=== PATIENT | female | born 1935 | race Caucasian/White ===

== ENCOUNTER → 2016-05-08 | Outpatient (CLI) | payer OTHER ==
[~2016-05-08] MED LIST: BARLEY GRASS PO; CALCTAB5 PO; CHOL100027 PO; CYAN10004 PO; FISHOIL PO; GLC/500 PO; GLIM2TAB PO; GLUCTAB7 PO; KFL500 PO; LOSA25TA18 PO; LPT/40 PO; MULT-190 PO; ONDA4TAB65 PO; THY/30 PO
--- NOTE | 2016-05-08 16:49 | DIAGNOSTIC IMAGING REPORT ---
LEFT FOOT 3 VIEWS HISTORY: S91.309A Wound, open, foot COMPARISON: None. FINDINGS: There is no fracture or dislocation. Mild soft tissue swelling within the dorsal aspect of the forefoot. No bony erosions identified. No radiopaque foreign bodies. Plantar heel spur. IMPRESSION: No bony erosions. No fractures within the left foot. Electronically signed by: Ld Dash M.D. 05/08/2016 4:48 PM Dictated Date/Time: 05/08/2016 4:42 PM
== END | disposition home or self-care (01) ==
LOC: C.RAD1850 15:42
PROVIDERS: ATTEND Nurse Practitioner Adult Health
DX: S91.309A Unspecified open wound, unspecified foot, initial encounter (principal); X58.XXXA Exposure to other specified factors, initial encounter

== ENCOUNTER → 2016-08-12 | Outpatient (CLI) | payer OTHER ==
[2016-08-12 17:33] LABS: URINE APPEARANCE CLEAR (CLEAR); URINE BILIRUBIN NEG (NEG); URINE COLOR YELLOW; URINE NITRITE NEG (NEG); URINE PH 5.5 (4.5-7.5); URINE SPECIFIC GRAVITY 1.017 (1.000-1.030); UROBILINOGEN NEG (NEG); ZZUR CULT IF INDIC CLEAN CATCH NO
[2016-08-12 17:37] LABS: MANUAL MICROSCOPIC REQUIRED? NO; REVIEW REQ? NO
[2016-08-12 17:54] LABS: THYROID STIMULATING HORMONE 1.79 uIu/ml (0.300-4.500)
[2016-08-12 18:10] LABS: RATIO 71.9 mcg/mg (0-30.0)
[2016-08-13 06:34] LABS: ESTIMATED AVERAGE GLUCOSE 174 mg/dl; HA1C FLAG Normal (Normal)
== END | disposition home or self-care (01) ==
LOC: C.LABBFT 11:08
PROVIDERS: ATTEND Internal Medicine
DX: E11.9 Type 2 diabetes mellitus without complications (principal); E03.9 Hypothyroidism, unspecified; E55.9 Vitamin D deficiency, unspecified

== ENCOUNTER → 2016-12-21 | Outpatient (CLI) | payer OTHER ==
[2016-12-21 12:43] LABS: BASO % 0.5 %; BASO ABS # 0.04 K/uL (0-0.2); COMPLETE YES; EOS % 3.7 %; HEMATOCRIT 35.5 % (37-47); IG% 0.2 %; LYMPH % 21.8 %; LYMPH ABS # 1.88 K/uL (1.2-3.4); MEAN CORPUSCULAR HEMOGLOBIN 29.3 pg (25-34); MEAN CORPUSCULAR HGB CONC 31.8 g/dl (32-36); MEAN PLATELET VOLUME 10.8 fL (7.4-10.4); MONO % 7.1 %; NEUT % 66.7 %; PLATELET COUNT 271 K/uL (130-400); RED BLOOD COUNT 3.86 M/uL (4.2-5.4); WHITE BLOOD COUNT 8.62 K/uL (4.8-10.8)
[2016-12-21 13:07] LABS: ESTIMATED AVERAGE GLUCOSE 180 mg/dl; HA1C FLAG Normal (Normal)
[2016-12-21 13:08] LABS: ALT/SGPT 19 U/L (12-78); BLOOD UREA NITROGEN 19 mg/dl (7-18); BUN/CREATININE RATIO 20.4 (10-20); CALCIUM 9.2 mg/dl (8.5-10.1); CARBON DIOXIDE 26 mmol/L (21-32); CHLORIDE 107 mmol/L (98-107); CHOLESTEROL 130 mg/dl (0-200); CREATININE 0.93 mg/dl (0.60-1.20); GLUCOSE 149 mg/dl (70-99); POTASSIUM 4.6 mmol/L (3.5-5.1); SODIUM 140 mmol/L (136-145); TRIGLYCERIDES 152 mg/dl (0-150); VERY LOW DENSITY LIPOPROT CALC 30 mg/dl
[2016-12-21 13:11] LABS: ALB/GLOB RATIO 0.9 (0.9-2); ALKALINE PHOSPHATASE 101 U/L (45-117); AST/SGOT 14 U/L (15-37); CHOLESTEROL/HDL RATIO 2.7; HDL CHOLESTEROL 49 mg/dl; LDL CHOLESTEROL CALCULATED 51 mg/dl
[2016-12-21 14:16] LABS: LYME DISEASE AB IGG NEG (NEG)
[2016-12-21 14:19] LABS: LYME DISEASE AB IGM NEG (NEG)
== END | disposition home or self-care (01) ==
LOC: C.LABBFT 09:45
PROVIDERS: ATTEND Physician Assistant Medical
DX: D64.9 Anemia, unspecified (principal); E11.9 Type 2 diabetes mellitus without complications; E55.9 Vitamin D deficiency, unspecified; E78.00 Pure hypercholesterolemia, unspecified; T14.8 Other injury of unspecified body region; W57.XXXA Bitten or stung by nonvenomous insect and other nonvenomous arthropods, initial encounter

== ENCOUNTER → 2017-04-20 | Outpatient (CLI) | payer OTHER ==
[2017-04-21 06:26] LABS: HEMOGLOBIN A1C 8.4 % (4.5-5.6)
== END | disposition home or self-care (01) ==
LOC: C.LABBFT 11:37
PROVIDERS: ATTEND Internal Medicine
DX: E11.9 Type 2 diabetes mellitus without complications (principal)

== ENCOUNTER 2018-06-30 17:02 | Inpatient (IN) ==
[2018-06-30] MEDS ORDERED: SODIUM CHLORIDE 0.9% 1000ML 1,000 ML IV SCH (18:45)
[2018-06-30 18:57] LABS: Basophils # (auto) 0.05 K/uL (0-0.2); Basophils % (auto) 0.4 %; Hemoglobin 9.4 g/dL (12.0-16.0); Immature Granulocytes # (auto) 0.07 K/uL (0.00-0.02); Immature Granulocytes % (auto) 0.5 %; Lymphocytes # (auto) 2.55 K/uL (1.2-3.4); Lymphocytes % (auto) 19.2 %; Mean Corpuscular Hgb Conc 31.3 g/dL (32-36); Mean Corpuscular Volume 92.3 fL (80-100); Mean Platelet Volume 9.2 fL (7.4-10.4); Monocytes # (auto) 1.03 K/uL (0.11-0.59); Monocytes % (auto) 7.8 %; Neutrophils # (auto) 9.19 K/uL (1.4-6.5); Neutrophils % (auto) 69.1 %; Platelet Count 403 K/uL (130-400); RDW Standard Deviation 44.2 fL (36.4-46.3); Red Blood Count 3.25 M/uL (4.2-5.4); White Blood Count 13.29 K/uL (4.8-10.8)
[2018-06-30 19:13] LABS: Alanine Aminotransferase 16 U/L (12-78); Albumin Level 3.1 gm/dl (3.4-5.0); Aspartate Aminotransferase 10 U/L (15-37); BUN Creatinine Ratio 31.5 (10-20); Blood Urea Nitrogen 34 mg/dl (7-18); Carbon Dioxide 25 mmol/L (21-32); Chloride 105 mmol/L (98-107); Creatinine Clr Calc Pharmacy 29.5 ml/min; Est GFR (African American) 53.6; Est GFR (Non-African American) 46.3; Glucose 91 mg/dl (70-99); Magnesium 1.5 mg/dl (1.8-2.4); Potassium 4.8 mmol/L (3.5-5.1); Sodium 138 mmol/L (136-145)
[2018-06-30 19:18] LABS: Albumin Globulin Ratio 0.8 (0.9-2); Alkaline Phosphatase 125 U/L (45-117); Bilirubin,Total 0.2 mg/dl (0.2-1); Globulin 3.8 gm/dl (2.5-4.0); NT Pro B Type Natriuretic Pept 560 pg/ml (0-1800); Total Protein 6.9 gm/dl (6.4-8.2); Troponin I < 0.015 ng/ml (0-0.045)
[2018-06-30] MEDS ORDERED: VANCOMYCIN HCL 1,250 MG in SODIUM CHLORIDE 0.9% 500 ML IV ONE (20:04)
[2018-06-30] MEDS ORDERED: VANCOMYCIN CONSULT ACTIVE PRN (20:04)
[2018-06-30] MEDS ORDERED: VANCOMYCIN CONSULT ACTIVE ONE (20:04)
--- NOTE | 2018-06-30 20:54 | Ultrasound Report ---
BILATERAL LOWER EXTREMITY VENOUS DOPPLER CLINICAL HISTORY: Lower extremity edema. COMPARISON STUDY: Left lower extremity venous Doppler September 17 2014. Right lower extremity venous Dopp ler October 23, 2009. TECHNIQUE: Sonography of the deep venous system of the bilateral lower extremities was performed. Co mpression and augmentation were evaluated. FINDINGS: Exam was technically compromised due to suboptimal penetration. The bilateral common femor al, superficial femoral and popliteal veins were compressible. Augmentation was normal. Flow was show n within the deep calf vessels. IMPRESSION: Technically difficult but no evidence of deep venous thrombus within the bilateral lower extremities. Electronically signed by: Seth Espinoza M.D. 06/30/2018 8:53 PM
[2018-06-30] MEDS: MAGNESIUM SULFATE / D5W 1 GM/100 ML BAG IV SCH ×2 (20:58→22:53)
[2018-06-30] MEDS ORDERED: ACETAMINOPHEN 1,000 MG/100 ML VIAL IV STA (21:47)
--- NOTE | 2018-06-30 22:56 | History & Physical Report ---
Date of Service June 30, 2018 Assessment & Plan (1) Cellulitis of both lower extremities: Cellulitis of bilateral lower extremities/failure of outpatient treatment-- Patient was on Keflex initially and then doxycycline. Continue vancomycin IV begun in the ED. Add Zosyn IV due to history of diabetes and coverage of Pseudomonas. She does have some mild lower extremity edema and blebs, but overall does look dry, and we will not diurese at this time, but will need to be watched closely for recurrence in the future Present on Admission?: Yes (2) Failure of outpatient treatment: As above. Present on Admission?: Yes (3) Diabetes: Hold metformin. Continue glimepiride, but decreased dosing from 4 mg to 2 mg p.o. twice daily. Placed on Accu-Cheks before meals and at bedtime with NovoLog coverage for scale. Present on Admission?: Yes (4) Vitamin B12 deficiency: Continue supplement 1000 mcg p.o. daily. Present on Admission?: Yes (5) Hypertension: Continue losartan 25 mg p.o. daily Present on Admission?: Yes (6) Hypothyroidism (acquired): Continue [place] Thyroid 60 mg p.o. daily Present on Admission?: Yes (7) Bladder spasm: Continue oxybutynin 5 mg p.o. at bedtime. Present on Admission?: Yes (8) Obesity (BMI 30.0-34.9): Advised appropriate diet and exercise Present on Admission?: Yes (9) Hypomagnesemia: She was given 1 g IV placement by the ED Repeat laboratories in the a.m. Present on Admission?: Yes History of Present Illness Chief Complaint: The patient presented to the emergency department with worsening bilateral lower extremity redness despite treatment with Keflex then doxycycline. Primary Care Provider: JACQUES Lim The patient is an 83-year-old female with a past medical history including diabetes mellitus, hypertension, hypothyroidism, vitamin B12 deficiency who presents to the emergency department with worsening bilateral lower extremity cellulitis after having been on Keflex and then doxycycline. Allergies Allergy/AdvReac Type Severity Reaction Status Date / Time Sulfa (Sulfonamide Allergy Intermediate RASH Verified 05/20/18 22:02 Antibiotics) adhesive Allergy Unknown UNKNOWN Verified 05/20/18 22:02 aspirin Allergy Unknown Unknown Verified 05/20/18 22:02 Bactrim Allergy Unknown Nausea/Vomi Verified 09/17/14 19:04 ting/Rash iodine Allergy Unknown Unknown Verified 05/20/18 22:02 lisinopril Allergy Unknown Unknown Verified 05/20/18 22:02 prochlorperazine Allergy Unknown Unknown Verified 05/20/18 22:02 sulfamethoxazole Allergy Unknown Nausea/Vomi Verified 05/20/18 22:02 ting/Rash trimethoprim Allergy Unknown Nausea/Vomi Verified 05/20/18 22:02 ting/Rash tigecycline AdvReac Unknown Nausea/Vomi Verified 05/20/18 22:02 ting Home Medications Home Medications Medication Instructions Recorded Confirmed Type cholecalciferol (vitamin D3) 1,000 unit PO DAILY 05/04/18 06/30/18 History [Vitamin D3] cyanocobalamin (vitamin B-12) 1,000 mcg PO DAILY 05/04/18 06/30/18 History [Vitamin B-12] glimepiride 4 mg PO BID 05/04/18 06/30/18 History losartan 25 mg PO DAILY 05/04/18 06/30/18 History metformin 1,000 mg PO QPM 05/04/18 06/30/18 History metformin 500 mg PO DAILYBL 05/04/18 06/30/18 History oxybutynin chloride 5 mg PO HS 05/04/18 06/30/18 History thyroid (pork) [[place] Thyroid] 60 mg PO DAILY 05/04/18 06/30/18 History doxycycline hyclate 100 mg PO BID 06/30/18 06/30/18 History Past Med/Surg History Medical History Arthritis (Chronic) Rheumatic heart disease (Chronic) Diabetes (Chronic) Family History Other Family history non-contributory Social History Preferred Language: Armenian Feels Safe at Home: Yes Smoking Status: Never smoker Review of Systems The patient denies chest pain, palpitations, shortness of breath, dyspnea on exertion, cough, sore throat, fevers, chills, sweats, weight change, fatigue, nausea, vomiting, diarrhea , constipation, abdominal pain, pelvic pain, blood in urine or stool, dysuria, urinary frequency or urgency, lightheadedness, dizziness, headache, loss of consciousness, abnormal bruising or bleeding, imbalance, focal or generalized weakness, numbness or tingling in arms, generalized arthralgias or myalgias, back or neck pain, or night sweats. The review of systems is otherwise negative other than for that already noted above, and at least 10 systems have been reviewed. Physical Exam Vital Signs (Past 24 Hours): Last Vital Signs Temp 37 C 06/30/18 17:23 Pulse 103 H 06/30/18 21:04 Resp 20 06/30/18 21:04 BP 156/79 H 06/30/18 21:04 Pulse Ox 98 06/30/18 21:04 Physical Exam: The patient is awake, alert and oriented 3, well developed and well nourished, normocephalic and atraumatic, lying in bed and in no acute distress. HEENT--PERRL, EOMI, mucous membranes and oropharynx normal. Neck--supple. No JVD. No bruits. Thyroid normal, trachea midline, no adenopathy. Heart--normal S1 and S2. No murmurs, rubs or gallops. Lungs--clear bilaterally, no respiratory distress, no accessory muscle use. Abdomen--normal bowel sounds and soft. Nontender. Nondistended. Obese. Extremities--no cyanosis or clubbing. There is 1+ right greater than left pretibial pitting edema. There are good distal pulses b/l. Dermatologic--there is mild to moderate rash bilaterally extending from ankle to anterior tibial tuberosity bilaterally Neurologic--cranial nerves II through XII grossly intact. Rheumatologic--normal range of motion. Psychiatric--normal affect. Results & Data Laboratory Results Laboratory Results WBC 13.29 K/uL (4.8-10.8) H 06/30/18 18:48 RBC 3.25 M/uL (4.2-5.4) L 06/30/18 18:48 Hgb 9.4 g/dL (12.0-16.0) L 06/30/18 18:48 Hct 30.0 % (37-47) L 06/30/18 18:48 MCV 92.3 fL (80-100) 06/30/18 18:48 MCH 28.9 pg (25-34) 06/30/18 18:48 MCHC 31.3 g/dL (32-36) L 06/30/18 18:48 RDW Std Deviation 44.2 fL (36.4-46.3) 06/30/18 18:48 RDW Coeff of Sydnie 13.0 % (11.5-14.5) 06/30/18 18:48 Plt Count 403 K/uL (130-400) H 06/30/18 18:48 MPV 9.2 fL (7.4-10.4) 06/30/18 18:48 Immature Gran % (Auto) 0.5 % 06/30/18 18:48 Neut % (Auto) 69.1 % 06/30/18 18:48 Lymph % (Auto) 19.2 % 06/30/18 18:48 [place] % (Auto) 7.8 % 06/30/18 18:48 Eos % (Auto) 3.0 % 06/30/18 18:48 Baso % (Auto) 0.4 % 06/30/18 18:48 Immature Gran # (Auto) 0.07 K/uL (0.00-0.02) H 06/30/18 18:48 Neut # (Auto) 9.19 K/uL (1.4-6.5) H 06/30/18 18:48 Lymph # (Auto) 2.55 K/uL (1.2-3.4) 06/30/18 18:48 [place] # (Auto) 1.03 K/uL (0.11-0.59) H 06/30/18 18:48 Eos # (Auto) 0.40 K/uL (0-0.5) 06/30/18 18:48 Baso # (Auto) 0.05 K/uL (0-0.2) 06/30/18 18:48 Sodium 138 mmol/L (136-145) 06/30/18 18:48 Potassium 4.8 mmol/L (3.5-5.1) 06/30/18 18:48 Chloride 105 mmol/L (98-107) 06/30/18 18:48 Carbon Dioxide 25 mmol/L (21-32) 06/30/18 18:48 Anion Gap 7.0 (3-11) 06/30/18 18:48 BUN 34 mg/dl (7-18) H 06/30/18 18:48 Creatinine 1.09 mg/dl (0.6-1.2) 06/30/18 18:48 Est Cr Clr Drug Dosing 29.5 ml/min 06/30/18 18:48 Est GFR ( Amer) 53.6 06/30/18 18:48 Est GFR (Non-Af Amer) 46.3 06/30/18 18:48 BUN/Creatinine Ratio 31.5 (10-20) H 06/30/18 18:48 Glucose 91 mg/dl (70-99) 06/30/18 18:48 Calcium 9.0 mg/dl (8.5-10.1) 06/30/18 18:48 Magnesium 1.5 mg/dl (1.8-2.4) L 06/30/18 18:48 Total Bilirubin 0.2 mg/dl (0.2-1) 06/30/18 18:48 AST 10 U/L (15-37) L 06/30/18 18:48 ALT 16 U/L (12-78) 06/30/18 18:48 Alkaline Phosphatase 125 U/L (45-117) H 06/30/18 18:48 Troponin I < 0.015 ng/ml (0-0.045) 06/30/18 18:48 NT-Pro-B Natriuret Pep 560 pg/ml (0-1800) 06/30/18 18:48 Total Protein 6.9 gm/dl (6.4-8.2) 06/30/18 18:48 Albumin 3.1 gm/dl (3.4-5.0) L 06/30/18 18:48 Globulin 3.8 gm/dl (2.5-4.0) 06/30/18 18:48 Albumin/Globulin Ratio 0.8 (0.9-2) L 06/30/18 18:48 Diagnostic Findings [facility], [place] [phone] Ultrasound Report Patient: LORRAINE LAGUNAS Date: 06/30/18 MR#: [id number]: [address] Acct ID:[id number]: [facility] Zip: [place] [id number] Age: 83Location: ED Sex: F Room/Bed: Att Phy: Diagnosis: B/L PAIN SWELLING, HOT, CELLULITIS OF LEGS [place] Phy: Marly Calvillo CRNPService Date: 06/30/18 Fam Phy: Interpreting Phy: Seth Espinoza MD Admit Phy: Ordering Phy: Waleska Cutler, cc: ~ BILATERAL LOWER EXTREMITY VENOUS DOPPLER CLINICAL HISTORY: Lower extremity edema. COMPARISON STUDY: Left lower extremity venous Doppler September 17 2014. Right lower extremity venous Doppler October 23, 2009. TECHNIQUE: Sonography of the deep venous system of the bilateral lower extremities was performed. Compression and augmentation were evaluated. FINDINGS: Exam was technically compromised due to suboptimal penetration. The bilateral common femoral, superficial femoral and popliteal veins were compressible. Augmentation was normal. Flow was shown within the deep calf vessels. IMPRESSION: Technically difficult but no evidence of deep venous thrombus within the bilateral lower extremities. Electronically signed by: Seth Espinoza M.D. 06/30/2018 8:53 PM Dictated: 06/30/182051 Transcribed: 06/30/182051 Code Status & VTE Plan Code Status Full code VTE Prophylaxis Plan VTE Prophylaxis will be ordered: Yes
[2018-07-01] MEDS ORDERED: GLUCOSE 10 TABS/TUBE PO PRN (00:19)
[2018-07-01] MEDS ORDERED: ACETAMINOPHEN 1000 MG/100 ML IV IV PRN (00:19)
[2018-07-01] MEDS ORDERED: PIPERACILL/TAZOBAC CONSULT ACTIVE PRN (00:19)
[2018-07-01] MEDS ORDERED: POLYETHYLENE (MIRALAX) 17 GM PACK PO PRN (00:19)
[2018-07-01] MEDS ORDERED: GLUCAGON FOR INJ 1 MG VIAL SQ PRN (00:19)
[2018-07-01] MEDS ORDERED: DEXTROSE 50% 50 ML SYRINGE IV PRN (00:19)
[2018-07-01] MEDS ORDERED: CARBOHYDRATES FOR HYPOGLYCEMIA PO PRN (00:19)
[2018-07-01] MEDS ORDERED: GLUCOSE 40% GEL 15 GM TUBE PO PRN (00:19)
[2018-07-01] MEDS ORDERED: VANCOMYCIN CONSULT ACTIVE PRN (00:19)
[2018-07-01] MEDS ORDERED: ONDANSETRON INJ 2 MG/ML 2 ML VIAL IV PRN (00:19)
[2018-07-01] MEDS ORDERED: VANCOMYCIN HCL 1,000 MG/270 ML BAG IV STA (00:19)
[2018-07-01] MEDS ORDERED: PIPERACILLIN/TAZOBACTAM 3.375 GM in DEXTROSE 5% 100 ML IV ONE (00:35)
[2018-07-01] MEDS: PIPERACILLIN/TAZOBACTAM 3.375 GM in DEXTROSE 5% 100 ML IV SCH ×3 (05:21→21:11)
[2018-07-01 06:50] LABS: Basophils # (auto) 0.02 K/uL (0-0.2); Basophils % (auto) 0.2 %; Eosinophils # (auto) 0.33 K/uL (0-0.5); Eosinophils % (auto) 3.2 %; Hematocrit (blood only) 29.2 % (37-47); Hemoglobin 9.3 g/dL (12.0-16.0); Immature Granulocytes # (auto) 0.04 K/uL (0.00-0.02); Immature Granulocytes % (auto) 0.4 %; Lymphocytes # (auto) 1.61 K/uL (1.2-3.4); Lymphocytes % (auto) 15.6 %; Mean Corpuscular Hgb Conc 31.8 g/dL (32-36); Mean Corpuscular Volume 91.8 fL (80-100); Mean Platelet Volume 9.2 fL (7.4-10.4); Monocytes % (auto) 6.8 %; Neutrophils % (auto) 73.8 %; Platelet Count 380 K/uL (130-400); RDW Standard Deviation 43.9 fL (36.4-46.3); Red Blood Count 3.18 M/uL (4.2-5.4)
[2018-07-01 07:05] LABS: Partial Thromboplastin Time 27.6 Seconds (21.0-31.0); Prothrombin Time 10.4 Seconds (9.0-12.0)
[2018-07-01 07:28] LABS: Albumin Level 2.6 gm/dl (3.4-5.0); Calcium 8.3 mg/dl (8.5-10.1); Creatinine Clr Calc Pharmacy 30.8 ml/min; Est GFR (African American) 55.4; Est GFR (Non-African American) 47.8; Potassium 4.4 mmol/L (3.5-5.1)
[2018-07-01 07:31] LABS: Albumin Globulin Ratio 0.7 (0.9-2); Bilirubin,Total 0.3 mg/dl (0.2-1); Globulin 3.5 gm/dl (2.5-4.0); Total Protein 6.1 gm/dl (6.4-8.2)
[2018-07-01 07:38] LABS: Estimated Average Glucose 186 mg/dl; Hemoglobin A1C 8.1 % (4.5-5.6)
[2018-07-01] MEDS: LOSARTAN POTASSIUM 25 MG TAB PO SCH (07:45)
[2018-07-01] MEDS: CHOLECALCIFEROL 1,000 UNITS TAB PO SCH (07:46)
[2018-07-01] MEDS: GLIMEPIRIDE 2 MG TAB PO SCH ×2 (07:46→21:07)
[2018-07-01] MEDS: ARMOUR THYROID 30 MG TAB PO SCH (07:46)
[2018-07-01] MEDS: CYANOCOBALAMIN 500 MCG TABLET (VITAMIN B-12) PO SCH (07:46)
[2018-07-01] MEDS: INSULIN ASPART 100 UNITS/ML 3 ML PEN SC SCH ×4 (09:27→21:08)
[2018-07-01] MEDS: HEPARIN SOD 5,000 UNIT/0.5 ML VIAL SQ SCH ×2 (09:28→21:08)
--- NOTE | 2018-07-01 10:58 | Pharmacy Report ---
Pharmacy Abx Initial Consult - Date of Service July 01, 2018 - Pharmacy Dosing Scope Date of Consult: 07/01/18 Consultation requested by: Dr. Reyes Pharmacy is consulted to initiate Vancomycin and Zosyn IV dosing therapy, order appropriate labs and adjust drug dose/frequency. - Subjective The patient is a 83 year old F admitted on 06/30/18 22:53. - Objective Height: 4 ft 9 in Weight: 67.7 kg Vital Signs (Past 12hrs): Vital Signs Temp Pulse Pulse Resp BP Pulse Ox 07/01/18 08:02 36.7 C 101 H 20 143/70 H 95 07/01/18 00:19 36.6 C 104 H 18 131/91 93 06/30/18 23:48 106 H 17 182/52 H 97 06/30/18 23:00 100 H 19 94 Lab Results (24hrs): Laboratory Tests (24 Hours) 07/01/18 07/01/18 06/30/18 06:18 06:18 18:48 WBC 10.30 Neut # (Auto) 7.60 H Creatinine 1.06 1.09 Est Cr Clr Drug Dosing 30.8 29.5 06/30/18 18:48 WBC 13.29 H Neut # (Auto) 9.19 H Creatinine Est Cr Clr Drug Dosing Micro Results: 06/30/18 19:51 Blood Culture - Pending Blood 06/30/18 18:47 Blood Culture - Pending Blood - Risk Factors for Resistance * Antimicrobial use within the last 90 days - failed two outpt regimens, first Keflex 500mg TID X 10 days (06/13-06/23, unsure if completed), then Doxycycline 100mg BID X10 days (06/21-07/01, unsure if completed). - Assessment & Plan Assessment 83 year old F with a PMH of T2DM who presented to the ER with worsening bilateral lower extremity cellulitis after a 10 day course of Keflex and then doxycycline. Plan Vancomycin and Zosyn for treatment of bilateral extremity cellulitis. Vancomycin IV * Estimated PK Parameters: Vd 0.7 L/kg, George 0.029 hr-1, t1/2 24 hr * Loading dose: 1250 mg ( ~18 mg/kg) x1 in the ER. * Maintenance dose: 1000 mg IV (15 mg/kg) every 24 hours * Goal trough level : 10 to 15 mcg/mL * Started maintenance regimen earlier since LD was only about 18mg/kg. Anticipate that clearance may actually be faster than estimated kinetics. * Trough/Random level ordered for 07/03/18 before 4th dose at 1400. Piperacillin/tazobactam * 3.375 g bolus administered over 30 minutes, then 3.375 g IV extended infusion every 8 hours for CrCl greater than 20 mL/min. Pharmacy will continue to follow and will adjust dose/frequency as necessary. Thank you.
[2018-07-01] MEDS: VANCOMYCIN HCL 1,000 MG in SODIUM CHLORIDE 0.9% 250 ML IV SCH (13:54)
[2018-07-01] MEDS ORDERED: FUROSEMIDE 20 MG in SYRINGE 0 ML IV ONE (14:00)
--- NOTE | 2018-07-01 14:19 | Hospitalist Progress Note ---
Date of Service July 01, 2018 Assessment & Plan (1) Cellulitis of both lower extremities: More likely this is stasis dermatitis with skin erythema Patient was on Keflex initially and then doxycycline outpatient without change to condition Will continue IV Vanc and Zosyn begun on admission, if no growth on BC after 48 hours, will cut antibiotics Patient reports she has been non compliant with furosemide in the past because of urinary frequency keeping her from leaving the house. Will give 20 mg IV lasix now, prop legs up as much as possible, MARISELA hose. Patient also has not wanted to wear TEDs at home due to discomfort. She has pain in her feet with numbness - may consider some gabapentin but will see if a bit of diuresis to relieve the swelling helps first (2) Failure of outpatient treatment: As above. (3) Diabetes: Hold metformin. Continue glimepiride, but decreased dosing from 4 mg to 2 mg p.o. twice daily. Placed on Accu-Cheks before meals and at bedtime with NovoLog coverage for scale. (4) Vitamin B12 deficiency: Continue supplement 1000 mcg p.o. daily. (5) Hypertension: Continue losartan 25 mg p.o. daily (6) Hypothyroidism (acquired): Continue [place] Thyroid 60 mg p.o. daily (7) Bladder spasm: Continue oxybutynin 5 mg p.o. at bedtime. (8) Obesity (BMI 30.0-34.9): Advised appropriate diet and exercise (9) Hypomagnesemia: She was given 1 g IV placement by the ED Repeat laboratories in the a.m. (10) DVT prophylaxis: heparin subq, scds Subjective Ms. Sterling continues to have painful feet, edema and redness in her lower legs. Denies aches or chills or fever. Review of Systems All systems reviewed & are unremarkable except as noted in HPI & below Physical Exam Vital Signs (Past 24 Hours): Last Vital Signs Temp 36.7 C 07/01/18 08:02 Pulse 101 H 07/01/18 08:02 Resp 20 07/01/18 08:02 BP 143/70 H 07/01/18 08:02 Pulse Ox 95 07/01/18 08:02 Physical Exam: General: no distress Eyes: normal inspection, PERLL Respiratory: chest non tender, clear to auscultation, normal breath sounds, no respiratory distress, no accessory muscle use Cardiac: regular rate and rhythm, no rub or gallop, no murmur, +2 lower extremity edema R>L GI/: active bowel sounds, no abd pain or tenderness, soft, non distended Extremities: normal range of motion, normal strength, non tender Neuro/Psych: alert and oriented x 3, normal mood and affect Skin: bilateral lower extremities erythema Results & Data Laboratory Results Abnormal lab results 06/30/18 06/30/18 07/01/18 Range/Units 18:48 18:48 06:18 WBC 13.29 H (4.8-10.8) K/uL RBC 3.25 L 3.18 L (4.2-5.4) M/uL Hgb 9.4 L 9.3 L (12.0-16.0) g/dL Hct 30.0 L 29.2 L (37-47) % MCHC 31.3 L 31.8 L (32-36) g/dL Plt Count 403 H (130-400) K/uL Immature Gran # (Auto) 0.07 H 0.04 H (0.00-0.02) K/uL Neut # (Auto) 9.19 H 7.60 H (1.4-6.5) K/uL [place] # (Auto) 1.03 H 0.70 H (0.11-0.59) K/uL Chloride (98-107) mmol/L BUN 34 H (7-18) mg/dl BUN/Creatinine Ratio 31.5 H (10-20) Glucose (70-99) mg/dl POC Glucose (70-99) Hemoglobin A1c (4.5-5.6) % Calcium (8.5-10.1) mg/dl Magnesium 1.5 L (1.8-2.4) mg/dl AST 10 L (15-37) U/L Alkaline Phosphatase 125 H (45-117) U/L Total Protein (6.4-8.2) gm/dl Albumin 3.1 L (3.4-5.0) gm/dl Albumin/Globulin Ratio 0.8 L (0.9-2) 07/01/18 07/01/18 07/01/18 Range/Units 06:18 06:18 07:44 WBC (4.8-10.8) K/uL RBC (4.2-5.4) M/uL Hgb (12.0-16.0) g/dL Hct (37-47) % MCHC (32-36) g/dL Plt Count (130-400) K/uL Immature Gran # (Auto) (0.00-0.02) K/uL Neut # (Auto) (1.4-6.5) K/uL [place] # (Auto) (0.11-0.59) K/uL Chloride 109 H (98-107) mmol/L BUN 27 H (7-18) mg/dl BUN/Creatinine Ratio 25.0 H (10-20) Glucose 182 H (70-99) mg/dl POC Glucose 196 H (70-99) Hemoglobin A1c 8.1 H (4.5-5.6) % Calcium 8.3 L (8.5-10.1) mg/dl Magnesium (1.8-2.4) mg/dl AST 10 L (15-37) U/L Alkaline Phosphatase (45-117) U/L Total Protein 6.1 L (6.4-8.2) gm/dl Albumin 2.6 L (3.4-5.0) gm/dl Albumin/Globulin Ratio 0.7 L (0.9-2) // Range/Units 11:12 WBC (4.8-10.8) K/uL RBC (4.2-5.4) M/uL Hgb (12.0-16.0) g/dL Hct (37-47) % MCHC (32-36) g/dL Plt Count (130-400) K/uL Immature Gran # (Auto) (0.00-0.02) K/uL Neut # (Auto) (1.4-6.5) K/uL [place] # (Auto) (0.11-0.59) K/uL Chloride (98-107) mmol/L BUN (7-18) mg/dl BUN/Creatinine Ratio (10-20) Glucose (70-99) mg/dl POC Glucose 282 H (70-99) Hemoglobin A1c (4.5-5.6) % Calcium (8.5-10.1) mg/dl Magnesium (1.8-2.4) mg/dl AST (15-37) U/L Alkaline Phosphatase (45-117) U/L Total Protein (6.4-8.2) gm/dl Albumin (3.4-5.0) gm/dl Albumin/Globulin Ratio (0.9-2)
[2018-07-01] MEDS ORDERED: VANCOMYCIN HCL 1,000 MG in SODIUM CHLORIDE 0.9% 250 ML IV SCH (18:00)
[2018-07-01] MEDS: OXYBUTYNIN CHLORIDE XL 5 MG TABCR PO SCH (21:07)
[2018-07-01] MEDS: ACETAMINOPHEN 325 MG TAB PO PRN (21:13)
[2018-07-02] MEDS: ACETAMINOPHEN 325 MG TAB PO PRN (03:57)
[2018-07-02] MEDS: PIPERACILLIN/TAZOBACTAM 3.375 GM in DEXTROSE 5% 100 ML IV SCH ×3 (06:22→21:44)
[2018-07-02] MEDS: LOSARTAN POTASSIUM 25 MG TAB PO SCH (07:58)
[2018-07-02] MEDS: ARMOUR THYROID 30 MG TAB PO SCH (07:58)
[2018-07-02] MEDS: GLIMEPIRIDE 2 MG TAB PO SCH ×2 (07:59→18:40)
[2018-07-02] MEDS: CYANOCOBALAMIN 500 MCG TABLET (VITAMIN B-12) PO SCH (07:59)
[2018-07-02] MEDS: CHOLECALCIFEROL 1,000 UNITS TAB PO SCH (07:59)
[2018-07-02] MEDS: HEPARIN SOD 5,000 UNIT/0.5 ML VIAL SQ SCH ×2 (07:59→21:43)
[2018-07-02 08:18] LABS: Prothrombin Time 10.6 Seconds (9.0-12.0)
[2018-07-02] MEDS: INSULIN ASPART 100 UNITS/ML 3 ML PEN SC SCH ×4 (08:22→21:43)
[2018-07-02 08:39] LABS: Albumin Level 2.5 gm/dl (3.4-5.0); BUN Creatinine Ratio 24.1 (10-20); Calcium 8.3 mg/dl (8.5-10.1); Creatinine Clr Calc Pharmacy 25.7 ml/min; Est GFR (African American) 44.6; Est GFR (Non-African American) 38.5; Magnesium 1.9 mg/dl (1.8-2.4); Potassium 4.2 mmol/L (3.5-5.1); Uric Acid 4.6 mg/dl (2.6-7.2)
[2018-07-02 08:40] LABS: Basophils # (auto) 0.04 K/uL (0-0.2); Basophils % (auto) 0.4 %; Eosinophils # (auto) 0.42 K/uL (0-0.5); Eosinophils % (auto) 4.4 %; Hematocrit (blood only) 29.5 % (37-47); Hemoglobin 9.6 g/dL (12.0-16.0); Immature Granulocytes # (auto) 0.04 K/uL (0.00-0.02); Immature Granulocytes % (auto) 0.4 %; Lymphocytes # (auto) 2.02 K/uL (1.2-3.4); Mean Corpuscular Hgb Conc 32.5 g/dL (32-36); Mean Corpuscular Volume 89.4 fL (80-100); Mean Platelet Volume 9.6 fL (7.4-10.4); Monocytes # (auto) 0.63 K/uL (0.11-0.59); Monocytes % (auto) 6.5 %; Neutrophils # (auto) 6.48 K/uL (1.4-6.5); Neutrophils % (auto) 67.3 %; Platelet Count 301 K/uL (130-400); RDW Coefficient of Variation 13.1 % (11.5-14.5); RDW Standard Deviation 42.6 fL (36.4-46.3); White Blood Count 9.63 K/uL (4.8-10.8)
[2018-07-02 08:42] LABS: Albumin Globulin Ratio 0.7 (0.9-2); Bilirubin,Total 0.3 mg/dl (0.2-1); Globulin 3.5 gm/dl (2.5-4.0)
[2018-07-02] MEDS ORDERED: FUROSEMIDE 20 MG in SYRINGE 0 ML IV ONE (10:30)
[2018-07-02] MEDS ORDERED: GLIMEPIRIDE 2 MG TAB PO ONE (11:00)
--- NOTE | 2018-07-02 11:27 | Hospitalist Progress Note ---
Date of Service July 02, 2018 Assessment & Plan (1) Cellulitis of both lower extremities: More likely this is stasis dermatitis with skin erythema Patient was on Keflex initially and then doxycycline outpatient without change to condition Will continue IV Vanc and Zosyn begun on admission, if no growth on BC after 48 hours, will cut antibiotics Patient reports she has been non compliant with furosemide in the past because of urinary frequency keeping her from leaving the house. Gave 20 mg IV lasix 07/01 which did help with the swelling. Creat increased by .2 so will hold off on further diuresis today, may be able to give another dose tomorrow. Cotninue to prop legs up as much as possible, patient refusing MARISELA hose. She has pain in her feet with numbness - may consider gabapentin, no joint tenderness, uric acid was normal (2) Failure of outpatient treatment: As above. (3) Diabetes: Hold metformin. Continue glimepiride, will increase her to home dose of 4 mg bid from 2 as her bsgs have been elevated Continue Accu-Cheks before meals and at bedtime with NovoLog coverage for scale. (4) Vitamin B12 deficiency: Continue supplement 1000 mcg p.o. daily. (5) Hypertension: Continue losartan 25 mg p.o. daily (6) Hypothyroidism (acquired): Continue [place] Thyroid 60 mg p.o. daily (7) Bladder spasm: Continue oxybutynin 5 mg p.o. at bedtime. (8) Obesity (BMI 30.0-34.9): Advised appropriate diet and exercise (9) Hypomagnesemia: Replaced (10) DVT prophylaxis: heparin subq, scds Subjective MsFrederick Sterling's edema has improved somewhat. She still has some pain in her feet. Review of Systems All systems reviewed & are unremarkable except as noted in HPI & below Physical Exam Vital Signs (Past 24 Hours): Last Vital Signs Temp 36.9 C 07/02/18 07:42 Pulse 93 H 07/02/18 07:42 Resp 18 07/02/18 07:42 BP 133/70 07/02/18 07:42 Pulse Ox 97 07/02/18 07:42 Physical Exam: General: no distress Eyes: normal inspection, PERLL Respiratory: chest non tender, clear to auscultation, normal breath sounds, no respiratory distress, no accessory muscle use Cardiac: regular rate and rhythm, no rub or gallop, systolic murmur, trace pitting edema lower extremities GI/: active bowel sounds, no abd pain or tenderness, soft, non distended Extremities: normal range of motion, normal strength, non tender Neuro/Psych: alert and oriented x 3, normal mood and affect Skin: normal color, dry, lower extremities erythematous bilaterally Results & Data Laboratory Results Abnormal lab results 07/01/18 07/01/18 07/02/18 Range/Units 16:17 20:23 07:38 RBC (4.2-5.4) M/uL Hgb (12.0-16.0) g/dL Hct (37-47) % Immature Gran # (Auto) (0.00-0.02) K/uL [place] # (Auto) (0.11-0.59) K/uL Chloride 108 H (98-107) mmol/L BUN 31 H (7-18) mg/dl Creatinine 1.27 H (0.6-1.2) mg/dl BUN/Creatinine Ratio 24.1 H (10-20) Glucose 184 H (70-99) mg/dl POC Glucose 247 H 134 H (70-99) Calcium 8.3 L (8.5-10.1) mg/dl AST 14 L (15-37) U/L Total Protein 6.0 L (6.4-8.2) gm/dl Albumin 2.5 L (3.4-5.0) gm/dl Albumin/Globulin Ratio 0.7 L (0.9-2) 07/02/18 07/02/18 07/02/18 Range/Units 08:11 08:30 12:00 RBC 3.30 L (4.2-5.4) M/uL Hgb 9.6 L (12.0-16.0) g/dL Hct 29.5 L (37-47) % Immature Gran # (Auto) 0.04 H (0.00-0.02) K/uL [place] # (Auto) 0.63 H (0.11-0.59) K/uL Chloride (98-107) mmol/L BUN (7-18) mg/dl Creatinine (0.6-1.2) mg/dl BUN/Creatinine Ratio (10-20) Glucose (70-99) mg/dl POC Glucose 206 H 236 H (70-99) Calcium (8.5-10.1) mg/dl AST (15-37) U/L Total Protein (6.4-8.2) gm/dl Albumin (3.4-5.0) gm/dl Albumin/Globulin Ratio (0.9-2)
[2018-07-02] MEDS: VANCOMYCIN HCL 1,000 MG in SODIUM CHLORIDE 0.9% 250 ML IV SCH (13:50)
--- NOTE | 2018-07-02 16:54 | Emergency Department Note ---
Entered by Adry Lovell acting as a scribe for Waleska Cutler DO History of Present Illness General Chief complaint: Leg Injury/Pain Stated complaint: B/L PAIN SWELLING, HOT, CELLULITIS OF LEGS Time Seen by Provider: 06/30/18 18:19 Source: patient Mode of arrival: ambulatory Limitations: no limitations History of Present Illness Provider complaint: Leg Swelling Onset (ago): month(s) 1 Location: lower extremity, left and right Severity: moderate Pain Consistency: + constant Maximum Pain Intensity: 8 Associated symptoms: + denies other symptoms and + other (leg pain, leg redness) Patient is an 83 year old female presenting to the ED with bilateral leg swelling beginning x1 month ago. Patient states that leg swelling is moderate in severity and worsening since onset, worse in the right than left. Redness radiated from the ankle up to the knee on both legs. Daughter shares that she has been on cephalexin and doxycycline already for the diagnosed cellulitis. She has had x7 days of her 10 day Doxycycline. Leg swelling has associated pain, which is also moderate in severity and constant since onset. She notes she is having trouble walking. She denies any nausea, vomiting, fevers, chills, CP, SOB, or any other complaints or concerns at this time. She also include she was seen in the ED within the past few months of dehydration, fall and diarrhea. She denies any hx of MRSA. Home Medications Home Medications Medication Instructions Recorded Confirmed Type cholecalciferol (vitamin D3) 1,000 unit PO DAILY 05/04/18 06/30/18 History [Vitamin D3] cyanocobalamin (vitamin B-12) 1,000 mcg PO DAILY 05/04/18 06/30/18 History [Vitamin B-12] glimepiride 4 mg PO BID 05/04/18 06/30/18 History losartan 25 mg PO DAILY 05/04/18 06/30/18 History metformin 1,000 mg PO QPM 05/04/18 06/30/18 History metformin 500 mg PO DAILYBL 05/04/18 06/30/18 History oxybutynin chloride 5 mg PO HS 05/04/18 06/30/18 History thyroid (pork) [Delight Thyroid] 60 mg PO DAILY 05/04/18 06/30/18 History doxycycline hyclate 100 mg PO BID 06/30/18 06/30/18 History Allergies Allergy/AdvReac Type Severity Reaction Status Date / Time Sulfa (Sulfonamide Allergy Intermediate RASH Verified 05/20/18 22:02 Antibiotics) adhesive Allergy Unknown UNKNOWN Verified 05/20/18 22:02 aspirin Allergy Unknown Unknown Verified 05/20/18 22:02 Bactrim Allergy Unknown Nausea/Vomi Verified 09/17/14 19:04 ting/Rash iodine Allergy Unknown Unknown Verified 05/20/18 22:02 lisinopril Allergy Unknown Unknown Verified 05/20/18 22:02 prochlorperazine Allergy Unknown Unknown Verified 05/20/18 22:02 sulfamethoxazole Allergy Unknown Nausea/Vomi Verified 05/20/18 22:02 ting/Rash trimethoprim Allergy Unknown Nausea/Vomi Verified 05/20/18 22:02 ting/Rash tigecycline AdvReac Unknown Nausea/Vomi Verified 05/20/18 22:02 ting Past Med/Surg History Medical History Arthritis (Chronic) Rheumatic heart disease (Chronic) Diabetes (Chronic) Family History Other Family history non-contributory Social History Communication Ability: Effective Beliefs That Will Affect Care: None Current Living Situation: Spouse Other Information That Helps Us Care for You: Yes Feels Safe at Home: Yes Smoking Status: Never smoker Hx Alcohol Use: No Hx Substance Use: No Review of Systems See HPI for pertinent positives & negatives. and A total of 10 systems reviewed and were otherwise negative Physical Exam Vital Signs Vital Signs - 24 hr 07/01/18 23:45 07/02/18 07:42 07/02/18 15:00 Temperature 36.3 C L 36.9 C 36.6 C Temperature Source Oral Oral Oral Pulse Rate [Finger] 97 H 93 H 85 Pulse Rhythm [Finger] Regular Pulse Strength [Finger] Normal Respiratory Rate 18 18 18 Respiratory Effort / Characteristics Non-Labored Respiratory Depth Normal Respiratory Pattern Regular Blood Pressure [Left Arm] 121/53 L 133/70 116/66 Blood Pressure Mean [Left Arm] 75 91 82 Blood Pressure Position [Left Arm] Lying Pulse Oximetry 91 97 99 Oxygen Delivery Method Room Air GENERAL: alert, well appearing, well nourished, no distress, non-toxic EYE EXAM: normal conjunctiva, PERRL and EOM's grossly intact OROPHARYNX: no exudate, no erythema, lips, buccal mucosa, and tongue normal and mucous membranes are moist NECK: supple, no nuchal rigidity, no adenopathy, non-tender LUNGS: Clear to auscultation. Normal chest wall mechanics HEART: no murmurs, S1 normal and S2 normal ABDOMEN: abdomen soft, non-tender, normo-active bowel sounds, no masses, no rebound or guarding. BACK: Back is symmetrical on inspection and there is no deformity, no midline tenderness, no CVA tenderness. SKIN: no rashes and no bruising UPPER EXTREMITIES: upper extremities are grossly normal. Nml pulses b/l. LOWER EXTREMITIES: Bilateral lower extremity edema. Mild erythema to right lower extremity. Normal pulses bilaterally. Normal sensation. Normal cap refill. No evidence of trauma. NEURO EXAM: Normal sensorium, cranial nerves II-XII grossly intact, normal speech, no gross weakness of arms, no gross weakness of legs. Course 1825: Past medical records reviewed. The patient was evaluated in room A03, and a complete history and physical examination were performed. 2153: Reassessed patient and updated on results. Patient will be admitted, family is agreeable to plan. 2153: Reassessed patient. Patient will be admitted, family is agreeable to plan. Administered Medications Acetaminophen (Tylenol) 650 mg PO Q4H PRN PRN Reason: pain/fever Stop: 07/31/18 00:18 Last Admin: 07/02/18 03:57 Dose: 650 mg Documented by: [id number] Admin: 07/01/18 21:13 Dose: 650 mg Documented by: [id number] Cyanocobalamin (Vitamin B-12) 1,000 mcg PO DAILY JERRI Stop: 07/31/18 08:59 Last Admin: 07/02/18 07:59 Dose: 1,000 mcg Documented by: [id number] Admin: 07/01/18 07:46 Dose: 1,000 mcg Documented by: [id number] Heparin Sodium (Porcine) (Heparin Sodium (Porcine)) 5,000 units SQ Q12 JERRI Stop: 07/31/18 08:59 Last Admin: 07/02/18 07:59 Dose: 5,000 units Documented by: [id number] Cosigned by: [id number] Admin: 07/01/18 21:08 Dose: 5,000 units Documented by: [id number] Cosigned by: [id number] Admin: 07/01/18 09:28 Dose: 5,000 units Documented by: [id number] Cosigned by: [id number] Piperacillin Sod/Tazobactam (Sod 3.375 gm/ Dextrose) 115 mls @ 28.75 mls/hr IV Q8 JERRI; Protocol Stop: 07/11/18 05:59 Last Admin: 07/02/18 13:50 Dose: 28.8 mls/hr Documented by: [id number] Infusion: 07/02/18 10:16 Dose: 0 mls/hr Documented by: [id number] Admin: 07/02/18 06:22 Dose: 30 mls/hr Documented by: [id number] Infusion: 07/02/18 01:05 Dose: 0 mls/hr Documented by: [id number] Admin: 07/01/18 21:11 Dose: 30 mls/hr Documented by: [id number] Infusion: 07/01/18 19:33 Dose: 0 mls/hr Documented by: [id number] Admin: 07/01/18 13:54 Dose: 28.8 mls/hr Documented by: [id number] Infusion: 07/01/18 09:24 Dose: 0 mls/hr Documented by: [id number] Admin: 07/01/18 05:21 Dose: 28.8 mls/hr Documented by: [id number] Vancomycin HCl 1,000 mg/ (Sodium Chloride) 270 mls @ 125 mls/hr IV Q24[facility] Stop: 07/11/18 13:59 Last Admin: 07/02/18 13:50 Dose: 125 mls/hr Documented by: [id number] Infusion: 07/01/18 16:56 Dose: 0 mls/hr Documented by: [id number] Admin: 07/01/18 13:54 Dose: 125 mls/hr Documented by: [id number] Insulin Aspart (Novolog Flexpen) 0 units SC ACHS JERRI Stop: 07/31/18 07:29 Last Admin: 07/02/18 13:26 Dose: 8 units Documented by: [id number] Cosigned by: [id number] Admin: 07/02/18 08:22 Dose: 8 units Documented by: [id number] Cosigned by: [id number] Admin: 07/01/18 21:08 Dose: Not Given Documented by: [id number] Cosigned by: [id number] Admin: 07/01/18 17:40 Dose: 7 units Documented by: [id number] Cosigned by: [id number] Admin: 07/01/18 13:40 Dose: 10 units Documented by: [id number] Cosigned by: [id number] Admin: 07/01/18 09:27 Dose: 6 units Documented by: [id number] Cosigned by: [id number] Losartan Potassium (Cozaar) 25 mg PO DAILY JERRI Stop: 07/31/18 08:59 Last Admin: 07/02/18 07:58 Dose: 25 mg Documented by: [id number] Admin: 07/01/18 07:45 Dose: 25 mg Documented by: [id number] Oxybutynin Chloride (Ditropan Xl) 5 mg PO HS JERRI Stop: 07/31/18 20:59 Last Admin: 07/01/18 21:07 Dose: 5 mg Documented by: [id number] Thyroid (Delight Thyroid) 60 mg PO DAILY JERRI Stop: 07/31/18 08:59 Last Admin: 07/02/18 07:58 Dose: 60 mg Documented by: [id number] Admin: 07/01/18 07:46 Dose: 60 mg Documented by: [id number] Vitamin D (Vitamin D3) 1,000 units PO DAILY JERRI Stop: 07/31/18 08:59 Last Admin: 07/02/18 07:59 Dose: 1,000 units Documented by: [id number] Admin: 07/01/18 07:46 Dose: 1,000 units Documented by: [id number] Discontinued Medications Glimepiride (Amaryl) 2 mg PO BID JERRI Stop: 07/31/18 08:59 Last Admin: 07/02/18 07:59 Dose: 2 mg Documented by: [id number] Admin: 07/01/18 21:07 Dose: 2 mg Documented by: [id number] Admin: 07/01/18 07:46 Dose: 2 mg Documented by: [id number] Glimepiride (Amaryl) 2 mg PO NOW ONE Stop: 07/02/18 11:01 Last Admin: 07/02/18 11:03 Dose: 2 mg Documented by: [id number] Sodium Chloride (Nss 1000ml) 1,000 mls @ 125 mls/hr IV .Q8H JERRI Stop: 07/30/18 18:44 Last Infusion: 07/01/18 02:17 Dose: 0 mls/hr Documented by: [id number] Infusion: 07/01/18 02:16 Dose: 0 mls/hr Documented by: [id number] Infusion: 06/30/18 21:11 Dose: 0 mls/hr Documented by: [id number] Admin: 06/30/18 18:59 Dose: 125 mls/hr Documented by: [id number] Magnesium Sulfate/Dextrose (Magnesium Sulfate / D5w) 1 gm in 100 mls @ 100 mls/hr IV Q1H JERRI Stop: 06/30/18 22:14 Last Infusion: 06/30/18 23:53 Dose: 0 mls/hr Documented by: [id number] Admin: 06/30/18 22:53 Dose: 100 mls/hr Documented by: [id number] Infusion: 06/30/18 22:03 Dose: 0 mls/hr Documented by: [id number] Admin: 06/30/18 20:58 Dose: 100 mls/hr Documented by: [id number] Vancomycin HCl 1,250 mg/ (Sodium Chloride) 525 mls @ 200 mls/hr IV NOW ONE Stop: 06/30/18 22:41 Last Infusion: 06/30/18 23:44 Dose: 0 mls/hr Documented by: [id number] Admin: 06/30/18 20:57 Dose: 200 mls/hr Documented by: [id number] Acetaminophen (Ofirmev) 1,000 mg in 100 mls @ 400 mls/hr IV NOW STA Stop: 06/30/18 22:01 Last Infusion: 06/30/18 22:54 Dose: 0 mls/hr Documented by: [id number] Admin: 06/30/18 22:35 Dose: 400 mls/hr Documented by: [id number] Piperacillin Sod/Tazobactam (Sod 3.375 gm/ Dextrose) 115 mls @ 230 mls/hr IV NOW ONE Stop: 07/01/18 01:04 Last Infusion: 07/01/18 01:50 Dose: 0 mls/hr Documented by: [id number] Admin: 07/01/18 01:20 Dose: 230 mls/hr Documented by: [id number] Furosemide 20 mg/ Syringe 2 mls @ 4 mls/min IV ONE ONE Stop: 07/01/18 14:01 Last Admin: 07/01/18 14:19 Dose: 4 mls/min Documented by: [id number] Miscellaneous Information (Consult) 1 ea N/A UD ONE Stop: 06/30/18 20:05 Last Admin: 06/30/18 21:06 Dose: 1 ea Documented by: [id number] Medical Decision Making Differential Diagnosis Differential diagnosis: Etiologies such as cellulitis, abscess, MRSA infection, DVT, necrotizing fasciitis, dermatitis, drug eruption, as well as others were entertained. Medical Records Attestation: I reviewed the patient's medical records. Home Medications Current Medication List: was personally reviewed by me Laboratory Data Attestation: I reviewed the patient's lab results. Result diagrams: 07/02/18 08:30 07/02/18 07:38 Lab Results 06/30/18 06/30/18 07/01/18 Range/Units 18:48 18:48 06:18 WBC 13.29 H 10.30 (4.8-10.8) K/uL RBC 3.25 L 3.18 L (4.2-5.4) M/uL Hgb 9.4 L 9.3 L (12.0-16.0) g/dL Hct 30.0 L 29.2 L (37-47) % MCV 92.3 91.8 (80-100) fL MCH 28.9 29.2 (25-34) pg MCHC 31.3 L 31.8 L (32-36) g/dL RDW Std Deviation 44.2 43.9 (36.4-46.3) fL RDW Coeff of Sydnie 13.0 13.0 (11.5-14.5) % Plt Count 403 H 380 (130-400) K/uL MPV 9.2 9.2 (7.4-10.4) fL Immature Gran % (Auto) 0.5 0.4 % Neut % (Auto) 69.1 73.8 % Lymph % (Auto) 19.2 15.6 % [place] % (Auto) 7.8 6.8 % Eos % (Auto) 3.0 3.2 % Baso % (Auto) 0.4 0.2 % Immature Gran # (Auto) 0.07 H 0.04 H (0.00-0.02) K/uL Neut # (Auto) 9.19 H 7.60 H (1.4-6.5) K/uL Lymph # (Auto) 2.55 1.61 (1.2-3.4) K/uL [place] # (Auto) 1.03 H 0.70 H (0.11-0.59) K/uL Eos # (Auto) 0.40 0.33 (0-0.5) K/uL Baso # (Auto) 0.05 0.02 (0-0.2) K/uL Absolute Nucleated RBC Nucleated RBC % (auto) Neutrophils % (Manual) Band Neutrophils % Lymphocytes % (Manual) Prolymphocyte % Reactive Lymphs % (Man) Monocytes % (Manual) Eosinophils % (Manual) Basophils % (Manual) Metamyelocytes % (Man) Myelocytes % (Man) Promyelocytes % (Man) Blast Cells % (Manual) Plasma Cell % (Manual) Other Cells % Nucleated RBC % Neutrophils # (Manual) Band Neutrophils # Total Absolute Neuts Lymphocytes # (Manual) Prolymphocyte # Reactive Lymphs # Total Abs Lymphocytes Monocytes # (Manual) Eosinophils # (Manual) Basophils # (Manual) Metamyelocytes # (Man) Myelocytes # (Manual) Promyelocytes # (Man) Blast Cells # (Man) Plasma Cell # (Manual) Other Cells # Nucleated RBCs # (Man) Hypersegmented Neuts Hyposegmented Neuts Hypogranular Neuts Large Granular Lymphs # Lrg Granular Lymphs Hairy Cells Smudge Cells Toxic Granulation Toxic Vacuolation Dohle Bodies Destiny Rods Platelet Estimate Hypogranular Platelets Clumped Platelets Giant Platelets Platelet Satelliting RBC Morphology Polychromasia Hypochromasia Poikilocytosis Basophilic Stippling Anisocytosis Microcytosis Macrocytosis Spherocytes Pappenheimer Bodies Sickle Cells Target Cells Tear Drop Cells Ovalocytes Stomatocytes [place] Bodies Echinocytes Acanthocytes (Spur) Rouleaux RBC Agglutinates Schistocytes RBC Morph Comment Sezary Cell PT (9.0-12.0) Seconds INR (0.9-1.1) APTT (21.0-31.0) Seconds PTT Ratio Sodium 138 (136-145) mmol/L Potassium 4.8 (3.5-5.1) mmol/L Chloride 105 (98-107) mmol/L Carbon Dioxide 25 (21-32) mmol/L Anion Gap 7.0 (3-11) BUN 34 H (7-18) mg/dl Creatinine 1.09 (0.6-1.2) mg/dl Est Cr Clr Drug Dosing 29.5 ml/min Est GFR ( Amer) 53.6 Est GFR (Non-Af Amer) 46.3 BUN/Creatinine Ratio 31.5 H (10-20) Glucose 91 (70-99) mg/dl POC Glucose (70-99) Estimat Average Glucose mg/dl Hemoglobin A1c (4.5-5.6) % Uric Acid (2.6-7.2) mg/dl Calcium 9.0 (8.5-10.1) mg/dl Magnesium 1.5 L (1.8-2.4) mg/dl Total Bilirubin 0.2 (0.2-1) mg/dl AST 10 L (15-37) U/L ALT 16 (12-78) U/L Alkaline Phosphatase 125 H (45-117) U/L Troponin I < 0.015 (0-0.045) ng/ml NT-Pro-B Natriuret Pep 560 (0-1800) pg/ml Total Protein 6.9 (6.4-8.2) gm/dl Albumin 3.1 L (3.4-5.0) gm/dl Globulin 3.8 (2.5-4.0) gm/dl Albumin/Globulin Ratio 0.8 L (0.9-2) 07/01/18 07/01/18 07/01/18 Range/Units 06:18 06:18 06:18 WBC (4.8-10.8) K/uL RBC (4.2-5.4) M/uL Hgb (12.0-16.0) g/dL Hct (37-47) % MCV (80-100) fL MCH (25-34) pg MCHC (32-36) g/dL RDW Std Deviation (36.4-46.3) fL RDW Coeff of Sydnie (11.5-14.5) % Plt Count (130-400) K/uL MPV (7.4-10.4) fL Immature Gran % (Auto) % Neut % (Auto) % Lymph % (Auto) % [place] % (Auto) % Eos % (Auto) % Baso % (Auto) % Immature Gran # (Auto) (0.00-0.02) K/uL Neut # (Auto) (1.4-6.5) K/uL Lymph # (Auto) (1.2-3.4) K/uL [place] # (Auto) (0.11-0.59) K/uL Eos # (Auto) (0-0.5) K/uL Baso # (Auto) (0-0.2) K/uL Absolute Nucleated RBC Nucleated RBC % (auto) Neutrophils % (Manual) Band Neutrophils % Lymphocytes % (Manual) Prolymphocyte % Reactive Lymphs % (Man) Monocytes % (Manual) Eosinophils % (Manual) Basophils % (Manual) Metamyelocytes % (Man) Myelocytes % (Man) Promyelocytes % (Man) Blast Cells % (Manual) Plasma Cell % (Manual) Other Cells % Nucleated RBC % Neutrophils # (Manual) Band Neutrophils # Total Absolute Neuts Lymphocytes # (Manual) Prolymphocyte # Reactive Lymphs # Total Abs Lymphocytes Monocytes # (Manual) Eosinophils # (Manual) Basophils # (Manual) Metamyelocytes # (Man) Myelocytes # (Manual) Promyelocytes # (Man) Blast Cells # (Man) Plasma Cell # (Manual) Other Cells # Nucleated RBCs # (Man) Hypersegmented Neuts Hyposegmented Neuts Hypogranular Neuts Large Granular Lymphs # Lrg Granular Lymphs Hairy Cells Smudge Cells Toxic Granulation Toxic Vacuolation Dohle Bodies Destiny Rods Platelet Estimate Hypogranular Platelets Clumped Platelets Giant Platelets Platelet Satelliting RBC Morphology Polychromasia Hypochromasia Poikilocytosis Basophilic Stippling Anisocytosis Microcytosis Macrocytosis Spherocytes Pappenheimer Bodies Sickle Cells Target Cells Tear Drop Cells Ovalocytes Stomatocytes [place] Bodies Echinocytes Acanthocytes (Spur) Rouleaux RBC Agglutinates Schistocytes RBC Morph Comment Sezary Cell PT 10.4 (9.0-12.0) Seconds INR 1.0 (0.9-1.1) APTT 27.6 (21.0-31.0) Seconds PTT Ratio 1.0 Sodium 139 (136-145) mmol/L Potassium 4.4 (3.5-5.1) mmol/L Chloride 109 H (98-107) mmol/L Carbon Dioxide 25 (21-32) mmol/L Anion Gap 5.0 (3-11) BUN 27 H (7-18) mg/dl Creatinine 1.06 (0.6-1.2) mg/dl Est Cr Clr Drug Dosing 30.8 ml/min Est GFR ( Amer) 55.4 Est GFR (Non-Af Amer) 47.8 BUN/Creatinine Ratio 25.0 H (10-20) Glucose 182 H (70-99) mg/dl POC Glucose (70-99) Estimat Average Glucose 186 mg/dl Hemoglobin A1c 8.1 H (4.5-5.6) % Uric Acid (2.6-7.2) mg/dl Calcium 8.3 L (8.5-10.1) mg/dl Magnesium (1.8-2.4) mg/dl Total Bilirubin 0.3 (0.2-1) mg/dl AST 10 L (15-37) U/L ALT 13 (12-78) U/L Alkaline Phosphatase 109 (45-117) U/L Troponin I (0-0.045) ng/ml NT-Pro-B Natriuret Pep (0-1800) pg/ml Total Protein 6.1 L (6.4-8.2) gm/dl Albumin 2.6 L (3.4-5.0) gm/dl Globulin 3.5 (2.5-4.0) gm/dl Albumin/Globulin Ratio 0.7 L (0.9-2) 07/01/18 07/01/18 07/01/18 Range/Units 07:44 11:12 16:17 WBC (4.8-10.8) K/uL RBC (4.2-5.4) M/uL Hgb (12.0-16.0) g/dL Hct (37-47) % MCV (80-100) fL MCH (25-34) pg MCHC (32-36) g/dL RDW Std Deviation (36.4-46.3) fL RDW Coeff of Sydnie (11.5-14.5) % Plt Count (130-400) K/uL MPV (7.4-10.4) fL Immature Gran % (Auto) % Neut % (Auto) % Lymph % (Auto) % [place] % (Auto) % Eos % (Auto) % Baso % (Auto) % Immature Gran # (Auto) (0.00-0.02) K/uL Neut # (Auto) (1.4-6.5) K/uL Lymph # (Auto) (1.2-3.4) K/uL [place] # (Auto) (0.11-0.59) K/uL Eos # (Auto) (0-0.5) K/uL Baso # (Auto) (0-0.2) K/uL Absolute Nucleated RBC Nucleated RBC % (auto) Neutrophils % (Manual) Band Neutrophils % Lymphocytes % (Manual) Prolymphocyte % Reactive Lymphs % (Man) Monocytes % (Manual) Eosinophils % (Manual) Basophils % (Manual) Metamyelocytes % (Man) Myelocytes % (Man) Promyelocytes % (Man) Blast Cells % (Manual) Plasma Cell % (Manual) Other Cells % Nucleated RBC % Neutrophils # (Manual) Band Neutrophils # Total Absolute Neuts Lymphocytes # (Manual) Prolymphocyte # Reactive Lymphs # Total Abs Lymphocytes Monocytes # (Manual) Eosinophils # (Manual) Basophils # (Manual) Metamyelocytes # (Man) Myelocytes # (Manual) Promyelocytes # (Man) Blast Cells # (Man) Plasma Cell # (Manual) Other Cells # Nucleated RBCs # (Man) Hypersegmented Neuts Hyposegmented Neuts Hypogranular Neuts Large Granular Lymphs # Lrg Granular Lymphs Hairy Cells Smudge Cells Toxic Granulation Toxic Vacuolation Dohle Bodies Destiny Rods Platelet Estimate Hypogranular Platelets Clumped Platelets Giant Platelets Platelet Satelliting RBC Morphology Polychromasia Hypochromasia Poikilocytosis Basophilic Stippling Anisocytosis Microcytosis Macrocytosis Spherocytes Pappenheimer Bodies Sickle Cells Target Cells Tear Drop Cells Ovalocytes Stomatocytes [place] Bodies Echinocytes Acanthocytes (Spur) Rouleaux RBC Agglutinates Schistocytes RBC Morph Comment Sezary Cell PT (9.0-12.0) Seconds INR (0.9-1.1) APTT (21.0-31.0) Seconds PTT Ratio Sodium (136-145) mmol/L Potassium (3.5-5.1) mmol/L Chloride (98-107) mmol/L Carbon Dioxide (21-32) mmol/L Anion Gap (3-11) BUN (7-18) mg/dl Creatinine (0.6-1.2) mg/dl Est Cr Clr Drug Dosing ml/min Est GFR ( Amer) Est GFR (Non-Af Amer) BUN/Creatinine Ratio (10-20) Glucose (70-99) mg/dl POC Glucose 196 H 282 H 247 H (70-99) Estimat Average Glucose mg/dl Hemoglobin A1c (4.5-5.6) % Uric Acid (2.6-7.2) mg/dl Calcium (8.5-10.1) mg/dl Magnesium (1.8-2.4) mg/dl Total Bilirubin (0.2-1) mg/dl AST (15-37) U/L ALT (12-78) U/L Alkaline Phosphatase (45-117) U/L Troponin I (0-0.045) ng/ml NT-Pro-B Natriuret Pep (0-1800) pg/ml Total Protein (6.4-8.2) gm/dl Albumin (3.4-5.0) gm/dl Globulin (2.5-4.0) gm/dl Albumin/Globulin Ratio (0.9-2) 07/01/18 07/02/18 07/02/18 Range/Units 20:23 07:38 07:38 WBC Cancelled (4.8-10.8) K/uL RBC Cancelled (4.2-5.4) M/uL Hgb Cancelled (12.0-16.0) g/dL Hct Cancelled (37-47) % MCV Cancelled (80-100) fL MCH Cancelled (25-34) pg MCHC Cancelled (32-36) g/dL RDW Std Deviation Cancelled (36.4-46.3) fL RDW Coeff of Sydnie Cancelled (11.5-14.5) % Plt Count Cancelled (130-400) K/uL MPV Cancelled (7.4-10.4) fL Immature Gran % (Auto) Cancelled % Neut % (Auto) Cancelled % Lymph % (Auto) Cancelled % [place] % (Auto) Cancelled % Eos % (Auto) Cancelled % Baso % (Auto) Cancelled % Immature Gran # (Auto) Cancelled (0.00-0.02) K/uL Neut # (Auto) Cancelled (1.4-6.5) K/uL Lymph # (Auto) Cancelled (1.2-3.4) K/uL [place] # (Auto) Cancelled (0.11-0.59) K/uL Eos # (Auto) Cancelled (0-0.5) K/uL Baso # (Auto) Cancelled (0-0.2) K/uL Absolute Nucleated RBC Cancelled Nucleated RBC % (auto) Cancelled Neutrophils % (Manual) Cancelled Band Neutrophils % Cancelled Lymphocytes % (Manual) Cancelled Prolymphocyte % Cancelled Reactive Lymphs % (Man) Cancelled Monocytes % (Manual) Cancelled Eosinophils % (Manual) Cancelled Basophils % (Manual) Cancelled Metamyelocytes % (Man) Cancelled Myelocytes % (Man) Cancelled Promyelocytes % (Man) Cancelled Blast Cells % (Manual) Cancelled Plasma Cell % (Manual) Cancelled Other Cells % Cancelled Nucleated RBC % Cancelled Neutrophils # (Manual) Cancelled Band Neutrophils # Cancelled Total Absolute Neuts Cancelled Lymphocytes # (Manual) Cancelled Prolymphocyte # Cancelled Reactive Lymphs # Cancelled Total Abs Lymphocytes Cancelled Monocytes # (Manual) Cancelled Eosinophils # (Manual) Cancelled Basophils # (Manual) Cancelled Metamyelocytes # (Man) Cancelled Myelocytes # (Manual) Cancelled Promyelocytes # (Man) Cancelled Blast Cells # (Man) Cancelled Plasma Cell # (Manual) Cancelled Other Cells # Cancelled Nucleated RBCs # (Man) Cancelled Hypersegmented Neuts Cancelled Hyposegmented Neuts Cancelled Hypogranular Neuts Cancelled Large Granular Lymphs Cancelled # Lrg Granular Lymphs Cancelled Hairy Cells Cancelled Smudge Cells Cancelled Toxic Granulation Cancelled Toxic Vacuolation Cancelled Dohle Bodies Cancelled Destiny Rods Cancelled Platelet Estimate Cancelled Hypogranular Platelets Cancelled Clumped Platelets Cancelled Giant Platelets Cancelled Platelet Satelliting Cancelled RBC Morphology Cancelled Polychromasia Cancelled Hypochromasia Cancelled Poikilocytosis Cancelled Basophilic Stippling Cancelled Anisocytosis Cancelled Microcytosis Cancelled Macrocytosis Cancelled Spherocytes Cancelled Pappenheimer Bodies Cancelled Sickle Cells Cancelled Target Cells Cancelled Tear Drop Cells Cancelled Ovalocytes Cancelled Stomatocytes Cancelled [place] Bodies Cancelled Echinocytes Cancelled Acanthocytes (Spur) Cancelled Rouleaux Cancelled RBC Agglutinates Cancelled Schistocytes Cancelled RBC Morph Comment Cancelled Sezary Cell Cancelled PT (9.0-12.0) Seconds INR (0.9-1.1) APTT (21.0-31.0) Seconds PTT Ratio Sodium 139 (136-145) mmol/L Potassium 4.2 (3.5-5.1) mmol/L Chloride 108 H (98-107) mmol/L Carbon Dioxide 25 (21-32) mmol/L Anion Gap 6.0 (3-11) BUN 31 H (7-18) mg/dl Creatinine 1.27 H (0.6-1.2) mg/dl Est Cr Clr Drug Dosing 25.7 ml/min Est GFR ( Amer) 44.6 Est GFR (Non-Af Amer) 38.5 BUN/Creatinine Ratio 24.1 H (10-20) Glucose 184 H (70-99) mg/dl POC Glucose 134 H (70-99) Estimat Average Glucose mg/dl Hemoglobin A1c (4.5-5.6) % Uric Acid 4.6 (2.6-7.2) mg/dl Calcium 8.3 L (8.5-10.1) mg/dl Magnesium 1.9 (1.8-2.4) mg/dl Total Bilirubin 0.3 (0.2-1) mg/dl AST 14 L (15-37) U/L ALT 17 (12-78) U/L Alkaline Phosphatase 102 (45-117) U/L Troponin I (0-0.045) ng/ml NT-Pro-B Natriuret Pep (0-1800) pg/ml Total Protein 6.0 L (6.4-8.2) gm/dl Albumin 2.5 L (3.4-5.0) gm/dl Globulin 3.5 (2.5-4.0) gm/dl Albumin/Globulin Ratio 0.7 L (0.9-2) 07/02/18 07/02/18 07/02/18 Range/Units 07:38 08:11 08:30 WBC 9.63 (4.8-10.8) K/uL RBC 3.30 L (4.2-5.4) M/uL Hgb 9.6 L (12.0-16.0) g/dL Hct 29.5 L (37-47) % MCV 89.4 (80-100) fL MCH 29.1 (25-34) pg MCHC 32.5 (32-36) g/dL RDW Std Deviation 42.6 (36.4-46.3) fL RDW Coeff of Sydnie 13.1 (11.5-14.5) % Plt Count 301 (130-400) K/uL MPV 9.6 (7.4-10.4) fL Immature Gran % (Auto) 0.4 % Neut % (Auto) 67.3 % Lymph % (Auto) 21.0 % [place] % (Auto) 6.5 % Eos % (Auto) 4.4 % Baso % (Auto) 0.4 % Immature Gran # (Auto) 0.04 H (0.00-0.02) K/uL Neut # (Auto) 6.48 (1.4-6.5) K/uL Lymph # (Auto) 2.02 (1.2-3.4) K/uL [place] # (Auto) 0.63 H (0.11-0.59) K/uL Eos # (Auto) 0.42 (0-0.5) K/uL Baso # (Auto) 0.04 (0-0.2) K/uL Absolute Nucleated RBC Nucleated RBC % (auto) Neutrophils % (Manual) Band Neutrophils % Lymphocytes % (Manual) Prolymphocyte % Reactive Lymphs % (Man) Monocytes % (Manual) Eosinophils % (Manual) Basophils % (Manual) Metamyelocytes % (Man) Myelocytes % (Man) Promyelocytes % (Man) Blast Cells % (Manual) Plasma Cell % (Manual) Other Cells % Nucleated RBC % Neutrophils # (Manual) Band Neutrophils # Total Absolute Neuts Lymphocytes # (Manual) Prolymphocyte # Reactive Lymphs # Total Abs Lymphocytes Monocytes # (Manual) Eosinophils # (Manual) Basophils # (Manual) Metamyelocytes # (Man) Myelocytes # (Manual) Promyelocytes # (Man) Blast Cells # (Man) Plasma Cell # (Manual) Other Cells # Nucleated RBCs # (Man) Hypersegmented Neuts Hyposegmented Neuts Hypogranular Neuts Large Granular Lymphs # Lrg Granular Lymphs Hairy Cells Smudge Cells Toxic Granulation Toxic Vacuolation Dohle Bodies Destiny Rods Platelet Estimate Hypogranular Platelets Clumped Platelets Giant Platelets Platelet Satelliting RBC Morphology Polychromasia Hypochromasia Poikilocytosis Basophilic Stippling Anisocytosis Microcytosis Macrocytosis Spherocytes Pappenheimer Bodies Sickle Cells Target Cells Tear Drop Cells Ovalocytes Stomatocytes [place] Bodies Echinocytes Acanthocytes (Spur) Rouleaux RBC Agglutinates Schistocytes RBC Morph Comment Sezary Cell PT 10.6 (9.0-12.0) Seconds INR 1.0 (0.9-1.1) APTT (21.0-31.0) Seconds PTT Ratio Sodium (136-145) mmol/L Potassium (3.5-5.1) mmol/L Chloride (98-107) mmol/L Carbon Dioxide (21-32) mmol/L Anion Gap (3-11) BUN (7-18) mg/dl Creatinine (0.6-1.2) mg/dl Est Cr Clr Drug Dosing ml/min Est GFR ( Amer) Est GFR (Non-Af Amer) BUN/Creatinine Ratio (10-20) Glucose (70-99) mg/dl POC Glucose 206 H (70-99) Estimat Average Glucose mg/dl Hemoglobin A1c (4.5-5.6) % Uric Acid (2.6-7.2) mg/dl Calcium (8.5-10.1) mg/dl Magnesium (1.8-2.4) mg/dl Total Bilirubin (0.2-1) mg/dl AST (15-37) U/L ALT (12-78) U/L Alkaline Phosphatase (45-117) U/L Troponin I (0-0.045) ng/ml NT-Pro-B Natriuret Pep (0-1800) pg/ml Total Protein (6.4-8.2) gm/dl Albumin (3.4-5.0) gm/dl Globulin (2.5-4.0) gm/dl Albumin/Globulin Ratio (0.9-2) 07/02/18 Range/Units 12:00 WBC (4.8-10.8) K/uL RBC (4.2-5.4) M/uL Hgb (12.0-16.0) g/dL Hct (37-47) % MCV (80-100) fL MCH (25-34) pg MCHC (32-36) g/dL RDW Std Deviation (36.4-46.3) fL RDW Coeff of Sydnie (11.5-14.5) % Plt Count (130-400) K/uL MPV (7.4-10.4) fL Immature Gran % (Auto) % Neut % (Auto) % Lymph % (Auto) % [place] % (Auto) % Eos % (Auto) % Baso % (Auto) % Immature Gran # (Auto) (0.00-0.02) K/uL Neut # (Auto) (1.4-6.5) K/uL Lymph # (Auto) (1.2-3.4) K/uL [place] # (Auto) (0.11-0.59) K/uL Eos # (Auto) (0-0.5) K/uL Baso # (Auto) (0-0.2) K/uL Absolute Nucleated RBC Nucleated RBC % (auto) Neutrophils % (Manual) Band Neutrophils % Lymphocytes % (Manual) Prolymphocyte % Reactive Lymphs % (Man) Monocytes % (Manual) Eosinophils % (Manual) Basophils % (Manual) Metamyelocytes % (Man) Myelocytes % (Man) Promyelocytes % (Man) Blast Cells % (Manual) Plasma Cell % (Manual) Other Cells % Nucleated RBC % Neutrophils # (Manual) Band Neutrophils # Total Absolute Neuts Lymphocytes # (Manual) Prolymphocyte # Reactive Lymphs # Total Abs Lymphocytes Monocytes # (Manual) Eosinophils # (Manual) Basophils # (Manual) Metamyelocytes # (Man) Myelocytes # (Manual) Promyelocytes # (Man) Blast Cells # (Man) Plasma Cell # (Manual) Other Cells # Nucleated RBCs # (Man) Hypersegmented Neuts Hyposegmented Neuts Hypogranular Neuts Large Granular Lymphs # Lrg Granular Lymphs Hairy Cells Smudge Cells Toxic Granulation Toxic Vacuolation Dohle Bodies Destiny Rods Platelet Estimate Hypogranular Platelets Clumped Platelets Giant Platelets Platelet Satelliting RBC Morphology Polychromasia Hypochromasia Poikilocytosis Basophilic Stippling Anisocytosis Microcytosis Macrocytosis Spherocytes Pappenheimer Bodies Sickle Cells Target Cells Tear Drop Cells Ovalocytes Stomatocytes [place] Bodies Echinocytes Acanthocytes (Spur) Rouleaux RBC Agglutinates Schistocytes RBC Morph Comment Sezary Cell PT (9.0-12.0) Seconds INR (0.9-1.1) APTT (21.0-31.0) Seconds PTT Ratio Sodium (136-145) mmol/L Potassium (3.5-5.1) mmol/L Chloride (98-107) mmol/L Carbon Dioxide (21-32) mmol/L Anion Gap (3-11) BUN (7-18) mg/dl Creatinine (0.6-1.2) mg/dl Est Cr Clr Drug Dosing ml/min Est GFR ( Amer) Est GFR (Non-Af Amer) BUN/Creatinine Ratio (10-20) Glucose (70-99) mg/dl POC Glucose 236 H (70-99) Estimat Average Glucose mg/dl Hemoglobin A1c (4.5-5.6) % Uric Acid (2.6-7.2) mg/dl Calcium (8.5-10.1) mg/dl Magnesium (1.8-2.4) mg/dl Total Bilirubin (0.2-1) mg/dl AST (15-37) U/L ALT (12-78) U/L Alkaline Phosphatase (45-117) U/L Troponin I (0-0.045) ng/ml NT-Pro-B Natriuret Pep (0-1800) pg/ml Total Protein (6.4-8.2) gm/dl Albumin (3.4-5.0) gm/dl Globulin (2.5-4.0) gm/dl Albumin/Globulin Ratio (0.9-2) Imaging Data Radiologist's Impression: BILATERAL LOWER EXTREMITY VENOUS DOPPLER CLINICAL HISTORY: Lower extremity edema. COMPARISON STUDY: Left lower extremity venous Doppler September 17 2014. Right lower extremity venous Doppler October 23, 2009. TECHNIQUE: Sonography of the deep venous system of the bilateral lower extremities was performed. Compression and augmentation were evaluated. FINDINGS: Exam was technically compromised due to suboptimal penetration. The bilateral common femoral, superficial femoral and popliteal veins were com pressible. Augmentation was normal. Flow was shown within the deep calf vessels. IMPRESSION: Technically difficult but no evidence of deep venous thrombus within the bilateral lower extremities. Electronically signed by: Seth Espinoza M.D. 06/30/2018 8:53 PM ECG Data Attestation: I personally reviewed and interpreted this ECG as follows: Indication: other (leg swelling) Rate (beats per minute): 114 Rhythm: sinus tachycardia Findings: + PAC, + PVC, + RBBB (incomplete) and + prolonged QT; no ST depression, no T-wave inversion and no ST elevation Comparison ECG Date: from (05/20/18) Change: no significant change Blood Pressure Blood Pressure Findings: Elevated blood pressure MDM Narrative Patient here presenting with persistent bilateral lower extremity symptoms of cellulitis after recently completing a course of cephalexin as well as doxycycline. Patient with no prior history of MRSA, although patient is a diabetic. No recent trauma. Patient's physical exam not consistent with necrotizing fasciitis. Ultrasound negative for DVT. Patient with leukocytosis here as well as persistent pain and erythema. Blood cultures were drawn and patient started on IV vancomycin. Patient's other labs are reassuring. Mild renal insufficiency was noted and has been there previously. Discussed all results with patient and family at bedside, they verbalized understanding were in agreement. Case discussed with hospitalist for additional management. Impression & Plan Cellulitis, Failure of outpatient treatment Discharge Plan Visit Data *Final* Discharge Date/Time: 06/30/18 23:58 Chief Complaint: Leg Injury/Pain Stated Complaint: B/L PAIN SWELLING, HOT, CELLULITIS OF LEGS ED Provider: Waleska Cutler Discharge Problem: Cellulitis, Failure of outpatient treatment Patient Disposition: Admitted As Inpatient Discharge Instructions Interventions: ED Discharge Assessment Last Done: 06/30/18 23:58 Discharge Problem: Cellulitis Qualifiers: Site of cellulitis: extremity Site of cellulitis of extremity: lower extremity Laterality: unspecified laterality Qualified Code(s): L03.119 - Cellulitis of unspecified part of limb The scribe's documentation has been prepared under my direction and personally reviewed by me in its entirety. I confirm that the note above accurately reflects all work, treatment, procedures, and medical decision making performed by me.
[2018-07-02] MEDS: OXYBUTYNIN CHLORIDE XL 5 MG TABCR PO SCH (21:43)
[2018-07-03] MEDS: PIPERACILLIN/TAZOBACTAM 3.375 GM in DEXTROSE 5% 100 ML IV SCH (05:51)
[2018-07-03 07:05] LABS: Basophils # (auto) 0.04 K/uL (0-0.2); Basophils % (auto) 0.4 %; Eosinophils % (auto) 5.1 %; Hematocrit (blood only) 28.1 % (37-47); Immature Granulocytes # (auto) 0.03 K/uL (0.00-0.02); Immature Granulocytes % (auto) 0.3 %; Lymphocytes # (auto) 2.36 K/uL (1.2-3.4); Mean Corpuscular Volume 91.5 fL (80-100); Mean Platelet Volume 9.2 fL (7.4-10.4); Monocytes # (auto) 0.77 K/uL (0.11-0.59); Monocytes % (auto) 7.8 %; Neutrophils # (auto) 6.13 K/uL (1.4-6.5); Neutrophils % (auto) 62.4 %; Platelet Count 366 K/uL (130-400); RDW Coefficient of Variation 12.9 % (11.5-14.5); RDW Standard Deviation 43.6 fL (36.4-46.3); Red Blood Count 3.07 M/uL (4.2-5.4); White Blood Count 9.83 K/uL (4.8-10.8)
[2018-07-03 07:12] LABS: Prothrombin Time 10.4 Seconds (9.0-12.0)
[2018-07-03 07:42] LABS: Albumin Level 2.6 gm/dl (3.4-5.0); BUN Creatinine Ratio 20.7 (10-20); Calcium 8.2 mg/dl (8.5-10.1); Creatinine Clr Calc Pharmacy 22.7 ml/min; Est GFR (African American) 38.3; Potassium 4.2 mmol/L (3.5-5.1)
[2018-07-03 07:45] LABS: Albumin Globulin Ratio 0.7 (0.9-2); Bilirubin,Total 0.2 mg/dl (0.2-1); Globulin 3.5 gm/dl (2.5-4.0); Total Protein 6.1 gm/dl (6.4-8.2)
[2018-07-03] MEDS: CYANOCOBALAMIN 500 MCG TABLET (VITAMIN B-12) PO SCH (08:01)
[2018-07-03] MEDS: ARMOUR THYROID 30 MG TAB PO SCH (08:01)
[2018-07-03] MEDS: GLIMEPIRIDE 2 MG TAB PO SCH ×2 (08:01→18:09)
[2018-07-03] MEDS: CHOLECALCIFEROL 1,000 UNITS TAB PO SCH (08:01)
[2018-07-03] MEDS: HEPARIN SOD 5,000 UNIT/0.5 ML VIAL SQ SCH ×2 (08:01→21:37)
[2018-07-03] MEDS: LOSARTAN POTASSIUM 25 MG TAB PO SCH (08:01)
[2018-07-03] MEDS: INSULIN ASPART 100 UNITS/ML 3 ML PEN SC SCH ×4 (08:38→21:37)
[2018-07-03] MEDS ORDERED: VANCOMYCIN TROUGH ONE (13:30)
--- NOTE | 2018-07-03 13:39 | Hospitalist Progress Note ---
Date of Service July 03, 2018 Assessment & Plan (1) Cellulitis of both lower extremities: More likely this is stasis dermatitis with skin erythema Patient was on Keflex initially and then doxycycline outpatient without change to condition Discontinue IV Vanc and Zosyn begun on admission as there was no growth with BC after 48 hours Patient reports she has been non compliant with furosemide in the past because of urinary frequency keeping her from leaving the house. Gave 20 mg IV lasix 07/01 which did help with the swelling however creatinine is now 1.44 so unable to continue with any diuresis Continue to prop legs up as much as possible, MARISELA mcelroy She has pain in her feet with numbness - improved with diuresis - will order PT/OT sourav (2) Failure of outpatient treatment: As above. (3) Diabetes: Hold metformin. Continue glimepiride, tighten ss for elevated bsgs Continue Accu-Cheks before meals and at bedtime with NovoLog coverage for scale. (4) Vitamin B12 deficiency: Continue supplement 1000 mcg p.o. daily. (5) Hypertension: Hold losartan 25 mg p.o. daily (6) Hypothyroidism (acquired): Continue [place] Thyroid 60 mg p.o. daily (7) Bladder spasm: Continue oxybutynin 5 mg p.o. at bedtime. (8) Obesity (BMI 30.0-34.9): Advised appropriate diet and exercise (9) Hypomagnesemia: Replaced (10) JANAY (acute kidney injury): secondary to lasix administration - hold further diuresis and losartan for now prp am (11) DVT prophylaxis: heparin subq, scds Subjective Ms. Sterling reports her foot pain is somewhat improved as well as her edema. No aches, chills or fevers Review of Systems All systems reviewed & are unremarkable except as noted in HPI & below Physical Exam Vital Signs (Past 24 Hours): Last Vital Signs Temp 36.6 C 07/03/18 07:27 Pulse 90 07/03/18 07:27 Resp 18 07/03/18 07:27 BP 147/73 H 07/03/18 07:27 Pulse Ox 96 07/03/18 07:27 Physical Exam: General: no distress Eyes: normal inspection, PERLL Respiratory: chest non tender, clear to auscultation, normal breath sounds, no respiratory distress, no accessory muscle use Cardiac: regular rate and rhythm, no rub or gallop, no murmur, no edema, no jvd GI/: active bowel sounds, no abd pain or tenderness, soft, non distended Extremities: normal range of motion, normal strength, non tender Neuro/Psych: alert and oriented x 3, normal mood and affect Skin: normal color, dry Results & Data Laboratory Results Abnormal lab results 07/02/18 07/02/18 07/03/18 Range/Units 17:06 20:24 06:26 RBC (4.2-5.4) M/uL Hgb (12.0-16.0) g/dL Hct (37-47) % Immature Gran # (Auto) (0.00-0.02) K/uL [place] # (Auto) (0.11-0.59) K/uL Chloride 108 H (98-107) mmol/L BUN 30 H (7-18) mg/dl Creatinine 1.44 H (0.6-1.2) mg/dl BUN/Creatinine Ratio 20.7 H (10-20) Glucose 160 H (70-99) mg/dl POC Glucose 179 H 268 H (70-99) Calcium 8.2 L (8.5-10.1) mg/dl Total Protein 6.1 L (6.4-8.2) gm/dl Albumin 2.6 L (3.4-5.0) gm/dl Albumin/Globulin Ratio 0.7 L (0.9-2) 07/03/18 07/03/18 07/03/18 Range/Units 06:26 08:05 12:18 RBC 3.07 L (4.2-5.4) M/uL Hgb 9.0 L (12.0-16.0) g/dL Hct 28.1 L (37-47) % Immature Gran # (Auto) 0.03 H (0.00-0.02) K/uL [place] # (Auto) 0.77 H (0.11-0.59) K/uL Chloride (98-107) mmol/L BUN (7-18) mg/dl Creatinine (0.6-1.2) mg/dl BUN/Creatinine Ratio (10-20) Glucose (70-99) mg/dl POC Glucose 201 H 203 H (70-99) Calcium (8.5-10.1) mg/dl Total Protein (6.4-8.2) gm/dl Albumin (3.4-5.0) gm/dl Albumin/Globulin Ratio (0.9-2)
[2018-07-03] MEDS ORDERED: PHARMACY GLYCEMIC MGMT CONSULT PRN (18:11)
[2018-07-03] MEDS ORDERED: INSULIN HUMAN REGULAR IV BOLUS 5 UNITS in SYRINGE 0 ML IV ONE (18:30)
[2018-07-03] MEDS ORDERED: INSULIN GLARGINE SOLOSTAR 100 UNITS/ML 3 ML PEN SC ONE (18:30)
[2018-07-03] MEDS: OXYBUTYNIN CHLORIDE XL 5 MG TABCR PO SCH (21:37)
[2018-07-04] MEDS ORDERED: INSULIN ASPART 100 UNITS/ML 3 ML PEN SC SCH (02:00)
[2018-07-04 07:46] LABS: Hemoglobin 9.3 g/dL (12.0-16.0); Mean Corpuscular Hgb Conc 32.1 g/dL (32-36); Mean Corpuscular Volume 90.9 fL (80-100); Mean Platelet Volume 9.4 fL (7.4-10.4); Platelet Count 409 K/uL (130-400); RDW Standard Deviation 43.3 fL (36.4-46.3); Red Blood Count 3.19 M/uL (4.2-5.4); White Blood Count 10.72 K/uL (4.8-10.8)
[2018-07-04 08:02] VITALS: BP 147/72; TEMP 99.3; O2SAT 93
[2018-07-04 08:19] LABS: BUN Creatinine Ratio 22.6 (10-20); Calcium 8.7 mg/dl (8.5-10.1); Creatinine Clr Calc Pharmacy 23.8 ml/min; Est GFR (African American) 40.7; Est GFR (Non-African American) 35.1; Magnesium 2.1 mg/dl (1.8-2.4); Potassium 4.5 mmol/L (3.5-5.1)
[2018-07-04] MEDS: HEPARIN SOD 5,000 UNIT/0.5 ML VIAL SQ SCH (08:33)
[2018-07-04] MEDS: CYANOCOBALAMIN 500 MCG TABLET (VITAMIN B-12) PO SCH (08:33)
[2018-07-04] MEDS: INSULIN ASPART 100 UNITS/ML 3 ML PEN SC SCH ×2 (08:33→12:51)
[2018-07-04] MEDS: ARMOUR THYROID 30 MG TAB PO SCH (08:33)
[2018-07-04] MEDS: CHOLECALCIFEROL 1,000 UNITS TAB PO SCH (08:33)
[2018-07-04] MEDS ORDERED: INSULIN GLARGINE SOLOSTAR 100 UNITS/ML 3 ML PEN SC SCH (09:00)
--- NOTE | 2018-07-04 12:23 | Pharmacy Report ---
Glycemic Control Consultation - Date of Service July 04, 2018 - Scope Scope: Glycemic Pharmacist consulted by Cait Vaughn on 07/03/18 for glycemic control and to write orders per [facility] inpatient glycemic control protocol - Objective Weight: 67.7 kg Accuchecks BSG (last 24hrs): 07/03/18 07/03/18 07/03/18 12:18 17:19 17:19 Glucose POC Glucose 203 H 361 H* 317 H 07/03/18 07/04/18 07/04/18 20:13 02:00 07:13 Glucose 86 POC Glucose 206 H 76 07/04/18 07/04/18 07:52 11:50 Glucose POC Glucose 97 195 H Laboratory Data (last 24hrs): 07/04/18 07:13 Potassium 4.5 Carbon Dioxide 25 Anion Gap 6.0 Creatinine 1.37 H Est Cr Clr Drug Dosing 23.8 HbA1c: Hemoglobin A1c 8.1 % (4.5-5.6) H 07/01/18 06:18 - Recent Pertinent Medications Outpatient Anti-diabetic Regimen: * Amaryl 4mg BIDM, Metformin * A1c = 8.1 % 07/01/18 - Assessment & Plan Assessment & Plan: ASSESSMENT: * Ms. Sterling is an 83 yo F p/w stasis dermatitis. Over the preceding 3 days she was maintained on Amaryl and Metformin with sustained hyperglycemia. She was started on insulin yesterday. BSGs have looked better today. * Her outpt glycemic management is adequate as evidenced by her A1C of 8.1%. This is certainly a reasonable target A1C based on her age and co morbidities. PLAN FOR INPATIENT GLYCEMIC CONTROL: * Holding outpatient oral diabetes medications * Basal insulin * Lantus scale SQ BID, please see MAR for further details * Bolus insulin * NovoLog per scale ACHS or Q6hrs while NPO * Goal Range: Low 100 mg/dL - High 140 mg/dL * Correction Factor: 28 mg/dL/unit * Nutritional / Prandial insulin per carb ratio of 1 unit per 8 grams CHO consumed * Please note that the plan above was derived based on current level of insulin resistance and hospital stress. These recommendations are appropriate for inpatient admission only. Plan of care upon discharge will need to be reassessed to avoid potential outpatient hypo/hyperglycemia. Thank you.
[2018-07-04] MEDS ORDERED: INSULIN GLARGINE SOLOSTAR 100 UNITS/ML 3 ML PEN SC STA (12:24)
[2018-07-04 14:06] VITALS: PULSE 106
--- NOTE | 2018-07-04 18:01 | Discharge Summary ---
Date of Service July 04, 2018 Admission HPI Per Admitting Provider The patient is an 83-year-old female with a past medical history including diabetes mellitus, hypertension, hypothyroidism, vitamin B12 deficiency who presents to the emergency department with worsening bilateral lower extremity cellulitis after having been on Keflex and then doxycycline. Principal Diagnosis le cellulitis dementia Discharge Exam Constitutional well developed and average body habitus Eyes no conjunctival abnormality and no scleral abnormality Neck normal visual inspection and trachea midline Respiratory normal respiratory effort; no respiratory distress Auscultation: lungs clear to auscultation bilaterally Cardiovascular RRR, no murmur, no edema Gastrointestinal (Abdomen) normal bowel sounds, soft, nontender, no hepatosplenomegaly Musculoskeletal no cyanosis or clubbing, extremities motor strength 5/5 Discharge Data Allergies Allergy/AdvReac Type Severity Reaction Status Date / Time Sulfa (Sulfonamide Allergy Intermediate RASH Verified 05/20/18 22:02 Antibiotics) adhesive Allergy Unknown UNKNOWN Verified 05/20/18 22:02 aspirin Allergy Unknown Unknown Verified 05/20/18 22:02 Bactrim Allergy Unknown Nausea/Vomi Verified 09/17/14 19:04 ting/Rash iodine Allergy Unknown Unknown Verified 05/20/18 22:02 lisinopril Allergy Unknown Unknown Verified 05/20/18 22:02 prochlorperazine Allergy Unknown Unknown Verified 05/20/18 22:02 sulfamethoxazole Allergy Unknown Nausea/Vomi Verified 05/20/18 22:02 ting/Rash trimethoprim Allergy Unknown Nausea/Vomi Verified 05/20/18 22:02 ting/Rash tigecycline AdvReac Unknown Nausea/Vomi Verified 05/20/18 22:02 ting Consultations 06/30/18 21:52 ED Decision to Admit Stat Ordered Studies 06/30/18 18:[address] [facility] Stat Hospital Course (1) Cellulitis of both lower extremities: More likely this is stasis dermatitis with skin erythema Patient was on Keflex initially and then doxycycline outpatient without change to condition no growth with BC after 48 hours Patient reports she has been non compliant with furosemide in the past because of urinary frequency keeping her from leaving the house. Gave 20 mg IV lasix 07/01 which did help with the swelling however creatinine is now 1.44 so unable to continue with any diuresis Continue to prop legs up as much as possible, MARISELA mcelroy She has pain in her feet with numbness - improved with diuresis - will order PT/OT evals (2) Failure of outpatient treatment: As above. (3) Diabetes: Hold metformin. Continue glimepiride, tighten ss for elevated bsgs Continue Accu-Cheks before meals and at bedtime with NovoLog coverage for scale. (4) Vitamin B12 deficiency: Continue supplement 1000 mcg p.o. daily. (5) Hypertension: Hold losartan 25 mg p.o. daily (6) Hypothyroidism (acquired): Continue [place] Thyroid 60 mg p.o. daily (7) Bladder spasm: Continue oxybutynin 5 mg p.o. at bedtime. (8) Obesity (BMI 30.0-34.9): Advised appropriate diet and exercise (9) Hypomagnesemia: Replaced (10) JANAY (acute kidney injury): secondary to lasix administration - hold further diuresis and losartan for now prp am (11) Dementia: Patient is some mild dementia though she is oriented to time her daughter wishes for go to a nursing facility patient is not wish for that to occur I personally phoned the patient's he also wishes for the patient to come home patient was transported home Total Time Total Time Spent Total Time Spent (In Minutes): greater than 30 minutes were required to prepare discharge Discharge Plan Discharge Items Patient Disposition: Home - Home Health Services Reason For Visit: B/L LE CELLULITIS Discharge Diagnosis: lower extremity cellulitis Discharge Goals: Decrease discomfort and Diagnostic testing Activity: Resume your previous activity Non-emergency contact: Primary Care Provider Call non-emergency contact if: you have any medication questions Follow-up/Referrals: Marly Calvillo CRNP [Primary Care Provider] - Diet: Carb Consistent or DM2 Addtl Provider Instructions: please elevate your legs when sitting, follow up with primary care doctor Prescriptions: Continued cyanocobalamin (vitamin B-12) [Vitamin B-12] 1,000 mcg Tablet Extended Release 1,000 mcg PO DAILY RF: 0 glimepiride 4 mg tablet 4 mg PO BID RF: 0 losartan 25 mg Tablet 25 mg PO DAILY RF: 0 oxybutynin chloride 5 mg tablet extended release 24hr 5 mg PO HS RF: 0 cholecalciferol (vitamin D3) [Vitamin D3] 1,000 unit Capsule 1,000 unit PO DAILY RF: 0 thyroid (pork) 60 mg tablet 60 mg PO DAILY RF: 0 Discontinued metformin 500 mg tablet 500 mg PO DAILYBL RF: 0 metformin 500 mg tablet 1,000 mg PO QPM RF: 0 doxycycline hyclate 100 mg tablet 100 mg PO BID RF: 0 Stand-Alone Forms: [facility] Discharge Orders: Discharge Order (Routine); Ordered 07/04/18 Ordered By: Ej Angel Admission Data Admit Date/Time: 06/30/18 22:53 Attending Provider: Ej Angel Admit Provider: Shailesh Reyes Primary Care Provider: Marly Calvillo Other Providers: Shailesh Reyes ; Cait Vaughn Service: Medical Other Interventions: Discharge Summary Assessment (RN) Last Done: 07/04/18 14:16 DC Date/Time DO NOT enter until pt leaves facility: 07/04/18 14:50
== END 2018-07-04 14:50 | disposition home health service (06) | DRG 300 ==
LOC: ED 17:02 → SUATTDRO 22:53 → 4W 22:53

== ENCOUNTER 2019-12-31 18:25 | Inpatient (IN) ==
[2019-12-31] MEDS ORDERED: SODIUM CHLORIDE 0.9% 500 ML IV SCH (18:45)
[2019-12-31 19:14] LABS: Basophils # (auto) 0.03 K/uL (0-0.2); Basophils % (auto) 0.2 %; Eosinophils # (auto) 0.04 K/uL (0-0.5); Eosinophils % (auto) 0.2 %; Hematocrit (blood only) 40.3 % (37-47); Hemoglobin 13.1 g/dL (12.0-16.0); Immature Granulocytes # (auto) 0.04 K/uL (0.00-0.02); Immature Granulocytes % (auto) 0.2 %; Lymphocytes # (auto) 1.34 K/uL (1.2-3.4); Lymphocytes % (auto) 8.3 %; Mean Corpuscular Hemoglobin 29.6 pg (25-34); Mean Corpuscular Hgb Conc 32.5 g/dL (32-36); Mean Platelet Volume 9.4 fL (7.4-10.4); Monocytes # (auto) 0.89 K/uL (0.11-0.59); Monocytes % (auto) 5.5 %; Neutrophils # (auto) 13.88 K/uL (1.4-6.5); Neutrophils % (auto) 85.6 %; Platelet Count 348 K/uL (130-400); RDW Coefficient of Variation 12.9 % (11.5-14.5); RDW Standard Deviation 43.1 fL (36.4-46.3); Red Blood Count 4.43 M/uL (4.2-5.4); White Blood Count 16.22 K/uL (4.8-10.8)
--- NOTE | 2019-12-31 19:18 | XRay Report ---
XR chest 1V portable HISTORY: weakness COMPARISON: Chest 07/18/2018. FINDINGS: The heart remains mildly enlarged. No pleural effusions. No pneumothorax. The lungs are kervin ar. No evidence for pulmonary edema. Old, healed right humeral neck fracture. IMPRESSION: Stable mild cardiomegaly. ACT 112: Negative or not required by law. Electronically signed by: Ld Dash M.D. 12/31/2019 7:17 PM
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
--- NOTE | 2019-12-31 19:26 | XRay Report ---
LEFT KNEE 2 VIEWS HISTORY: Left knee pain. fall COMPARISON: None. FINDINGS: There is no fracture or dislocation. Soft tissues are unremarkable. No knee effusion. Mild cartilage space narrowing within the medial compartment. No radiopaque foreign bodies. IMPRESSION: No fractures. ACT 112: Negative or not required by law. Electronically signed by: dL Dash M.D. 12/31/2019 7:25 PM
--- NOTE | 2019-12-31 19:28 | XRay Report ---
AP PELVIS ONE VIEW HISTORY: Fall. Pelvic pain. COMPARISON: Pelvis 05/04/2018. FINDINGS: There is no fracture or dislocation. Soft tissues are unremarkable. No radiopaque foreign b odies. IMPRESSION: No fracture or dislocation within the pelvis or hips. ACT 112: Negative or not required by law. Electronically signed by: Ld Dash M.D. 12/31/2019 7:26 PM
[2019-12-31 19:30] LABS: Appearance Urine Clear (Clear); Bacteria Urine Automated Negative (Negative); Bilirubin Urine Negative (Negative); Blood Urine Negative (Negative); Color Urine Yellow; Epithelial Cell Urine Auto >30 /lpf (0-5); Glucose Urine UA 3+ (Negative); Ketones Urine 1+ (Negative); Leukocyte Esterase Urine Negative (Negative); Nitrite Urine Negative (Negative); Protein Urine 2+ (Negative); RBC Urine Automated 0-4 /hpf (0-4); Specific Gravity Urine 1.021 (1.000-1.030); Urobilinogen Urine Negative (Negative); pH Urine 5.5 (4.5-7.5)
[2019-12-31 19:31] LABS: Partial Thromboplastin Ratio 1.1; Partial Thromboplastin Time 30.9 Seconds (21.0-31.0)
[2019-12-31 19:32] LABS: Alanine Aminotransferase 20 U/L (12-78); Albumin Level 3.5 gm/dl (3.4-5.0); Aspartate Aminotransferase 14 U/L (15-37); BUN Creatinine Ratio 18.2 (10-20); Blood Urea Nitrogen 21 mg/dl (7-18); Calcium 9.1 mg/dl (8.5-10.1); Carbon Dioxide 26 mmol/L (21-32); Chloride 104 mmol/L (98-107); Creatinine Clr Calc Pharmacy 28.7 ml/min; Est GFR (African American) 49.9; Glucose 211 mg/dl (70-99); Potassium 4.3 mmol/L (3.5-5.1); Sodium 138 mmol/L (136-145)
--- NOTE | 2019-12-31 19:33 | CT Scan Report ---
HEAD CT NONCONTRAST CT DOSE: HISTORY: fall TECHNIQUE: Multiaxial CT images of the head were performed without the use of intravenous contrast. A utomated exposure control was utilized for this study. A dose lowering technique was utilized adheri ng to the principles of ALARA. Comparison: Head CT 07/18/2018. Findings: The paranasal sinuses and mastoid air cells are clear. The calvarium and skull base are int act. There is no mass, hematoma, midline shift, acute infarct. White matter hypodensity is nonspecifi c but suggestive of microvascular ischemic change. The ventricles and sulci demonstrate mild age-rela kristen involutional changes. 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 Impression: No acute intracranial abnormality. Atrophy and microvascular ischemic changes. ACT 112: Negative or not required by law. Electronically signed by: Ld Dash M.D. 12/31/2019 7:31 PM
--- NOTE | 2019-12-31 19:39 | CT Scan Report ---
CERVICAL SPINE CT CT DOSE: 842.80 mGy.cm HISTORY: FALL TECHNIQUE: Multiaxial CT images of the cervical spine were performed and reformatted in the sagittal and coronal plane without the use of contrast. A dose lowering technique was utilized adhering to th e principles of ALARA. COMPARISON: Cervical spine CT 07/18/2018. FINDINGS: No fractures. No subluxation. Prevertebral soft tissues and the C1-C2 interval are intact. No pneumothorax. Moderate disc space narrowing at C5-C6 and C6-C7. Mild disc space narrowing at C4-C5 . IMPRESSION: No fractures within the cervical spine. ACT 112: Negative or not required by law. Electronically signed by: Ld Dash M.D. 12/31/2019 7:38 PM
[2019-12-31 19:43] LABS: Albumin Globulin Ratio 0.9 (0.9-2); Alkaline Phosphatase 117 U/L (45-117); Bilirubin,Total 0.6 mg/dl (0.2-1); Creatine Kinase 200 U/L (26-192); Total Protein 7.5 gm/dl (6.4-8.2); Troponin I < 0.015 ng/ml (0-0.045)
--- NOTE | 2019-12-31 22:22 | History & Physical Report ---
Date of Service December 31, 2019 Assessment & Plan (1) Status post fall: Status post fall/resultant generalized myalgias and arthralgias- Patient reports that she tripped over a cord, and was on the floor overnight, due to being unable to get up, due to urine leakage whenever she attempted to rise. We will consult PT/OT. Placed on Tylenol 650 mg p.o. every 6 hours PRN mild pain or temperature Present on Admission?: Yes (2) Dementia: The patient does appear to be suffering from some mild dementia. In discussion with her daughter, the patient has been refusing to allow help to come in to the house for herself and her , who is also presently in the ED at this time. The patient's daughter also reports that the office of aging has been involved, but to what extent is not clear at this point. We will consult pediatric social worker, and palliative care, to help determine appropriate living situation for the and her . Present on Admission?: Yes (3) Myalgia: See above Present on Admission?: Yes (4) Arthralgia: See above Present on Admission?: Yes (5) Hypercholesterolemia: Continue atorvastatin 80 mg daily Present on Admission?: Yes (6) Hypothyroidism: Continue [place] Thyroid TSH in normal range at 2.170 Present on Admission?: Yes (7) Diabetes mellitus type 2, uncontrolled: Hold glimepiride 4 mg twice daily. Continue Lantus insulin 10 units subcu daily. Placed on Accu-Cheks before meals and at bedtime with NovoLog coverage per scale Present on Admission?: Yes (8) Urinary incontinence: Urinalysis and urine culture look normal. Continue oxybutynin extended release 5 mg p.o. at bedtime Present on Admission?: Yes (9) Vitamin B12 deficiency: Continue supplement 1000 mcg p.o. daily Present on Admission?: Yes History of Present Illness Chief Complaint: The patient presents to the emergency department after being found on the floor overnight in her home, after having tripped over a cord Primary Care Provider: JACQUES Lim The patient is a 84-year-old female with a past medical history including carotid artery stenosis, anemia, aortic stenosis, diabetes mellitus, GERD, hypercholesterolemia, hypothyroidism, macular degeneration, mitral and aortic valve disease, PAD, polymyalgia rheumatica, vitamin D deficiency, vitamin B12 deficiency, rheumatic heart disease and dementia. She was found on the floor at home by neighbors, who became concerned after her wash was left out on the clothes line for a longer period of time than usual. She reports that she had tripped over a cord, and had injured her left knee, and that every time she tried to get up she leaked urine due to not having had her oxybutynin that evening. She reports that this is the first time that she has fallen, and describes this above as a mechanical fall Allergies Allergy/AdvReac Type Severity Reaction Status Date / Time Sulfa (Sulfonamide Allergy Intermediate RASH Verified 12/31/19 20:35 Antibiotics) adhesive Allergy Unknown UNKNOWN Verified 12/31/19 20:35 aspirin Allergy Unknown Unknown Verified 12/31/19 20:35 Bactrim Allergy Unknown Nausea/Vomi Verified 09/17/14 19:04 ting/Rash iodine Allergy Unknown Unknown Verified 12/31/19 20:35 lisinopril Allergy Unknown Unknown Verified 12/31/19 20:35 prochlorperazine Allergy Unknown Unknown Verified 12/31/19 20:35 sulfamethoxazole Allergy Unknown Nausea/Vomi Verified 12/31/19 20:35 ting/Rash trimethoprim Allergy Unknown Nausea/Vomi Verified 12/31/19 20:35 ting/Rash tigecycline AdvReac Unknown Nausea/Vomi Verified 12/31/19 20:35 ting Home Medications Home Medications Medication Instructions Recorded Confirmed Type omega-3 fatty acids 1,000 mg 1,000 mg PO QDL 10/20/18 12/31/19 History capsule vit C 250 mg-E 200 unit-zinc 40 1 tab PO BID 10/20/18 12/31/19 History mg-copper 1 [id number] capsule cyanocobalamin (vitamin B-12) 1,000 mcg PO QDL 11/14/18 12/31/19 History 1,000 mcg tablet polysaccharide iron complex 150 mg 150 mg PO DAILY #30 cap 11/15/18 12/31/19 Rx iron capsule cholecalciferol (vitamin D3) 50 2,000 units PO QDL 11/30/18 12/31/19 History mcg (2,000 unit) capsule docusate sodium 100 mg capsule 100 mg PO HS cap 11/30/18 12/31/19 History glucosamine-chondroitin 250 mg-200 1 tab PO QDL tab 11/30/18 12/31/19 History mg tablet oxybutynin chloride 5 mg 5 mg PO HS #90 tab 01/18/19 12/31/19 Rx tablet,extended release 24 hr pen needle, diabetic 31 gauge x #30 ea 08/08/19 Rx 3/16" lancets #300 ea 08/14/19 Rx blood sugar diagnostic #300 ea 08/23/19 Rx glimepiride 4 mg tablet 4 mg PO BID #180 tab 11/10/19 12/31/19 Rx atorvastatin 80 mg PO HS 12/31/19 12/31/19 History insulin glargine [Lantus Solostar 10 units SQ QDL 12/31/19 12/31/19 History U-100 Insulin] losartan 25 mg PO QAM 12/31/19 12/31/19 History thyroid (pork) [[place] Thyroid] 60 mg PO QAM 12/31/19 12/31/19 History Past Med/Surg History Medical History Actinic keratosis Anemia Aortic stenosis Arthritis Bilateral lower extremity edema Diabetes Diabetes mellitus type 2, uncontrolled Fracture of shaft of humerus, closed Gastroesophageal reflux disease History of episiotomy Hypercholesterolemia Hypothyroidism Macular degeneration Microalbuminuria Mitral and aortic valve disease Osteopenia PAD (peripheral artery disease) Polymyalgia rheumatica Rheumatic heart disease Urinary incontinence Venous insufficiency Vitamin D deficiency Wound, open, foot Surgical History History of breast surgery Puncture aspiration of cyst History of section History of dilation and curettage History of total abdominal hysterectomy and bilateral salpingo-oophorectomy History of tubal ligation Family History Other Family history non-contributory Social History Smoking Status: Never smoker Hx Alcohol Use: No Hx Substance Use: No Preferred Language: Bulgarian Communication Ability: Effective 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 Beliefs That Will Affect Care: None Current Living Situation: Spouse Feels Safe at Home: Yes Safety Concerns: Feels Safe At This Time Review of Systems Review of Systems: The patient denies chest pain, palpitations, shortness of breath, dyspnea on exertion, cough, lower extremity swelling, sore throat, fevers, chills, sweats, fatigue, nausea, vomiting, diarrhea , constipation, abdominal pain, pelvic pain, blood in urine or stool, dysuria, urinary frequency or urgency, lightheadedness, dizziness, headache, memory loss, loss of consciousness, rash, abnormal bruising or bleeding, imbalance, focal or generalized weakness, numbness or tingling in arms, back or neck pain, or night sweats. The review of systems is otherwise negative other than for that already noted above, and at least 10 systems have been reviewed. Physical Exam Physical Exam: The patient is awake, alert and oriented 3, normocephalic and atraumatic, lying in bed and in no acute distress. HEENT--PERRL, EOMI, mucous membranes and oropharynx normal. Neck--supple. No JVD. No bruits. Thyroid normal, trachea midline, no adenopathy. Heart--normal S1 and S2. No murmurs, rubs or gallops. Lungs--clear bilaterally, no respiratory distress, no accessory muscle use. Abdomen--normal bowel sounds and soft. Nontender. Nondistended, no hernias or masses, no organomegaly. Extremities--no cyanosis or clubbing. No edema. Dermatologic--there is bruising and small amount of fluid around left knee, with scattered other bruises noted. Neurologic--cranial nerves II through XII grossly intact. Rheumatologic--patient reports that she does not have any discomfort when lying still, but does note some generalized mild discomfort in her muscles and joints whenever she moves. Psychiatric--normal affect. Results & Data Results & Data ([facility]) Vital Signs (Past 12 Hours) Vital Signs Temp Pulse Pulse Resp BP BP Pulse Ox 12/31/19 22:06 99 H 18 166/71 H 96 12/31/19 21:40 98 H 20 96 12/31/19 20:35 99 H 20 193/67 H 98 12/31/19 19:23 98 H 16 180/58 H 98 12/31/19 19:17 102 H 20 193/71 H 95 12/31/19 18:31 99.1 F 102 H 24 199/76 H 93 Laboratory Results Laboratory Results WBC 16.22 K/uL (4.8-10.8) H 12/31/19 19:00 RBC 4.43 M/uL (4.2-5.4) 12/31/19 19:00 Hgb 13.1 g/dL (12.0-16.0) 12/31/19 19:00 Hct 40.3 % (37-47) 12/31/19 19:00 MCV 91.0 fL (80-100) 12/31/19 19:00 MCH 29.6 pg (25-34) 12/31/19 19:00 MCHC 32.5 g/dL (32-36) 12/31/19 19:00 RDW Std Deviation 43.1 fL (36.4-46.3) 12/31/19 19:00 RDW Coeff of Sydnie 12.9 % (11.5-14.5) 12/31/19 19:00 Plt Count 348 K/uL (130-400) 12/31/19 19:00 MPV 9.4 fL (7.4-10.4) 12/31/19 19:00 Immature Gran % (Auto) 0.2 % 12/31/19 19:00 Neut % (Auto) 85.6 % 12/31/19 19:00 Lymph % (Auto) 8.3 % 12/31/19 19:00 [place] % (Auto) 5.5 % 12/31/19 19:00 Eos % (Auto) 0.2 % 12/31/19 19:00 Baso % (Auto) 0.2 % 12/31/19 19:00 Neut # (Auto) 13.88 K/uL (1.4-6.5) H 12/31/19 19:00 Lymph # (Auto) 1.34 K/uL (1.2-3.4) 12/31/19 19:00 [place] # (Auto) 0.89 K/uL (0.11-0.59) H 12/31/19 19:00 Eos # (Auto) 0.04 K/uL (0-0.5) 12/31/19 19:00 Baso # (Auto) 0.03 K/uL (0-0.2) 12/31/19 19:00 Immature Gran # (Auto) 0.04 K/uL (0.00-0.02) H 12/31/19 19:00 APTT 30.9 Seconds (21.0-31.0) 12/31/19 19:00 PTT Ratio 1.1 12/31/19 19:00 Sodium 138 mmol/L (136-145) 12/31/19 19:00 Potassium 4.3 mmol/L (3.5-5.1) 12/31/19 19:00 Chloride 104 mmol/L (98-107) 12/31/19 19:00 Carbon Dioxide 26 mmol/L (21-32) 12/31/19 19:00 Anion Gap 8.0 (3-11) 12/31/19 19:00 BUN 21 mg/dl (7-18) H 12/31/19 19:00 Creatinine 1.15 mg/dl (0.6-1.2) 12/31/19 19:00 Est Cr Clr Drug Dosing 28.7 ml/min 12/31/19 19:00 Est GFR ( Amer) 49.9 12/31/19 19:00 Est GFR (Non-Af Amer) 43.0 12/31/19 19:00 BUN/Creatinine Ratio 18.2 (10-20) 12/31/19 19:00 Glucose 211 mg/dl (70-99) H 12/31/19 19:00 Calcium 9.1 mg/dl (8.5-10.1) 12/31/19 19:00 Magnesium 2.0 mg/dl (1.8-2.4) 12/31/19 19:00 Total Bilirubin 0.6 mg/dl (0.2-1) 12/31/19 19:00 AST 14 U/L (15-37) L 12/31/19 19:00 ALT 20 U/L (12-78) 12/31/19 19:00 Alkaline Phosphatase 117 U/L (45-117) 12/31/19 19:00 Total Creatine Kinase 200 U/L (26-192) H 12/31/19 19:00 Troponin I < 0.015 ng/ml (0-0.045) 12/31/19 19:00 Total Protein 7.5 gm/dl (6.4-8.2) 12/31/19 19:00 Albumin 3.5 gm/dl (3.4-5.0) 12/31/19 19:00 Globulin 4.0 gm/dl (2.5-4.0) 12/31/19 19:00 Albumin/Globulin Ratio 0.9 (0.9-2) 12/31/19 19:00 TSH 2.170 uIu/ml (0.300-4.500) 12/31/19 19:00 Urine Color Yellow 12/31/19 19:15 Urine Appearance Clear (Clear) 12/31/19 19:15 Urine pH 5.5 (4.5-7.5) 12/31/19 19:15 Ur Specific [place] 1.021 (1.000-1.030) 12/31/19 19:15 Urine Protein 2+ (Negative) H 12/31/19 19:15 Urine Glucose (UA) 3+ (Negative) H 12/31/19 19:15 Urine Ketones 1+ (Negative) H 12/31/19 19:15 Urine Blood Negative (Negative) 12/31/19 19:15 Urine Nitrite Negative (Negative) 12/31/19 19:15 Urine Bilirubin Negative (Negative) 12/31/19 19:15 Urine Urobilinogen Negative (Negative) 12/31/19 19:15 Ur Leukocyte Esterase Negative (Negative) 12/31/19 19:15 Urine WBC (Auto) 1-5 /hpf (0-5) 12/31/19 19:15 Urine RBC (Auto) 0-4 /hpf (0-4) 12/31/19 19:15 U Hyaline Cast (Auto) 5-10 /lpf (0-5) H 12/31/19 19:15 U Epithel Cells (Auto) >30 /lpf (0-5) H 12/31/19 19:15 Urine Bacteria (Auto) Negative (Negative) 12/31/19 19:15 Ur Renal Epithelial Cell Not Reportable 12/31/19 19:15 Diagnostic Findings [facility], [place] [phone] CT Scan Report Patient: LORRAINE LAGUNAS Date: 12/31/19 MR#: [id number]: [address] Acct ID:[id number]: Date: 1935[facility] Zip: [place] [address] Age: 84Location: ED Sex: FRoom/Bed: Att Phy:Diagnosis: FALL Bushra Phy: Marly Calvillo, KATRINANPService Date: 12/31/19 [facility] Phy:Interpreting Phy: Ld Dash MD Admit Phy: Ordering Phy: Destin Frias DO cc: ~ CERVICAL SPINE CT CT DOSE: 842.80 mGy.cm HISTORY: FALL TECHNIQUE: Multiaxial CT images of the cervical spine were performed and reformatted in the sagittal and coronal plane without the use of contrast. A dose lowering technique was utilized adhering to the principles of ALARA. COMPARISON: Cervical spine CT 07/18/2018. FINDINGS: No fractures. No subluxation. Prevertebral soft tissues and the C1-C2 interval are intact. No pneumothorax. Moderate disc space narrowing at C5-C6 and C6-C7. Mild disc space narrowing at C4-C5. IMPRESSION: No fractures within the cervical spine. ACT 112: Negative or not required by law. Electronically signed by: Ld Dash M.D. 12/31/2019 7:38 PM Dictated: 12/31/191931 Transcribed: 12/31/191931 [place], [place] [phone] XRay Report Patient: LORRAINE LAGUNAS Date: 12/31/19 MR#: [id number]: 126 [facility] Acct ID:[id number]: Date: [address] [place] [address] Zip: [place] [address] Age: 84Location: ED Sex: FRoom/Bed: Att Phy:Diagnosis: FALL Bushra Phy: Marly Calvillo CRNPService Date: 12/31/19 [facility] Phy:Interpreting Phy: Ld Dash MD Admit Phy: Ordering Phy: Destin Frias DO cc: ~ XR chest 1V portable HISTORY: weakness COMPARISON: Chest 07/18/2018. FINDINGS: The heart remains mildly enlarged. No pleural effusions. No pneumothorax. The lungs are clear. No evidence for pulmonary edema. Old, healed right humeral neck fracture. IMPRESSION: Stable mild cardiomegaly. ACT 112: Negative or not required by law. Electronically signed by: Ld Dash M.D. 12/31/2019 7:17 PM Dictated: 12/31/191914 Transcribed: 12/31/191914 [facility], [place] [phone] CT Scan Report Patient: LORRAINE LAGUNAS Date: 12/31/19 MR#: [id number]: [address] Acct ID:[id number]: Date: [address] [place] [address] [facility] [address] Age: 84Location: ED Sex: FRoom/Bed: Att Phy:Diagnosis: FALL Bushra Phy: Marly Calvillo, CRNPService Date: 12/31/19 Fam Phy:Interpreting Phy: Ld Dash MD Admit Phy: Ordering Phy: Destin Frias DO cc: ~ HEAD CT NONCONTRAST CT DOSE: HISTORY: fall TECHNIQUE: Multiaxial CT images of the head were performed without the use of intravenous contrast. Automated exposure control was utilized for this study. A dose lowering technique was utilized adhering to the principles of ALARA. Comparison: Head CT 07/18/2018. Findings: The paranasal sinuses and mastoid air cells are clear. The calvarium and skull base are intact. There is no mass, hematoma, midline shift, acute infarct. White matter hypodensity is nonspecific but suggestive of microvascular ischemic change. The ventricles and sulci demonstrate mild age-related involutional changes. 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 Impression: No acute intracranial abnormality. Atrophy and microvascular ischemic changes. ACT 112: Negative or not required by law. Electronically signed by: Ld Dash M.D. 12/31/2019 7:31 PM Dictated: 12/31/191925 Transcribed: 12/31/191925 [facility], [place] [phone] XRay Report Patient: LORRAINE LAGUNAS Date: 12/31/19 MR#: [id number]: [address] Acct ID:[id number]: Date: [address] [place] [address] Zip: [place] [address] Age: 84Location: ED Sex: FRoom/Bed: Att Phy:Diagnosis: FALL Bushra Phy: Rajinder, Marly L., CRNPService Date: 12/31/19 Fam Phy:Interpreting Phy: Ld Dash MD Admit Phy: Ordering Phy: Destin Frias DO cc: ~ LEFT KNEE 2 VIEWS HISTORY: Left knee pain. fall COMPARISON: None. FINDINGS: There is no fracture or dislocation. Soft tissues are unremarkable. No knee effusion. Mild cartilage space narrowing within the medial compartment. No radiopaque foreign bodies. IMPRESSION: No fractures. ACT 112: Negative or not required by law. Electronically signed by: Ld Dash M.D. 12/31/2019 7:25 PM Dictated: 12/31/191923 Transcribed: 12/31/191923 [place], [place] [phone] XRay Report Patient: LORRAINE LAGUNAS Date: 12/31/19 MR#: [id number]: [facility] Acct ID:[id number]: Date: 1935[facility] Zip: [place] [address] Age: 84Location: ED Sex: FRoom/Bed: Att Phy:Diagnosis: FALL Bushra Phy: Marly Calvillo CRNPService Date: 12/31/19 [facility] Phy:Interpreting Phy: Ld Dash MD Admit Phy: Ordering Phy: Destin Frias DO cc: ~ AP PELVIS ONE VIEW HISTORY: Fall. Pelvic pain. COMPARISON: Pelvis 05/04/2018. FINDINGS: There is no fracture or dislocation. Soft tissues are unremarkable. No radiopaque foreign bodies. IMPRESSION: No fracture or dislocation within the pelvis or hips. ACT 112: Negative or not required by law. Electronically signed by: Ld Dash M.D. 12/31/2019 7:26 PM Dictated: 12/31/191925 Transcribed: 12/31/191925 Code Status & VTE Plan Code Status Full code VTE Prophylaxis Plan VTE Prophylaxis will be ordered: Yes PG Care Time/CCT Total # of Minutes Spent Total Time Spent with Patient: Total time spent is greater than 50% in coordination of care (as documented) at patient's floor/unit and/or counseling patient: Coding Level of Care Code 41864 OBS Care - Level 3 Diagnoses Status post fall Z91.81 Dementia F03.90 Myalgia M79.10 Arthralgia M25.50 Hypercholesterolemia E78.00 Hypothyroidism E03.9 Diabetes mellitus type 2, uncontrolled E11.65 Urinary incontinence R32 Vitamin B12 deficiency E53.8
[2019-12-31] MEDS ORDERED: MAGNESIUM HYDROXIDE SUSP 30 ML UDC PO PRN (23:14)
[2019-12-31] MEDS ORDERED: ALUMINUM/MAGNESIUM SUSP 30 ML UDC PO PRN (23:14)
[2019-12-31] MEDS ORDERED: GLUCOSE 40% GEL 15 GM TUBE PO PRN (23:14)
[2019-12-31] MEDS ORDERED: DEXTROSE 50% 50 ML SYRINGE IV PRN (23:14)
[2019-12-31] MEDS ORDERED: CARBOHYDRATES FOR HYPOGLYCEMIA PO PRN (23:14)
[2019-12-31] MEDS ORDERED: GLUCAGON FOR INJ 1 MG VIAL SQ PRN (23:14)
[2019-12-31] MEDS ORDERED: ONDANSETRON INJ 2 MG/ML 2 ML VIAL IV PRN (23:14)
[2019-12-31] MEDS ORDERED: ACETAMINOPHEN 325 MG TAB PO PRN (23:14)
[2019-12-31] MEDS ORDERED: GLUCOSE 10 TABS/TUBE PO PRN (23:14)
[2020-01-01 06:43] LABS: Estimated Average Glucose 212 mg/dl
[2020-01-01] MEDS: CEROVITE ADV FORMULA TAB PO SCH ×2 (08:09→20:19)
[2020-01-01] MEDS: ARMOUR THYROID 30 MG TAB PO SCH (08:09)
[2020-01-01] MEDS: HEPARIN SOD 5,000 UNIT/0.5 ML VIAL SQ SCH ×2 (08:09→20:20)
[2020-01-01] MEDS: IRON POLYSACCHARIDE COMPLEX 150 MG CAPSULE PO SCH (08:09)
[2020-01-01] MEDS: LOSARTAN POTASSIUM 25 MG TAB PO SCH (08:09)
[2020-01-01] MEDS: INSULIN ASPART 100 UNITS/ML 3 ML PEN SC SCH ×4 (08:13→20:26)
--- NOTE | 2020-01-01 08:33 | Hospitalist Progress Note ---
Date of Service January 01, 2020 Assessment & Plan (1) Status post fall: Status post fall/resultant generalized myalgias and arthralgias- Patient reports that she tripped, was lying on the floor overnight, due to being unable to get up PT/OT eval (2) Dementia: The patient does appear to be suffering from some mild dementia. In discussion with her daughter, the patient has been refusing to allow help to come in to the house for herself and her 's family concerned that the patient's may be hoarders The patient's daughter also reports that the office of aging has been involved We will consult social work job titles, and palliative care, to help determine appropriate living situation for the and her . (3) Myalgia: See above (4) Arthralgia: See above (5) Hypercholesterolemia: Continue atorvastatin 80 mg daily (6) Hypothyroidism: Continue [place] Thyroid TSH in normal range at 2.170 (7) Diabetes mellitus type 2, uncontrolled: Holding glimepiride 4 mg twice daily. Continue Lantus insulin 10 units subcu daily. Placed on Accu-Cheks before meals and at bedtime with NovoLog coverage per scale (8) Urinary incontinence: Urinalysis and urine culture look normal. Continue oxybutynin extended release 5 mg p.o. at bedtime (9) Vitamin B12 deficiency: Continue supplement 1000 mcg p.o. daily Admission and Anticipated Discharge Date Admission Date: December 31, 2019 Subjective Patient is pleasantly confused awaiting PT OT evaluation some issues regarding placement of her with his dementia she is his primary caregiver concerns for his behavior Review of Systems Review of Systems: Mild distress and fatigue no headache, blurry or double vision no speech or swallowing issues no chest pain, pressure or palpitations no shortness of breath, cough or wheezes no abdominal pain, nausea or vomiting, diarrhea or constipation no dysuria, hematuria or frequency Diffuse arthralgias myalgias no particular focal joint related issues no back pain, CVA tenderness or radicular pain no bruising, bleeding or rashes no focal signs of weakness or numbness or altered sensation no complaints or anxiety or depression. Physical Exam Physical Exam: The patient appeared well nourished and normally developed. He is appropriate for age Vital signs as documented. Head exam is normocephalic atraumatic no scleral icterus Neck is without JVD, thyromegaly, or carotid bruits. Lungs are clear to auscultation, but diminished at the bases Cardiac exam, Rhythm is regular.. No murmurs, rubs or gallops. Abdominal exam reveals normal bowel sounds, soft non tender, no masses Extremities are nonedematous and both pedal pulses are normal. Neurologic exam is alert and oriented x3 but does take some time to get the correct responses, no focal loss of strength or sensation Skin is with bruises to her extremities Psychologically is without concerns for anxiety or depression. She may have some beginnings of dementia herself Results & Data Results & Data ([facility]) Vital Signs (Past 12 Hours) Vital Signs Temp Pulse Resp BP Pulse Ox 01/01/20 07:22 98.2 F 100 H 20 90/53 L 97 12/31/19 23:13 98.6 F 102 H 16 167/74 H 92 12/31/19 22:51 102 H 20 166/66 H 99 12/31/19 22:06 99 H 18 166/71 H 96 12/31/19 21:40 98 H 20 96 12/31/19 20:35 99 H 20 193/67 H 98 PG Care Time/CCT Total # of Minutes Spent Total Time Spent with Patient: Total time spent is greater than 50% in coordination of care (as documented) at patient's floor/unit and/or counseling patient: Coding Level of Care Code 89996 Subseq Hosp Care Lvl 2 Diagnoses Status post fall Z91.81 Dementia F03.90 Myalgia M79.10 Arthralgia M25.50 Hypercholesterolemia E78.00 Hypothyroidism E03.9 Diabetes mellitus type 2, uncontrolled E11.65 Urinary incontinence R32 Vitamin B12 deficiency E53.8
--- NOTE | 2020-01-01 09:22 | Electrocardiogram Report ---
Test Reason : Blood Pressure : / mmHG Vent. Rate : 100 BPM Atrial Rate : 100 BPM P-R Int : 190 ms QRS Dur : 110 ms QT Int : 370 ms P-R-T Axes : 070 -56 033 degrees QTc Int : 477 ms Poor data quality, interpretation may be adversely affected Normal sinus rhythm Incomplete right bundle branch block Left anterior fascicular block Nonspecific ST abnormality Abnormal ECG When compared with ECG of 30-JUN-2018 18:54, Premature supraventricular complexes are no longer Present QRS axis Shifted left Confirmed by Carl Marin ([id number] on 01/01/2020 9:22:48 AM Referred By: REFERRED SELF Confirmed By:Carl Marin
[2020-01-01] MEDS ORDERED: NON-FORMULARY MEDICATION (Glucosamine-Chondroitin [Osteo Bi-Flex] 1 TAB) PO SCH (11:30)
[2020-01-01] MEDS: CHOLECALCIFEROL 1,000 UNITS 25 MCG TAB PO SCH (12:05)
[2020-01-01] MEDS: OMEGA-3 (PURIFIED FISH OIL) 1 GM CAP PO SCH (12:05)
[2020-01-01] MEDS: CYANOCOBALAMIN 500 MCG TABLET (VITAMIN B-12) PO SCH (12:05)
[2020-01-01] MEDS: INSULIN GLARGINE SOLOSTAR 100 UNITS/ML 3 ML PEN SQ SCH (12:10)
[2020-01-01] MEDS: OXYBUTYNIN CHLORIDE XL 5 MG TABCR PO SCH (20:19)
[2020-01-01] MEDS: ATORVASTATIN 40 MG TAB PO SCH (20:19)
[2020-01-01] MEDS: DOCUSATE SODIUM 100 MG CAP PO SCH (20:20)
[2020-01-02] MEDS: INSULIN ASPART 100 UNITS/ML 3 ML PEN SC SCH ×4 (08:54→20:46)
[2020-01-02] MEDS: HEPARIN SOD 5,000 UNIT/0.5 ML VIAL SQ SCH ×2 (08:55→20:44)
[2020-01-02] MEDS: ARMOUR THYROID 30 MG TAB PO SCH (08:57)
[2020-01-02] MEDS: CEROVITE ADV FORMULA TAB PO SCH ×2 (08:58→20:45)
[2020-01-02] MEDS: LOSARTAN POTASSIUM 25 MG TAB PO SCH (08:58)
[2020-01-02] MEDS: INSULIN GLARGINE SOLOSTAR 100 UNITS/ML 3 ML PEN SQ SCH (12:22)
[2020-01-02] MEDS: IRON POLYSACCHARIDE COMPLEX 150 MG CAPSULE PO SCH (12:22)
[2020-01-02] MEDS: OMEGA-3 (PURIFIED FISH OIL) 1 GM CAP PO SCH (12:23)
[2020-01-02] MEDS: CYANOCOBALAMIN 500 MCG TABLET (VITAMIN B-12) PO SCH (12:23)
[2020-01-02] MEDS: CHOLECALCIFEROL 1,000 UNITS 25 MCG TAB PO SCH (12:23)
--- NOTE | 2020-01-02 16:45 | Hospitalist Progress Note ---
Date of Service January 02, 2020 Assessment & Plan (1) Status post fall: Status post fall/resultant generalized myalgias and arthralgias- Patient reports that she tripped, was lying on the floor overnight, due to being unable to get up PT/OT cherryal, 6 clicks score is 19 with mobility loss of function at 36.9%, recommending rehab (2) Dementia: The patient does appear to be suffering from some mild dementia. In discussion with her daughter, the patient has been refusing to allow help to come in to the house for herself and her 's family concerned that the patient's may be hoarders The patient's daughter also reports that the office of aging has been involved We will consult transition social worker, and palliative care, to help determine appropriate living situation for the and her . (3) Myalgia: improving (4) Arthralgia: also improving (5) Hypercholesterolemia: Continue atorvastatin 80 mg daily (6) Hypothyroidism: Continue [place] Thyroid TSH in normal range at 2.170 (7) Diabetes mellitus type 2, uncontrolled: Holding glimepiride 4 mg twice daily. Continue Lantus insulin 10 units subcu daily. Placed on Accu-Cheks before meals and at bedtime with NovoLog coverage per scale a1c was 9 on admission, but still does not rule out low blood glucose impacting fall (8) Urinary incontinence: Urinalysis and urine culture look normal. Continue oxybutynin extended release 5 mg p.o. at bedtime (9) Vitamin B12 deficiency: Continue supplement 1000 mcg p.o. daily (10) DVT prophylaxis: heparin for DVT prevention Admission and Anticipated Discharge Date Admission Date: January 02, 2020 Subjective Patient is pleasantly confused awaiting PT OT evaluation some issues regarding placement of her with his dementia she is his primary caregiver concerns for his sunding behavior Review of Systems Review of Systems: Mild distress and fatigue no headache, blurry or double vision no speech or swallowing issues no chest pain, pressure or palpitations no shortness of breath, cough or wheezes no abdominal pain, nausea or vomiting, diarrhea or constipation no dysuria, hematuria or frequency Diffuse arthralgias myalgias no particular focal joint related issues no back pain, CVA tenderness or radicular pain no bruising, bleeding or rashes no focal signs of weakness or numbness or altered sensation no complaints or anxiety or depression. Physical Exam Physical Exam: The patient appeared well nourished and normally developed. He is appropriate for age Vital signs as documented. Head exam is normocephalic atraumatic no scleral icterus Neck is without JVD, thyromegaly, or carotid bruits. Lungs are clear to auscultation, but diminished at the bases Cardiac exam, Rhythm is regular.. No murmurs, rubs or gallops. Abdominal exam reveals normal bowel sounds, soft non tender, no masses Extremities are nonedematous and both pedal pulses are normal. Neurologic exam is alert and oriented x3 but does take some time to get the correct responses, no focal loss of strength or sensation Skin is with bruises to her extremities Psychologically is without concerns for anxiety or depression. She may have some beginnings of dementia herself Results & Data Results & Data ([facility]) Vital Signs (Past 12 Hours) Vital Signs Temp Pulse Resp BP Pulse Ox 01/02/20 15:45 98.1 F 124 H 18 98/63 L 91 01/02/20 08:29 99.0 F 93 H 18 130/51 L 95 PG Care Time/CCT Total # of Minutes Spent Total Time Spent with Patient: Total time spent is greater than 50% in coordination of care (as documented) at patient's floor/unit and/or counseling patient: Coding Level of Care Code 68434 Subseq Hosp Care Lvl 2 Diagnoses Status post fall Z91.81 Dementia F03.90 Myalgia M79.10 Arthralgia M25.50 Hypercholesterolemia E78.00 Hypothyroidism E03.9 Diabetes mellitus type 2, uncontrolled E11.65 Urinary incontinence R32 Vitamin B12 deficiency E53.8 DVT prophylaxis Z29.9
[2020-01-02] MEDS: ATORVASTATIN 40 MG TAB PO SCH (20:44)
[2020-01-02] MEDS: OXYBUTYNIN CHLORIDE XL 5 MG TABCR PO SCH (20:44)
[2020-01-02] MEDS: DOCUSATE SODIUM 100 MG CAP PO SCH (20:44)
[2020-01-03] MEDS: CEROVITE ADV FORMULA TAB PO SCH ×2 (08:41→20:04)
[2020-01-03] MEDS: LOSARTAN POTASSIUM 25 MG TAB PO SCH (08:41)
[2020-01-03] MEDS: HEPARIN SOD 5,000 UNIT/0.5 ML VIAL SQ SCH ×2 (08:41→20:06)
[2020-01-03] MEDS: ARMOUR THYROID 30 MG TAB PO SCH (08:41)
[2020-01-03] MEDS: INSULIN ASPART 100 UNITS/ML 3 ML PEN SC SCH ×4 (08:42→20:07)
[2020-01-03] MEDS: IRON POLYSACCHARIDE COMPLEX 150 MG CAPSULE PO SCH (08:45)
[2020-01-03] MEDS ORDERED: MICONAZOLE NITRATE POWDER 43 GM EXT PRN (08:55)
[2020-01-03] MEDS: INSULIN GLARGINE SOLOSTAR 100 UNITS/ML 3 ML PEN SQ SCH (12:52)
[2020-01-03] MEDS: CHOLECALCIFEROL 1,000 UNITS 25 MCG TAB PO SCH (12:53)
[2020-01-03] MEDS: CYANOCOBALAMIN 500 MCG TABLET (VITAMIN B-12) PO SCH (12:53)
[2020-01-03] MEDS: OMEGA-3 (PURIFIED FISH OIL) 1 GM CAP PO SCH (12:53)
[2020-01-03] MEDS ORDERED: POLYETHYLENE (MIRALAX) 17 GM PACK PO ONE (15:20)
--- NOTE | 2020-01-03 17:11 | Hospitalist Progress Note ---
Date of Service January 03, 2020 Assessment & Plan (1) Status post fall: Status post fall/resultant generalized myalgias and arthralgias- Patient reports that she tripped, was lying on the floor overnight, due to being unable to get up PT/OT nest[place], 6 clicks score is 19 with mobility loss of function at 36.9%, recommending rehab (2) Dementia: The patient does appear to be suffering from some mild dementia. In discussion with her daughter, the patient has been refusing to allow help to come in to the house for herself and her 's family concerned that the patient's may be hoarders The patient's daughter also reports that the office of aging has been involved We will consult social services manager, and palliative care, to help determine appropriate living situation for the and her . (3) Myalgia: improving (4) Arthralgia: also improving (5) Hypercholesterolemia: Continue atorvastatin 80 mg daily (6) Hypothyroidism: Continue [place] Thyroid TSH in normal range at 2.170 (7) Diabetes mellitus type 2, uncontrolled: Holding glimepiride 4 mg twice daily. Continue Lantus insulin 10 units subcu daily. Placed on Accu-Cheks before meals and at bedtime with NovoLog coverage per scale a1c was 9 on admission, but still does not rule out low blood glucose impacting fall (8) Urinary incontinence: Urinalysis and urine culture look normal. Continue oxybutynin extended release 5 mg p.o. at bedtime (9) Vitamin B12 deficiency: Continue supplement 1000 mcg p.o. daily (10) DVT prophylaxis: heparin for DVT prevention Admission and Anticipated Discharge Date Admission Date: January 02, 2020 Subjective Patient is pleasantly confused Patient for placement in a rehab likely on 01/03 Review of Systems Review of Systems: Mild distress and fatigue no headache, blurry or double vision no speech or swallowing issues no chest pain, pressure or palpitations no shortness of breath, cough or wheezes no abdominal pain, nausea or vomiting, diarrhea or constipation no dysuria, hematuria or frequency Diffuse arthralgias myalgias no particular focal joint related issues no back pain, CVA tenderness or radicular pain no bruising, bleeding or rashes no focal signs of weakness or numbness or altered sensation no complaints or anxiety or depression. Physical Exam Physical Exam: The patient appeared well nourished and normally developed. He is appropriate for age Vital signs as documented. Head exam is normocephalic atraumatic no scleral icterus Neck is without JVD, thyromegaly, or carotid bruits. Lungs are clear to auscultation, but diminished at the bases Cardiac exam, Rhythm is regular.. No murmurs, rubs or gallops. Abdominal exam reveals normal bowel sounds, soft non tender, no masses Extremities are nonedematous and both pedal pulses are normal. Neurologic exam is alert and oriented x3 but does take some time to get the correct responses, no focal loss of strength or sensation Skin is with bruises to her extremities Psychologically is without concerns for anxiety or depression. She may have some beginnings of dementia herself Results & Data Results & Data ([facility]) Vital Signs (Past 12 Hours) Vital Signs Temp Pulse Resp BP Pulse Ox 01/03/20 11:35 97.7 F 81 20 126/57 L 96 01/03/20 07:53 98.6 F 83 18 105/62 98 PG Care Time/CCT Total # of Minutes Spent Total Time Spent with Patient: Total time spent is greater than 50% in coordination of care (as documented) at patient's floor/unit and/or counseling patient: Coding Level of Care Code 99166 Subseq Hosp Care Lvl 2 Diagnoses Status post fall Z91.81 Dementia F03.90 Myalgia M79.10 Arthralgia M25.50 Hypercholesterolemia E78.00 Hypothyroidism E03.9 Diabetes mellitus type 2, uncontrolled E11.65 Urinary incontinence R32 Vitamin B12 deficiency E53.8 DVT prophylaxis Z29.9
[2020-01-03] MEDS: DOCUSATE SODIUM 100 MG CAP PO SCH (20:04)
[2020-01-03] MEDS: ATORVASTATIN 40 MG TAB PO SCH (20:04)
[2020-01-03] MEDS: OXYBUTYNIN CHLORIDE XL 5 MG TABCR PO SCH (20:04)
[2020-01-04] MEDS: ARMOUR THYROID 30 MG TAB PO SCH (07:54)
[2020-01-04] MEDS: CEROVITE ADV FORMULA TAB PO SCH (07:55)
[2020-01-04] MEDS: LOSARTAN POTASSIUM 25 MG TAB PO SCH (07:55)
[2020-01-04] MEDS: HEPARIN SOD 5,000 UNIT/0.5 ML VIAL SQ SCH (07:57)
[2020-01-04] MEDS: IRON POLYSACCHARIDE COMPLEX 150 MG CAPSULE PO SCH (08:02)
[2020-01-04] MEDS: INSULIN ASPART 100 UNITS/ML 3 ML PEN SC SCH ×2 (09:47→12:35)
[2020-01-04] MEDS: CHOLECALCIFEROL 1,000 UNITS 25 MCG TAB PO SCH (12:28)
[2020-01-04] MEDS: INSULIN GLARGINE SOLOSTAR 100 UNITS/ML 3 ML PEN SQ SCH (12:29)
[2020-01-04] MEDS: CYANOCOBALAMIN 500 MCG TABLET (VITAMIN B-12) PO SCH (12:29)
[2020-01-04] MEDS: OMEGA-3 (PURIFIED FISH OIL) 1 GM CAP PO SCH (12:29)
--- NOTE | 2020-01-04 17:14 | Discharge Summary ---
Date of Service January 04, 2020 Admission HPI Per Admitting Provider The patient is a 84-year-old female with a past medical history including carotid artery stenosis, anemia, aortic stenosis, diabetes mellitus, GERD, hypercholesterolemia, hypothyroidism, macular degeneration, mitral and aortic valve disease, PAD, polymyalgia rheumatica, vitamin D deficiency, vitamin B12 deficiency, rheumatic heart disease and dementia. She was found on the floor at home by neighbors, who became concerned after her wash was left out on the clothes line for a longer period of time than usual. She reports that she had tripped over a cord, and had injured her left knee, and that every time she tried to get up she leaked urine due to not having had her oxybutynin that evening. She reports that this is the first time that she has fallen, and describes this above as a mechanical fall Principal Diagnosis mechanical fall Discharge Exam The patient appeared well Vital signs as documented. Lungs are clear to auscultation and appear unlabored Cardiac exam, Rhythm is regular.. No murmurs, rubs or gallops. Abdominal exam reveals normal bowel sounds, soft non tender, no masses Extremities are nonedematous and both pedal pulses are normal. Neurologic exam is alert and oriented, no focal loss of strength or sensation Skin is without bruises or rashes Psychologically is without concerns for anxiety or depression. Discharge Data Allergies Allergy/AdvReac Type Severity Reaction Status Date / Time Sulfa (Sulfonamide Allergy Intermediate RASH Verified 12/31/19 20:35 Antibiotics) sulfamethoxazole Allergy Intermediate Nausea/Vomi Verified 01/01/20 09:05 ting/Rash trimethoprim Allergy Intermediate Nausea/Vomi Verified 01/01/20 09:05 ting/Rash adhesive Allergy Unknown UNKNOWN Verified 12/31/19 20:35 aspirin Allergy Unknown Unknown Verified 12/31/19 20:35 Bactrim Allergy Unknown Nausea/Vomi Verified 09/17/14 19:04 ting/Rash iodine Allergy Unknown Unknown Verified 12/31/19 20:35 lisinopril Allergy Unknown Unknown Verified 12/31/19 20:35 prochlorperazine Allergy Unknown Unknown Verified 12/31/19 20:35 tigecycline AdvReac Intermediate Nausea/Vomi Verified 01/01/20 09:04 ting Consultations 12/31/19 21:02 ED Decision to Admit Stat 12/31/19 23:14 Consult Case Management - Discharge Planning Routine Ordered Studies 12/31/19 18:31 CT cervical spine wo con Stat CT head/brain wo con Stat Hospital Course (1) Status post fall: Status post fall/resultant generalized myalgias and arthralgias- Patient reports that she tripped, was lying on the floor overnight, due to being unable to get up PT/OT cherryal, 6 clicks score is 19 with mobility loss of function at 36.9%, recommending rehab (2) Dementia: The patient does appear to be suffering from some mild dementia. In discussion with her daughter, the patient has been refusing to allow help to come in to the house for herself and her 's family concerned that the patient's may be hoarders The patient's daughter also reports that the office of aging has been involved (3) Myalgia: improving (4) Arthralgia: also improving (5) Hypercholesterolemia: Continue atorvastatin 80 mg daily (6) Hypothyroidism: Continue [place] Thyroid TSH in normal range at 2.170 (7) Diabetes mellitus type 2, uncontrolled: Resume glimepiride lower dose from 4>2 mg twice daily. Recommend following glucose closely acute rehab Continue Lantus insulin 10 units subcu daily. Placed on Accu-Cheks before meals and at bedtime with NovoLog coverage per scale a1c was 9 on admission, but still does not rule out low blood glucose impacting fall (8) Urinary incontinence: Urinalysis and urine culture look normal. Continue oxybutynin extended release 5 mg p.o. at bedtime (9) Vitamin B12 deficiency: Continue supplement 1000 mcg p.o. daily Total Time Total Time Spent Total Time Spent (In Minutes): It required greater than 30 minutes to prepare this patient for discharge Discharge Plan Discharge Items Patient Disposition: Transfer Inpatient Rehab Fac Reason For Visit: S/P MECHANICAL FALL, GENERALIZED PAIN Discharge Diagnosis: mechanical fall musculoskeletal pain Condition on Discharge: Good Activity: Per Instructions section Activity Comment: per PT/OT Non-emergency contact: Primary Care Provider Call non-emergency contact if: you have any medication questions and your symptoms worsen Follow-up/Referrals: Marly Calvillo CRNP [Primary Care Provider] - Diet: Carb Consistent or DM2 Addtl Attending Provider Instructions: please assure pt has supportive services on discharge from your facility Pending Studies at Discharge: No Stand-Alone Forms: My [facility] Skilled Items Patient informed of condition?: Yes DNR: No Discharge Level of Care: Acute rehab Communicable Disease: No Discharge Prognosis: Stable Lines: None Urinary Catheter: No Medications and DC Order Prescriptions: Continued omega-3 fatty acids [Fish Oil Concentrate] 1,000 mg capsule 1,000 mg PO QDL RF: 0 PreserVision AREDS-2 [id number] qc-tovm-[id number]-mg capsule 1 tab PO BID RF: 0 glucosamine-chondroitin [Osteo Bi-Flex] 250-200 mg tablet 1 tab PO QDL RF: 0 docusate sodium 100 mg capsule 100 mg PO HS RF: 0 oxybutynin chloride 5 mg tablet extended release 24hr 5 mg PO HS Qty: 90 RF: 3 (DME) pen needle, diabetic [BD Ultra-Fine Mini Pen Needle] 31 gauge x 3/16" needle See Dose Instructions .ROUTE .MEDSUPPLY Qty: 30 RF: 3 (DME) lancets [OneTouch UltraSoft Lancets] Misc See Dose Instructions .ROUTE .MEDSUPPLY Qty: 300 RF: 3 (DME) OneTouch Ultra Blue Test Strip Strip See Dose Instructions .ROUTE .MEDSUPPLY Qty: 300 RF: 3 polysaccharide iron complex [Ferrex 150] 150 mg iron capsule 150 mg PO DAILY Qty: 30 RF: 0 cholecalciferol (vitamin D3) 2,000 unit capsule 2,000 units PO QDL RF: 0 atorvastatin 80 mg tablet 80 mg PO HS RF: 0 losartan 25 mg tablet 25 mg PO QAM RF: 0 Lantus Solostar U-100 Insulin 100 unit/mL (3 mL) insulin pen 10 units SQ QDL RF: 0 thyroid (pork) [[place] Thyroid] 60 mg tablet 60 mg PO QAM RF: 0 cyanocobalamin (vitamin B-12) [Vitamin B-12] 1,000 mcg tablet 1,000 mcg PO QDL RF: 0 Changed glimepiride 4 mg tablet 2 mg PO BID Qty: 180 RF: 3 Discharge Orders: Discharge Order (Routine); Ordered 01/04/20 Ordered By: Ej Perdomo/Other Patient Handouts: Managing Type 2 Diabetes Admission Data Admit Date/Time: 01/02/20 10:59 Attending Provider: Ej Angel Admit Provider: Shailesh Reyes Primary Care Provider: Marly Calvillo Other Providers: Shailesh Reyes ; [facility] ; [place] ; [facility] Other Interventions: Discharge Summary Assessment (RN) Last Done: 01/04/20 10:51 Coding Level of Care Code D/C Day Management >30 mins Diagnoses Status post fall Z91.81 Dementia F03.90 Myalgia M79.10 Arthralgia M25.50 Hypercholesterolemia E78.00 Hypothyroidism E03.9 Diabetes mellitus type 2, uncontrolled E11.65 Urinary incontinence R32 Vitamin B12 deficiency E53.8
== END 2020-01-04 13:48 | DRG 556 ==
LOC: ED 18:25 → 2N 18:25 → SUATTDRO 22:21 → 2N 22:54

== ENCOUNTER 2022-09-10 12:26 | Inpatient (IN) ==
[2022-09-10 13:23] LABS: Appearance Urine Cloudy (Clear); Bacteria Urine Automated 3+ (Negative); Bilirubin Urine Negative (Negative); Blood Urine Trace (Negative); Cast Urine Automated 0 /lpf (0-5); Color Urine Yellow; Epithelial Cell Urine Auto 0-5 /lpf (0-5); Glucose Urine UA 1+ (Negative); Ketones Urine Negative (Negative); Leukocyte Esterase Urine 3+ (Negative); Nitrite Urine Positive (Negative); RBC Urine Automated 0-4 /hpf (0-4); Specific Gravity Urine 1.008 (1.000-1.030); Urobilinogen Urine Negative (Negative); WBC Urine Automated >30 /hpf (0-5)
[2022-09-10 13:25] LABS: Basophils # (auto) 0.06 K/uL (0-0.2); Basophils % (auto) 0.6 %; Eosinophils # (auto) 0.27 K/uL (0-0.50); Eosinophils % (auto) 2.7 %; Hematocrit (blood only) 36.6 % (37.0-47.0); Hemoglobin 11.7 g/dl (12.0-16.0); Immature Granulocytes # (auto) 0.06 K/uL (0.01-0.20); Immature Granulocytes % (auto) 0.6 %; Lymphocytes # (auto) 1.79 K/uL (1.2-3.4); Lymphocytes % (auto) 17.7 %; Mean Corpuscular Hemoglobin 29.4 pg (25.0-34.0); Mean Platelet Volume 9.7 fL (9.4-12.4); Monocytes # (auto) 0.65 K/uL (0.11-0.59); Monocytes % (auto) 6.4 %; Neutrophils # (auto) 7.26 K/uL (1.40-6.50); Platelet Count 333 K/uL (130-400); RDW Coefficient of Variation 12.3 % (11.5-14.5); RDW Standard Deviation 41.1 fL (36.4-46.3); Red Blood Count 3.98 M/uL (4.20-5.40); White Blood Count 10.09 K/ul (4.8-10.8)
[2022-09-10 13:26] LABS: Protein Urine Trace (Negative)
[2022-09-10 13:40] LABS: Albumin Globulin Ratio 1.2 (0.9-2); BUN Creatinine Ratio 26.2 (10-20); Bilirubin,Total 0.5 mg/dl (0.2-1.0); Calcium 10.1 mg/dl (8.6-10.3); Creatinine Clr Calc Pharmacy 22.3 ml/min; Est GFR (African American) 43.7 ml/min; Est GFR (Non-African American) 37.7 ml/min; Globulin 3.3 gm/dl (2.5-4.0); Magnesium 2.1 mg/dl (1.7-2.4); Potassium 4.7 mmol/L (3.5-5.1); Total Protein 7.3 gm/dl (6.0-8.3)
[2022-09-10 13:41] LABS: Troponin I High Sensitivity 12.8 pg/ml (0-14)
[2022-09-10] MEDS ORDERED: cefTRIAXone SODIUM 2,000 MG/70 ML BAG IV STA (13:52)
--- NOTE | 2022-09-10 13:54 | CT Scan Report ---
CT head/brain wo con CLINICAL HISTORY: confusion Technique: Contiguous axial CT images of the head were acquired from the base of the skull to the mila lilian without intravenous contrast administration. Images were viewed in brain, subdural [facility] . Automated dose lowering techniques and/or adjustment according to patient size were utilized for this exam. Comparison: Comparison is made to CT head 09/03/2022 Findings: Areas of decreased attenuation are present in the periventricular and subcortical white matter bilate rally consistent with small vessel ischemic disease. Generalized cerebral atrophy with commensurate e nlargement of the ventricles, sulci, and cisterns is also present. There is no acute intracranial hem orrhage or evidence of acute territorial infarction. No shift of the midline structures, mass effect, or extra-axial abnormalities are shown. Atherosclerotic calcifications are present in the intracran ial segments of the internal carotid arteries. Imaged portions of the paranasal sinuses and mastoid air cells are clear. The orbits appear normal. There are no acute fractures of the calvaria. Scalp swelling is seen in the left frontal soft tissue s. Impression: No acute intracranial hemorrhage or skull fractures. Scalp swelling is seen in the left frontal soft tissues. ACT 112: Negative or not required by law. Electronically signed by: Alexys Boss M.D. 09/10/2022 1:53 PM
--- NOTE | 2022-09-10 13:57 | Emergency Department Note ---
Impression & Plan Acute confusion, Acute UTI (urinary tract infection), CHI (closed head injury) ED Provider Note INFORMANT: Patient and EMS ED PROVIDER(S): Min Welch MD CHIEF COMPLAINT: Confusion PLAN: Disposition: Admitted Condition: Good Outpatient prescription management: none Referral: None MEDICAL DECISION MAKING: CT imaging of the head was ordered and performed. No new injury noted. The patient's CBC and chemistry panel were unremarkable. Patient does have findings concerning for UTI. She was treated with IV Rocephin. Given the fact that she lives alone, had confusion and likely has a UTI further management in the hospital was felt to be appropriate. Consultation was made with Dr. Renny Mehta of the [facility] service. Patient was evaluated in the ER for further management. Discussed with mine engineering manager After review of the information above and other included data, I feel the patient requires admission. Triage Nursing notes reviewed and agree them. Vital Signs: reviewed and remarkable for hypertension Prior /Outside records reviewed: none Differential diagnosis: Infection, hypoglycemia, electrolyte abnormalities, overdose, toxicologic, cardiac sources, intracerebral event, neurologic, trauma, as well as other pathologies. Diagnostics, as interpreted by me: ECG: Twelve-lead ECG reveals sinus rhythm with first-degree AV block at 89 bpm. Left axis deviation right bundle sameer block. No ST elevation or depression. Cardiac Monitoring: Cardiac monitoring ordered by me: The patient was placed on continuous cardiac monitoring and observed. It revealed a normal sinus rhythm at 92 beats per minute without ectopy or evidence of dysrhythmia. Medical decision rules: none Imaging studies: Head CT: A noncontrast CT scan of the head was performed and was negative for tumor, fracture, intracranial hemorrhage, or other acute pathology. HPI: The patient is a 87year old female who presents to the Emergency Room with complaints of confusion. This started today and was noted by her primary during follow-up for a head injury. The patient also notes the following associated symptoms, fatigue, headache. The patient has been prescribed no medication for relieving factors. Current pain is rated as 3/10. Patient notes headache is in the forehead area where she has a contusion and a dressing in place from the prior fall. EMS noted the patient was doing well without issues during transport. Patient states she does live alone. Pt denies LOC, fevers, chills, diaphoresis, visual changes, neck pain, chest pain, breathing difficulties, nausea, vomiting, abdominal pain, back pain, melena, hematochezia, urinary symptoms, numbness, focal weakness, lymphadenopathy, rash, or other complaints. PAST MEDICAL HISTORY: See Below, hypertension PAST SURGICAL HISTORY: See Below, SOCIAL HISTORY:Retired, see below HOME MEDICATIONS: See Below ALLERGIES: See Below VITALS: See Below PHYSICAL EXAMINATION: GENERAL: Awake, alert, nontoxic-appearing, in no distress HENT: Normocephalic, facial ecchymosis noted. There is a healing abrasion and contusion to the left forehead without signs of infection. Oropharynx unremarkable. EYES: Normal conjunctiva. Sclera non-icteric. NECK: Inspection normal. Non-tender. Supple. No nuchal rigidity. FROM. No masses. RESPIRATORY: Clear to auscultation. No wheezes. No rales. Normal respiratory effort. CARDIAC: Normal rate. Normal rhythm. No murmurs. No rubs. Extremities warm and well perfused. Pulses equal. No JVD. GI: Soft, non-distended. No tenderness to palpation. No rebound or guarding. No masses. RECTAL: Deferred. MUSCULOSKELETAL: Atraumatic. Chest examination reveals no tenderness. The back is symmetrical on inspection without obvious abnormality. There is no CVA tenderness to palpation. No joint edema. LOWER EXTREMITIES: Calves are equal size bilaterally and non-tender. 1+ edema. No discoloration. NEURO: Normal sensorium. No sensory or motor deficits noted. SKIN: No rash or jaundice noted. Past Med/Surg History Medical History Actinic keratosis Anemia Aortic stenosis Bilateral lower extremity edema Chronic kidney disease, stage 3 Diabetes mellitus type 2, uncontrolled Diabetes mellitus, with long-term current use of insulin Diabetic nephropathy Fracture of shaft of humerus, closed Gastroesophageal reflux disease History of episiotomy Hypercholesterolemia Hypothyroidism Macular degeneration Microalbuminuria Mitral and aortic valve disease Osteopenia PAD (peripheral artery disease) Polymyalgia rheumatica Rheumatic heart disease Urinary incontinence Venous insufficiency Wound, open, foot Surgical History History of breast surgery Puncture aspiration of cyst History of section History of dilation and curettage History of total abdominal hysterectomy and bilateral salpingo-oophorectomy History of tubal ligation Family History Other Family history non-contributory Social History Smoking Status: Unknown if ever smoked Second Hand Exposure: No; Do You Dip or Chew Tobacco: No; Hx Alcohol Use: No Hx Substance Use: No Preferred Language: Thai Communication Ability: Effective Hearing Ability: Use of Hearing Aid Envelope Folder Required: No Beliefs That Will Affect Care: None marital status: / Current Living Situation: Alone current occupational status: other 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 Feels Safe at Home: Yes Diet: regular caffeine: Yes (COFFEE) Physical Activity Frequency: Does not Exercise Seatbelt Use: always Assistive Devices: Cane Allergies Allergies Allergy/AdvReac Type Severity Reaction Status Date / Time Sulfa (Sulfonamide Allergy Intermediate RASH Verified 09/10/22 14:57 Antibiotics) sulfamethoxazole Allergy Intermediate Nausea/Vomi Verified 09/10/22 14:57 ting/Rash trimethoprim Allergy Intermediate Nausea/Vomi Verified 09/10/22 14:57 ting/Rash adhesive Allergy Unknown UNKNOWN Verified 09/10/22 14:57 aspirin Allergy Unknown Unknown Verified 09/10/22 14:57 Bactrim Allergy Unknown Nausea/Vomi Verified 09/17/14 19:04 ting/Rash iodine Allergy Unknown Unknown Verified 09/10/22 14:57 lisinopril Allergy Unknown Unknown Verified 09/10/22 14:57 prochlorperazine Allergy Unknown Unknown Verified 09/10/22 14:57 tigecycline AdvReac Intermediate Nausea/Vomi Verified 09/10/22 14:57 ting Home Meds Home Medications Medication Instructions Recorded Confirmed omega-3 fatty acids 1,000 mg 1,000 mg PO QDL 10/20/18 09/10/22 capsule (Fish Oil Concentrate) vit C 250 mg-vit E 90 mg-zinc 40 1 tab PO BID 10/20/18 09/10/22 mg-copper 1 [id number] capsule (PreserVision AREDS-2) cyanocobalamin (vitamin B-12) 1,000 mcg PO QDL 11/14/18 09/10/22 1,000 mcg tablet (Vitamin B-12) cholecalciferol (vitamin D3) 50 2,000 units PO QDL 11/30/18 09/10/22 mcg (2,000 unit) capsule glucosamine-chondroitin 250 mg-200 1 tab PO QDL pain 11/30/18 09/10/22 mg tablet (Osteo Bi-Flex) losartan 25 mg tablet 0 mg PO QAM 09/10/22 09/10/22 Previous Rx's Medication Instructions Recorded lancets (OneTouch UltraSoft #300 ea 08/14/19 Lancets) pen needle, diabetic 31 gauge x #100 ea 08/05/21 5/16" (BD Ultra-Fine Short Pen Needle) blood sugar diagnostic #300 ea 10/03/21 clopidogrel 75 mg tablet 75 mg PO DAILY #90 tabs 01/30/22 insulin glargine 100 unit/mL (3 See Rx Instructions .Route 03/10/22 mL) subcutaneous pen (Lantus .COMPLEX #45 mL Solostar U-100 Insulin) oxybutynin chloride 5 mg 5 mg PO HS #90 tabs 05/25/22 tablet,extended release 24 hr rivaroxaban 2.5 mg tablet (Xarelto) 2.5 mg PO BID #60 tabs 06/18/22 thyroid (pork) 60 mg tablet 60 mg PO QAM #90 tabs 07/16/22 ([place] Thyroid) mupirocin 2 % topical ointment 1 applic topical BID #22 grams 08/06/22 Results & Data (ED) Vital Signs Vital Signs - 24 hr 09/10/22 12:35 09/10/22 12:31 Temperature 36.5 C Temperature Source Oral Pulse Rate 92 H Respiratory Rate 18 Blood Pressure 196/94 H Blood Pressure Mean 128 Pulse Oximetry 98 96 Oxygen Delivery Method Room Air Sepsis Recent Fever Within 48 Hours No Sepsis New/Unexplained Change in Mental Status No Sepsis Action Taken by Nursing No Action Required Laboratory Data 09/10/22 12:50 09/10/22 12:50 Lab Results 09/10/22 09/10/22 09/10/22 Range/Units 12:50 12:50 12:50 WBC 10.09 (4.8-10.8) K/ul RBC 3.98 L (4.20-5.40) M/uL Hgb 11.7 L (12.0-16.0) g/dl Hct 36.6 L (37.0-47.0) % MCV 92.0 (80.0-100.0) fL MCH 29.4 (25.0-34.0) pg MCHC 32.0 (32.0-36.0) g/dL RDW Std Deviation 41.1 (36.4-46.3) fL RDW Coeff of Sydnie 12.3 (11.5-14.5) % Plt Count 333 (130-400) K/uL MPV 9.7 (9.4-12.4) fL Immature Gran % (Auto) 0.6 % Neut % (Auto) 72.0 % Lymph % (Auto) 17.7 % Dewey % (Auto) 6.4 % Eos % (Auto) 2.7 % Baso % (Auto) 0.6 % Neut # (Auto) 7.26 H (1.40-6.50) K/uL Lymph # (Auto) 1.79 (1.2-3.4) K/uL Dewey # (Auto) 0.65 H (0.11-0.59) K/uL Eos # (Auto) 0.27 (0-0.50) K/uL Baso # (Auto) 0.06 (0-0.2) K/uL Immature Gran # (Auto) 0.06 (0.01-0.20) K/uL Sodium 135 L (136-145) mmol/L Potassium 4.7 (3.5-5.1) mmol/L Chloride 100 (98-107) mmol/L Carbon Dioxide 28 (21-32) mmol/L Anion Gap 7 (3-11) BUN 33 H (6-23) mg/dl Creatinine 1.26 H (0.6-1.2) mg/dl Est Cr Clr Drug Dosing 22.3 ml/min Est GFR ( Amer) 43.7 ml/min Est GFR (Non-Af Amer) 37.7 ml/min BUN/Creatinine Ratio 26.2 H (10-20) Glucose 241 H (70-99(Fasting)) mg/dl Calcium 10.1 (8.6-10.3) mg/dl Magnesium 2.1 (1.7-2.4) mg/dl Total Bilirubin 0.5 (0.2-1.0) mg/dl AST 12 L (13-39) U/L ALT 8 (7-52) U/L Alkaline Phosphatase 106 H (34-104) U/L Troponin I High Sens 12.8 (0-14) pg/ml Total Protein 7.3 (6.0-8.3) gm/dl Albumin 4.0 (3.4-5.0) gm/dl Globulin 3.3 (2.5-4.0) gm/dl Albumin/Globulin Ratio 1.2 (0.9-2) TSH 2.987 (0.300-4.500) uIu/ml Urine Color Urine Appearance (Clear) Urine pH (4.5-7.5) Ur Specific [place] (1.000-1.030) Urine Protein (Negative) Urine Glucose (UA) (Negative) Urine Ketones (Negative) Urine Blood (Negative) Urine Nitrite (Negative) Urine Bilirubin (Negative) Urine Urobilinogen (Negative) Ur Leukocyte Esterase (Negative) Urine WBC (Auto) (0-5) /hpf Urine RBC (Auto) (0-4) /hpf U Hyaline Cast (Auto) (0-5) /lpf U Epithel Cells (Auto) (0-5) /lpf Urine Bacteria (Auto) (Negative) Urine Yeast SARS-CoV-2, RNA, NAAT (NEGATIVE) 09/10/22 09/10/22 Range/Units 12:55 13:09 WBC (4.8-10.8) K/ul RBC (4.20-5.40) M/uL Hgb (12.0-16.0) g/dl Hct (37.0-47.0) % MCV (80.0-100.0) fL MCH (25.0-34.0) pg MCHC (32.0-36.0) g/dL RDW Std Deviation (36.4-46.3) fL RDW Coeff of Sydnie (11.5-14.5) % Plt Count (130-400) K/uL MPV (9.4-12.4) fL Immature Gran % (Auto) % Neut % (Auto) % Lymph % (Auto) % Dewey % (Auto) % Eos % (Auto) % Baso % (Auto) % Neut # (Auto) (1.40-6.50) K/uL Lymph # (Auto) (1.2-3.4) K/uL Dewey # (Auto) (0.11-0.59) K/uL Eos # (Auto) (0-0.50) K/uL Baso # (Auto) (0-0.2) K/uL Immature Gran # (Auto) (0.01-0.20) K/uL Sodium (136-145) mmol/L Potassium (3.5-5.1) mmol/L Chloride (98-107) mmol/L Carbon Dioxide (21-32) mmol/L Anion Gap (3-11) BUN (6-23) mg/dl Creatinine (0.6-1.2) mg/dl Est Cr Clr Drug Dosing ml/min Est GFR ( Amer) ml/min Est GFR (Non-Af Amer) ml/min BUN/Creatinine Ratio (10-20) Glucose (70-99(Fasting)) mg/dl Calcium (8.6-10.3) mg/dl Magnesium (1.7-2.4) mg/dl Total Bilirubin (0.2-1.0) mg/dl AST (13-39) U/L ALT (7-52) U/L Alkaline Phosphatase (34-104) U/L Troponin I High Sens (0-14) pg/ml Total Protein (6.0-8.3) gm/dl Albumin (3.4-5.0) gm/dl Globulin (2.5-4.0) gm/dl Albumin/Globulin Ratio (0.9-2) TSH (0.300-4.500) uIu/ml Urine Color Yellow Urine Appearance Cloudy A (Clear) Urine pH 8.0 H (4.5-7.5) Ur Specific [place] 1.008 (1.000-1.030) Urine Protein Trace H (Negative) Urine Glucose (UA) 1+ H (Negative) Urine Ketones Negative (Negative) Urine Blood Trace H (Negative) Urine Nitrite Positive A (Negative) Urine Bilirubin Negative (Negative) Urine Urobilinogen Negative (Negative) Ur Leukocyte Esterase 3+ H (Negative) Urine WBC (Auto) >30 H (0-5) /hpf Urine RBC (Auto) 0-4 (0-4) /hpf U Hyaline Cast (Auto) 0 (0-5) /lpf U Epithel Cells (Auto) 0-5 (0-5) /lpf Urine Bacteria (Auto) 3+ H (Negative) Urine Yeast Not Reportable SARS-CoV-2, RNA, NAAT NEGATIVE (NEGATIVE) Administered Medications Discontinued Medications Ceftriaxone Sodium (Rocephin) 2,000 mg in 70 mls @ 140 mls/hr IV NOW STA Stop: 09/10/22 14:21 Last Admin: 09/10/22 15:22 Dose: 140 mls/hr Documented By: SAAD Imaging Data Radiologist's Impression: Head CT 09/10/22 12:31 CT head/brain wo con CLINICAL HISTORY: confusion Technique: Contiguous axial CT images of the head were acquired from the base of the skull to the vertex without intravenous contrast administration. Images were viewed in brain, subdural and bone windows. Automated dose lowering techniques and/or adjustment according to patient size were utilized for this exam. Comparison: Comparison is made to CT head 09/03/2022 Findings: Areas of decreased attenuation are present in the periventricular and subcortical white matter bilaterally consistent with small vessel ischemic disease. Generalized cerebral atrophy with commensurate enlargement of the ventricles, sulci, and cisterns is also present. There is no acute intracranial hemorrhage or evidence of acute territorial infarction. No shift of the midline structures, mass effect, or extra-axial abnormalities are shown. Atherosclerotic calcifications are present in the intracranial segments of the internal carotid arteries. Imaged portions of the paranasal sinuses and mastoid air cells are clear. The orbits appear normal. There are no acute fractures of the calvaria. Scalp swelling is seen in the left frontal soft tissues. Impression: No acute intracranial hemorrhage or skull fractures. Scalp swelling is seen in the left frontal soft tissues. ACT 112: Negative or not required by law. Electronically signed by: Alexys Boss M.D. 09/10/2022 1:53 PM Chest X-Ray 09/10/22 14:44 XR chest 1V portable CLINICAL HISTORY: altered mental state TECHNIQUE: Single frontal radiograph of the chest was obtained. Comparison: Comparison is made to chest radiograph 09/03/2022 FINDINGS: No lines and tubes are seen. Calcified aortic knob is seen. The lungs are clear. No evidence of pleural effusion or pneumothorax. IMPRESSION: No acute chest disease. ACT 112: Negative or not required by law. Electronically signed by: Alexys Boss M.D. 09/10/2022 3:05 PM Discharge Plan Visit Data Chief Complaint: Altered Mental Status ED Provider: Min Welch Discharge Problem: Acute confusion, Acute UTI (urinary tract infection), CHI (closed head injury) Discharge Instructions Interventions: ED Discharge Assessment Last Done: 09/10/22 16:49 Forms Stand Alone Forms: [facility] Prescriptions Prescriptions: No Action omega-3 fatty acids [Fish Oil Concentrate] 1,000 mg capsule 1,000 mg PO QDL PreserVision AREDS-2 [id number] km-zjju-ey-mg capsule 1 tab PO BID glucosamine-chondroitin [Osteo Bi-Flex] 250-200 mg tablet 1 tab PO QDL (DME) lancets [OneTouch UltraSoft Lancets] Misc See Dose Instructions .ROUTE .MEDSUPPLY Qty: 300 3RF Rx Instructions: As directed to test blood sugar 3 times daily (DME) pen needle, diabetic [BD Ultra-Fine Short Pen Needle] 31 gauge x 5/16" needle See Rx Instructions .ROUTE .MEDSUPPLY Qty: 100 3RF Rx Instructions: use as directed to inject insulin once daily (DME) blood sugar diagnostic Strip See Rx Instructions .ROUTE .MEDSUPPLY Qty: 300 5RF Rx Instructions: Test 1 times daily. DX: E11.9 clopidogrel 75 mg tablet 75 mg PO DAILY Qty: 90 3RF Lantus Solostar U-100 Insulin 100 unit/mL (3 mL) insulin pen See Rx Instructions .ROUTE .COMPLEX Qty: 45 3RF Dose Instruction: INJECT 18 UNITS SUBCUTANEOUSLY DAILY Rx Instructions: INJECT 18 UNITS SUBCUTANEOUSLY DAILY oxybutynin chloride 5 mg tablet extended release 24hr 5 mg PO HS Qty: 90 3RF Xarelto 2.5 mg tablet 2.5 mg PO BID Qty: 60 11RF [place] Thyroid 60 mg tablet 60 mg PO QAM Qty: 90 3RF cholecalciferol (vitamin D3) 2,000 unit capsule 2,000 units PO QDL cyanocobalamin (vitamin B-12) [Vitamin B-12] 1,000 mcg tablet 1,000 mcg PO QDL mupirocin 2 % ointment 1 applic topical BID Qty: 22 0RF losartan 25 mg tablet 0 mg PO QAM Rx Instructions: Losartan 25mg once daily last filled 02/2022, however per pharmacy the script is still active with 2 refills. Unable to verify if patient is taking it at this time. Referrals Referrals: Marly Avendano CRNP [Primary Care Provider] -
--- NOTE | 2022-09-10 14:44 | History & Physical Report ---
Date of Service September 10, 2022 Assessment & Plan (1) Complicated UTI (urinary tract infection): Plan: Suspected cause of her confusion +/- concussion from recent head trauma Complicated due to T2DM Ceftriaxone 1g IV daily Follow up urine cultures (2) Head injury due to trauma: Plan: Repeat CT head without intracranial pathology Continue wound care to scalp laceration - patient declined examination on admission (3) Hypertension: Plan: Continue losartan (4) Diabetes mellitus type 2, uncontrolled: Plan: Hemoglobin A1C 8.1 in June 2022 Lantus 18 units daily at home Switch to Lantus 10 units BID Novolog: --Goal BSG Range: Low 110 mg/dL, High 140 mg/dL --Correction Factor: 45 mg/dL/unit --Carbohydrate ratio = 15 g/unit --BSGs ACHS if eating, q6h if npo Consult pharmacy for ongoing changes (5) Hypothyroidism: Plan: TSH WNL Continue Gooding thyroid 60mg PO daily (6) PAD (peripheral artery disease): Plan: Continue clopidogrel and Xarelto Plan VTE Prophylaxis - Xarelto Diet - T2DM Disposition - admit to med/surg Admission and Anticipated Discharge Date Admission Date: September 10, 2022 History of Present Illness Chief Complaint: Altered mental state Primary Care Provider: JACQUES Montano Felecia Sterling is an 87 year old female who presents to the ER from wound care clinic due to altered mental state. Initial fall on September 03 after missing a step and leaving her doctors office. She had a left frontal scalp injury following this fall. No difficulty in ambulating following this. She lives alone and does not report any problems with her activities of daily living. On going to her wound care clinic appointment today who have known the patient prior to her recent fall; she was complaining of new onset headache and feeling "weird in the head" along with periods of confusion therefore was advised to go to the ER for further evaluation. On discussion with her regarding possible UTI she reports not being surprised as she is having dysuria and increased frequency for the last 3 days. She denies any fever, chills or back pain. Allergies Allergy/AdvReac Type Severity Reaction Status Date / Time Sulfa (Sulfonamide Allergy Intermediate RASH Verified 09/10/22 14:57 Antibiotics) sulfamethoxazole Allergy Intermediate Nausea/Vomi Verified 09/10/22 14:57 ting/Rash trimethoprim Allergy Intermediate Nausea/Vomi Verified 09/10/22 14:57 ting/Rash adhesive Allergy Unknown UNKNOWN Verified 09/10/22 14:57 aspirin Allergy Unknown Unknown Verified 09/10/22 14:57 Bactrim Allergy Unknown Nausea/Vomi Verified 09/17/14 19:04 ting/Rash iodine Allergy Unknown Unknown Verified 09/10/22 14:57 lisinopril Allergy Unknown Unknown Verified 09/10/22 14:57 prochlorperazine Allergy Unknown Unknown Verified 09/10/22 14:57 tigecycline AdvReac Intermediate Nausea/Vomi Verified 09/10/22 14:57 ting Home Medications Medication Instructions Recorded Confirmed Type omega-3 fatty acids 1,000 mg 1,000 mg PO QDL 10/20/18 09/10/22 History capsule (Fish Oil Concentrate) vit C 250 mg-vit E 90 mg-zinc 40 1 tab PO BID 10/20/18 09/10/22 History mg-copper 1 [id number] capsule (PreserVision AREDS-2) cyanocobalamin (vitamin B-12) 1,000 mcg PO QDL 11/14/18 09/10/22 History 1,000 mcg tablet (Vitamin B-12) cholecalciferol (vitamin D3) 50 2,000 units PO QDL 11/30/18 09/10/22 History mcg (2,000 unit) capsule glucosamine-chondroitin 250 mg-200 1 tab PO QDL pain 11/30/18 09/10/22 History mg tablet (Osteo Bi-Flex) lancets (OneTouch UltraSoft #300 ea 08/14/19 07/07/22 Rx Lancets) pen needle, diabetic 31 gauge x #100 ea 08/05/21 07/07/22 Rx 5/16" (BD Ultra-Fine Short Pen Needle) blood sugar diagnostic #300 ea 10/03/21 07/07/22 Rx clopidogrel 75 mg tablet 75 mg PO DAILY #90 tabs 01/30/22 09/10/22 Rx insulin glargine 100 unit/mL (3 See Rx Instructions .Route 03/10/22 09/10/22 Rx mL) subcutaneous pen (Lantus .COMPLEX #45 mL Solostar U-100 Insulin) oxybutynin chloride 5 mg 5 mg PO HS #90 tabs 05/25/22 09/10/22 Rx tablet,extended release 24 hr rivaroxaban 2.5 mg tablet (Xarelto) 2.5 mg PO BID #60 tabs 06/18/22 09/10/22 Rx thyroid (pork) 60 mg tablet 60 mg PO QAM #90 tabs 07/16/22 09/10/22 Rx (Gooding Thyroid) mupirocin 2 % topical ointment 1 applic topical BID #22 grams 08/06/22 09/10/22 Rx losartan 25 mg tablet 0 mg PO QAM 09/10/22 09/10/22 History Past Med/Surg History Medical History Actinic keratosis Anemia Aortic stenosis Bilateral lower extremity edema Chronic kidney disease, stage 3 Diabetes mellitus type 2, uncontrolled Diabetes mellitus, with long-term current use of insulin Diabetic nephropathy Fracture of shaft of humerus, closed Gastroesophageal reflux disease History of episiotomy Hypercholesterolemia Hypothyroidism Macular degeneration Microalbuminuria Mitral and aortic valve disease Osteopenia PAD (peripheral artery disease) Polymyalgia rheumatica Rheumatic heart disease Urinary incontinence Venous insufficiency Wound, open, foot Surgical History History of breast surgery Puncture aspiration of cyst History of section History of dilation and curettage History of total abdominal hysterectomy and bilateral salpingo-oophorectomy History of tubal ligation Family History Other Family history non-contributory Social History Smoking Status: Unknown if ever smoked Second Hand Exposure: No; Do You Dip or Chew Tobacco: No; Hx Alcohol Use: No Hx Substance Use: No Preferred Language: [place]ian Communication Ability: Effective Hearing Ability: Use of Hearing Aid Returned Case Inspector Required: No Beliefs That Will Affect Care: Advent marital status: / Current Living Situation: Alone current occupational status: other 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 Other Information That Helps Us Care for You: No Feels Safe at Home: Yes Safety Concerns: Feels Safe At This Time Diet: regular caffeine: Yes (COFFEE) Physical Activity Frequency: Does not Exercise Seatbelt Use: always Assistive Devices: Cane and Glasses Review of Systems Review of Systems: All systems reviewed & are unremarkable except as noted in HPI & below Physical Exam Constitutional: well developed; + not well nourished and no acute distress Eyes: PERRL, conjunctivae normal, anicteric sclerae ENMT: external ear and nose normal, oropharynx normal Neck: trachea midline, no thyromegaly Respiratory: normal respiratory effort, lungs clear to auscultation Cardiovascular: RRR, no murmur, no edema Gastrointestinal (Abdomen): normal bowel sounds, soft, nontender, no hepatosplenomegaly Musculoskeletal: no cyanosis or clubbing, extremities motor strength 5/5 Skin: + ecchymosis (evolving facial around eyes overlying trachea) laceration on face - patient declines removal of dressing Dressing on left leg not removed as previously seen by wound care earlier today and declined examination by patient Neurologic: moves all extremities, awake and + confused Psychiatric: A+Ox3, euthymic affect Genitourinary: no CVA tenderness Results & Data Results & Data Vital Signs (Past 12 Hours) Vital Signs Temp Pulse Resp BP Pulse Ox 09/10/22 12:35 36.5 C 92 H 18 196/94 H 98 Laboratory Results Abnormal lab results 09/10/22 09/10/22 09/10/22 Range/Units 12:50 12:50 12:55 RBC 3.98 L (4.20-5.40) M/uL Hgb 11.7 L (12.0-16.0) g/dl Hct 36.6 L (37.0-47.0) % Neut # (Auto) 7.26 H (1.40-6.50) K/uL [place] # (Auto) 0.65 H (0.11-0.59) K/uL Sodium 135 L (136-145) mmol/L BUN 33 H (6-23) mg/dl Creatinine 1.26 H (0.6-1.2) mg/dl BUN/Creatinine Ratio 26.2 H (10-20) Glucose 241 H (70-99(Fasting)) mg/dl AST 12 L (13-39) U/L Alkaline Phosphatase 106 H (34-104) U/L Urine Appearance Cloudy A (Clear) Urine pH 8.0 H (4.5-7.5) Urine Protein Trace H (Negative) Urine Glucose (UA) 1+ H (Negative) Urine Blood Trace H (Negative) Urine Nitrite Positive A (Negative) Ur Leukocyte Esterase 3+ H (Negative) Urine WBC (Auto) >30 H (0-5) /hpf Urine Bacteria (Auto) 3+ H (Negative) Diagnostic Findings CT head/brain wo con CLINICAL HISTORY: confusion Technique: Contiguous axial CT images of the head were acquired from the base of the skull to the vertex without intravenous contrast administration. Images were viewed in brain, subdural and bone windows. Automated dose lowering techniques and/or adjustment according to patient size were utilized for this exam. Comparison: Comparison is made to CT head 09/03/2022 Findings: Areas of decreased attenuation are present in the periventricular and subcortical white matter bilaterally consistent with small vessel ischemic disease. Generalized cerebral atrophy with commensurate enlargement of the ventricles, sulci, and cisterns is also present. There is no acute intracranial hemorrhage or evidence of acute territorial infarction. No shift of the midline structures, mass effect, or extra-axial abnormalities are shown. Atheroscle rotic calcifications are present in the intracranial segments of the internal carotid arteries. Imaged portions of the paranasal sinuses and mastoid air cells are clear. The orbits appear normal. There are no acute fractures of the calvaria. Scalp swelling is seen in the left frontal soft tissues. Impression: No acute intracranial hemorrhage or skull fractures. Scalp swelling is seen in the left frontal soft tissues. Medications Administered ER Medications Given: Ceftriaxone 2g IV ECG Rate (beats per minute): 89 Rhythm: normal sinus Findings: + 1st degree AV block and + RBBB Comparison ECG Date: from (September 03, 2022) Change: no significant change Code Status & VTE Plan Code Status Full VTE Prophylaxis Plan VTE Prophylaxis will be ordered: Yes PG Care Time/CCT Total # of Minutes Spent Total Time Spent with Patient: Total time spent is greater than 50% in coordination of care (as documented) at patient's floor/unit and/or counseling patient: Coding Level of Care Code 04319 INT INP/OBS CARE 2/55MIN Diagnoses Complicated UTI (urinary tract infection) N39.0 Head injury due to trauma S09.90XA Hypertension I10 Diabetes mellitus type 2, uncontrolled E11.65 Hypothyroidism E03.9 PAD (peripheral artery disease) I73.9
--- NOTE | 2022-09-10 15:06 | XRay Report ---
XR chest 1V portable CLINICAL HISTORY: altered mental state TECHNIQUE: Single frontal radiograph of the chest was obtained. Comparison: Comparison is made to chest radiograph 09/03/2022 FINDINGS: No lines and tubes are seen. Calcified aortic knob is seen. The lungs are clear. No evidence of pleur al effusion or pneumothorax. IMPRESSION: No acute chest disease. ACT 112: Negative or not required by law. Electronically signed by: Alexys Boss M.D. 09/10/2022 3:05 PM
--- NOTE | 2022-09-10 17:28 | Electrocardiogram Report ---
Test Reason : Blood Pressure : / mmHG Vent. Rate : 089 BPM Atrial Rate : 089 BPM P-R Int : 214 ms QRS Dur : 130 ms QT Int : 386 ms P-R-T Axes : 066 -37 050 degrees QTc Int : 469 ms Sinus rhythm with 1st degree A-V block Left axis deviation Right bundle branch block Abnormal ECG When compared with ECG of 03-SEP-2022 13:01, No significant change was found Confirmed by Paco Powers ([id number]) on 09/10/2022 5:28:23 PM Referred By: Confirmed By:Paco Powers
[2022-09-10] MEDS ORDERED: ACETAMINOPHEN 325 MG TAB PO PRN (17:29)
[2022-09-10] MEDS ORDERED: DEXTROSE 50% 50 ML SYRINGE IV PRN (17:29)
[2022-09-10] MEDS ORDERED: GLUCAGON FOR INJ 1 MG VIAL SQ PRN (17:29)
[2022-09-10] MEDS ORDERED: GLUCOSE 10 TAB/TUBE PO PRN (17:29)
[2022-09-10] MEDS ORDERED: GLUCOSE 40% GEL 15 GM TUBE PO PRN (17:29)
[2022-09-10] MEDS ORDERED: CARBOHYDRATES FOR HYPOGLYCEMIA PO PRN (17:29)
[2022-09-10] MEDS: RIVAROXABAN 2.5 MG TAB PO SCH (20:40)
[2022-09-10] MEDS: LANTUS PER UNIT CHARGE SQ SCH (20:40)
[2022-09-10] MEDS: INSULIN ASPART PER UNIT CHARGE SC SCH (20:41)
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
[2022-09-11] MEDS ORDERED: LOSARTAN POTASSIUM 25 MG TAB PO SCH (09:00)
[2022-09-11 09:03] LABS: Basophils # (auto) 0.08 K/uL (0-0.2); Basophils % (auto) 0.8 %; Eosinophils % (auto) 4.2 %; Hematocrit (blood only) 31.1 % (37.0-47.0); Hemoglobin 10.2 g/dl (12.0-16.0); Immature Granulocytes # (auto) 0.04 K/uL (0.01-0.20); Immature Granulocytes % (auto) 0.4 %; Lymphocytes % (auto) 13.7 %; Mean Corpuscular Hemoglobin 29.7 pg (25.0-34.0); Mean Corpuscular Hgb Conc 32.8 g/dL (32.0-36.0); Mean Corpuscular Volume 90.7 fL (80.0-100.0); Monocytes # (auto) 0.87 K/uL (0.11-0.59); Monocytes % (auto) 9.2 %; Neutrophils % (auto) 71.7 %; Platelet Count 321 K/uL (130-400); RDW Coefficient of Variation 12.4 % (11.5-14.5); RDW Standard Deviation 40.8 fL (36.4-46.3); Red Blood Count 3.43 M/uL (4.20-5.40); White Blood Count 9.49 K/ul (4.8-10.8)
[2022-09-11] MEDS: ARMOUR THYROID 30 MG TAB PO SCH (09:21)
[2022-09-11] MEDS: RIVAROXABAN 2.5 MG TAB PO SCH ×2 (09:21→20:54)
[2022-09-11] MEDS: CLOPIDOGREL BISULFATE 75 MG TAB PO SCH (09:22)
[2022-09-11] MEDS: INSULIN ASPART PER UNIT CHARGE SC SCH ×4 (09:24→21:06)
[2022-09-11] MEDS: LANTUS PER UNIT CHARGE SQ SCH ×2 (09:24→21:07)
[2022-09-11 09:28] LABS: BUN Creatinine Ratio 22.5 (10-20); Creatinine Clr Calc Pharmacy 19.9 ml/min; Est GFR (African American) 39.2 ml/min; Est GFR (Non-African American) 33.8 ml/min; Potassium 4.6 mmol/L (3.5-5.1)
[2022-09-11 09:44] LABS: Estimated Average Glucose 200 mg/dl; Hemoglobin A1C 8.6 % (4.5-5.6)
[2022-09-11] MEDS: CHOLECALCIFEROL 1,000 UNITS 25 MCG TAB PO SCH (11:24)
[2022-09-11] MEDS: CYANOCOBALAMIN (B-12) 500 MCG TABLET PO SCH (11:25)
[2022-09-11] MEDS ORDERED: SODIUM CHLORIDE 0.9% 500 ML IV SCH (12:00)
--- NOTE | 2022-09-11 14:56 | XCELERA ---
[id number]
[2022-09-11] MEDS: cefTRIAXone SODIUM 1,000 MG in DEXTROSE 5% AD-VAN 50 ML IV SCH (16:18)
[2022-09-11] MEDS ORDERED: CALCIUM CARBONATE 500 MG CHEWABLE TAB PO PRN (22:31)
[2022-09-12 07:42] LABS: Basophils # (auto) 0.06 K/uL (0-0.2); Basophils % (auto) 0.8 %; Eosinophils % (auto) 5.1 %; Hemoglobin 9.5 g/dl (12.0-16.0); Immature Granulocytes # (auto) 0.06 K/uL (0.01-0.20); Immature Granulocytes % (auto) 0.8 %; Lymphocytes # (auto) 1.29 K/uL (1.2-3.4); Lymphocytes % (auto) 16.4 %; Mean Corpuscular Hemoglobin 29.7 pg (25.0-34.0); Mean Corpuscular Hgb Conc 32.8 g/dL (32.0-36.0); Mean Corpuscular Volume 90.6 fL (80.0-100.0); Mean Platelet Volume 9.6 fL (9.4-12.4); Monocytes # (auto) 0.72 K/uL (0.11-0.59); Monocytes % (auto) 9.2 %; Neutrophils # (auto) 5.33 K/uL (1.40-6.50); Neutrophils % (auto) 67.7 %; Platelet Count 291 K/uL (130-400); RDW Coefficient of Variation 12.2 % (11.5-14.5); RDW Standard Deviation 40.2 fL (36.4-46.3); White Blood Count 7.86 K/ul (4.8-10.8)
--- NOTE | 2022-09-12 08:00 | Hospitalist Progress Note ---
Date of Service September 12, 2022 Assessment & Plan (1) Complicated UTI (urinary tract infection): Plan: Suspected cause of her confusion +/- concussion from recent head trauma -- appearing alert/oriented for myself during exam UA appearing infected Started Ceftriaxone IV daily -- continued (day 2 of therapy) Urine cx resulted with Kluyvera ascorbata, pansensitive -- can transition to keflex for tomorrow as already received her IV dose for today Given 500cc NSS for slight dehydration on exam, holding off further at present/push PO PT/OT consulted -- HH vs rehab pending course/repeat evals (2) Constipation: Plan: reporting constipation but passing lots of gas +BS on exam -- typically takes miralax when needed at home. reports issues with moving her bowels since her falls KUB w/ extensive colononic fecal retention -- was already given miralax/colace, added suppository monitor response overnight resident ordered tums prn -- will add pepcid IV daily for indigestion/reflux type symptoms. (3) Head injury due to trauma: Plan: Repeat CT head without intracranial pathology -- possible post-concussion w/ confusion vs from UTI -- appears alert/oriented since tx for UTI however Continue wound care to scalp laceration +murmur on exam -- reports hx rheumatic fever as child, Denied syncope/angina/dyspnea prior to her fall but prior reports mild dementia at baseline Trop not elevated on admit. EGK w/ 1st degree block. Similar to priors in 2019 Obtained ECHO given falls/dementia --> Compared with study 08/2016, severity of aortic stenosis has progressed and mild pulmonary hypertension now seen. LV is hyperdynamic. EF >70%. LV wall motion is normal. Moderate concentric LVH. Grade I diastolic dysfunction. RV is normal in size and function. Severe valvular aortic stenosis. Mild mitral regurgitation. RVSP is elevated at 30-40mmHg. Check BNP w/ AM labs given abdominal fullness but suspect 2nd to constipation Alert/oriented for myself, answering questions appropriately PT/OT consulted -- rehab vs HH (she prefers against rehab, will need continued discussions) (4) Hypertension: Plan: BPs on the lower side -- was ordered her losartan which she received /, however with elevated kidney function this is currently on hold and was given some IVF yesterday however will hold off further IVF given her severe aortic stenosis and monitor BMP on repeat in AM Denied any lightheaded/dizziness on examination (5) Diabetes mellitus type 2, uncontrolled: Plan: Hemoglobin A1C 8.1 in June 2022 --> 8.6 On lantus 18u daily -> placed on lantus 10u BID for now and BSGs acceptable but increased PO intake and elevations mid 200s this afternoon --> increased to 12u BID and decreased CF/CR and will monitor response DM educator consulted as well Suspect slightly increased needs at dc but will monitor inpatient (6) Hypothyroidism: Plan: TSH WNL 2.987 Continue [place] thyroid 60mg PO daily (7) PAD (peripheral artery disease): Plan: Bilateral venous stasis ulcers, follows with wound center On plavix/xarelto Hx right GSV VenaSeal 12/2018 in the setting of right lower extremity ulcer. Also underwent left GSV VenaSeal. with Dr Velez Repeat angiogram on 10/15/21 with 95% proximal SFA, 100% late-proximal to distal SFA occlusion, focal 80% TPT and 3 vessel runoff to the ankle. She underwent successful mechanical atherectomy (Rotarex) and angioplasty of ostial SFA to popliteal artery (6 x 150, 5 x 300 Lutonix). Final result with brisk SFA/popliteal flow and 3 vessel runoff with direct inline flow to lugo ulcer bed via SINA. Post intervention she had significant improvement in left foot pain, her ulcer was making gradual improvement. Repeat noninvasive vascular testing 01/2022 showed left toe pressure 72 and SFA patent with proximal SFA PSV 236. She underwent Cellutome grafting which was unsuccessful. Seen 05/18/2022 at which time endorsed worsening left lower extremity pain and wound had deteriorated. Repeat arterial duplex notable for undetectable toe pressures and occluded SFA. Underwent repeat left lower extremity angiogram 05/25/2022 which showed 100% proximal SFA to popliteal occlusion and 80% TPT stenosis. Had to overlapping Supera stents (6 x 0 x 150, 5.0 x 120) placed from SFA ostium to popliteal artery with good angiographic result. Wound RN on consult while inpatient No atorvastatin on medication list nor can I see any recent fills, however did discuss with patient and she states she IS ON ATORVASTATIN 80mg daily and this has been resumed for this evening -- needs to be continued on med list at discharge and would send rx if needed to ensure she has this (have patient bring pills to next PCP visit recommended) Remains on plavix/low dose xarelto PT/OT consulted (8) Murmur: Plan: hx "rheumatic fever" as a child per patient, however murmur more c/w aortic stenosis. S1/S2 appreciated but quiet. ECHO as above, severe aortic stenosis, mild MR GIven age, doubt able to do surgery on patient but will need continued mo nitoring outpatient Cautious use IVF, will hold off further for now (9) Venous stasis ulcers: Plan: As above under PAD Wound RN consulted while inpatient and will need outpatient follow up Atorvastatin resumed as above as she states she has been compliant with at home Plan VTE Prophylaxis - Xarelto low dose for her PAD in place continued inpatient stay -- continued discussions for possible rehab switch to PO abx for UTI in AM bowel regimen for significant constipation Admission and Anticipated Discharge Date Admission Date: September 10, 2022 Supervising Physician Co-Signing Physician Notes PA Supervision Note: I did not personally see or examine the patient today, but I verified all wilder points of GAYLE Chaudhari's assessment and plan with the following exceptions/additions: None Subjective eval this afternoon, sitting up in the chair, NAD. Patient reports having less burning with urination. She notes having a lot of constipation, having lots of gas discomfort and notes since her fall she has had issues with moving her bowels. Typically takes miralax when at home to help these to move and will order. No increased LE edema at present. Discussed atorvastatin and she notes she IS on this medication, 80mg daily. Will resume for today as should be on with her si gnificant PAD history/occlusions. No fever/chills, chest pain or shortness of breath. Questions/concerns addressed at this time. Physical Exam Physical Exam: General: elderly female sitting up in chair, NAD, reporting some increased gas discomfort/need to move her bowels HEENT: head w/ hematoma to frontal scalp, dressing intact, slightly tender pupils equal/reactive to light scab from fall to nose, upper lip bruising to neck region as well Resp: CTA, no w/c, on room air CV: regular rate/rhythm, +HARSH systolic murmur, S1/S2, no significant rub/gallop, no pitting edema (chronic venous ulcerations, following with wound center) GI: +BS, soft/NT : no price MSK/Neuro: no focal deficit/weakness, follows commands, answering questions appropriately Psych: Alert/oriented to person/place/time, cooperative with exam skin: b/l ulcerations (following w/ wound care, recent debridement), wraps in place, nontender to palpation Results & Data Results & Data Vital Signs (Past 12 Hours) Vital Signs Temp Pulse Resp BP Pulse Ox O2 Del Method 09/12/22 07:55 37.1 C 81 16 103/62 98 Room Air 09/12/22 07:45 Room Air Laboratory Results 09/12/22 09/12/22 09/12/22 Range/Units 11:47 08:15 07:00 WBC 7.86 (4.8-10.8) K/ul RBC 3.20 L (4.20-5.40) M/uL Hgb 9.5 L (12.0-16.0) g/dl Hct 29.0 L (37.0-47.0) % MCV 90.6 (80.0-100.0) fL MCH 29.7 (25.0-34.0) pg MCHC 32.8 (32.0-36.0) g/dL RDW Std Deviation 40.2 (36.4-46.3) fL RDW Coeff of Sydnie 12.2 (11.5-14.5) % Plt Count 291 (130-400) K/uL MPV 9.6 (9.4-12.4) fL Immature Gran % (Auto) 0.8 % Neut % (Auto) 67.7 % Lymph % (Auto) 16.4 % [place] % (Auto) 9.2 % Eos % (Auto) 5.1 % Baso % (Auto) 0.8 % Neut # (Auto) 5.33 (1.40-6.50) K/uL Lymph # (Auto) 1.29 (1.2-3.4) K/uL [place] # (Auto) 0.72 H (0.11-0.59) K/uL Eos # (Auto) 0.40 (0-0.50) K/uL Baso # (Auto) 0.06 (0-0.2) K/uL Immature Gran # (Auto) 0.06 (0.01-0.20) K/uL Sodium (136-145) mmol/L Potassium (3.5-5.1) mmol/L Chloride (98-107) mmol/L Carbon Dioxide (21-32) mmol/L Anion Gap (3-11) BUN (6-23) mg/dl Creatinine (0.6-1.2) mg/dl Est Cr Clr Drug Dosing ml/min Est GFR ( Amer) ml/min Est GFR (Non-Af Amer) ml/min BUN/Creatinine Ratio (10-20) Glucose (70-99(Fasting)) mg/dl POC Glucose 234 H 174 H (70-99) mg/dl Calcium (8.6-10.3) mg/dl Magnesium (1.7-2.4) mg/dl Total Bilirubin (0.2-1.0) mg/dl AST (13-39) U/L ALT (7-52) U/L Alkaline Phosphatase (34-104) U/L Total Protein (6.0-8.3) gm/dl Albumin (3.4-5.0) gm/dl Globulin (2.5-4.0) gm/dl Albumin/Globulin Ratio (0.9-2) Triglycerides (0-150) mg/dl Cholesterol (0-200) mg/dl LDL Cholesterol, Calc mg/dl VLDL Cholesterol, Calc (0-30) mg/dl HDL Cholesterol mg/dl Cholesterol/HDL Ratio (0-5) 09/12/22 09/11/22 09/11/22 Range/Units 07:00 20:59 17:26 WBC (4.8-10.8) K/ul RBC (4.20-5.40) M/uL Hgb (12.0-16.0) g/dl Hct (37.0-47.0) % MCV (80.0-100.0) fL MCH (25.0-34.0) pg MCHC (32.0-36.0) g/dL RDW Std Deviation (36.4-46.3) fL RDW Coeff of Sydnie (11.5-14.5) % Plt Count (130-400) K/uL MPV (9.4-12.4) fL Immature Gran % (Auto) % Neut % (Auto) % Lymph % (Auto) % [place] % (Auto) % Eos % (Auto) % Baso % (Auto) % Neut # (Auto) (1.40-6.50) K/uL Lymph # (Auto) (1.2-3.4) K/uL [place] # (Auto) (0.11-0.59) K/uL Eos # (Auto) (0-0.50) K/uL Baso # (Auto) (0-0.2) K/uL Immature Gran # (Auto) (0.01-0.20) K/uL Sodium 137 (136-145) mmol/L Potassium 4.5 (3.5-5.1) mmol/L Chloride 106 (98-107) mmol/L Carbon Dioxide 26 (21-32) mmol/L Anion Gap 5 (3-11) BUN 41 H (6-23) mg/dl Creatinine 1.40 H (0.6-1.2) mg/dl Est Cr Clr Drug Dosing 19.6 ml/min Est GFR ( Amer) 38.5 ml/min Est GFR (Non-Af Amer) 33.2 ml/min BUN/Creatinine Ratio 29.3 H (10-20) Glucose 180 H (70-99(Fasting)) mg/dl POC Glucose 237 H 124 H (70-99) mg/dl Calcium 8.6 (8.6-10.3) mg/dl Magnesium 2.0 (1.7-2.4) mg/dl Total Bilirubin 0.2 (0.2-1.0) mg/dl AST 8 L (13-39) U/L ALT 5 L (7-52) U/L Alkaline Phosphatase 77 (34-104) U/L Total Protein 5.6 L D (6.0-8.3) gm/dl Albumin 3.0 L (3.4-5.0) gm/dl Globulin 2.6 (2.5-4.0) gm/dl Albumin/Globulin Ratio 1.2 (0.9-2) Triglycerides 100 (0-150) mg/dl Cholesterol 111 (0-200) mg/dl LDL Cholesterol, Calc 53 mg/dl VLDL Cholesterol, Calc 20 (0-30) mg/dl HDL Cholesterol 38 mg/dl Cholesterol/HDL Ratio 2.9 (0-5) Diagnostic Findings ECHOCARDIOGRAM 09/11/2022 Compared with study 08/2016, severity of aortic stenosis has progressed and mild pulmonary hypertension now seen. LV is hyperdynamic. EF >70%. LV wall motion is normal. Moderate concentric LVH. Grade I diastolic dysfunction. RV is normal in size and function. Severe valvular aortic stenosis. Mild mitral regurgitation. RVSP is elevated at 30-40mmHg. KUB X-Ray 09/12/22 13:38 KUB HISTORY: Acute generalized abdominal pain with constipation eval constipation COMPARISON: None. FINDINGS: Nonobstructive bowel gas pattern. Extensive colonic fecal retention. Renal shadows aren't secured by bowel gas. Vascular stent graft of the left upper thigh. No renal calculi. No ureteral calculi. No pneumoperitoneum or pneumatosis. Degenerative changes of the spine, pelvis and hips. No fracture. IMPRESSION: 1. Nonobstructive bowel gas pattern. 2. Extensive colonic fecal retention. ACT 112: Negative or not required by law. The above report was generated using voice recognition software. It may contain grammatical, syntax or spelling errors. Electronically signed by: Rajendra Matos M.D. 09/12/2022 2:21 PM PG Care Time/CCT Total # of Minutes Spent Total Time Spent with Patient: Total time spent is greater than 50% in coordination of care (as documented) at patient's floor/unit and/or counseling patient: Coding Level of Care Code 79661 SUB INP/OBS CARE 3/50MIN Diagnoses Complicated UTI (urinary tract infection) N39.0 Constipation K59.00 Constipation type: unspecified constipation type Head injury due to trauma S09.90XA Hypertension I10 Diabetes mellitus type 2, uncontrolled E11.65 Hypothyroidism E03.9 PAD (peripheral artery disease) I73.9 Murmur R01.1 Venous stasis ulcers I83.009; L97.909 (2) Constipation Constipation type: unspecified constipation type Qualified Code(s): K59.00 - Constipation, unspecified
[2022-09-12 08:06] LABS: Albumin Globulin Ratio 1.2 (0.9-2); BUN Creatinine Ratio 29.3 (10-20); Bilirubin,Total 0.2 mg/dl (0.2-1.0); Calcium 8.6 mg/dl (8.6-10.3); Chol HDL Ratio 2.9 (0-5); Creatinine Clr Calc Pharmacy 19.6 ml/min; Est GFR (African American) 38.5 ml/min; Est GFR (Non-African American) 33.2 ml/min; Globulin 2.6 gm/dl (2.5-4.0); Potassium 4.5 mmol/L (3.5-5.1); Total Protein 5.6 gm/dl (6.0-8.3)
[2022-09-12] MEDS: CLOPIDOGREL BISULFATE 75 MG TAB PO SCH (08:09)
[2022-09-12] MEDS: RIVAROXABAN 2.5 MG TAB PO SCH ×2 (08:09→19:49)
[2022-09-12] MEDS: ARMOUR THYROID 30 MG TAB PO SCH (08:09)
[2022-09-12] MEDS: LANTUS PER UNIT CHARGE SQ SCH ×2 (09:09→21:10)
[2022-09-12] MEDS: INSULIN ASPART PER UNIT CHARGE SC SCH ×4 (09:09→21:11)
[2022-09-12] MEDS: CHOLECALCIFEROL 1,000 UNITS 25 MCG TAB PO SCH (13:02)
[2022-09-12] MEDS: CYANOCOBALAMIN (B-12) 500 MCG TABLET PO SCH (13:03)
--- NOTE | 2022-09-12 14:22 | XRay Report ---
KUB HISTORY: Acute generalized abdominal pain with constipation eval constipation COMPARISON: None. FINDINGS: Nonobstructive bowel gas pattern. Extensive colonic fecal retention. Renal shadows aren't s ecured by bowel gas. Vascular stent graft of the left upper thigh. No renal calculi. No ureteral mely culi. No pneumoperitoneum or pneumatosis. Degenerative changes of the spine, pelvis and hips. No frac ture. IMPRESSION: 1. Nonobstructive bowel gas pattern. 2. Extensive colonic fecal retention. ACT 112: Negative or not required by law. The above report was generated using voice recognition software. It may contain grammatical, syntax o r spelling errors. Electronically signed by: Rajendra Matos M.D. 09/12/2022 2:21 PM
[2022-09-12] MEDS: cefTRIAXone SODIUM 1,000 MG in DEXTROSE 5% AD-VAN 50 ML IV SCH (14:30)
[2022-09-12] MEDS: DOCUSATE SODIUM 100 MG CAP PO SCH ×2 (14:30→19:49)
[2022-09-12] MEDS: POLYETHYLENE (MIRALAX) 17 GM PACK PO SCH (14:30)
[2022-09-12] MEDS ORDERED: bisacodyL 10 MG SUPP PR STA (14:50)
[2022-09-12] MEDS: FAMOTIDINE 20 MG in SYRINGE 3 ML IV SCH (15:33)
[2022-09-12] MEDS: ATORVASTATIN 40 MG TAB PO SCH (19:49)
[2022-09-13 06:32] LABS: Hematocrit (blood only) 28.8 % (37.0-47.0); Hemoglobin 9.6 g/dl (12.0-16.0); Mean Corpuscular Hemoglobin 30.1 pg (25.0-34.0); Mean Corpuscular Hgb Conc 33.3 g/dL (32.0-36.0); Mean Corpuscular Volume 90.3 fL (80.0-100.0); Mean Platelet Volume 9.7 fL (9.4-12.4); Platelet Count 304 K/uL (130-400); RDW Coefficient of Variation 12.3 % (11.5-14.5); RDW Standard Deviation 40.5 fL (36.4-46.3); Red Blood Count 3.19 M/uL (4.20-5.40); White Blood Count 10.91 K/ul (4.8-10.8)
[2022-09-13 06:47] LABS: BUN Creatinine Ratio 33.1 (10-20); Calcium 8.5 mg/dl (8.6-10.3); Creatinine Clr Calc Pharmacy 22.1 ml/min; Est GFR (African American) 44.6 ml/min; Est GFR (Non-African American) 38.5 ml/min; Potassium 4.2 mmol/L (3.5-5.1)
[2022-09-13] MEDS: ARMOUR THYROID 30 MG TAB PO SCH (07:25)
[2022-09-13] MEDS: FAMOTIDINE 20 MG in SYRINGE 3 ML IV SCH (07:25)
[2022-09-13] MEDS: RIVAROXABAN 2.5 MG TAB PO SCH ×2 (07:25→20:28)
[2022-09-13] MEDS: DOCUSATE SODIUM 100 MG CAP PO SCH ×2 (07:25→20:27)
[2022-09-13] MEDS: CLOPIDOGREL BISULFATE 75 MG TAB PO SCH (07:25)
[2022-09-13] MEDS: POLYETHYLENE (MIRALAX) 17 GM PACK PO SCH (07:26)
--- NOTE | 2022-09-13 07:54 | Hospitalist Progress Note ---
Date of Service September 13, 2022 Assessment & Plan (1) Complicated UTI (urinary tract infection): Plan: Suspected cause of her confusion +/- concussion from recent head trauma -- appearing alert/oriented for myself during exam UA appearing infected Started Ceftriaxone IV daily (got 3 days IV) Urine cx resulted with [place] ascorbata, pansensitive -- transitioned to Keflex to complete course today Had been given 500cc NSS for dehydration 09/11, improving and improvement in PO appetite since having multiple BMs and will continue bowel regimen PT/OT -- HH vs rehab pending repeat eval tomorrow Added incentive spirometer for atelectasis on exam, afebrile. Check CXR in AM if any further elevation WBC Monitor labs in AM (2) Constipation: Plan: reporting constipation but passing lots of gas +BS on exam -- typically takes miralax when needed at home. reports issues with moving her bowels since her falls KUB w/ extensive colonic fecal retention Disimpaction 09/12, continued bowel regimen and subsequent BM. Continues to pass gas, abdomen softer and will continue bowel regimen Continue pepcid IV daily and convert to PO for tomorrow morning -- would continue at dc (3) Head injury due to trauma: Plan: Repeat CT head without intracranial pathology -- possible post-concussion w/ confusion vs from UTI -- appears alert/oriented since tx for UTI however Continue wound care to scalp laceration +murmur on exam -- reports hx rheumatic fever as child, Denied syncope/angina/dyspnea prior to her fall but prior reports mild dementia at baseline Trop not elevated on admit. EGK w/ 1st degree block. Similar to priors in 2019 Obtained ECHO given falls/dementia --> Compared with study 08/2016, severity of aortic stenosis has progressed and mild pulmonary hypertension now seen. LV is hyperdynamic. EF >70%. LV wall motion is normal. Moderate concentric LVH. Grade I diastolic dysfunction. RV is normal in size and function. Severe valvular aortic stenosis. Mild mitral regurgitation. RVSP is elevated at 30-40mmHg. BNP slight elevation but no hypoxia/LE edema and would hold off diuretics for now. Was given 500cc NSS prior day for elevated BUN/Cr and placed lisinopril on hold Alert/oriented for myself, answering questions appropriately PT/OT consulted -- rehab vs HH (she prefers against rehab, will need continued discussions based on repeat exam) (4) Hypertension: Plan: BPs on the lower side prior Had been given losartan but w/ elevated Cr placed on hold subsequently and Cr improved on repeat labs this morning. BP currently stable 126/58 and will continue to hold for today. Improvement in PO intake/appetite since moving her bowels and if BPs stable in AM will plan to resume Denied any lightheaded/dizziness on examination (5) Diabetes mellitus type 2, uncontrolled: Plan: Hemoglobin A1C 8.1 in June 2022 --> 8.6 On lantus 18u daily -> placed on lantus 10u BID for now and BSGs acceptable but increased PO intake and elevations mid 200s this afternoon --> increased to 12u BID and decreased CF/CR and BSgs improving DM educator consulted as well Suspect slightly increased needs at dc but will monitor inpatient (6) Hypothyroidism: Plan: TSH WNL 2.987 Continue [place]ona thyroid 60mg PO daily (7) PAD (peripheral artery disease): Plan: Bilateral venous stasis ulcers, follows with wound center On plavix/xarelto Hx right GSV VenaSeal 12/2018 in the setting of right lower extremity ulcer. Also underwent left GSV VenaSeal. with Dr Velez Repeat angiogram on 10/15/21 with 95% proximal SFA, 100% late-proximal to distal SFA occlusion, focal 80% TPT and 3 vessel runoff to the ankle. She underwent successful mechanical atherectomy (Rotarex) and angioplasty of ostial SFA to popliteal artery (6 x 150, 5 x 300 Lutonix). Final result with brisk SFA/popliteal flow and 3 vessel runoff with direct inline flow to lugo ulcer bed via SINA. Post intervention she had significant improvement in left foot pain, her ulcer was making gradual improvement. Repeat noninvasive vascular testing 01/2022 showed left toe pressure 72 and SFA patent with proximal SFA PSV 236. She underwent Cellutome grafting which was unsuccessful. Seen 05/18/2022 at which time endorsed worsening left lower extremity pain and wound had deteriorated. Repeat arterial duplex notable for undetectable toe pressures and occluded SFA. Underwent repeat left lower extremity angiogram 05/25/2022 which showed 100% proximal SFA to popliteal occlusion and 80% TPT stenosis. Had to overlapping Supera stents (6 x 0 x 150, 5.0 x 120) placed from SFA ostium to popliteal artery with good angiographic result. Wound RN on consult while inpatient No atorvastatin on medication list on admission (did not see any recent fills either in system, however diddiscuss with patient and she states she IS ON ATORVASTATIN 80mg daily and this was resumed evening 09/12 -- needs to be continued on med list at discharge and would send rx if needed to ensure she has this (have patient bring pills to next PCP visit recommended) Remains on plavix/low dose xarelto PT/OT consulted as above (8) Murmur: Plan: hx "rheumatic fever" as a child per patient, however murmur more c/w aortic stenosis. S1/S2 appreciated but quiet. ECHO as above, severe aortic stenosis, mild MR GIven age, doubt able to do surgery on patient but will need continued monitoring outpatient Cautious use IVF, will hold off further for now (9) Venous stasis ulcers: Plan: As above under PAD Wound RN consulted while inpatient and will need outpatient follow up Atorvastatin resumed as above as she states she has been compliant with at home (10) Aortic stenosis: Plan: as above, severe f/u Cardiology as outpt Plan VTE Prophylaxis - Xarelto low dose for her PAD in place continued inpatient stay -- continued discussions for possible rehab pending repeat eval tomorrow Abx switched to kelfex to complete course Continue bowel regimen to prevent constipation Admission and Anticipated Discharge Date Admission Date: September 10, 2022 Supervising Physician Co-Signing Physician Notes PA Supervision Note: I did not personally see or examine the patient today, but I verified all wilder points of GAYLE Chaudhari's assessment and plan with the following exceptions/additions: None Subjective eval this moring, doing well. multiple BMs yesterday, passing gas. Does endorse some reflux symptoms at baseline after eating - had gotten tums 2 nights ago, started pepcid daily today and not having any further issues and will continue such. No fever/chills, chest pain, shortness of breath. Has appt w/ PCP and someone else tomorrow but doesn't remember what the other appointment is. Discussed will have CM reschedule these. Alert to person/place/time. Discussed rehab -- she would like to avoid this and believes she can do the exercises at home. Discussed would like her to consider but if progressing with therapy on repeat eval can consider home w/ HH therapy tomorrow. She is excited about this possibility. Questions/concerns addressed at this time. Physical Exam Physical Exam: General: elderly female sitting up in chair, NAD HEENT: head w/ hematoma to frontal scalp, dressing intact, slightly tender but improving pupils equal/reactive to light scab from fall to nose, upper lip bruising to neck region as well Resp: CTA, no w/c, on room air CV: regular rate/rhythm, +HARSH (less harsh today) systolic murmur, S1/S2, no significant rub/gallop, no pitting edema (chronic venous ulcerations, following with wound center) GI: +BS, soft/NT : no price MSK/Neuro: no focal deficit/weakness, follows commands, answering questions appropriately Psych: Alert/oriented to person/place/time, cooperative with exam skin: b/l ulcerations (following w/ wound care, recent debridement), wraps in place, nontender to palpation Results & Data Results & Data Vital Signs (Past 12 Hours) Vital Signs Temp Pulse Resp BP Pulse Ox O2 Del Method 09/13/22 07:33 37.0 C 77 16 126/58 L 98 Room Air Laboratory Results 09/13/22 09/13/22 09/13/22 Range/Units 05:48 05:48 05:48 WBC 10.91 H (4.8-10.8) K/ul RBC 3.19 L (4.20-5.40) M/uL Hgb 9.6 L (12.0-16.0) g/dl Hct 28.8 L (37.0-47.0) % MCV 90.3 (80.0-100.0) fL MCH 30.1 (25.0-34.0) pg MCHC 33.3 (32.0-36.0) g/dL RDW Std Deviation 40.5 (36.4-46.3) fL RDW Coeff of Sydnie 12.3 (11.5-14.5) % Plt Count 304 (130-400) K/uL MPV 9.7 (9.4-12.4) fL Sodium 140 (136-145) mmol/L Potassium 4.2 (3.5-5.1) mmol/L Chloride 109 H (98-107) mmol/L Carbon Dioxide 25 (21-32) mmol/L Anion Gap 6 (3-11) BUN 41 H (6-23) mg/dl Creatinine 1.24 H (0.6-1.2) mg/dl Est Cr Clr Drug Dosing 22.1 ml/min Est GFR ( Amer) 44.6 ml/min Est GFR (Non-Af Amer) 38.5 ml/min BUN/Creatinine Ratio 33.1 H (10-20) Glucose 83 (70-99(Fasting)) mg/dl POC Glucose (70-99) mg/dl Calcium 8.5 L (8.6-10.3) mg/dl Magnesium (1.7-2.4) mg/dl Total Bilirubin (0.2-1.0) mg/dl AST (13-39) U/L ALT (7-52) U/L Alkaline Phosphatase (34-104) U/L B-Natriuretic Peptide 202 H (0-100) pg/ml Total Protein (6.0-8.3) gm/dl Albumin (3.4-5.0) gm/dl Globulin (2.5-4.0) gm/dl Albumin/Globulin Ratio (0.9-2) Triglycerides (0-150) mg/dl Cholesterol (0-200) mg/dl LDL Cholesterol, Calc mg/dl VLDL Cholesterol, Calc (0-30) mg/dl HDL Cholesterol mg/dl Cholesterol/HDL Ratio (0-5) 09/12/22 09/12/22 09/12/22 Range/Units 20:32 16:50 11:47 WBC (4.8-10.8) K/ul RBC (4.20-5.40) M/uL Hgb (12.0-16.0) g/dl Hct (37.0-47.0) % MCV (80.0-100.0) fL MCH (25.0-34.0) pg MCHC (32.0-36.0) g/dL RDW Std Deviation (36.4-46.3) fL RDW Coeff of Sydnie (11.5-14.5) % Plt Count (130-400) K/uL MPV (9.4-12.4) fL Sodium (136-145) mmol/L Potassium (3.5-5.1) mmol/L Chloride (98-107) mmol/L Carbon Dioxide (21-32) mmol/L Anion Gap (3-11) BUN (6-23) mg/dl Creatinine (0.6-1.2) mg/dl Est Cr Clr Drug Dosing ml/min Est GFR ( Amer) ml/min Est GFR (Non-Af Amer) ml/min BUN/Creatinine Ratio (10-20) Glucose (70-99(Fasting)) mg/dl POC Glucose 118 H 215 H 234 H (70-99) mg/dl Calcium (8.6-10.3) mg/dl Magnesium (1.7-2.4) mg/dl Total Bilirubin (0.2-1.0) mg/dl AST (13-39) U/L ALT (7-52) U/L Alkaline Phosphatase (34-104) U/L B-Natriuretic Peptide (0-100) pg/ml Total Protein (6.0-8.3) gm/dl Albumin (3.4-5.0) gm/dl Globulin (2.5-4.0) gm/dl Albumin/Globulin Ratio (0.9-2) Triglycerides (0-150) mg/dl Cholesterol (0-200) mg/dl LDL Cholesterol, Calc mg/dl VLDL Cholesterol, Calc (0-30) mg/dl HDL Cholesterol mg/dl Cholesterol/HDL Ratio (0-5) 09/12/22 09/12/22 Range/Units 08:15 07:00 WBC (4.8-10.8) K/ul RBC (4.20-5.40) M/uL Hgb (12.0-16.0) g/dl Hct (37.0-47.0) % MCV (80.0-100.0) fL MCH (25.0-34.0) pg MCHC (32.0-36.0) g/dL RDW Std Deviation (36.4-46.3) fL RDW Coeff of Sydnie (11.5-14.5) % Plt Count (130-400) K/uL MPV (9.4-12.4) fL Sodium 137 (136-145) mmol/L Potassium 4.5 (3.5-5.1) mmol/L Chloride 106 (98-107) mmol/L Carbon Dioxide 26 (21-32) mmol/L Anion Gap 5 (3-11) BUN 41 H (6-23) mg/dl Creatinine 1.40 H (0.6-1.2) mg/dl Est Cr Clr Drug Dosing 19.6 ml/min Est GFR ( Amer) 38.5 ml/min Est GFR (Non-Af Amer) 33.2 ml/min BUN/Creatinine Ratio 29.3 H (10-20) Glucose 180 H (70-99(Fasting)) mg/dl POC Glucose 174 H (70-99) mg/dl Calcium 8.6 (8.6-10.3) mg/dl Magnesium 2.0 (1.7-2.4) mg/dl Total Bilirubin 0.2 (0.2-1.0) mg/dl AST 8 L (13-39) U/L ALT 5 L (7-52) U/L Alkaline Phosphatase 77 (34-104) U/L B-Natriuretic Peptide (0-100) pg/ml Total Protein 5.6 L D (6.0-8.3) gm/dl Albumin 3.0 L (3.4-5.0) gm/dl Globulin 2.6 (2.5-4.0) gm/dl Albumin/Globulin Ratio 1.2 (0.9-2) Triglycerides 100 (0-150) mg/dl Cholesterol 111 (0-200) mg/dl LDL Cholesterol, Calc 53 mg/dl VLDL Cholesterol, Calc 20 (0-30) mg/dl HDL Cholesterol 38 mg/dl Cholesterol/HDL Ratio 2.9 (0-5) Diagnostic Findings KUB X-Ray 09/12/22 13:38 KUB HISTORY: Acute generalized abdominal pain with constipation eval constipation COMPARISON: None. FINDINGS: Nonobstructive bowel gas pattern. Extensive colonic fecal retention. Renal shadows aren't secured by bowel gas. Vascular stent graft of the left upper thigh. No renal calculi. No ureteral calculi. No pneumoperitoneum or pneumatosis. Degenerative changes of the spine, pelvis and hips. No fracture. IMPRESSION: 1. Nonobstructive bowel gas pattern. 2. Extensive colonic fecal retention. ACT 112: Negative or not required by law. The above report was generated using voice recognition software. It may contain grammatical, syntax or spelling errors. Electronically signed by: Rajendra Matos M.D. 09/12/2022 2:21 PM PG Care Time/CCT Total # of Minutes Spent Total Time Spent with Patient: Total time spent is greater than 50% in coordination of care (as documented) at patient's floor/unit and/or counseling patient: Coding Level of Care Code 85848 SUB INP/OBS CARE 2/35MIN Diagnoses Complicated UTI (urinary tract infection) N39.0 Constipation K59.00 Constipation type: unspecified constipation type Head injury due to trauma S09.90XA Hypertension I10 Diabetes mellitus type 2, uncontrolled E11.65 Hypothyroidism E03.9 PAD (peripheral artery disease) I73.9 Murmur R01.1 Venous stasis ulcers I83.009; L97.909 Aortic stenosis I35.0 (2) Constipation Constipation type: unspecified constipation type Qualified Code(s): K59.00 - Constipation, unspecified
[2022-09-13 08:30] LABS: Basophils # (auto) 0.07 K/uL (0-0.2); Basophils % (auto) 0.6 %; Eosinophils # (auto) 0.51 K/uL (0-0.50); Eosinophils % (auto) 4.7 %; Immature Granulocytes # (auto) 0.07 K/uL (0.01-0.20); Immature Granulocytes % (auto) 0.6 %; Lymphocytes # (auto) 1.61 K/uL (1.2-3.4); Lymphocytes % (auto) 14.7 %; Monocytes # (auto) 0.76 K/uL (0.11-0.59); Monocytes % (auto) 6.9 %; Neutrophils # (auto) 7.92 K/uL (1.40-6.50); Neutrophils % (auto) 72.5 %
[2022-09-13] MEDS: LANTUS PER UNIT CHARGE SQ SCH ×2 (08:42→20:46)
[2022-09-13] MEDS: INSULIN ASPART PER UNIT CHARGE SC SCH ×4 (08:42→20:47)
[2022-09-13] MEDS: cephALEXin 500 MG CAP PO SCH ×2 (12:40→20:29)
[2022-09-13] MEDS: CYANOCOBALAMIN (B-12) 500 MCG TABLET PO SCH (12:40)
[2022-09-13] MEDS: CHOLECALCIFEROL 1,000 UNITS 25 MCG TAB PO SCH (12:40)
[2022-09-13] MEDS: ATORVASTATIN 40 MG TAB PO SCH (20:28)
[2022-09-14 07:16] LABS: Basophils # (auto) 0.09 K/uL (0-0.2); Eosinophils # (auto) 0.49 K/uL (0-0.50); Eosinophils % (auto) 5.5 %; Hematocrit (blood only) 29.4 % (37.0-47.0); Hemoglobin 9.7 g/dl (12.0-16.0); Immature Granulocytes # (auto) 0.05 K/uL (0.01-0.20); Immature Granulocytes % (auto) 0.6 %; Lymphocytes # (auto) 1.52 K/uL (1.2-3.4); Lymphocytes % (auto) 16.9 %; Mean Corpuscular Hemoglobin 29.9 pg (25.0-34.0); Mean Corpuscular Volume 90.7 fL (80.0-100.0); Mean Platelet Volume 9.9 fL (9.4-12.4); Monocytes # (auto) 0.66 K/uL (0.11-0.59); Monocytes % (auto) 7.4 %; Neutrophils # (auto) 6.16 K/uL (1.40-6.50); Neutrophils % (auto) 68.6 %; Platelet Count 323 K/uL (130-400); RDW Coefficient of Variation 12.4 % (11.5-14.5); RDW Standard Deviation 40.8 fL (36.4-46.3); Red Blood Count 3.24 M/uL (4.20-5.40); White Blood Count 8.97 K/ul (4.8-10.8)
[2022-09-14 07:29] LABS: BUN Creatinine Ratio 35.2 (10-20); Calcium 8.6 mg/dl (8.6-10.3); Creatinine Clr Calc Pharmacy 19.3 ml/min; Est GFR (African American) 37.9 ml/min; Est GFR (Non-African American) 32.7 ml/min; Potassium 4.7 mmol/L (3.5-5.1)
[2022-09-14] MEDS: RIVAROXABAN 2.5 MG TAB PO SCH ×2 (08:04→20:32)
[2022-09-14] MEDS: DOCUSATE SODIUM 100 MG CAP PO SCH ×2 (08:04→20:32)
[2022-09-14] MEDS: cephALEXin 500 MG CAP PO SCH ×2 (08:04→20:32)
[2022-09-14] MEDS: FAMOTIDINE 20 MG TAB PO SCH (08:05)
[2022-09-14] MEDS: POLYETHYLENE (MIRALAX) 17 GM PACK PO SCH (08:05)
[2022-09-14] MEDS: CLOPIDOGREL BISULFATE 75 MG TAB PO SCH (08:05)
[2022-09-14] MEDS: INSULIN ASPART PER UNIT CHARGE SC SCH ×4 (08:34→20:59)
[2022-09-14] MEDS: LANTUS PER UNIT CHARGE SQ SCH ×2 (08:34→21:00)
[2022-09-14] MEDS: ARMOUR THYROID 30 MG TAB PO SCH (09:23)
[2022-09-14] MEDS: CYANOCOBALAMIN (B-12) 500 MCG TABLET PO SCH (12:28)
[2022-09-14] MEDS: CHOLECALCIFEROL 1,000 UNITS 25 MCG TAB PO SCH (12:28)
--- NOTE | 2022-09-14 15:59 | Hospitalist Progress Note ---
Date of Service September 14, 2022 Assessment & Plan (1) Complicated UTI (urinary tract infection): Plan: Acute unstable Suspected cause of her confusion +/- concussion from recent head trauma UTI and Culture Janki ascorbata, pansensitive Started Ceftriaxone IV daily (got 3 days IV) - transitioned to Keflex to complete course today PT/OT -- HH vs rehab Awaiting updated evaluation Added incentive spirometer for atelectasis on exam, afebrile CXR 09/10 no acute disease Monitor labs in AM (2) Constipation: Plan: Chronic Continue good bowel regimen with miralax and colace encouraged increasing po water intake Continue pepcid daily and would continue at dc (3) Head injury due to trauma: Plan: Repeat CT head without intracranial pathology -- possible post-concussion w/ confusion vs from UTI -- appears alert/oriented since tx for UTI however Continue wound care to scalp laceration (4) Hypertension: Plan: Chronic and stable BPs on the lower side prior Had been given losartan but w/ elevated Cr placed on hold subsequently and Cr improved on repeat labs. BP currently stable 135/69 and will continue to hold for today. Improvement in PO intake/appetite since moving her bowels and if BPs stable in AM will plan to resume Denied any lightheaded/dizziness on examination +murmur on exam -- reports hx rheumatic fever as child, Denied syncope/angina/dyspnea prior to her fall but prior reports mild dementia at baseline Trop not elevated on admit. EGK w/ 1st degree block. Similar to priors in 2019 Obtained ECHO given falls/dementia --> Compared with study 08/2016, severity of aortic stenosis has progressed and mild pulmonary hypertension now seen. LV is hyperdynamic. EF >70%. LV wall motion is normal. Moderate concentric LVH. Grade I diastolic dysfunction. RV is normal in size and function. Severe valvular aortic stenosis. Mild mitral regurgitation. RVSP is elevated at 30-40mmHg. (5) Diabetes mellitus type 2, uncontrolled: Plan: Chronic and unstable Hemoglobin A1C 8.1 in June 2022 --> 8.6 On lantus 18u daily -> placed on lantus 10u BID for now and BSGs acceptable but increased PO intake and elevations mid 200s this afternoon --> increased to 12u BID and decreased CF/CR and BSgs improving DM educator consulted as well Suspect slightly increased needs at dc but will monitor inpatient (6) Hypothyroidism: Plan: Chronic and stable TSH WNL 2.987 Continue [place] thyroid 60mg PO daily (7) PAD (peripheral artery disease): Plan: Chronic Bilateral venous stasis ulcers, follows with wound center On plavix/xarelto Hx right GSV VenaSeal 12/2018 in the setting of right lower extremity ulcer. Also underwent left GSV VenaSeal. with Dr Velez Repeat angiogram on 10/15/21 with 95% proximal SFA, 100% late-proximal to distal SFA occlusion, focal 80% TPT and 3 vessel runoff to the ankle. She underwent successful mechanical atherectomy (Rotarex) and angioplasty of ostial SFA to popliteal artery (6 x 150, 5 x 300 Lutonix). Final result with brisk SFA/popliteal flow and 3 vessel runoff with direct inline flow to lugo ulcer bed via SINA. Post intervention she had significant improvement in left foot pain, her ulcer was making gradual improvement. Repeat noninvasive vascular testing 01/2022 showed left toe pressure 72 and SFA patent with proximal SFA PSV 236. She underwent Cellutome grafting which was unsuccessful. Seen 05/18/2022 at which time endorsed worsening left lower extremity pain and wound had deteriorated. Repeat arterial duplex notable for undetectable toe pressures and occluded SFA. Underwent repeat left lower extremity angiogram 05/25/2022 which showed 100% proximal SFA to popliteal occlusion and 80% TPT stenosis. Had to overlapping Supera stents (6 x 0 x 150, 5.0 x 120) placed from SFA ostium to popliteal artery with good angiographic result. Wound RN on consult while inpatient No atorvastatin on medication list on admission (did not see any recent fills either in system, however did discuss with patient and she states she IS ON ATORVASTATIN 80mg daily and this was resumed evening 09/12 -- needs to be continued on med list at discharge and would send rx if needed to ensure she has this (have patient bring pills to next PCP visit recommended) Remains on plavix/low dose xarelto PT/OT consulted as above Awaiting updated evaluations for today (8) Aortic stenosis: Plan: hx "rheumatic fever" as a child per patient, however murmur more c/w aortic stenosis. S1/S2 appreciated but quiet. ECHO as above, severe aortic stenosis, mild MR GIven age, doubt able to do surgery on patient but will need continued anthony toring outpatient Cautious use IVF, will hold off further for now f/u Cardiology as outpt Plan VTE Prophylaxis - Xarelto low dose for her PAD in place continued inpatient stay -- continued discussions for possible rehab pending repeat eval tomorrow Abx switched to kelfex to complete course Continue bowel regimen to prevent constipation Admission and Anticipated Discharge Date Admission Date: September 10, 2022 Subjective Pateint was awake laying in bed. She was seen this AM by CM and refused to go to a rehab facility. She stated she wanted to go home with H/H. She lives alone. She is worried about being able to afford rehab. I did reach out to CM to find out what would be afforable options for patient and Im also waiting on updatd PT notes. Patient still appears very weak and unsteady and likley to experience further falls. Review of Systems Review of Systems: Patient denies all ROS unless stated + above. Physical Exam Constitutional: + well hydrated, + frail appearing and cooperative; no acute distress Respiratory: normal respiratory effort, lungs clear to auscultation Cardiovascular: Rate/Rhythm: regular rate and regular rhythm Heart Sounds: normal S1, normal S2 and + murmur 2-3/6 LEONARDO Gastrointestinal (Abdomen): normal bowel sounds, soft, nontender, no he patosplenomegaly Skin: surgical dressing over forehead and bridge of nose Left lower extremity with dressing in place, follows with wound for chronic ulcerations Psychiatric: A+Ox3, euthymic affect Results & Data Results & Data Vital Signs (Past 12 Hours) Vital Signs Temp Pulse Pulse Resp BP Pulse Ox O2 Del Method 09/14/22 14:46 36.6 C 80 16 135/69 99 Room Air 09/14/22 07:38 36.5 C 83 16 144/85 H 95 Room Air Laboratory Results Abnormal lab results 09/13/22 09/13/22 09/14/22 Range/Units 16:56 20:27 06:00 RBC 3.24 L (4.20-5.40) M/uL Hgb 9.7 L (12.0-16.0) g/dl Hct 29.4 L (37.0-47.0) % [place] # (Auto) 0.66 H (0.11-0.59) K/uL BUN (6-23) mg/dl Creatinine (0.6-1.2) mg/dl BUN/Creatinine Ratio (10-20) Glucose (70-99(Fasting)) mg/dl POC Glucose 161 H 107 H (70-99) mg/dl 09/14/22 09/14/22 09/14/22 Range/Units 06:00 08:01 12:01 RBC (4.20-5.40) M/uL Hgb (12.0-16.0) g/dl Hct (37.0-47.0) % [place] # (Auto) (0.11-0.59) K/uL BUN 50 H (6-23) mg/dl Creatinine 1.42 H (0.6-1.2) mg/dl BUN/Creatinine Ratio 35.2 H (10-20) Glucose 142 H (70-99(Fasting)) mg/dl POC Glucose 135 H 104 H (70-99) mg/dl PG Care Time/CCT Total # of Minutes Spent Total Time Spent with Patient: Total time spent is greater than 50% in coordination of care (as documented) at patient's floor/unit and/or counseling patient: Coding Level of Care Code 40319 SUB INP/OBS CARE 05/06MIN Diagnoses Complicated UTI (urinary tract infection) N39.0 Constipation K59.00 Constipation type: unspecified constipation type Head injury due to trauma S09.90XA Hypertension I10 Diabetes mellitus type 2, uncontrolled E11.65 Hypothyroidism E03.9 PAD (peripheral artery disease) I73.9 Aortic stenosis I35.0 (2) Constipation Constipation type: unspecified constipation type Qualified Code(s): K59.00 - Constipation, unspecified
[2022-09-14] MEDS: ATORVASTATIN 40 MG TAB PO SCH (20:30)
[2022-09-15] MEDS: cephALEXin 500 MG CAP PO SCH (08:54)
[2022-09-15] MEDS: POLYETHYLENE (MIRALAX) 17 GM PACK PO SCH (08:54)
[2022-09-15] MEDS: DOCUSATE SODIUM 100 MG CAP PO SCH (08:54)
[2022-09-15] MEDS: RIVAROXABAN 2.5 MG TAB PO SCH (08:54)
[2022-09-15] MEDS: FAMOTIDINE 20 MG TAB PO SCH (08:55)
[2022-09-15] MEDS: ARMOUR THYROID 30 MG TAB PO SCH (08:55)
[2022-09-15] MEDS: CLOPIDOGREL BISULFATE 75 MG TAB PO SCH (08:55)
[2022-09-15] MEDS: INSULIN ASPART PER UNIT CHARGE SC SCH ×2 (09:03→12:13)
[2022-09-15] MEDS: LANTUS PER UNIT CHARGE SQ SCH (09:03)
[2022-09-15] MEDS: CYANOCOBALAMIN (B-12) 500 MCG TABLET PO SCH (12:13)
[2022-09-15] MEDS: CHOLECALCIFEROL 1,000 UNITS 25 MCG TAB PO SCH (12:13)
--- NOTE | 2022-09-15 12:17 | Discharge Summary ---
Date of Service September 15, 2022 Admission HPI Per Admitting Provider Lorraine Lagunas is an 87 year old female who presents to the ER from wound care clinic due to altered mental state. Initial fall on September 03 after missing a step and leaving her doctors office. She had a left frontal scalp injury following this fall. No difficulty in ambulating following this. She lives alone and does not report any problems with her activities of daily living. On going to her wound care clinic appointment today who have known the patient prior to her recent fall; she was complaining of new onset headache and feeling "weird in the head" along with periods of confusion therefore was advised to go to the ER for further evaluation. On discussion with her regarding possible UTI she reports not being surprised as she is having dysuria and increased frequency for the last 3 days. She denies any fever, chills or back pain. Admission Exam Per Admitting Provider [facility], [id number] History & Physical Report Signed Patient:LORRAINE LAGUNAS Admit Date:09/10/22 MR#:[id number] Att Phy:Jasmine Pope MD Acct ID:[id number] Bushra Phy:Marly Avendano CRNP Date:1935 Fam Phy: Age:87 Location:3W Sex:F Room/Bed:[facility] cc: ~ *NOTICE TO RECEIVING CONSTITUTION PARTY/AGENCY This information is strictly Confidential and protected under [place] law. [place] law prohibits you from making any further disclosure of this information unless further disclosure is expressly permitted by the written consent of the person to whom it pertains or is authorized by law. A general authorization for the release of medical or other information is not sufficient for this purpose. Hospital accepts no responsibility if the information is made available to any other person, INCLUDING THE PATIENT. Date of Service September 10, 2022 Assessment & Plan (1) Complicated UTI (urinary tract infection): Plan: Suspected cause of her confusion +/- concussion from recent head trauma Complicated due to T2DM Ceftriaxone 1g IV daily Follow up urine cultures (2) Head injury due to trauma: Plan: Repeat CT head without intracranial pathology Continue wound care to scalp laceration - patient declined examination on admission (3) Hypertension: Plan: Continue losartan (4) Diabetes mellitus type 2, uncontrolled: Plan: Hemoglobin A1C 8.1 in June 2022 Lantus 18 units daily at home Switch to Lantus 10 units BID Novolog: --Goal BSG Range: Low 110 mg/dL, High 140 mg/dL --Correction Factor: 45 mg/dL/unit --Carbohydrate ratio = 15 g/unit --BSGs ACHS if eating, q6h if npo Consult pharmacy for ongoing changes (5) Hypothyroidism: Plan: TSH WNL Continue Sherman thyroid 60mg PO daily (6) PAD (peripheral artery disease): Plan: Continue clopidogrel and Xarelto Plan VTE Prophylaxis - Xarelto Diet - T2DM Disposition - admit to med/surg Admission and Anticipated Discharge Date Admission Date: September 10, 2022 History of Present Illness Chief Complaint: Altered mental state Primary Care Provider: JACQUES Montano Lorraine Lagunas is an 87 year old female who presents to the ER from wound care clinic due to altered mental state. Initial fall on September 03 after missing a step and leaving her doctors office. She had a left frontal scalp injury following this fall. No difficulty in ambulating following this. She lives alone and does not report any problems with her activities of daily living. On going to her wound care clinic appointment today who have known the patient prior to her recent fall; she was complaining of new onset headache and feeling "weird in the head" along with periods of confusion therefore was advised to go to the ER for further evaluation. On discussion with her regarding possible UTI she reports not being surprised as she is having dysuria and increased frequency for the last 3 days. She denies any fever, chills or back pain. Allergies Allergy/AdvReac Type Severity Reaction Status Date / Time Sulfa (Sulfonamide Allergy Intermediate RASH Verified 09/10/22 14:57 Antibiotics) sulfamethoxazole Allergy Intermediate Nausea/Vomi Verified 09/10/22 14:57 ting/Rash trimethoprim Allergy Intermediate Nausea/Vomi Verified 09/10/22 14:57 ting/Rash adhesive Allergy Unknown UNKNOWN Verified 09/10/22 14:57 aspirin Allergy Unknown Unknown Verified 09/10/22 14:57 Bactrim Allergy Unknown Nausea/Vomi Verified 09/17/14 19:04 ting/Rash iodine Allergy Unknown Unknown Verified 09/10/22 14:57 lisinopril Allergy Unknown Unknown Verified 09/10/22 14:57 prochlorperazine Allergy Unknown Unknown Verified 09/10/22 14:57 tigecycline AdvReac Intermediate Nausea/Vomi Verified 09/10/22 14:57 C ting Home Medications Medication Instructions Recorded Confirmed Type omega-3 fatty acids 1,000 mg 1,000 mg PO QDL 10/20/18 09/10/22 History capsule (Fish Oil Concentrate) vit C 250 mg-vit E 90 mg-zinc 40 1 tab PO BID 10/20/18 09/10/22 History mg-copper 1 xs-mforiv-qselve capsule (PreserVision AREDS-2) cyanocobalamin (vitamin B-12) 1,000 mcg PO QDL 11/14/18 09/10/22 History 1,000 mcg tablet (Vitamin B-12) cholecalciferol (vitamin D3) 50 2,000 units PO QDL 11/30/18 09/10/22 History mcg (2,000 unit) capsule glucosamine-chondroitin 250 mg-200 1 tab PO QDL pain 11/30/18 09/10/22 History mg tablet (Osteo Bi-Flex) lancets (OneTouch UltraSoft #300 ea 08/14/19 07/07/22 Rx Lancets) pen needle, diabetic 31 gauge x #100 ea 08/05/21 07/07/22 Rx 5/16" (BD Ultra-Fine Short Pen Needle) blood sugar diagnostic #300 ea 10/03/21 07/07/22 Rx clopidogrel 75 mg tablet 75 mg PO DAILY #90 tabs 01/30/22 09/10/22 Rx insulin glargine 100 unit/mL (3 See Rx Instructions .Route 03/10/22 09/10/22 Rx mL) subcutaneous pen (Lantus .COMPLEX #45 mL Solostar U-100 Insulin) oxybutynin chloride 5 mg 5 mg PO HS #90 tabs 05/25/22 09/10/22 Rx tablet,extended release 24 hr rivaroxaban 2.5 mg tablet (Xarelto) 2.5 mg PO BID #60 tabs 06/18/22 09/10/22 Rx thyroid (pork) 60 mg tablet 60 mg PO QAM #90 tabs 07/16/22 09/10/22 Rx (Sherman Thyroid) mupirocin 2 % topical ointment 1 applic topical BID #22 grams 08/06/22 09/10/22 Rx losartan 25 mg tablet 0 mg PO QAM 09/10/22 09/10/22 History Past Med/Surg History Medical History Actinic keratosis Anemia Aortic stenosis Bilateral lower extremity edema Chronic kidney disease, stage 3 Diabetes mellitus type 2, uncontrolled Diabetes mellitus, with long-term current use of insulin Diabetic nephropathy Fracture of shaft of humerus, closed Gastroesophageal reflux disease History of episiotomy Hypercholesterolemia Hypothyroidism Macular degeneration Microalbuminuria Mitral and aortic valve disease Osteopenia PAD (peripheral artery disease) Polymyalgia rheumatica Rheumatic heart disease Urinary incontinence Venous insufficiency Wound, open, foot Surgical History History of breast surgery Puncture aspiration of cystHistory of section History of dilation and curettage History of total abdominal hysterectomy and bilateral salpingo-oophorectomy History of tubal ligation Family History Other Family history non-contributory Social History Smoking Status: Unknown if ever smoked Second Hand Exposure: No; Do You Dip or Chew Tobacco: No; Hx Alcohol Use: No Hx Substance Use: No Preferred Language: Burkinan Communication Ability: Effective Hearing Ability: Use of Hearing Aid Home Visits Nurse Required: No Beliefs That Will Affect Care: Jain marital status: / Current Living Situation: Alone current occupational status: other 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 Other Information That Helps Us Care for You: No Feels Safe at Home: Yes Safety Concerns: Feels Safe At This Time Diet: regular caffeine: Yes (COFFEE) Physical Activity Frequency: Does not Exercise Seatbelt Use: always Assistive Devices: Cane and Glasses Review of Systems Review of Systems: All systems reviewed & are unremarkable except as noted in HPI & below Physical Exam Constitutional: well developed; + not well nourished and no acute distress Eyes: PERRL, conjunctivae normal, anicteric sclerae ENMT: external ear and nose normal, oropharynx normal Neck: trachea midline, no thyromegaly Respiratory: normal respiratory effort, lungs clear to auscultation Cardiovascular: RRR, no murmur, no edema Gastrointestinal (Abdomen): normal bowel sounds, soft, nontender, no hepatosplenomegaly Musculoskeletal: no cyanosis or clubbing, extremities motor strength 5/5 Skin: + ecchymosis (evolving facial around eyes overlying trachea)laceration on face - patient declines removal of dressing Dressing on left leg not removed as previously seen by wound care earlier today and declined examination by patient Neurologic: moves all extremities, awake and + confused Psychiatric: A+Ox3, euthymic affect Genitourinary: no CVA tenderness Principal Diagnosis complicated uti Discharge Exam Constitutional + well hydrated, average body habitus and cooperative; no acute distress Respiratory normal respiratory effort, lungs clear to auscultation Cardiovascular Rate/Rhythm: regular rate and regular rhythm Heart Sounds: normal S1, normal S2 and + murmur Gastrointestinal (Abdomen) normal bowel sounds, soft, nontender, no hepatosplenomegaly Psychiatric A+Ox3, euthymic affect Discharge Data Allergies Allergy/AdvReac Type Severity Reaction Status Date / Time Sulfa (Sulfonamide Allergy Intermediate RASH Verified 09/22/22 13:45 Antibiotics) sulfamethoxazole Allergy Intermediate Nausea/Vomi Verified 09/22/22 13:45 ting/Rash trimethoprim Allergy Intermediate Nausea/Vomi Verified 09/22/22 13:45 ting/Rash adhesive Allergy Unknown UNKNOWN Verified 09/22/22 13:45 aspirin Allergy Unknown Unknown Verified 09/22/22 13:45 Bactrim Allergy Unknown Nausea/Vomi Verified 09/17/14 19:04 ting/Rash iodine Allergy Unknown Unknown Verified 09/22/22 13:45 lisinopril Allergy Unknown Unknown Verified 09/22/22 13:45 prochlorperazine Allergy Unknown Unknown Verified 09/22/22 13:45 tigecycline AdvReac Intermediate Nausea/Vomi Verified 09/22/22 13:45 ting Consultations 09/10/22 15:08 ED Decision to Admit Stat Ordered Studies 09/10/22 12:31 CT head/brain wo con Stat No acute intracranial hemorrhage or skull fractures. Scalp swelling is seen in the left frontal soft tissues. Hospital Course (1) Complicated UTI (urinary tract infection): Acute unstable Suspected cause of her confusion +/- concussion from recent head trauma UTI and Culture Kluyvera ascorbata, pansensitive Started Ceftriaxone IV daily (got 3 days IV) - transitioned to Keflex to complete course PT/OT -- HH vs rehab Patient was much improved today and walked to bathroom unassisted and per OT did complete bath and grooming except her feet She is still very adamant that she will NOT go to a rehab but is willing and asking to be discharged today to e with H/H Added incentive spirometer for atelectasis on exam, afebrile CXR 09/10 no acute disease (2) Constipation: Chronic Continue good bowel regimen with miralax and colace encouraged increasing po water intake Continue pepcid daily and would continue at dc (3) Head injury due to trauma: Repeat CT head without intracranial pathology -- possible post-concussion w/ confusion vs from UTI -- appears alert/oriented since tx for UTI however Continue wound care to scalp laceration (4) Hypertension: Chronic and stable BPs on the lower side prior Had been given losartan but w/ elevated Cr placed on hold subsequently and Cr improved on repeat labs. BP currently stable 135/69 and will continue to hold for today. Improvement in PO intake/appetite since moving her bowels Denied any lightheaded/dizziness on examination +murmur on exam -- reports hx rheumatic fever as child, Denied syncope/angina/dyspnea prior to her fall but prior reports mild dementia at baseline Trop not elevated on admit. EGK w/ 1st degree block. Similar to priors in 2019 Obtained ECHO given falls/dementia --> Compared with study 08/2016, severity of aortic stenosis has progressed and mild pulmonary hypertension now seen. LV is hyperdynamic. EF >70%. LV wall motion is normal. Moderate concentric LVH. Grade I diastolic dysfunction. RV is normal in size and function. Severe valvular aortic stenosis. Mild mitral regurgitation. RVSP is elevated at 30-40mmHg. (5) Diabetes mellitus type 2, uncontrolled: Chronic and unstable Hemoglobin A1C 8.1 in June 2022 --> 8.6 On lantus 18u daily -> placed on lantus 10u BID for now and BSGs acceptable but increased PO intake and elevations mid 200s this afternoon --> increased to 12u BID and decreased CF/CR and BSgs improving DM educator consulted as well Suspect slightly increased needs at dc but will monitor inpatient (6) Hypothyroidism: Chronic and stable TSH WNL 2.987 Continue Sherman thyroid 60mg PO daily (7) PAD (peripheral artery disease): Chronic Bilateral venous stasis ulcers, follows with wound center On plavix/xarelto Hx right GSV VenaSeal 12/2018 in the setting of right lower extremity ulcer. Also underwent left GSV VenaSeal. with Dr Velez Repeat angiogram on 10/15/21 with 95% proximal SFA, 100% late-proximal to distal SFA occlusion, focal 80% TPT and 3 vessel runoff to the ankle. She underwent successful mechanical atherectomy (Rotarex) and angioplasty of ostial SFA to popliteal artery (6 x 150, 5 x 300 Lutonix). Final result with brisk SFA/popliteal flow and 3 vessel runoff with direct inline flow to lugo ulcer bed via SINA. Post intervention she had significant improvement in left foot pain, her ulcer was making gradual improvement. Repeat noninvasive vascular testing 01/2022 showed left toe pressure 72 and SFA patent with proximal SFA PSV 236. She underwent Cellutome grafting which was unsuccessful. Seen 05/18/2022 at which time endorsed worsening left lower extremity pain and wound had deteriorated. Repeat arterial duplex notable for undetectable toe pressures and occluded SFA. Underwent repeat left lower extremity angiogram 05/25/2022 which showed 100% proximal SFA to popliteal occlusion and 80% TPT stenosis. Had to overlapping Supera stents (6 x 0 x 150, 5.0 x 120) placed from SFA ostium to popliteal artery with good angiographic result. Wound RN on consult while inpatient No atorvastatin on medication list on admission (did not see any recent fills either in system, however did discuss with patient and she states she IS ON ATORVASTATIN 80mg daily and this was resumed evening 09/12 -- needs to be continued on med list at discharge and would send rx if needed to ensure she has this (have patient bring pills to next PCP visit recommended) Remains on plavix/low dose xarelto (8) Aortic stenosis: hx "rheumatic fever" as a child per patient, however murmur more c/w aortic stenosis. S1/S2 appreciated but quiet. ECHO as above, severe aortic stenosis, mild MR GIven age, doubt able to do surgery on patient but will need continued monitoring outpatient Cautious use IVF, will hold off further for now f/u Cardiology as outpt Plan VTE Prophylaxis - Xarelto low dose for her PAD in place continued inpatient stay -- continued discussions for possible rehab pending repeat eval tomorrow Abx switched to kelfex to complete course Continue bowel regimen to prevent constipation Total Time Total Time Spent Total Time Spent (In Minutes): 40 Discharge Plan Discharge Items Patient Disposition: Home - Home Health Services Reason For Visit: COMPLEX UTI Discharge Diagnosis: Complex UTI Fall and head injury without intracranial pathology HTN contipation Condition on Discharge: Fair Activity: Resume your previous activity Lifting: Gradually increase as tolerated Weightbearing: Full weightbearing Non-emergency contact: Primary Care Provider Call non-emergency contact if: you have any medication questions, your symptoms worsen and your temperature is above 101.5 Follow-up/Referrals: Marly Avendano CRNP [Primary Care Provider] - 09/22/22 2:00 pm Diet: Carb Consistent or DM2 and Heart Healthy Addtl Attending Provider Instructions: You were admitted after a fall and having confusion. You had a normal CT scan of your head but were found to have a urinary tract infection and were started on IV antibiotics and then changed over to oral Keflex to complete the course. You will need to take the antibiotic for 4 more days starting tonight and finish 09/18/22. You were evaluated by PT and OT who recommended an acute rehab stay to become stronger. You refused any inpatient rehab but you were willing to have H/H. You will be set up with [facility] home health services who will see you several times per week. Also encouraged you to have friends come to stya with you until you are stronger and more steady on your feet. Discussed that you are a fall risk and you are aware of this and still refusing any rehab. Pending Studies at Discharge: No Stand-Alone Forms: My [facility] Medications and DC Order Prescriptions: New cephalexin 500 mg capsule 500 mg PO BID Qty: 7 0RF Rx Instructions: To start tonight after dinner Continued omega-3 fatty acids [Fish Oil Concentrate] 1,000 mg capsule 1,000 mg PO QDL PreserVision AREDS-2 [id number] do-wqfz-sl-mg capsule 1 tab PO BID glucosamine-chondroitin [Osteo Bi-Flex] 250-200 mg tablet 1 tab PO QDL (DME) lancets [OneTouch UltraSoft Lancets] Misc See Dose Instructions .ROUTE .MEDSUPPLY Qty: 300 3RF Rx Instructions: As directed to test blood sugar 3 times daily (DME) pen needle, diabetic [BD Ultra-Fine Short Pen Needle] 31 gauge x 5/16" needle See Rx Instructions .ROUTE .MEDSUPPLY Qty: 100 3RF Rx Instructions: use as directed to inject insulin once daily (DME) blood sugar diagnostic Strip See Rx Instructions .ROUTE .MEDSUPPLY Qty: 300 5RF Rx Instructions: Test 1 times daily. DX: E11.9 clopidogrel 75 mg tablet 75 mg PO DAILY Qty: 90 3RF Lantus Solostar U-100 Insulin 100 unit/mL (3 mL) insulin pen See Rx Instructions .ROUTE .COMPLEX Qty: 45 3RF Dose Instruction: INJECT 18 UNITS SUBCUTANEOUSLY DAILY Rx Instructions: INJECT 18 UNITS SUBCUTANEOUSLY DAILY oxybutynin chloride 5 mg tablet extended release 24hr 5 mg PO HS Qty: 90 3RF Xarelto 2.5 mg tablet 2.5 mg PO BID Qty: 60 11RF Sherman Thyroid 60 mg tablet 60 mg PO QAM Qty: 90 3RF cholecalciferol (vitamin D3) 2,000 unit capsule 2,000 units PO QDL cyanocobalamin (vitamin B-12) [Vitamin B-12] 1,000 mcg tablet 1,000 mcg PO QDL mupirocin 2 % ointment 1 applic topical BID Qty: 22 0RF No Action losartan 25 mg tablet 25 mg PO QAM Qty: 90 3RF atorvastatin 80 mg tablet 80 mg PO DAILY Qty: 90 3RF Discharge Orders: Discharge Order (Routine); Ordered 09/15/22 Ordered By: Sanam Perdomo/Other Patient Handouts: Anatomy of the Female Urinary Tract, Urinary Tract Infections in Women Admission Data Admit Date/Time: 09/10/22 15:26 Attending Provider: Rosales Galicia Admit Provider: Renny Mehta Primary Care Provider: Marly Avendano Other Providers: [facility] Fax Other Interventions: Discharge Summary Assessment (RN) Last Done: 09/15/22 14:53 Supervising Physician Co-Signing Physician Notes During face to face encounter, I obtained a brief physical examination, discussed hospital stay with patient and discharge instructions with patient. I discussed discharge plan of care with RICKEY Moses. I reviewed above note and agree with it except for the following: Patient treated with a UTI, initially with ceftriaxone and transitioned to keflex. Coding Level of Care Code 36004 INP/OBS DISCH >30 MIN Diagnoses Complicated UTI (urinary tract infection) N39.0 Constipation K59.00 Constipation type: unspecified constipation type Head injury due to trauma S09.90XA Hypertension I10 Diabetes mellitus type 2, uncontrolled E11.65 Hypothyroidism E03.9 PAD (peripheral artery disease) I73.9 Aortic stenosis I35.0 Time Spent (min) 40 Home Health Attestation I certify that this patient is under my care and that I, or a physicians logistics assistant working with me, had a face to-face encounter that meets the home health cnda-ba-xrus encounter requirements with this patient. The encounter with the patient was in whole, or in part, for the following medical condition, which is the primary reason for home health care (list medical condition): I certify that, based on my findings, the following services are medically necessary home health services: My clinical findings support the need for the above services because: Further, I certify that my clinical findings support that this patient is homebound (i.e. absences from home require considerable and taxing effort and are for medical reasons or yazidism services or infrequently or of short duration when for other reasons) because: Certification for Home Health Services: Based on the above findings, I certify that this patient is confined to the home and needs intermittent care home care, physical therapy and/or speech therapy or continues to need occupational therapy. The patient is under my care, and I have initiated the establishment of the plan of care. This patient will be followed by a physician who will periodically review the plan of care.
--- NOTE | 2022-09-21 10:05 | Coding Query ---
CODING QUERY FOR UNCONTROLLED DIABETES To promote full compliance with coding requirements relating to patient care, provider participation is requested in all cases of vegetable trimmer uncertainty. Please assist us with the question(s) below: Coding Question: The term uncontrolled Diabetes was used throughout the record. To be able to code this diagnosis properly, could you please clarify the diagnosis below: ( ) Uncontrolled Diabetes meaning hypoglycemia ( x ) Uncontrolled Diabetes meaning hyperglycemia ( ) Other (please specify) Principal Diagnosis: "that condition established after study, to be chiefly responsible for occasioning the admission of the patient to the hospital for care." Co-Existing Principal Diagnosis: "when two or more diagnoses equally meet the criteria for principal diagnosis as determined by the circumstances of admission, diagnostic work up, and/or therapy provided, and the Alphabetic Index, Tabular List, or another coding guideline does not provide sequencing direction, any one of the diagnoses may be sequenced first." "When the physician has documented what appears to be a current diagnosis in the body of the record, but has not included the diagnosis in the final diagnostic statement, the physician should be asked whether the diagnosis should be added." (Source Coding Clinic 2 QTR90. p3-4) ELIAN
== END 2022-09-15 15:44 | disposition home health service (06) | DRG 690 ==
LOC: ED 12:26 → SUATTDRO 15:26 → 3W 15:26

== ENCOUNTER 2022-10-16 16:54 | Inpatient (IN) ==
--- NOTE | 2022-10-16 17:28 | Emergency Department Note ---
Impression & Plan Cellulitis of left leg, Hypertension ED Provider Note Provider: Mono Edwards MD DATE OF SERVICE: 10/16/2022 CHIEF COMPLAINT: Confusion, leg wound HISTORY OF PRESENT ILLNESS: Patient is a 87-year-old female history of UTI, varicose veins with chronic left leg wound followed with the wound clinic, hypertension, type 2 diabetes, hypothyroidism, renal vascular disease Plavix and Xarelto presenting today via ambulance from her home. EMS report the patient had her INTERACTIVE PROJECT MANAGER visit to help with wound care for her leg. Change the dressings and reported the patient had a temperature of 100 Fahrenheit and was somewhat more confused than normal. Evidently according to EMS report the patient is reported to have some intermittent episodes of confusions and hallucinations of daughter. Blood sugar is elevated upon arrival. Patient reports pain around the left leg wound and states over the last week this is worsening and is seeping a lot of fluid. Denies headache, chest pain, shortness of breath, abdominal pain, or nausea or vomiting. Does live by herself at home. Denies feeling significantly confused at this time. PAST MEDICAL HISTORY: As noted above MEDICATIONS: No medication list SOCIAL HISTORY: , lives by herself PHYSICAL EXAM: GENERAL: alert and oriented in no acute distress on stretcher Head: normocephalic with healing abrasion and resolving contusion to the mid to left forehead. EYES: No injection, discharge or icterus. PERRL, EOMI. NECK: Trachea midline. Supple. ENT: Mucous membranes pink and moist. Pharynx without erythema or exudate. LUNGS: Airway patent. No retractions. Breath sounds clear with good air entry bilaterally. HEART: Regular rate and rhythm. No chest wall tenderness ABDOMEN: Soft and non-tender, without guarding or rebound. SKIN: Acyanotic, warm, dry EXTREMITIES: Without swelling, tenderness or deformity and on the left lateral aspect of the mid to lower leg some tenderness with 2 wounds. Some mild surrounding erythema. Dressing in place and recently changed just prior to arrival by her report not significantly saturated. No bleeding noted. NEUROLOGICAL: No focal deficits. No aphasia. No facial droop or slurred speech. Normal strength and tone in the extremities. Sensation to gross touch normal. Ambulatory. EK bpm normal sinus rhythm right bundle branch block. No PVC or PAC. No acute ST segment elevation or depression with a QTc of 472 CONTINUOUS CARDIAC MONITORING: was ordered and showed a heart rate of 80s-90s bpm in normal sinus rhythm R bundle branch block Patient's laboratory studies and imaging reviewed. Differential includes Infection, dehydration, metabolic abnormality, hypo/hyperglycemia, electrolyte disturbance, anemia, hypoxia, cardiac sources, neurologic, as well as other pathologies. IMPRESSION/MEDICAL DECISION MAKING: Patient may be with a little bit more confusion than normal according to EMS report with some increased pain in the patient reports some worsening wound to her left lower leg. Has followed with wound clinic. Fall just over a month ago and was hospitalized here several weeks ago. No new trauma reported. Wound itself does not appear to have significant drainage at this time or evidence of crepitus but was bandaged and changed just before coming in. Poorly controlled diabetes. No significant focal deficit but did send for CT of the head given the possible confusion with use of Plavix and Xarelto. Basic labs to be obtained. Did review recent admission discharge summary. Chest x-ray obtained without significant evidence of pneumonia or pulmonary jose ma. Stable mild anemia. No significant leukocytosis today. Normal lactate. Negative COVID. Mild hyperglycemia likely as she missed her insulin today for her diabetes. CT of the head per radiology without acute findings noted by radiology. No significant chemistry abnormalities with stable renal function. No signs of hepatitis. Is hypertensive here. Given a dose of IV labetalol for this. Some component may be pain related. Discussed with her given some erythema may have some localized infection in the leg. Patient states the pain is bothering her given some Tylenol. She is concerned about going home today given her ambulatory issues with her leg and the mild cellulitis. Again surface culture is pending at this time. Given a dose of Ancef. Patient wishes for observation. Hospitalist contacted. DIAGNOSIS: Left leg cellulitis, hypertension DISPOSITION: Hospitalist will evaluate Patient was agreeable with this plan. Past Med/Surg History Medical History Actinic keratosis Anemia Aortic stenosis Bilateral lower extremity edema Chronic kidney disease, stage 3 Diabetes mellitus type 2, uncontrolled Diabetes mellitus, with long-term current use of insulin Diabetic nephropathy Fracture of shaft of humerus, closed Gastroesophageal reflux disease History of episiotomy Hypercholesterolemia Hypothyroidism Macular degeneration Microalbuminuria Mitral and aortic valve disease Osteopenia PAD (peripheral artery disease) Polymyalgia rheumatica Rheumatic heart disease Urinary incontinence Venous insufficiency Wound, open, foot Surgical History History of breast surgery Puncture aspiration of cyst History of section History of dilation and curettage History of total abdominal hysterectomy and bilateral salpingo-oophorectomy History of tubal ligation Family History Other Family history non-contributory Social History Smoking Status: Never smoker Second Hand Exposure: No; Do You Dip or Chew Tobacco: No; Hx Alcohol Use: No Hx Substance Use: No Preferred Language: Dominican Communication Ability: Effective Hearing Ability: Use of Hearing Aid Life Advisor Required: No Beliefs That Will Affect Care: Anabaptist marital status: / Current Living Situation: Alone current occupational status: other 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 Feels Safe at Home: Yes Diet: regular caffeine: Yes (COFFEE) Physical Activity Frequency: Does not Exercise Seatbelt Use: always Assistive Devices: Cane Allergies Allergies Allergy/AdvReac Type Severity Reaction Status Date / Time Sulfa (Sulfonamide Allergy Intermediate RASH Verified 10/08/22 10:52 Antibiotics) sulfamethoxazole Allergy Intermediate Nausea/Vomi Verified 10/08/22 10:52 ting/Rash trimethoprim Allergy Intermediate Nausea/Vomi Verified 10/08/22 10:52 ting/Rash adhesive Allergy Unknown UNKNOWN Verified 10/08/22 10:52 aspirin Allergy Unknown Unknown Verified 10/08/22 10:52 Bactrim Allergy Unknown Nausea/Vomi Verified 09/17/14 19:04 ting/Rash iodine Allergy Unknown Unknown Verified 10/08/22 10:52 lisinopril Allergy Unknown Unknown Verified 10/08/22 10:52 prochlorperazine Allergy Unknown Unknown Verified 10/08/22 10:52 tigecycline AdvReac Intermediate Nausea/Vomi Verified 10/08/22 10:52 ting Home Meds Home Medications Medication Instructions Recorded Confirmed omega-3 fatty acids 1,000 mg 1,000 mg PO QDL 10/20/18 10/16/22 capsule (Fish Oil Concentrate) vit C 250 mg-vit E 90 mg-zinc 40 1 tab PO BID 10/20/18 10/16/22 mg-copper 1 [id number] capsule (PreserVision AREDS-2) cyanocobalamin (vitamin B-12) 1,000 mcg PO QDL 11/14/18 10/16/22 1,000 mcg tablet (Vitamin B-12) cholecalciferol (vitamin D3) 50 2,000 units PO QDL 11/30/18 10/16/22 mcg (2,000 unit) capsule glucosamine-chondroitin 250 mg-200 1 tab PO QDL pain 11/30/18 10/16/22 mg tablet (Osteo Bi-Flex) atorvastatin 80 mg tablet 80 mg PO HS 10/16/22 10/16/22 Previous Rx's Medication Instructions Recorded clopidogrel 75 mg tablet 75 mg PO DAILY #90 tabs 01/30/22 insulin glargine 100 unit/mL (3 See Rx Instructions .Route 03/10/22 mL) subcutaneous pen (Lantus .COMPLEX #45 mL Solostar U-100 Insulin) oxybutynin chloride 5 mg 5 mg PO HS #90 tabs 05/25/22 tablet,extended release 24 hr rivaroxaban 2.5 mg tablet (Xarelto) 2.5 mg PO BID #60 tabs 06/18/22 thyroid (pork) 60 mg tablet 60 mg PO QAM #90 tabs 07/16/22 ([place] Thyroid) mupirocin 2 % topical ointment 1 applic topical BID #22 grams 08/06/22 losartan 25 mg tablet 25 mg PO QAM #90 tabs 09/22/22 Results & Data (ED) Vital Signs Vital Signs - 24 hr 10/16/22 17:06 10/16/22 17:21 10/16/22 17:09 Temperature 36.8 C Temperature Source Oral Pulse Rate 95 H 93 H Pulse Rate [Apical] Pulse Rhythm [Apical] Respiratory Rate 16 Respiratory Effort / Characteristics Non-Labored Spontaneous Respiratory Depth Normal Respiratory Pattern Regular Blood Pressure 178/88 H Blood Pressure [Right Arm] Blood Pressure Mean 118 Blood Pressure Mean [Right Arm] Blood Pressure Position Lying Blood Pressure Position [Right Arm] Pulse Oximetry 97 97 Oxygen Delivery Method Room Air Room Air Sepsis Recent Fever Within 48 Hours No Sepsis New/Unexplained Change in Mental Status No Sepsis Action Taken by Nursing No Action Required 10/16/22 19:03 10/16/22 19:05 10/16/22 19:12 Temperature Temperature Source Pulse Rate 82 Pulse Rate [Apical] 87 Pulse Rhythm [Apical] Regular Respiratory Rate 18 Respiratory Effort / Characteristics Non-Labored Spontaneous Respiratory Depth Normal Respiratory Pattern Regular Blood Pressure 216/83 H Blood Pressure [Right Arm] 211/75 H 216/83 H Blood Pressure Mean Blood Pressure Mean [Right Arm] 120 127 Blood Pressure Position Blood Pressure Position [Right Arm] Lying Lying Pulse Oximetry 97 Oxygen Delivery Method Room Air Sepsis Recent Fever Within 48 Hours Sepsis New/Unexplained Change in Mental Status Sepsis Action Taken by Nursing 10/16/22 19:28 10/16/22 19:29 10/16/22 19:47 Temperature Temperature Source Pulse Rate 75 Pulse Rate [Apical] 79 Pulse Rhythm [Apical] Regular Respiratory Rate Respiratory Effort / Characteristics Respiratory Depth Respiratory Pattern Blood Pressure 180/66 H Blood Pressure [Right Arm] 180/66 H 186/78 H Blood Pressure Mean Blood Pressure Mean [Right Arm] 104 114 Blood Pressure Position Blood Pressure Position [Right Arm] Lying Lying Pulse Oximetry Oxygen Delivery Method Sepsis Recent Fever Within 48 Hours Sepsis New/Unexplained Change in Mental Status Sepsis Action Taken by Nursing Laboratory Data 10/16/22 17:13 10/16/22 17:13 Lab Results 10/16/22 10/16/22 10/16/22 Range/Units 17:13 17:13 17:13 WBC 8.28 (4.8-10.8) K/ul RBC 3.36 L (4.20-5.40) M/uL Hgb 9.8 L (12.0-16.0) g/dl Hct 30.7 L (37.0-47.0) % MCV 91.4 (80.0-100.0) fL MCH 29.2 (25.0-34.0) pg MCHC 31.9 L (32.0-36.0) g/dL RDW Std Deviation 42.0 (36.4-46.3) fL RDW Coeff of Sydnie 12.5 (11.5-14.5) % Plt Count 290 (130-400) K/uL MPV 10.1 (9.4-12.4) fL Immature Gran % (Auto) 0.5 % Neut % (Auto) 74.5 % Lymph % (Auto) 14.3 % Gonzales % (Auto) 7.5 % Eos % (Auto) 2.7 % Baso % (Auto) 0.5 % Neut # (Auto) 6.18 (1.40-6.50) K/uL Lymph # (Auto) 1.18 L (1.2-3.4) K/uL Gonzales # (Auto) 0.62 H (0.11-0.59) K/uL Eos # (Auto) 0.22 (0-0.50) K/uL Baso # (Auto) 0.04 (0-0.2) K/uL Immature Gran # (Auto) 0.04 (0.01-0.20) K/uL PT 10.8 (9.0-12.0) Seconds INR 1.0 (0.9-1.1) Sodium 138 (136-145) mmol/L Potassium 4.7 (3.5-5.1) mmol/L Chloride 106 (98-107) mmol/L Carbon Dioxide 25 (21-32) mmol/L Anion Gap 7 (3-11) BUN 37 H (6-23) mg/dl Creatinine 1.32 H (0.6-1.2) mg/dl Est Cr Clr Drug Dosing 21.4 ml/min Est GFR ( Amer) 41.4 ml/min Est GFR (Non-Af Amer) 35.7 ml/min BUN/Creatinine Ratio 28.0 H (10-20) Glucose 261 H (70-99(Fasting)) mg/dl POC Glucose (70-99) mg/dl Lactate (0.4-2.0) mmol/L Calcium 9.2 (8.6-10.3) mg/dl Magnesium 2.0 (1.7-2.4) mg/dl Total Bilirubin 0.4 (0.2-1.0) mg/dl AST 11 L (13-39) U/L ALT 8 (7-52) U/L Alkaline Phosphatase 89 (34-104) U/L Troponin I High Sens 8.1 (0-14) pg/ml Total Protein 6.8 (6.0-8.3) gm/dl Albumin 3.8 (3.4-5.0) gm/dl Globulin 3.0 (2.5-4.0) gm/dl Albumin/Globulin Ratio 1.3 (0.9-2) TSH (0.300-4.500) uIu/ml SARS-CoV-2, RNA, NAAT (NEGATIVE) 10/16/22 10/16/22 10/16/22 Range/Units 17:13 17:20 17:26 WBC (4.8-10.8) K/ul RBC (4.20-5.40) M/uL Hgb (12.0-16.0) g/dl Hct (37.0-47.0) % MCV (80.0-100.0) fL MCH (25.0-34.0) pg MCHC (32.0-36.0) g/dL RDW Std Deviation (36.4-46.3) fL RDW Coeff of Sydnie (11.5-14.5) % Plt Count (130-400) K/uL MPV (9.4-12.4) fL Immature Gran % (Auto) % Neut % (Auto) % Lymph % (Auto) % Gonzales % (Auto) % Eos % (Auto) % Baso % (Auto) % Neut # (Auto) (1.40-6.50) K/uL Lymph # (Auto) (1.2-3.4) K/uL Gonzales # (Auto) (0.11-0.59) K/uL Eos # (Auto) (0-0.50) K/uL Baso # (Auto) (0-0.2) K/uL Immature Gran # (Auto) (0.01-0.20) K/uL PT (9.0-12.0) Seconds INR (0.9-1.1) Sodium (136-145) mmol/L Potassium (3.5-5.1) mmol/L Chloride (98-107) mmol/L Carbon Dioxide (21-32) mmol/L Anion Gap (3-11) BUN (6-23) mg/dl Creatinine (0.6-1.2) mg/dl Est Cr Clr Drug Dosing ml/min Est GFR ( Amer) ml/min Est GFR (Non-Af Amer) ml/min BUN/Creatinine Ratio (10-20) Glucose (70-99(Fasting)) mg/dl POC Glucose 241 H (70-99) mg/dl Lactate 1.0 (0.4-2.0) mmol/L Calcium (8.6-10.3) mg/dl Magnesium (1.7-2.4) mg/dl Total Bilirubin (0.2-1.0) mg/dl AST (13-39) U/L ALT (7-52) U/L Alkaline Phosphatase (34-104) U/L Troponin I High Sens (0-14) pg/ml Total Protein (6.0-8.3) gm/dl Albumin (3.4-5.0) gm/dl Globulin (2.5-4.0) gm/dl Albumin/Globulin Ratio (0.9-2) TSH 2.073 (0.300-4.500) uIu/ml SARS-CoV-2, RNA, NAAT (NEGATIVE) 10/16/22 Range/Units 17:29 WBC (4.8-10.8) K/ul RBC (4.20-5.40) M/uL Hgb (12.0-16.0) g/dl Hct (37.0-47.0) % MCV (80.0-100.0) fL MCH (25.0-34.0) pg MCHC (32.0-36.0) g/dL RDW Std Deviation (36.4-46.3) fL RDW Coeff of Sydnie (11.5-14.5) % Plt Count (130-400) K/uL MPV (9.4-12.4) fL Immature Gran % (Auto) % Neut % (Auto) % Lymph % (Auto) % Gonzales % (Auto) % Eos % (Auto) % Baso % (Auto) % Neut # (Auto) (1.40-6.50) K/uL Lymph # (Auto) (1.2-3.4) K/uL Gonzales # (Auto) (0.11-0.59) K/uL Eos # (Auto) (0-0.50) K/uL Baso # (Auto) (0-0.2) K/uL Immature Gran # (Auto) (0.01-0.20) K/uL PT (9.0-12.0) Seconds INR (0.9-1.1) Sodium (136-145) mmol/L Potassium (3.5-5.1) mmol/L Chloride (98-107) mmol/L Carbon Dioxide (21-32) mmol/L Anion Gap (3-11) BUN (6-23) mg/dl Creatinine (0.6-1.2) mg/dl Est Cr Clr Drug Dosing ml/min Est GFR ( Amer) ml/min Est GFR (Non-Af Amer) ml/min BUN/Creatinine Ratio (10-20) Glucose (70-99(Fasting)) mg/dl POC Glucose (70-99) mg/dl Lactate (0.4-2.0) mmol/L Calcium (8.6-10.3) mg/dl Magnesium (1.7-2.4) mg/dl Total Bilirubin (0.2-1.0) mg/dl AST (13-39) U/L ALT (7-52) U/L Alkaline Phosphatase (34-104) U/L Troponin I High Sens (0-14) pg/ml Total Protein (6.0-8.3) gm/dl Albumin (3.4-5.0) gm/dl Globulin (2.5-4.0) gm/dl Albumin/Globulin Ratio (0.9-2) TSH (0.300-4.500) uIu/ml SARS-CoV-2, RNA, NAAT NEGATIVE (NEGATIVE) Administered Medications Acetaminophen (Acetaminophen 325 Mg Tab) 650 mg PO Q4H PRN PRN Reason: pain/fever Stop: 11/15/22 21:48 Last Admin: 10/16/22 22:43 Dose: 650 mg Documented By: JOSE Atorvastatin Calcium (Atorvastatin 40 Mg Tab) 80 mg PO HS [facility] Stop: 11/15/22 21:48 Last Admin: 10/16/22 22:40 Dose: 80 mg Documented By: JOSE Insulin Aspart (Insulin Aspart Per Unit Charge) 0 units SC ACHS [facility] Stop: 11/15/22 21:48 Last Admin: 10/16/22 22:08 Dose: 4 units Documented By: JOSE Co-signed By: STEPHANIE Mupirocin (Mupirocin 2% Oint 22 Gm Tube) 1 appln TOP BID [facility] Stop: 11/15/22 21:48 Last Admin: 10/16/22 22:41 Dose: 1 appln Documented By: JOSE Oxybutynin Chloride (Oxybutynin Chloride Xl 5 Mg Tabcr) 5 mg PO HS [facility] Stop: 11/15/22 21:48 Last Admin: 10/16/22 22:41 Dose: 5 mg Documented By: JOSE Rivaroxaban (Rivaroxaban 2.5 Mg Tab) 2.5 mg PO BID [facility]ER[facility] Stop: 11/15/22 21:48 Last Admin: 10/16/22 22:41 Dose: 2.5 mg Documented By: JOSE Discontinued Medications Acetaminophen (Acetaminophen 325 Mg Tab) 650 mg PO NOW STA Stop: 10/16/22 18:36 Last Admin: 10/16/22 18:58 Dose: 650 mg Documented By: AKIL Cefazolin Sodium (Ancef 2000mg) 2,000 mg in 15 mls @ 3.75 mls/min IV NOW STA Stop: 10/16/22 18:38 Last Admin: 10/16/22 18:58 Dose: 3.75 mls/min Documented By: AKIL Labetalol HCl (Labetalol Hcl Iv 5 Mg/Ml 20ml) 10 mg IV NOW STA Stop: 10/16/22 19:09 Last Admin: 10/16/22 19:12 Dose: 10 mg Documented By: AKIL Co-signed By: Imaging Data Radiologist's Impression: Chest X-Ray 10/16/22 17:09 SINGLE VIEW CHEST CLINICAL HISTORY: Generalized weakness. Change in mental status. FINDINGS: An AP, portable, upright chest radiograph is compared to study dated 09/10/2022. The heart is enlarged noting atherosclerotic calcification of the thoracic aorta. The pulmonary vasculature is noncongested. Chronic interstitial thickening is similar to previous. There is bibasilar scarring/atelectasis. The lungs and pleural spaces are otherwise clear. No pneumothorax is seen. The skeletal structures are osteopenic. There is chronic posttraumatic deformity of the right proximal humerus. IMPRESSION: Cardiomegaly with no acute cardiopulmonary abnormality. ACT 112: Negative or not required by law. Electronically signed by: Dre Schneider M.D. 10/16/2022 5:[address] 10/16/22 17:09 CT SCAN OF THE BRAIN WITHOUT IV CONTRAST CLINICAL HISTORY: Change in mental status. COMPARISON STUDY: CT of the brain dated 09/10/2022. TECHNIQUE: Unenhanced axial CT scan of the brain is performed from the vertex to the skull base. A dose lowering technique was utilized adhering to the principles of ALARA. CT DOSE: 625.80 mGy.cm FINDINGS: Brain parenchyma: There is age-related involutional change noting mild to moderate subcortical and periventricular microangiopathic disease. There is no hemorrhage, mass effect, or evidence of acute territorial ischemia by CT criteri a. A small chronic lacunar infarct is noted in the left caudate head. Carrington-white matter differentiation is preserved. No extra-axial fluid collection is seen. Ventricles, sulci, cisterns: Prominent secondary to involutional change. Intracranial vasculature: There is atherosclerotic calcification of the cavernous carotid and vertebral arteries. Calvarium: Unremarkable. Sinuses and mastoids: The paranasal sinuses are clear. The mastoid air cells are well pneumatized. Orbits: The bony orbits are grossly intact. IMPRESSION: There is no hemorrhage, mass effect, or evidence of acute territorial ischemia by CT criteria. ACT 112: Negative or not required by law. Electronically signed by: Dre Schneider M.D. 10/16/2022 5:55 PM Discharge Plan Visit Data Chief Complaint: Altered Mental Status ED Provider: Mono Edwards Discharge Problem: Cellulitis of left leg, Hypertension Patient Disposition: Admitted As Inpatient Discharge Instructions Interventions: ED Discharge Assessment Last Done: 10/16/22 21:32
--- NOTE | 2022-10-16 17:32 | XRay Report ---
SINGLE VIEW CHEST CLINICAL HISTORY: Generalized weakness. Change in mental status. FINDINGS: An AP, portable, upright chest radiograph is compared to study dated 09/10/2022. The heart is enlarged noting atherosclerotic calcification of the thoracic aorta. The pulmonary vasculature is no ncongested. Chronic interstitial thickening is similar to previous. There is bibasilar scarring/atele ctasis. The lungs and pleural spaces are otherwise clear. No pneumothorax is seen. The skeletal struc tures are osteopenic. There is chronic posttraumatic deformity of the right proximal humerus. IMPRESSION: Cardiomegaly with no acute cardiopulmonary abnormality. ACT 112: Negative or not required by law. Electronically signed by: Dre Schneider M.D. 10/16/2022 5:31 PM
--- NOTE | 2022-10-16 17:56 | CT Scan Report ---
CT SCAN OF THE BRAIN WITHOUT IV CONTRAST CLINICAL HISTORY: Change in mental status. COMPARISON STUDY: CT of the brain dated 09/10/2022. TECHNIQUE: Unenhanced axial CT scan of the brain is performed from the vertex to the skull base. A do se lowering technique was utilized adhering to the principles of ALARA. CT DOSE: 625.80 mGy.cm FINDINGS: Brain parenchyma: There is age-related involutional change noting mild to moderate subcortical and pe riventricular microangiopathic disease. There is no hemorrhage, mass effect, or evidence of acute ter ritorial ischemia by CT criteria. A small chronic lacunar infarct is noted in the left caudate head. Carrington-white matter differentiation is preserved. No extra-axial fluid collection is seen. Ventricles, sulci, cisterns: Prominent secondary to involutional change. Intracranial vasculature: There is atherosclerotic calcification of the cavernous carotid and vertebr al arteries. Calvarium: Unremarkable. Sinuses and mastoids: The paranasal sinuses are clear. The mastoid air cells are well pneumatized. Orbits: The bony orbits are grossly intact. IMPRESSION: There is no hemorrhage, mass effect, or evidence of acute territorial ischemia by CT ari elias. ACT 112: Negative or not required by law. Electronically signed by: Dre Schneider M.D. 10/16/2022 5:55 PM
[2022-10-16 17:58] LABS: Basophils # (auto) 0.04 K/uL (0-0.2); Basophils % (auto) 0.5 %; Eosinophils # (auto) 0.22 K/uL (0-0.50); Eosinophils % (auto) 2.7 %; Hematocrit (blood only) 30.7 % (37.0-47.0); Hemoglobin 9.8 g/dl (12.0-16.0); Immature Granulocytes # (auto) 0.04 K/uL (0.01-0.20); Immature Granulocytes % (auto) 0.5 %; Lymphocytes # (auto) 1.18 K/uL (1.2-3.4); Lymphocytes % (auto) 14.3 %; Mean Corpuscular Hemoglobin 29.2 pg (25.0-34.0); Mean Corpuscular Hgb Conc 31.9 g/dL (32.0-36.0); Mean Corpuscular Volume 91.4 fL (80.0-100.0); Mean Platelet Volume 10.1 fL (9.4-12.4); Monocytes # (auto) 0.62 K/uL (0.11-0.59); Monocytes % (auto) 7.5 %; Neutrophils # (auto) 6.18 K/uL (1.40-6.50); Neutrophils % (auto) 74.5 %; Platelet Count 290 K/uL (130-400); RDW Coefficient of Variation 12.5 % (11.5-14.5); Red Blood Count 3.36 M/uL (4.20-5.40); White Blood Count 8.28 K/ul (4.8-10.8)
[2022-10-16 18:07] LABS: Albumin Globulin Ratio 1.3 (0.9-2); Albumin Level 3.8 gm/dl (3.4-5.0); Bilirubin,Total 0.4 mg/dl (0.2-1.0); Calcium 9.2 mg/dl (8.6-10.3); Creatinine Clr Calc Pharmacy 21.4 ml/min; Est GFR (African American) 41.4 ml/min; Est GFR (Non-African American) 35.7 ml/min; Potassium 4.7 mmol/L (3.5-5.1); Total Protein 6.8 gm/dl (6.0-8.3)
[2022-10-16 18:14] LABS: Troponin I High Sensitivity 8.1 pg/ml (0-14)
[2022-10-16 18:17] LABS: Prothrombin Time 10.8 Seconds (9.0-12.0)
[2022-10-16] MEDS ORDERED: ACETAMINOPHEN 325 MG TAB PO STA (18:35)
[2022-10-16] MEDS ORDERED: ceFAZolin 2000MG 2,000 MG/15 ML SYR IV STA (18:35)
[2022-10-16] MEDS ORDERED: LABETALOL HCL IV 5 MG/ML 20ML IV STA (19:08)
--- NOTE | 2022-10-16 20:27 | History & Physical Report ---
Date of Service October 16, 2022 Assessment & Plan (1) Cellulitis of left leg: (2) Hypertension: (3) Venous stasis ulcers: (4) Dementia: (5) Venous insufficiency: (6) PAD (peripheral artery disease): (7) Gastroesophageal reflux disease: (8) Hypercholesterolemia: (9) Hypothyroidism: (10) Diabetes mellitus type 2, uncontrolled: (11) Bilateral lower extremity edema: (12) Venous ulcer of left lower extremity with varicose veins: (13) Chronic venous insufficiency: (14) Chronic kidney disease, stage 3: Plan cellulitis and venous ulcer of left lower extremity/chronic lower extremity edema- Cefepime 2 g IV every 12 hours Consult wound care PAD- Continue clopidogrel and Xarelto Hypertension- Continue losartan Diabetes mellitus- On Lantus 18 units subcu at home In hospital change to Lantus 10 units subcu twice daily starting tomorrow morning placed on Accu-Cheks with NovoLog SSI Hypothyroidism- continue [place] Thyroid 60 mg daily Will need PT/OT assessment prior to discharge History of Present Illness Chief Complaint: the patient is referred to the emergency department after being assessed by visiting nurse today, who noted that as she was changing the patient's dressing of her left lower extremity wound, that the patient had a temperature of 100 F, and was more confused than usual Primary Care Provider: JACQUES Montano the patient is an 87-year-old female with a past medical history including dementia, hypertension, rheumatic heart disease, B12 deficiency, chronic venous insufficiency, urinary incontinence, PAD, hypothyroidism, hypercholesterolemia, GERD, diabetes mellitus uncontrolled, chronic lower extremity edema, chronic left lower extremity venous ulcer and diabetes mellitus with long-term current use of insulin. Patient has been seeing wound care in the outpatient setting, and per report had been doing well until seen by visiting nurse today. The patient herself is unable to contribute significantly to HPI or review of systems due to dementia Allergies Allergy/AdvReac Type Severity Reaction Status Date / Time Sulfa (Sulfonamide Allergy Intermediate RASH Verified 10/08/22 10:52 Antibiotics) sulfamethoxazole Allergy Intermediate Nausea/Vomi Verified 10/08/22 10:52 ting/Rash trimethoprim Allergy Intermediate Nausea/Vomi Verified 10/08/22 10:52 ting/Rash adhesive Allergy Unknown UNKNOWN Verified 10/08/22 10:52 aspirin Allergy Unknown Unknown Verified 10/08/22 10:52 Bactrim Allergy Unknown Nausea/Vomi Verified 09/17/14 19:04 ting/Rash iodine Allergy Unknown Unknown Verified 10/08/22 10:52 lisinopril Allergy Unknown Unknown Verified 10/08/22 10:52 prochlorperazine Allergy Unknown Unknown Verified 10/08/22 10:52 tigecycline AdvReac Intermediate Nausea/Vomi Verified 10/08/22 10:52 ting Home Medications Medication Instructions Recorded Confirmed Type omega-3 fatty acids 1,000 mg 1,000 mg PO QDL 10/20/18 10/16/22 History capsule (Fish Oil Concentrate) vit C 250 mg-vit E 90 mg-zinc 40 1 tab PO BID 10/20/18 10/16/22 History mg-copper 1 [id number] capsule (PreserVision AREDS-2) cyanocobalamin (vitamin B-12) 1,000 mcg PO QDL 11/14/18 10/16/22 History 1,000 mcg tablet (Vitamin B-12) cholecalciferol (vitamin D3) 50 2,000 units PO QDL 11/30/18 10/16/22 History mcg (2,000 unit) capsule glucosamine-chondroitin 250 mg-200 1 tab PO QDL pain 11/30/18 10/16/22 History mg tablet (Osteo Bi-Flex) clopidogrel 75 mg tablet 75 mg PO DAILY #90 tabs 01/30/22 10/16/22 Rx insulin glargine 100 unit/mL (3 See Rx Instructions .Route 03/10/22 10/16/22 Rx mL) subcutaneous pen (Lantus .COMPLEX #45 mL Solostar U-100 Insulin) oxybutynin chloride 5 mg 5 mg PO HS #90 tabs 05/25/22 10/16/22 Rx tablet,extended release 24 hr rivaroxaban 2.5 mg tablet (Xarelto) 2.5 mg PO BID #60 tabs 06/18/22 10/16/22 Rx thyroid (pork) 60 mg tablet 60 mg PO QAM #90 tabs 07/16/22 10/16/22 Rx ([place] Thyroid) mupirocin 2 % topical ointment 1 applic topical BID #22 grams 08/06/22 10/16/22 Rx losartan 25 mg tablet 25 mg PO QAM #90 tabs 09/22/22 10/16/22 Rx atorvastatin 80 mg tablet 80 mg PO HS 10/16/22 10/16/22 History Past Med/Surg History Medical History Actinic keratosis Anemia Aortic stenosis Bilateral lower extremity edema Chronic kidney disease, stage 3 Diabetes mellitus type 2, uncontrolled Diabetes mellitus, with long-term current use of insulin Diabetic nephropathy Fracture of shaft of humerus, closed Gastroesophageal reflux disease History of episiotomy Hypercholesterolemia Hypothyroidism Macular degeneration Microalbuminuria Mitral and aortic valve disease Osteopenia PAD (peripheral artery disease) Polymyalgia rheumatica Rheumatic heart disease Urinary incontinence Venous insufficiency Wound, open, foot Surgical History History of breast surgery Puncture aspiration of cyst History of section History of dilation and curettage History of total abdominal hysterectomy and bilateral salpingo-oophorectomy History of tubal ligation Family History Other Family history non-contributory Social History Smoking Status: Never smoker Second Hand Exposure: No; Do You Dip or Chew Tobacco: No; Tobacco Cessation Education Requested by Patient: No Hx Alcohol Use: No Hx Substance Use: No Preferred Language: Greek Communication Ability: Effective Hearing Ability: Use of Hearing Aid Shipper Required: No Beliefs That Will Affect Care: Shinto Shinto Beliefs: Restorationism. 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 HEENT--PERRL, EOMI, mucous membranes and oropharynx dry. Neck--supple. No JVD. No bruits. Thyroid normal, trachea midline, no adenopathy. Heart--normal S1 and S2. No murmurs, rubs or gallops. Lungs--clear bilaterally, no respiratory distress, no accessory muscle use. Abdomen--normal bowel sounds and soft. Nontender. Nondistended, no hernias or masses, no organomegaly. Extremities--no cyanosis or clubbing. No edema. Dermatologic--normal skin turgor, normal color, no abnormal lymph nodes, no rash. Neurologic--cranial nerves II through XII grossly intact. Rheumatologic-- limited exam Psychiatric-- confused. Results & Data Results & Data Vital Signs (Past 12 Hours) Vital Signs Temp Pulse Pulse Resp BP BP Pulse Ox 10/16/22 19:47 186/78 H 10/16/22 19:29 79 180/66 H 10/16/22 19:28 75 180/66 H 10/16/22 19:12 82 216/83 H 10/16/22 19:05 216/83 H 10/16/22 19:03 87 18 211/75 H 97 10/16/22 17:09 93 H 10/16/22 17:21 97 10/16/22 17:06 36.8 C 95 H 16 178/88 H 97 O2 Del Method 10/16/22 19:47 10/16/22 19:29 10/16/22 19:28 10/16/22 19:12 10/16/22 19:05 10/16/22 19:03 Room Air 10/16/22 17:09 10/16/22 17:21 Room Air 10/16/22 17:06 Room Air Laboratory Results Laboratory Results WBC 8.28 K/ul (4.8-10.8) 10/16/22 17:13 RBC 3.36 M/uL (4.20-5.40) L 10/16/22 17:13 Hgb 9.8 g/dl (12.0-16.0) L 10/16/22 17:13 Hct 30.7 % (37.0-47.0) L 10/16/22 17:13 MCV 91.4 fL (80.0-100.0) 10/16/22 17:13 MCH 29.2 pg (25.0-34.0) 10/16/22 17:13 MCHC 31.9 g/dL (32.0-36.0) L 10/16/22 17:13 RDW Std Deviation 42.0 fL (36.4-46.3) 10/16/22 17:13 RDW Coeff of Sydnie 12.5 % (11.5-14.5) 10/16/22 17:13 Plt Count 290 K/uL (130-400) 10/16/22 17:13 MPV 10.1 fL (9.4-12.4) 10/16/22 17:13 Immature Gran % (Auto) 0.5 % 10/16/22 17:13 Neut % (Auto) 74.5 % 10/16/22 17:13 Lymph % (Auto) 14.3 % 10/16/22 17:13 Stone % (Auto) 7.5 % 10/16/22 17:13 Eos % (Auto) 2.7 % 10/16/22 17:13 Baso % (Auto) 0.5 % 10/16/22 17:13 Neut # (Auto) 6.18 K/uL (1.40-6.50) 10/16/22 17:13 Lymph # (Auto) 1.18 K/uL (1.2-3.4) L 10/16/22 17:13 Stone # (Auto) 0.62 K/uL (0.11-0.59) H 10/16/22 17:13 Eos # (Auto) 0.22 K/uL (0-0.50) 10/16/22 17:13 Baso # (Auto) 0.04 K/uL (0-0.2) 10/16/22 17:13 Immature Gran # (Auto) 0.04 K/uL (0.01-0.20) 10/16/22 17:13 PT 10.8 Seconds (9.0-12.0) 10/16/22 17:13 INR 1.0 (0.9-1.1) 10/16/22 17:13 Sodium 138 mmol/L (136-145) 10/16/22 17:13 Potassium 4.7 mmol/L (3.5-5.1) 10/16/22 17:13 Chloride 106 mmol/L (98-107) 10/16/22 17:13 Carbon Dioxide 25 mmol/L (21-32) 10/16/22 17:13 Anion Gap 7 (3-11) 10/16/22 17:13 BUN 37 mg/dl (6-23) H 10/16/22 17:13 Creatinine 1.32 mg/dl (0.6-1.2) H 10/16/22 17:13 Est Cr Clr Drug Dosing 21.4 ml/min 10/16/22 17:13 Est GFR ( Amer) 41.4 ml/min 10/16/22 17:13 Est GFR (Non-Af Amer) 35.7 ml/min 10/16/22 17:13 BUN/Creatinine Ratio 28.0 (10-20) H 10/16/22 17:13 Glucose 261 mg/dl (70-99(Fasting)) H 10/16/22 17:13 POC Glucose 228 mg/dl (70-99) H 10/16/22 21:53 Lactate 1.0 mmol/L (0.4-2.0) 10/16/22 17:20 Calcium 9.2 mg/dl (8.6-10.3) 10/16/22 17:13 Magnesium 2.0 mg/dl (1.7-2.4) 10/16/22 17:13 Total Bilirubin 0.4 mg/dl (0.2-1.0) 10/16/22 17:13 AST 11 U/L (13-39) L 10/16/22 17:13 ALT 8 U/L (7-52) 10/16/22 17:13 Alkaline Phosphatase 89 U/L (34-104) 10/16/22 17:13 Troponin I High Sens 8.1 pg/ml (0-14) 10/16/22 17:13 Total Protein 6.8 gm/dl (6.0-8.3) 10/16/22 17:13 Albumin 3.8 gm/dl (3.4-5.0) 10/16/22 17:13 Globulin 3.0 gm/dl (2.5-4.0) 10/16/22 17:13 Albumin/Globulin Ratio 1.3 (0.9-2) 10/16/22 17:13 TSH 2.073 uIu/ml (0.300-4.500) 10/16/22 17:13 Urine Color Yellow 10/16/22 21:26 Urine Appearance Clear (Clear) 10/16/22 21:26 Urine pH 7.0 (4.5-7.5) 10/16/22 21:26 Ur Specific [place] 1.018 (1.000-1.030) 10/16/22 21:26 Urine Protein 1+ (Negative) H 10/16/22 21:26 Urine Glucose (UA) 2+ (Negative) H 10/16/22 21:26 Urine Ketones Negative (Negative) 10/16/22 21: Urine Blood Negative (Negative) 10/16/22 21: Urine Nitrite Negative (Negative) 10/16/22 21: Urine Bilirubin Negative (Negative) 10/16/22 21: Urine Urobilinogen Negative (Negative) 10/16/22 21:26 Ur Leukocyte Esterase 2+ (Negative) H 10/16/22 21:26 Urine WBC (Auto) 10-30 /hpf (0-5) H 10/16/22 21:26 Urine RBC (Auto) 0-4 /hpf (0-4) 10/16/22 21:26 U Hyaline Cast (Auto) 0 /lpf (0-5) 10/16/22 21:26 U Epithel Cells (Auto) >30 /lpf (0-5) H 10/16/22 21:26 Urine Bacteria (Auto) Negative (Negative) 10/16/22 21:26 SARS-CoV-2, RNA, NAAT NEGATIVE (NEGATIVE) 10/16/22 17:29 Impressions Chest X-Ray 10/16/22 17:09 SINGLE VIEW CHEST CLINICAL HISTORY: Generalized weakness. Change in mental status. FINDINGS: An AP, portable, upright chest radiograph is compared to study dated 09/10/2022. The heart is enlarged noting atherosclerotic calcification of the thoracic aorta. The pulmonary vasculature is noncongested. Chronic interstitial thickening is similar to previous. There is bibasilar scarring/atelectasis. The lungs and pleural spaces are otherwise clear. No pneumothorax is seen. The skeletal structures are osteopenic. There is chronic posttraumatic deformity of the right proximal humerus. IMPRESSION: Cardiomegaly with no acute cardiopulmonary abnormality. ACT 112: Negative or not required by law. Electronically signed by: Der Schneider M.D. 10/16/2022 5:[address] 10/16/22 17:09 CT SCAN OF THE BRAIN WITHOUT IV CONTRAST CLINICAL HISTORY: Change in mental status. COMPARISON STUDY: CT of the brain dated 09/10/2022. TECHNIQUE: Unenhanced axial CT scan of the brain is performed from the vertex to the skull base. A dose lowering technique was utilized adhering to the principles of ALARA. CT DOSE: 625.80 mGy.cm FINDINGS: Brain parenchyma: There is age-related involutional change noting mild to moderate subcortical and periventricular microangiopathic disease. There is no hemorrhage, mass effect, or evidence of acute territorial ischemia by CT criteria. A small chronic lacunar infarct is noted in the left caudate head. [place]-white matter differentiation is preserved. No extra-axial fluid collection is seen. Ventricles, sulci, cisterns: Prominent secondary to involutional change. Intracranial vasculature: There is atherosclerotic calcification of the cavernous carotid and vertebral arteries. Calvarium: Unremarkable. Sinuses and mastoids: The paranasal sinuses are clear. The mastoid air cells are well pneumatized. Orbits: The bony orbits are grossly intact. IMPRESSION: There is no hemorrhage, mass effect, or evidence of acute territorial ischemia by CT criteria. ACT 112: Negative or not required by law. Electronically signed by: Dre Schneider M.D. 10/16/2022 5:55 PM Code Status & VTE Plan Code Status full code VTE Prophylaxis Plan VTE Prophylaxis will be ordered: Yes PG Care Time/CCT Total # of Minutes Spent Total Time Spent with Patient: Total time spent is greater than 50% in coordination of care (as documented) at patient's floor/unit and/or counseling patient: Coding Level of Care Code 82869 INT INP/OBS CARE 3/75MIN Diagnoses Cellulitis of left leg L03.116 Hypertension I10 Venous stasis ulcers I83.009; L97.909 Dementia F03.90 Venous insufficiency I87.2 PAD (peripheral artery disease) I73.9 Gastroesophageal reflux disease K21.9 Hypercholesterolemia E78.00 Hypothyroidism E03.9 Diabetes mellitus type 2, uncontrolled E11.65 Bilateral lower extremity edema R60.0 Venous ulcer of left lower extremity with varicose veins I83.029; L97.929 Chronic venous insufficiency I87.2 Chronic kidney disease, stage 3 N18.30
[2022-10-16 21:48] LABS: Appearance Urine Clear (Clear); Bacteria Urine Automated Negative (Negative); Bilirubin Urine Negative (Negative); Blood Urine Negative (Negative); Cast Urine Automated 0 /lpf (0-5); Color Urine Yellow; Epithelial Cell Urine Auto >30 /lpf (0-5); Glucose Urine UA 2+ (Negative); Ketones Urine Negative (Negative); Leukocyte Esterase Urine 2+ (Negative); Nitrite Urine Negative (Negative); Protein Urine 1+ (Negative); RBC Urine Automated 0-4 /hpf (0-4); Specific Gravity Urine 1.018 (1.000-1.030); Urobilinogen Urine Negative (Negative)
[2022-10-16] MEDS ORDERED: ONDANSETRON INJ 2 MG/ML 2 ML VIAL IV PRN (21:49)
[2022-10-16] MEDS ORDERED: GLUCOSE 10 TAB/TUBE PO PRN (21:49)
[2022-10-16] MEDS ORDERED: GLUCOSE 40% GEL 15 GM TUBE PO PRN (21:49)
[2022-10-16] MEDS ORDERED: CARBOHYDRATES FOR HYPOGLYCEMIA PO PRN (21:49)
[2022-10-16] MEDS ORDERED: DEXTROSE 50% 50 ML SYRINGE IV PRN (21:49)
[2022-10-16] MEDS ORDERED: GLUCAGON FOR INJ 1 MG VIAL SQ PRN (21:49)
[2022-10-16] MEDS: INSULIN ASPART PER UNIT CHARGE SC SCH (22:08)
[2022-10-16] MEDS: ATORVASTATIN 40 MG TAB PO SCH (22:40)
[2022-10-16] MEDS: OXYBUTYNIN CHLORIDE XL 5 MG TABCR PO SCH (22:41)
[2022-10-16] MEDS: RIVAROXABAN 2.5 MG TAB PO SCH (22:41)
[2022-10-16] MEDS: MUPIROCIN 2% OINT 22 GM TUBE TOP SCH (22:41)
[2022-10-16] MEDS: ACETAMINOPHEN 325 MG TAB PO PRN (22:43)
[2022-10-17] MEDS: CEFEPIME 1,000 MG in SYRINGE 0 ML IV SCH ×2 (06:22→18:05)
--- NOTE | 2022-10-17 07:13 | Electrocardiogram Report ---
Test Reason : Blood Pressure : / mmHG Vent. Rate : 093 BPM Atrial Rate : 093 BPM P-R Int : 206 ms QRS Dur : 120 ms QT Int : 380 ms P-R-T Axes : 062 -28 036 degrees QTc Int : 472 ms Normal sinus rhythm 1st degree AV block Right bundle branch block Abnormal ECG When compared with ECG of 10-SEP-2022 13:02, No significant change was found Confirmed by Hiro Del Angel ([id number]) on 10/17/2022 7:13:03 AM Referred By: REFERRED SELF Confirmed By:Landry Del Angel
[2022-10-17 07:59] LABS: Basophils # (auto) 0.06 K/uL (0-0.2); Basophils % (auto) 0.6 %; Eosinophils # (auto) 0.37 K/uL (0-0.50); Eosinophils % (auto) 3.8 %; Hemoglobin 9.8 g/dl (12.0-16.0); Immature Granulocytes # (auto) 0.04 K/uL (0.01-0.20); Immature Granulocytes % (auto) 0.4 %; Lymphocytes % (auto) 14.3 %; Mean Corpuscular Hemoglobin 29.6 pg (25.0-34.0); Mean Corpuscular Hgb Conc 32.7 g/dL (32.0-36.0); Mean Corpuscular Volume 90.6 fL (80.0-100.0); Mean Platelet Volume 9.7 fL (9.4-12.4); Monocytes # (auto) 0.79 K/uL (0.11-0.59); Monocytes % (auto) 8.1 %; Neutrophils # (auto) 7.15 K/uL (1.40-6.50); Neutrophils % (auto) 72.8 %; Platelet Count 280 K/uL (130-400); RDW Coefficient of Variation 12.4 % (11.5-14.5); RDW Standard Deviation 41.1 fL (36.4-46.3); Red Blood Count 3.31 M/uL (4.20-5.40); White Blood Count 9.81 K/ul (4.8-10.8)
[2022-10-17 08:18] LABS: Albumin Globulin Ratio 1.2 (0.9-2); Albumin Level 3.3 gm/dl (3.4-5.0); BUN Creatinine Ratio 25.8 (10-20); Bilirubin,Total 0.4 mg/dl (0.2-1.0); Calcium 8.5 mg/dl (8.6-10.3); Creatinine Clr Calc Pharmacy 23.2 ml/min; Est GFR (African American) 46.4 ml/min; Globulin 2.7 gm/dl (2.5-4.0); Magnesium 1.9 mg/dl (1.7-2.4); Potassium 4.4 mmol/L (3.5-5.1)
[2022-10-17 08:38] LABS: Estimated Average Glucose 180 mg/dl; Hemoglobin A1C 7.9 % (4.5-5.6)
[2022-10-17] MEDS: CEROVITE ADV FORMULA TAB PO SCH ×2 (08:42→21:10)
[2022-10-17] MEDS: CLOPIDOGREL BISULFATE 75 MG TAB PO SCH (08:42)
[2022-10-17] MEDS: RIVAROXABAN 2.5 MG TAB PO SCH ×2 (08:42→21:08)
[2022-10-17] MEDS: LOSARTAN POTASSIUM 25 MG TAB PO SCH (08:42)
[2022-10-17] MEDS: ARMOUR THYROID 30 MG TAB PO SCH (08:42)
[2022-10-17] MEDS: INSULIN ASPART PER UNIT CHARGE SC SCH ×4 (08:43→21:12)
[2022-10-17] MEDS: LANTUS PER UNIT CHARGE SQ SCH ×2 (08:43→21:11)
[2022-10-17] MEDS: MUPIROCIN 2% OINT 22 GM TUBE TOP SCH ×2 (08:44→21:05)
[2022-10-17] MEDS: CYANOCOBALAMIN (B-12) 500 MCG TABLET PO SCH (11:06)
[2022-10-17] MEDS: OMEGA-3 (PURIFIED FISH OIL) 1 GM CAP PO SCH (11:06)
[2022-10-17] MEDS: CHOLECALCIFEROL 1,000 UNITS 25 MCG TAB PO SCH (11:06)
[2022-10-17] MEDS: ACETAMINOPHEN 325 MG TAB PO PRN (11:10)
[2022-10-17] MEDS ORDERED: NON-FORMULARY MEDICATION (Glucosamine-Chondroitin [Osteo Bi-Flex] 250-200 mg tablet) PO SCH (11:30)
--- NOTE | 2022-10-17 17:40 | Hospitalist Progress Note ---
Date of Service October 17, 2022 Assessment & Plan (1) Cellulitis of left leg: Plan: With cellulitis and venous ulcer of left lower extremity/chronic lower extremity edema- Wound culture with pinpoint growth, blood cultures with possible contaminant with Staphylococcus epidermidis, urine culture also with pinpoint growth but UA contaminated Presented with low-grade fever at home, but no evidence of sepsis. Also with acute encephalopathy which is now resolved No fever here, no tachycardia or leukocytosis. With known PAD which is improved status post recent lower extremity stent with Dr. Velez in 05/2022 -Continue Cefepime 2 g IV every 12 hours -add on daptomycin for bacteremia although is likely contaminant -Check repeat blood cultures prior to starting daptomycin -Consult wound care -Follow all culture results -Follow CBC, BMP in the morning (2) Venous stasis ulcers: Plan: Follows with wound care center Wound culture with pinpoint growth Treated with antibiotics (3) Hypertension: Plan: Controlled blood pressures to mildly elevated Continue losartan (4) PAD (peripheral artery disease): Plan: Continue clopidogrel and Xarelto - is on high intensity statin which will be on hold while on daptomycin (5) Hypercholesterolemia: Plan: hold atorvastatin while starting daptomycin (6) Hypothyroidism: Plan: TSH normal at 2.0 Continue [place] Thyroid (7) Diabetes mellitus type 2, uncontrolled: Plan: Continue Lantus and NovoLog Diabetic diet hemoglobin A1c 7.9% (8) Chronic kidney disease, stage 3: Plan: CKD stage 3-GFR 40 Renally dose medications and avoid nephrotoxins Follow BMP Plan Disposition-continued stay medical/surgical unit, improving, likely discharge to home tomorrow if culture results returned DVT [id number] Xarelto Admission and Anticipated Discharge Date Admission Date: October 16, 2022 Subjective Patient feeling well, has no complaints. Thinks that her elevated temperature yesterday was because her house air conditioner was not on She is eating and drinking Physical Exam Constitutional: WD/WN, vitals as above Neck: trachea midline, no thyromegaly Respiratory: normal respiratory effort, lungs clear to auscultation Cardiovascular: Rate/Rhythm: regular rate and regular rhythm Heart Sounds: no murmur Extremities: + edema ( 1+ pitting edema legs bilaterally) Gastrointestinal (Abdomen): normal bowel sounds, soft, nontender, no hepatosplenomegaly Musculoskeletal: Extremities: no cyanosis and no clubbing Skin: + ulcer ( left leg wound dressed with Kerlix) Neurologic: moves all extremities and awake; no focal motor deficits Results & Data Results & Data Vital Signs (Past 12 Hours) Vital Signs Temp Pulse Resp BP BP Pulse Ox O2 Del Method 10/17/22 15:05 37.1 C 75 16 136/69 95 Room Air 10/17/22 07:30 Room Air 10/17/22 07:14 36.6 C 78 16 143/64 H 96 Room Air Laboratory Results CBC, BMP reviewed Blood cultures with 1/4 bottles with gram-positive cocci, serology positive for Staphylococcus epidermidis with positive methicillin-resistant gene Wound culture with pinpoint growth-pending Urine culture with pinpoint growth-pending PG Care Time/CCT Total # of Minutes Spent Total Time Spent with Patient: Total time spent is greater than 50% in coordination of care (as documented) at patient's floor/unit and/or counseling patient: Coding Level of Care Code 81985 SUB INP/OBS CARE 2/35MIN Diagnoses Cellulitis of left leg L03.116 Venous stasis ulcers I83.009; L97.909 Hypertension I10 PAD (peripheral artery disease) I73.9 Hypercholesterolemia E78.00 Hypothyroidism E03.9 Diabetes mellitus type 2, uncontrolled E11.65 Chronic kidney disease, stage 3 N18.30
[2022-10-17 18:09] LABS: A calco-baum cmplx NotReported Not Detected (NotDetected); Bact fragilis Not Reported Not Detected (NotDetected); C auris Not Reported Not Detected (NotDetected); Calbicans Not Reported Not Detected (NotDetected); Candida glabrata Not Reported Not Detected (NotDetected); Candida krusei Not Reported Not Detected (NotDetected); Cneoformans/gatti Not Reported Not Detected (NotDetected); Cparapsilosis Not Reported Not Detected (NotDetected); Ctropicalis Not Reported Not Detected (NotDetected); E cloacae compx Not Reported Not Detected (NotDetected); Efaecalis Not Reported Not Detected (NotDetected); Efaecium Not Reported Not Detected (NotDetected); Enterobacterales Not Reported Not Detected (NotDetected); Escherichia coli Not Reported Not Detected (NotDetected); H influenzae Not Reported Not Detected (NotDetected); K aerogenes Not Reported Not Detected (NotDetected); Koxytoca Not Reported Not Detected (NotDetected); Kpneumoniae grp Not Reported Not Detected (NotDetected); Lmonocyt Not Reported Not Detected (NotDetected); N meningitidis Not Reported Not Detected (NotDetected); P aeruginosa Not Reported Not Detected (NotDetected); Proteus spp Not Reported Not Detected (NotDetected); Salmonella spp Not Reported Not Detected (NotDetected); Smarcescens Not Reported Not Detected (NotDetected); Staph lugdunensis Not Reported Not Detected (NotDetected); Staph spp. Not Reported DETECTED (NotDetected); Staphaureus Not Reported Not Detected (NotDetected); Staphepi Not Reported DETECTED (NotDetected); Staphylococcus spp. DETECTED (NotDetected); Stenmaltophilia Not Reported Not Detected (NotDetected); Strep agal(GrpB) Not Reported Not Detected (NotDetected); Strep pneum Not Reported Not Detected (NotDetected); Strep pyog (GrpA) Not Reported Not Detected (NotDetected); Strep spp Not Reported Not Detected (NotDetected)
[2022-10-17 18:26] LABS: mecAC Resistant Gene DETECTED (NotDetected)
[2022-10-17 18:27] LABS: Staphylococcus epidermidis DETECTED (NotDetected)
[2022-10-17] MEDS: ATORVASTATIN 40 MG TAB PO SCH (21:07)
[2022-10-17] MEDS: OXYBUTYNIN CHLORIDE XL 5 MG TABCR PO SCH (21:10)
[2022-10-17] MEDS ORDERED: DAPTOmycin 250 MG in SYRINGE 0 ML IV SCH (22:00)
[2022-10-18 06:12] LABS: Basophils # (auto) 0.04 K/uL (0-0.2); Basophils % (auto) 0.4 %; Hematocrit (blood only) 28.8 % (37.0-47.0); Hemoglobin 9.3 g/dl (12.0-16.0); Immature Granulocytes # (auto) 0.05 K/uL (0.01-0.20); Immature Granulocytes % (auto) 0.5 %; Lymphocytes # (auto) 1.35 K/uL (1.2-3.4); Lymphocytes % (auto) 13.5 %; Mean Corpuscular Hemoglobin 29.6 pg (25.0-34.0); Mean Corpuscular Hgb Conc 32.3 g/dL (32.0-36.0); Mean Corpuscular Volume 91.7 fL (80.0-100.0); Mean Platelet Volume 9.9 fL (9.4-12.4); Monocytes # (auto) 0.69 K/uL (0.11-0.59); Monocytes % (auto) 6.9 %; Neutrophils # (auto) 7.47 K/uL (1.40-6.50); Neutrophils % (auto) 74.7 %; Platelet Count 273 K/uL (130-400); RDW Coefficient of Variation 12.5 % (11.5-14.5); RDW Standard Deviation 41.8 fL (36.4-46.3); Red Blood Count 3.14 M/uL (4.20-5.40)
[2022-10-18] MEDS: CEFEPIME 1,000 MG in SYRINGE 0 ML IV SCH ×2 (06:20→18:09)
[2022-10-18 06:30] LABS: Albumin Globulin Ratio 1.2 (0.9-2); Albumin Level 3.1 gm/dl (3.4-5.0); BUN Creatinine Ratio 32.8 (10-20); Bilirubin,Total 0.3 mg/dl (0.2-1.0); Calcium 8.4 mg/dl (8.6-10.3); Creatinine Clr Calc Pharmacy 23.4 ml/min; Est GFR (African American) 46.9 ml/min; Est GFR (Non-African American) 40.4 ml/min; Globulin 2.5 gm/dl (2.5-4.0); Potassium 4.6 mmol/L (3.5-5.1); Total Protein 5.6 gm/dl (6.0-8.3)
[2022-10-18] MEDS: ACETAMINOPHEN 325 MG TAB PO PRN (09:04)
[2022-10-18] MEDS: LANTUS PER UNIT CHARGE SQ SCH ×2 (09:05→20:54)
[2022-10-18] MEDS: INSULIN ASPART PER UNIT CHARGE SC SCH ×4 (09:06→20:54)
[2022-10-18] MEDS: LOSARTAN POTASSIUM 25 MG TAB PO SCH (09:07)
[2022-10-18] MEDS: CLOPIDOGREL BISULFATE 75 MG TAB PO SCH (09:07)
[2022-10-18] MEDS: ARMOUR THYROID 30 MG TAB PO SCH (09:07)
[2022-10-18] MEDS: RIVAROXABAN 2.5 MG TAB PO SCH ×2 (09:08→20:08)
[2022-10-18] MEDS: MUPIROCIN 2% OINT 22 GM TUBE TOP SCH ×2 (09:08→20:07)
[2022-10-18] MEDS: CEROVITE ADV FORMULA TAB PO SCH ×2 (09:09→20:08)
[2022-10-18] MEDS: POLYETHYLENE (MIRALAX) 17 GM PACK PO SCH (10:07)
[2022-10-18] MEDS: OMEGA-3 (PURIFIED FISH OIL) 1 GM CAP PO SCH (11:00)
[2022-10-18] MEDS: CYANOCOBALAMIN (B-12) 500 MCG TABLET PO SCH (11:00)
[2022-10-18] MEDS: CHOLECALCIFEROL 1,000 UNITS 25 MCG TAB PO SCH (11:00)
--- NOTE | 2022-10-18 11:20 | Hospitalist Progress Note ---
Date of Service October 18, 2022 Assessment & Plan (1) Cellulitis of left leg: Plan: With cellulitis and venous ulcer of left lower extremity/chronic lower extremity edema- Wound culture with corynebacterium, blood cultures with likely contaminant with Staphylococcus epidermidis, urine culture with mixed phuong and UA contaminated with epithelial cells Presented with low-grade fever at home, but no evidence of sepsis. Also with acute encephalopathy which is now resolved No fever here, no tachycardia or leukocytosis. there is surrounding cellulitis of the leg wounds which the patient reports is improved from previous-Line of demarcation drawn on 10/18 With known PAD which is improved status post recent lower extremity stent with Dr. Velez in 05/2022 -Continue Cefepime 2 g IV every 12 hours - continue on daptomycin for bacteremia although is likely contaminant-baseline CK normal at 43 - follow repeat blood cultures prior to starting daptomycin-no growth to date -Consult wound care -Follow CBC, BMP in the morning -follow clinically and if erythema continues to improve by tomorrow, can discharge to home (2) Venous stasis ulcers: Plan: Follows with wound care center continue wound care here (3) Hypertension: Plan: Controlled blood pressures Continue losartan (4) Constipation: Plan: no bowel movement in 3 days Add on senna/docusate and MiraLAX daily (5) PAD (peripheral artery disease): Plan: Continue clopidogrel and Xarelto - is on high intensity statin which will be on hold while on daptomycin (6) Hypercholesterolemia: Plan: hold atorvastatin while starting daptomycin (7) Hypothyroidism: Plan: TSH normal at 2.0 Continue [place] Thyroid (8) Diabetes mellitus type 2, uncontrolled: Plan: Continue Lantus and NovoLog Diabetic diet hemoglobin A1c 7.9% With some lower and normal blood sugar glucose here Reduce Lantus to 5 units this morning and then changed to 10 units at bedtime only Loosen NovoLog to correction factor 30 and carb ratio 15 (9) Chronic kidney disease, stage 3: Plan: CKD stage 3-GFR 40 Renally dose medications and avoid nephrotoxins Follow BMP Plan Disposition-continued stay medical/surgical unit, improving, likely discharge to home tomorrow if culture results returned. Will call daughter with update DVT [id number] Xarelto Admission and Anticipated Discharge Date Admission Date: October 16, 2022 Subjective patient reports feeling well today. Still has some pain in the left leg but thinks that the redness is improving around the wounds. She is feeling constipated and requests laxatives Physical Exam Constitutional: WD/WN, vitals as above Neck: trachea midline, no thyromegaly Respiratory: normal respiratory effort, lungs clear to auscultation Cardiovascular: Rate/Rhythm: regular rate and regular rhythm Heart Sounds: no murmur Extremities: + edema ( 1+ pitting edema legs bilaterally) Gastrointestinal (Abdomen): normal bowel sounds, soft, nontender, no hepatosplenomegaly Musculoskeletal: Extremities: no cyanosis and no clubbing Skin: + ulcer ( left leg Multiple large venous ulcers with surrounding erythema) Neurologic: moves all extremities and awake; no focal motor deficits Results & Data Results & Data Vital Signs (Past 12 Hours) Vital Signs Temp Pulse Resp BP Pulse Ox O2 Del Method 10/18/22 07:25 Room Air 10/18/22 07:35 37.3 C 77 16 113/68 95 Room Air Laboratory Results CBC, CMP, CK, magnesium level all reviewed Urine culture mixed organisms 1/4 bottles of blood cultures with coagulase-negative Staphylococcus not lugdunensis Wound culture left leg with corynebacterium species PG Care Time/CCT Total # of Minutes Spent Total Time Spent with Patient: Total time spent is greater than 50% in coordination of care (as documented) at patient's floor/unit and/or counseling patient: Coding Level of Care Code 93804 SUB INP/OBS CARE 2/35MIN Diagnoses Cellulitis of left leg L03.116 Venous stasis ulcers I83.009; L97.909 Hypertension I10 Constipation K59.00 Constipation type: unspecified constipation type PAD (peripheral artery disease) I73.9 Hypercholesterolemia E78.00 Hypothyroidism E03.9 Diabetes mellitus type 2, uncontrolled E11.65 Chronic kidney disease, stage 3 N18.30 (4) Constipation Constipation type: unspecified constipation type Qualified Code(s): K59.00 - Constipation, unspecified
[2022-10-18] MEDS: FAMOTIDINE 20 MG TAB PO SCH (12:37)
[2022-10-18] MEDS: DOCUSATE SODIUM/SENNA 50/8.6MG TAB PO SCH (12:39)
[2022-10-18] MEDS: OXYBUTYNIN CHLORIDE XL 5 MG TABCR PO SCH (20:08)
[2022-10-19] MEDS: CEFEPIME 1,000 MG in SYRINGE 0 ML IV SCH (06:15)
[2022-10-19 07:23] LABS: Basophils # (auto) 0.04 K/uL (0-0.2); Basophils % (auto) 0.4 %; Eosinophils # (auto) 0.62 K/uL (0-0.50); Hematocrit (blood only) 30.3 % (37.0-47.0); Hemoglobin 9.8 g/dl (12.0-16.0); Immature Granulocytes # (auto) 0.05 K/uL (0.01-0.20); Immature Granulocytes % (auto) 0.6 %; Lymphocytes # (auto) 1.41 K/uL (1.2-3.4); Lymphocytes % (auto) 15.8 %; Mean Corpuscular Hemoglobin 29.7 pg (25.0-34.0); Mean Corpuscular Hgb Conc 32.3 g/dL (32.0-36.0); Mean Corpuscular Volume 91.8 fL (80.0-100.0); Monocytes % (auto) 6.7 %; Neutrophils # (auto) 6.19 K/uL (1.40-6.50); Neutrophils % (auto) 69.5 %; Platelet Count 299 K/uL (130-400); RDW Coefficient of Variation 12.5 % (11.5-14.5); RDW Standard Deviation 41.9 fL (36.4-46.3); White Blood Count 8.91 K/ul (4.8-10.8)
[2022-10-19 07:42] LABS: Albumin Globulin Ratio 1.2 (0.9-2); Albumin Level 3.3 gm/dl (3.4-5.0); BUN Creatinine Ratio 28.2 (10-20); Bilirubin,Total 0.3 mg/dl (0.2-1.0); Calcium 8.6 mg/dl (8.6-10.3); Creatinine Clr Calc Pharmacy 17.8 ml/min; Est GFR (African American) 33.8 ml/min; Est GFR (Non-African American) 29.2 ml/min; Globulin 2.8 gm/dl (2.5-4.0); Magnesium 2.1 mg/dl (1.7-2.4); Potassium 4.6 mmol/L (3.5-5.1); Total Protein 6.1 gm/dl (6.0-8.3)
[2022-10-19] MEDS: DOCUSATE SODIUM/SENNA 50/8.6MG TAB PO SCH ×2 (08:01→20:26)
[2022-10-19] MEDS: RIVAROXABAN 2.5 MG TAB PO SCH ×2 (08:01→20:27)
[2022-10-19] MEDS: CEROVITE ADV FORMULA TAB PO SCH ×2 (08:01→20:26)
[2022-10-19] MEDS: LOSARTAN POTASSIUM 25 MG TAB PO SCH (08:01)
[2022-10-19] MEDS: CLOPIDOGREL BISULFATE 75 MG TAB PO SCH (08:02)
[2022-10-19] MEDS: FAMOTIDINE 20 MG TAB PO SCH (08:02)
[2022-10-19] MEDS: ARMOUR THYROID 30 MG TAB PO SCH (08:03)
[2022-10-19] MEDS: MUPIROCIN 2% OINT 22 GM TUBE TOP SCH ×2 (08:03→20:27)
[2022-10-19] MEDS: POLYETHYLENE (MIRALAX) 17 GM PACK PO SCH (08:15)
[2022-10-19] MEDS: INSULIN ASPART PER UNIT CHARGE SC SCH ×4 (08:47→20:28)
[2022-10-19] MEDS ORDERED: SODIUM CHLORIDE 0.9% 1000ML 1,000 ML IV SCH (10:15)
[2022-10-19] MEDS: OMEGA-3 (PURIFIED FISH OIL) 1 GM CAP PO SCH (11:54)
[2022-10-19] MEDS: CYANOCOBALAMIN (B-12) 500 MCG TABLET PO SCH (11:54)
[2022-10-19] MEDS: CHOLECALCIFEROL 1,000 UNITS 25 MCG TAB PO SCH (11:55)
--- NOTE | 2022-10-19 17:26 | Hospitalist Progress Note ---
Date of Service October 19, 2022 Assessment & Plan (1) Cellulitis of left leg: Plan: With cellulitis and venous ulcer of left lower extremity/chronic lower extremity edema- Wound culture with corynebacterium, blood cultures with likely contaminant with Staphylococcus epidermidis, urine culture with mixed phuong and UA contaminated with epithelial cells Presented with low-grade fever at home, but no evidence of sepsis. Also with acute encephalopathy which is now resolved No fever here, no tachycardia or leukocytosis. there is surrounding cellulitis of the leg wounds which the patient reports is improved from previous-Line of demarcation drawn on 10/18 and somewhat further improved on 10/19 With known PAD which is improved status post recent lower extremity stent with Dr. Velez in 05/2022 Was placed on Cefepime empirically due to h/o DM in case of Pseudomonas infection -will now discontinue Cefepime 2 g IV every 12 hours and convert to po keflex at renal dosing 250mg po bid--> increase dose once renal function improves--> would finish out 7-10 day course depending on how looking - was placed on daptomycin for bacteremia although is likely contaminant-repeat BCxs NGTD--> dc Daptomycin -Consult wound care appreciated -Follow CBC, BMP in the morning -erythema continues to improve (2) Venous stasis ulcers: Plan: Follows with wound care center continue wound care here (3) Chronic kidney disease, stage 3: Plan: With JANAY on CKD stage 3 [employer] up to 1.5 today, BUN elevated--> she is not drinking or eating much due to feeling very constipated -give 1 L NS -hold losartan -Renally dose medications and avoid nephrotoxins -Follow BMP (4) Constipation: Plan: no bowel movement in 4 days -continue senna/docusate but increase to bid -continue MiraLAX daily -add on Bisacodyl [place] x 1 now (5) Hypertension: Plan: Controlled blood pressures hold losartan now for JANAY (6) PAD (peripheral artery disease): Plan: Continue clopidogrel and Xarelto - is on high intensity statin (7) Hypercholesterolemia: Plan: restart atorvastatin now that she is off daptomycin (8) Hypothyroidism: Plan: TSH normal at 2.0 Continue [place] Thyroid (9) Diabetes mellitus type 2, uncontrolled: Plan: Continue Lantus and NovoLog Diabetic diet hemoglobin A1c 7.9% With some lower and normal blood sugar glucose here which is now improved with lowering insulin doses Continue Lantus 10 units at bedtime and NovoLog correction factor 30 and carb ratio 15 Plan Disposition-continued stay medical/surgical unit, improving with cellulitis but now with JANAY. SNF referral placed to [facility]-will likely be able to discharge tomorrow-[facility] vs home with home health DVT [id number] Xarelto Admission and Anticipated Discharge Date Admission Date: October 16, 2022 Subjective Pt reports pain in left leg is improving but still present. Is still c/o significant constipation Physical Exam Constitutional: WD/WN, vitals as above Neck: trachea midline, no thyromegaly Respiratory: normal respiratory effort, lungs clear to auscultation Cardiovascular: Rate/Rhythm: regular rate and regular rhythm Heart Sounds: no murmur Extremities: + edema ( 1+ pitting edema legs bilaterally) Gastrointestinal (Abdomen): normal bowel sounds, soft, nontender, no hepatosplenomegaly Musculoskeletal: Extremities: no cyanosis and no clubbing Skin: + ulcer ( left leg Multiple large venous ulcers with surrounding erythema) Neurologic: moves all extremities and awake; no focal motor deficits Results & Data Results & Data Vital Signs (Past 12 Hours) Vital Signs Temp Pulse Resp BP Pulse Ox O2 Del Method 10/19/22 15:36 36.5 C 78 16 125/60 99 Room Air 10/19/22 08:00 Room Air 10/19/22 07:45 36.6 C 96 H 16 168/71 H 98 Room Air Laboratory Results CBC, BMP, LFs improved PG Care Time/CCT Total # of Minutes Spent Total Time Spent with Patient: Total time spent is greater than 50% in coordination of care (as documented) at patient's floor/unit and/or counseling patient: Coding Level of Care Code 27513 SUB INP/OBS CARE 2/35MIN Diagnoses Cellulitis of left leg L03.116 Venous stasis ulcers I83.009; L97.909 Chronic kidney disease, stage 3 N18.30 Constipation K59.00 Constipation type: unspecified constipation type Hypertension I10 PAD (peripheral artery disease) I73.9 Hypercholesterolemia E78.00 Hypothyroidism E03.9 Diabetes mellitus type 2, uncontrolled E11.65 (4) Constipation Constipation type: unspecified constipation type Qualified Code(s): K59.00 - Constipation, unspecified
[2022-10-19] MEDS ORDERED: bisacodyL 10 MG SUPP PR STA (17:37)
[2022-10-19] MEDS: ATORVASTATIN 40 MG TAB PO SCH (20:26)
[2022-10-19] MEDS: cephALEXin 250 MG CAP PO SCH (20:27)
[2022-10-19] MEDS: OXYBUTYNIN CHLORIDE XL 5 MG TABCR PO SCH (20:28)
[2022-10-19] MEDS: LANTUS PER UNIT CHARGE SQ SCH (20:33)
[2022-10-20 07:26] LABS: Basophils # (auto) 0.04 K/uL (0-0.2); Basophils % (auto) 0.5 %; Eosinophils # (auto) 0.58 K/uL (0-0.50); Eosinophils % (auto) 6.7 %; Hematocrit (blood only) 29.2 % (37.0-47.0); Hemoglobin 9.4 g/dl (12.0-16.0); Immature Granulocytes # (auto) 0.05 K/uL (0.01-0.20); Immature Granulocytes % (auto) 0.6 %; Lymphocytes # (auto) 1.35 K/uL (1.2-3.4); Lymphocytes % (auto) 15.7 %; Mean Corpuscular Hemoglobin 29.7 pg (25.0-34.0); Mean Corpuscular Hgb Conc 32.2 g/dL (32.0-36.0); Mean Corpuscular Volume 92.4 fL (80.0-100.0); Mean Platelet Volume 9.9 fL (9.4-12.4); Monocytes # (auto) 0.62 K/uL (0.11-0.59); Monocytes % (auto) 7.2 %; Neutrophils # (auto) 5.96 K/uL (1.40-6.50); Neutrophils % (auto) 69.3 %; Platelet Count 293 K/uL (130-400); RDW Coefficient of Variation 12.6 % (11.5-14.5); RDW Standard Deviation 42.9 fL (36.4-46.3); Red Blood Count 3.16 M/uL (4.20-5.40)
[2022-10-20 07:37] LABS: Calcium 8.4 mg/dl (8.6-10.3); Creatinine Clr Calc Pharmacy 23.4 ml/min; Est GFR (African American) 46.9 ml/min; Est GFR (Non-African American) 40.4 ml/min; Potassium 4.7 mmol/L (3.5-5.1)
[2022-10-20] MEDS: DOCUSATE SODIUM/SENNA 50/8.6MG TAB PO SCH ×2 (08:44→19:58)
[2022-10-20] MEDS: CLOPIDOGREL BISULFATE 75 MG TAB PO SCH (08:44)
[2022-10-20] MEDS: FAMOTIDINE 20 MG TAB PO SCH (08:44)
[2022-10-20] MEDS: RIVAROXABAN 2.5 MG TAB PO SCH ×2 (08:45→19:57)
[2022-10-20] MEDS: ARMOUR THYROID 30 MG TAB PO SCH (08:45)
[2022-10-20] MEDS: CEROVITE ADV FORMULA TAB PO SCH ×2 (08:45→19:58)
[2022-10-20] MEDS: cephALEXin 250 MG CAP PO SCH ×2 (08:45→22:14)
[2022-10-20] MEDS: MUPIROCIN 2% OINT 22 GM TUBE TOP SCH ×2 (08:45→21:55)
[2022-10-20] MEDS: LOSARTAN POTASSIUM 25 MG TAB PO SCH (08:45)
[2022-10-20] MEDS: INSULIN ASPART PER UNIT CHARGE SC SCH ×4 (08:49→21:52)
[2022-10-20] MEDS: POLYETHYLENE (MIRALAX) 17 GM PACK PO SCH (08:49)
[2022-10-20] MEDS: OMEGA-3 (PURIFIED FISH OIL) 1 GM CAP PO SCH (12:24)
[2022-10-20] MEDS: CYANOCOBALAMIN (B-12) 500 MCG TABLET PO SCH (12:25)
[2022-10-20] MEDS: CHOLECALCIFEROL 1,000 UNITS 25 MCG TAB PO SCH (12:25)
[2022-10-20] MEDS ORDERED: cephALEXin 250 MG CAP PO SCH (13:00)
--- NOTE | 2022-10-20 14:47 | Hospitalist Progress Note ---
Date of Service October 20, 2022 Assessment & Plan (1) Cellulitis of left leg: Plan: Improving. Currently on oral Keflex. Appreciate wound care assistance. Blood cultures negative (2) Venous stasis ulcers: Plan: Follows with wound care center. Continue wound care here (3) Chronic kidney disease, stage 3: Plan: JANAY on CKD stage 3 present on admission. Now resolved. Monitor intake and output. Serial labs. Losartan has been discontinued (4) Constipation: Plan: Continue stool softeners and MiraLAX. Resolved (5) Hypertension: Plan: Stable. Losartan has been discontinued (6) PAD (peripheral artery disease): Plan: Continue clopidogrel and Xarelto. Also takes high intensity statin (7) Hypercholesterolemia: Plan: Stable. Continue atorvastatin. (8) Hypothyroidism: Plan: TSH normal at 2.0. Continue [place] Thyroid (9) Diabetes mellitus type 2, uncontrolled: Plan: Continue Lantus and NovoLog. Diabetic diet. Sliding scale coverage as needed. Stable. Plan Awaiting placement at [facility] when arrangements are finalized Admission and Anticipated Discharge Date Admission Date: October 16, 2022 Subjective Alert and oriented. No acute distress. Awaiting discharge to [facility] within the next day or 2. She is now on oral Keflex. Creatinine improved to 1.1. Glucose 144 this morning. Her metabolic encephalopathy that was present on admission has now completely resolved Review of Systems Review of Systems: Constitutional-no fever or chills ENT-no blurred vision, no double vision, no epistaxis, no sore throat Respiratory-no cough, no wheezing, no shortness of breath Cardiac-no palpitations, no chest pain, no syncope GI-no nausea, vomiting, diarrhea, melena, hematochezia -no urinary retention, no urinary incontinence, no dysuria, no hematuria Musculoskeletal-left lower extremity is bandaged from the knee to the ankle Skin-no bruising, no rashes, no pruritus Neuro-no isolated weakness, no paresthesia Psych-no depression, no anxiety Physical Exam Physical Exam: General-alert and oriented x3, no fevers, no chills HEENT-head atraumatic and normocephalic, pupils equal and reactive to light, extraocular muscles intact Neck-no lymphadenopathy or thyromegaly, trachea midline Chest-clear to auscultation percussion. No rales wheezing or rhonchi Cardiac-regular rate and rhythm, normal S1 and S2 Abdomen-normal bowel sounds, nontender, no hepatosplenomegaly Extremities-left lower extremity is bandaged from the knee to the ankle. No peripheral edema Neuro-cranial nerves II through XII intact, motor and sensory function within normal limits, strength symmetrical , no focal deficits Psych-normal affect, normal mood Results & Data Results & Data Vital Signs (Past 12 Hours) Vital Signs Temp Pulse Resp BP Pulse Ox O2 Del Method 10/20/22 07:46 36.6 C 85 16 178/66 H 96 Room Air Laboratory Results 10/20/22 06:22 10/20/22 06:22 PG Care Time/CCT Total # of Minutes Spent Total Time Spent with Patient: Total time spent is greater than 50% in coordination of care (as documented) at patient's floor/unit and/or counseling patient: Coding Level of Care Code 55261 SUB INP/OBS CARE 3/50MIN Diagnoses Cellulitis of left leg L03.116 Venous stasis ulcers I83.009; L97.909 Chronic kidney disease, stage 3 N18.30 Constipation K59.00 Constipation type: unspecified constipation type Hypertension I10 PAD (peripheral artery disease) I73.9 Hypercholesterolemia E78.00 Hypothyroidism E03.9 Diabetes mellitus type 2, uncontrolled E11.65 (4) Constipation Constipation type: unspecified constipation type Qualified Code(s): K59.00 - Constipation, unspecified
[2022-10-20] MEDS: ATORVASTATIN 40 MG TAB PO SCH (19:54)
[2022-10-20] MEDS: OXYBUTYNIN CHLORIDE XL 5 MG TABCR PO SCH (19:57)
[2022-10-20] MEDS: LANTUS PER UNIT CHARGE SQ SCH (21:52)
[2022-10-21] MEDS: CEROVITE ADV FORMULA TAB PO SCH ×2 (08:31→20:51)
[2022-10-21] MEDS: cephALEXin 250 MG CAP PO SCH ×2 (08:31→20:50)
[2022-10-21] MEDS: DOCUSATE SODIUM/SENNA 50/8.6MG TAB PO SCH ×2 (08:31→20:51)
[2022-10-21] MEDS: LOSARTAN POTASSIUM 25 MG TAB PO SCH (08:31)
[2022-10-21] MEDS: RIVAROXABAN 2.5 MG TAB PO SCH ×2 (08:32→20:52)
[2022-10-21] MEDS: ARMOUR THYROID 30 MG TAB PO SCH (08:32)
[2022-10-21] MEDS: CLOPIDOGREL BISULFATE 75 MG TAB PO SCH (08:32)
[2022-10-21] MEDS: FAMOTIDINE 20 MG TAB PO SCH (08:32)
[2022-10-21] MEDS: INSULIN ASPART PER UNIT CHARGE SC SCH ×4 (08:33→20:45)
[2022-10-21] MEDS: POLYETHYLENE (MIRALAX) 17 GM PACK PO SCH (08:33)
[2022-10-21] MEDS: MUPIROCIN 2% OINT 22 GM TUBE TOP SCH (08:33)
[2022-10-21] MEDS: CYANOCOBALAMIN (B-12) 500 MCG TABLET PO SCH (13:02)
[2022-10-21] MEDS: OMEGA-3 (PURIFIED FISH OIL) 1 GM CAP PO SCH (13:03)
[2022-10-21] MEDS: CHOLECALCIFEROL 1,000 UNITS 25 MCG TAB PO SCH (13:03)
--- NOTE | 2022-10-21 16:42 | Hospitalist Progress Note ---
Date of Service October 21, 2022 Assessment & Plan (1) Cellulitis of left leg: Plan: Improving. Currently on oral Keflex. Appreciate wound care assistance. Blood cultures negative (2) Venous stasis ulcers: Plan: Follows with wound care center. Continue wound care here (3) Chronic kidney disease, stage 3: Plan: JANAY on CKD stage 3 present on admission. Now resolved. Monitor intake and output. Serial labs. Losartan has been discontinued (4) Constipation: Plan: Continue stool softeners and MiraLAX. Resolved (5) Hypertension: Plan: Stable. Losartan has been discontinued (6) PAD (peripheral artery disease): Plan: Continue clopidogrel and Xarelto. Also takes high intensity statin (7) Hypercholesterolemia: Plan: Stable. Continue atorvastatin. (8) Hypothyroidism: Plan: TSH normal at 2.0. Continue [place] Thyroid (9) Diabetes mellitus type 2, uncontrolled: Plan: Continue Lantus and NovoLog. Diabetic diet. Sliding scale coverage as needed. Stable. Plan Anticipate discharge to [facility] tomorrow, October 22 Admission and Anticipated Discharge Date Admission Date: October 16, 2022 Subjective Alert and oriented. No new problems. Case management has told me that [facility] can accept her tomorrow, October 22. She is now on oral Keflex therapy for her left lower extremity cellulitis. Glucose stable at 123. She is afebrile. Review of Systems Review of Systems: Constitutional-no fever or chills ENT-no blurred vision, no double vision, no epistaxis, no sore throat Respiratory-no cough, no wheezing, no shortness of breath Cardiac-no palpitations, no chest pain, no syncope GI-no nausea, vomiting, diarrhea, melena, hematochezia -no urinary retention, no urinary incontinence, no dysuria, no hematuria Musculoskeletal-left lower extremity is bandaged from the knee to the ankle Skin-no bruising, no rashes, no pruritus Neuro-no isolated weakness, no paresthesia Psych-no depression, no anxiety Physical Exam Physical Exam: General-alert and oriented x3, no fevers, no chills HEENT-head atraumatic and normocephalic, pupils equal and reactive to light, extraocular muscles intact Neck-no lymphadenopathy or thyromegaly, trachea midline Chest-clear to auscultation percussion. No rales wheezing or rhonchi Cardiac-regular rate and rhythm, normal S1 and S2 Abdomen-normal bowel sounds, nontender, no hepatosplenomegaly Extremities-left lower extremity is bandaged from the knee to the ankle. No peripheral edema Neuro-cranial nerves II through XII intact, motor and sensory function within normal limits, strength symmetrical , no focal deficits Psych-normal affect, normal mood Results & Data Results & Data Vital Signs (Past 12 Hours) Vital Signs Temp Pulse Resp BP Pulse Ox O2 Del Method 10/21/22 15:08 36.6 C 84 17 138/57 L 97 Room Air 10/21/22 07:36 36.5 C 83 18 149/67 H 97 Room Air Laboratory Results 10/20/22 06:22 10/20/22 06:22 PG Care Time/CCT Total # of Minutes Spent Total Time Spent with Patient: Total time spent is greater than 50% in coordination of care (as documented) at patient's floor/unit and/or counseling patient: Coding Level of Care Code 44455 SUB INP/OBS CARE 2/35MIN Diagnoses Cellulitis of left leg L03.116 Venous stasis ulcers I83.009; L97.909 Chronic kidney disease, stage 3 N18.30 Constipation K59.00 Constipation type: unspecified constipation type Hypertension I10 PAD (peripheral artery disease) I73.9 Hypercholesterolemia E78.00 Hypothyroidism E03.9 Diabetes mellitus type 2, uncontrolled E11.65 (4) Constipation Constipation type: unspecified constipation type Qualified Code(s): K59.00 - Constipation, unspecified
[2022-10-21] MEDS: LANTUS PER UNIT CHARGE SQ SCH (20:45)
[2022-10-21] MEDS: ATORVASTATIN 40 MG TAB PO SCH (20:50)
[2022-10-21] MEDS: OXYBUTYNIN CHLORIDE XL 5 MG TABCR PO SCH (20:52)
[2022-10-22] MEDS: MUPIROCIN 2% OINT 22 GM TUBE TOP SCH ×2 (00:19→08:49)
[2022-10-22] MEDS: CLOPIDOGREL BISULFATE 75 MG TAB PO SCH (08:47)
[2022-10-22] MEDS: RIVAROXABAN 2.5 MG TAB PO SCH (08:47)
[2022-10-22] MEDS: CHOLECALCIFEROL 1,000 UNITS 25 MCG TAB PO SCH (08:47)
[2022-10-22] MEDS: LOSARTAN POTASSIUM 25 MG TAB PO SCH (08:47)
[2022-10-22] MEDS: FAMOTIDINE 20 MG TAB PO SCH (08:48)
[2022-10-22] MEDS: ARMOUR THYROID 30 MG TAB PO SCH (08:48)
[2022-10-22] MEDS: DOCUSATE SODIUM/SENNA 50/8.6MG TAB PO SCH (08:48)
[2022-10-22] MEDS: OMEGA-3 (PURIFIED FISH OIL) 1 GM CAP PO SCH (08:48)
[2022-10-22] MEDS: CYANOCOBALAMIN (B-12) 500 MCG TABLET PO SCH (08:48)
[2022-10-22] MEDS: POLYETHYLENE (MIRALAX) 17 GM PACK PO SCH (08:49)
[2022-10-22] MEDS: cephALEXin 250 MG CAP PO SCH (08:49)
[2022-10-22] MEDS: CEROVITE ADV FORMULA TAB PO SCH (08:49)
[2022-10-22] MEDS: INSULIN ASPART PER UNIT CHARGE SC SCH (08:53)
--- NOTE | 2022-10-22 10:19 | Discharge Summary ---
Date of Service October 22, 2022 Admission HPI Per Admitting Provider the patient is an 87-year-old female with a past medical history including dementia, hypertension, rheumatic heart disease, B12 deficiency, chronic venous insufficiency, urinary incontinence, PAD, hypothyroidism, hypercholesterolemia, GERD, diabetes mellitus uncontrolled, chronic lower extremity edema, chronic left lower extremity venous ulcer and diabetes mellitus with long-term current use of insulin. Patient has been seeing wound care in the outpatient setting, and per report had been doing well until seen by visiting nurse today. The patient herself is unable to contribute significantly to HPI or review of systems due to dementia Principal Diagnosis Metabolic encephalopathy, chronic venous insufficiency with chronic lower extremity ulcerations with left lower extremity cellulitis Discharge Exam General-alert and oriented x3, no fevers, no chills HEENT-head atraumatic and normocephalic, pupils equal and reactive to light, extraocular muscles intact Neck-no lymphadenopathy or thyromegaly, trachea midline Chest-clear to auscultation percussion. No rales wheezing or rhonchi Cardiac-regular rate and rhythm, normal S1 and S2 Abdomen-normal bowel sounds, nontender, no hepatosplenomegaly Extremities-left lower extremity is bandaged from the knee to the ankle. No peripheral edema Neuro-cranial nerves II through XII intact, motor and sensory function within normal limits, strength symmetrical , no focal deficits Psych-normal affect, normal mood Discharge Data Allergies Allergy/AdvReac Type Severity Reaction Status Date / Time Sulfa (Sulfonamide Allergy Intermediate RASH Verified 10/08/22 10:52 Antibiotics) sulfamethoxazole Allergy Intermediate Nausea/Vomi Verified 10/08/22 10:52 ting/Rash trimethoprim Allergy Intermediate Nausea/Vomi Verified 10/08/22 10:52 ting/Rash adhesive Allergy Unknown UNKNOWN Verified 10/08/22 10:52 aspirin Allergy Unknown Unknown Verified 10/08/22 10:52 Bactrim Allergy Unknown Nausea/Vomi Verified 09/17/14 19:04 ting/Rash iodine Allergy Unknown Unknown Verified 10/08/22 10:52 lisinopril Allergy Unknown Unknown Verified 10/08/22 10:52 prochlorperazine Allergy Unknown Unknown Verified 10/08/22 10:52 tigecycline AdvReac Intermediate Nausea/Vomi Verified 10/08/22 10:52 ting Consultations 10/16/22 19:55 ED Decision to Admit Stat Ordered Studies 10/16/22 17:09 CT head/brain wo con Stat Hospital Course (1) Cellulitis of left leg: Improving. Currently on oral Keflex. Appreciate wound care assistance. Blood cultures negative (2) Venous stasis ulcers: Follows with wound care center. Continue wound care here (3) Chronic kidney disease, stage 3: JANAY on CKD stage 3 present on admission. Now resolved. Monitor intake and output. Serial labs. Losartan has been discontinued (4) Constipation: Continue stool softeners and MiraLAX. Resolved (5) Hypertension: Stable. Losartan has been discontinued (6) PAD (peripheral artery disease): Continue clopidogrel and Xarelto. Also takes high intensity statin (7) Hypercholesterolemia: Stable. Continue atorvastatin. (8) Hypothyroidism: TSH normal at 2.0. Continue [place] Thyroid (9) Diabetes mellitus type 2, uncontrolled: Continue Lantus and NovoLog. Diabetic diet. Sliding scale coverage as needed. Stable. Plan discharge to [facility] today, October 22 Total Time Total Time Spent Total Time Spent (In Minutes): 45 minutes Discharge Plan Discharge Items Patient Disposition: Transfer [facility] Reason For Visit: LLE DIABETIC ULCER Discharge Diagnosis: Metabolic encephalopathy, left lower extremity cellulitis Activity: Resume your previous activity Non-emergency contact: Primary Care Provider Call non-emergency contact if: you have any medication questions and your symptoms worsen Follow-up/Referrals: Marly Avendano CRNP [Primary Care Provider] - Diet: Carb Consistent or DM2 and Heart Healthy Addtl Attending Provider Instructions: Take cephalexin (Keflex) as directed for left lower extremity infection Pending Studies at Discharge: No Stand-Alone Forms: My [facility] Skilled Items Patient informed of condition?: Yes DNR: Yes Discharge Level of Care: Skilled Communicable Disease: No Discharge Prognosis: Stable Lines: None Urinary Catheter: No Medications and DC Order Prescriptions: New famotidine 20 mg Tablet 20 mg PO QAM Qty: 0 0RF cephalexin 250 mg Capsule 250 mg PO BID Qty: 0 0RF sennosides-docusate sodium [Senokot-S] 8.6-50 mg Tablet 1 tab PO BID Qty: 0 0RF polyethylene glycol 3350 [Miralax] 17 gram Powder In Packet 17 g PO DAILY Qty: 0 0RF Continued omega-3 fatty acids [Fish Oil Concentrate] 1,000 mg capsule 1,000 mg PO QDL PreserVision AREDS-2 [id number] af-zbiy-zr-mg capsule 1 tab PO BID glucosamine-chondroitin [Osteo Bi-Flex] 250-200 mg tablet 1 tab PO QDL clopidogrel 75 mg tablet 75 mg PO DAILY Qty: 90 3RF Lantus Solostar U-100 Insulin 100 unit/mL (3 mL) insulin pen See Rx Instructions .ROUTE .COMPLEX Qty: 45 3RF Dose Instruction: INJECT 18 UNITS SUBCUTANEOUSLY DAILY Rx Instructions: INJECT 18 UNITS SUBCUTANEOUSLY qam oxybutynin chloride 5 mg tablet extended release 24hr 5 mg PO HS Qty: 90 3RF Xarelto 2.5 mg tablet 2.5 mg PO BID Qty: 60 11RF [place] Thyroid 60 mg tablet 60 mg PO QAM Qty: 90 3RF cholecalciferol (vitamin D3) 2,000 unit capsule 2,000 units PO QDL losartan 25 mg tablet 25 mg PO QAM Qty: 90 3RF cyanocobalamin (vitamin B-12) [Vitamin B-12] 1,000 mcg tablet 1,000 mcg PO QDL mupirocin 2 % ointment 1 applic topical BID Qty: 22 0RF atorvastatin 80 mg tablet 80 mg PO HS Discharge Orders: Discharge Order (Routine); Ordered 10/22/22 Ordered By: Dominick Plascencia Admission Data Admit Date/Time: 10/16/22 20:26 Attending Provider: Dominick Plascencia Admit Provider: Shailesh Reyes Primary Care Provider: Marly Avendano Other Providers: Shailesh Reyes ; Missy [facility] Coding Level of Care Code 24585 INP/OBS DISCH >30 MIN Diagnoses Cellulitis of left leg L03.116 Venous stasis ulcers I83.009; L97.909 Chronic kidney disease, stage 3 N18.30 Constipation K59.00 Constipation type: unspecified constipation type Hypertension I10 PAD (peripheral artery disease) I73.9 Hypercholesterolemia E78.00 Hypothyroidism E03.9 Diabetes mellitus type 2, uncontrolled E11.65
== END 2022-10-22 12:07 | DRG 602 ==
LOC: ED 16:54 → 3N 20:26 → SUATTDRO 20:26 → 3N 21:32

== ENCOUNTER 2023-02-04 10:06 | Inpatient (IN) ==
--- NOTE | 2023-02-04 08:01 | History & Physical Bridge Note ---
Date of Service February 04, 2023 History & Physical Bridge Note I have examined the patient, reviewed the History & Physical and in the interval since the performance of the History & Physical I have noted the following changes of clinical significance: no changes noted
--- NOTE | 2023-02-04 08:02 | Pre Anesthesia Assessment ---
Date of Service February 04, 2023 Pre Sedation Assessment Cardiovascular + regular rate Respiratory + respiratory effort normal Pre-Sedation Airway Assessment Smoking Status: Never smoker Hx Sleep Apnea: No Hx Difficult Intubation: No Thyromental Distance: < 3.5 Finger Breadths Oral Cavity: + Dental Abnormalities Mallampati Class: III ASA: ASA3 Procedure Planning Contraindications for Sedation: none Current Medications Reviewed: Yes Notes The planned sedation has been discussed with the patient. Informed Consent was obtained. I have identified the patient, determined the appropriateness of sedation and have assessed the patient immediately prior to the procedure. All medicine(s) and interventions are by my order.
[~2023-02-04 10:06] MED LIST changes: -BARLEY GRASS PO; -CALCTAB5 PO; -CHOL100027 PO; -CYAN10004 PO; -FISHOIL PO; -GLC/500 PO; -GLIM2TAB PO; -GLUCTAB7 PO; -KFL500 PO; +LIDOCAINE 1% LOCAL 20 ML VIAL ONE; -LOSA25TA18 PO; -LPT/40 PO; -MULT-190 PO; -ONDA4TAB65 PO; -THY/30 PO
[2023-02-04] MEDS ORDERED: MIDAZOLAM HCL 1 MG/ML 2ML VIAL ONE (13:21)
[2023-02-04] MEDS ORDERED: fentaNYL citrate PF 100 MCG/2 ML VIAL ONE (13:21)
[2023-02-04] MEDS ORDERED: niCARdipine HCL INJ 2.5 MG/ML 10 ML AMP ONE (13:24)
[2023-02-04] MEDS ORDERED: HEPARIN (PORCINE) 1000 UNIT/ML 10 ML (CATH LAB USE ONLY) ONE (13:24)
[2023-02-04] MEDS ORDERED: NITROGLYCERIN/D5W 100MCG/ML 20ML SYR ONE (14:05)
[2023-02-04] MEDS ORDERED: LIDOCAINE 1%/EPINEPHRINE 1:100,000 20 ML VIAL ONE (14:54)
[2023-02-04] MEDS ORDERED: LIDOCAINE 1% LOCAL 20 ML VIAL ONE (15:11)
[2023-02-04] MEDS ORDERED: CLOPIDOGREL BISULFATE 300 MG TAB PO STA (15:58)
[2023-02-04] MEDS ORDERED: SODIUM CHLORIDE 0.9% 1,000 ML IV SCH (16:00)
[2023-02-04] MEDS ORDERED: CLOPIDOGREL BISULFATE 300 MG TAB ONE (16:01)
--- NOTE | 2023-02-04 18:29 | Post Anesthesia Assessment ---
Date of Service February 04, 2023 Post Sedation Assessment Vital Signs Temp Pulse Pulse Resp BP Pulse Ox O2 Del Method 02/04/23 18:22 97 H 143/51 H 96 Room Air 02/04/23 17:32 182/71 H 02/04/23 17:02 98 H 164/65 H 97 Room Air 02/04/23 16:11 100 H 02/04/23 16:32 98.2 F 99 H 139/77 98 Room Air 02/04/23 16:17 96 H 159/72 H 97 Room Air 02/04/23 16:10 97.7 F 97 H 18 143/51 H 96 Room Air 02/04/23 15:45 96 H 18 155/72 H 97 Room Air 02/04/23 15:28 96 H 18 143/59 H 97 Room Air 02/04/23 15:10 103 H 18 101/79 97 Room Air 02/04/23 10:43 89 16 169/79 H 97 Room Air Recovery Score Activity: Moves 4 extremities Respiration: Deep Breath/Cough Circulation: +/-20% PreAnes Value Consciousness: Fully Awake Oxygen Saturation: > 92% On Room Air Post Anesthesia Score: 10 Discharge Sedation Level of Care: Fast Track Phase II Post Sedation Plan On clinical assessment, the patient appears to have tolerated the sedation without complications. Patient is recovering as anticipated. Patient will continue to be monitored by nursing and may be discharged when sedation discharge criteria are met per below protocol. Upon Completions of procedure up to 15 minutes continue every 5 minute vital signs and the P.A.R. score; then discharge to a Phase I or Fast Track to Phase II per the following guidelines: * Discharge Patient to appropriate Phase II area if PAR is 8 or greater or return to pre- procedure baseline. The post - procedure orders will be as directed. * If PAR score is less than 8 or not return to pre-procedure baseline then patient will follow Phase I monitoring till PAR is reached for Phase II. The Phase I may be done in procedure room or may call to secure a Phase I area. * If naloxone or flumazenil are used for reversal, hold in Phase I for continued monitoring from when last reversal dose was given for a minimum of 60 minutes or longer pending the nurse and/or physician discretion of patient condition before discharge to Phase II. Please call the Sedation Physician to re-evaluate and complete post-note for discharge to Phase II area. Do NOT discharge from procedure sedation or Phase 1 until post- sedation evaluation note is complete by procedure /sedation MD Sedation Discharge Instructions to be given to the patient at discharge to home.
[2023-02-04] MEDS ORDERED: DOCUSATE SODIUM/SENNA 50/8.6MG TAB PO PRN (18:32)
--- NOTE | 2023-02-04 18:32 | Endovascular Procedure Note ---
[facility] Endovascular Procedure Rpt Pre & Post Diagnosis Peripheral arterial disease I identified the patient and participated in the time-out.: Yes Procedure Operation Date: 02/04/23 11:00 Actual Procedures p Angio Extremity Unilateral - Hiro Velez MD s Ultrasound Vascular Access - Hiro Velez MD s Placement Art Occlusive Device - Hiro Velez MD p Tibial Peroneal Balloon - Hiro Velez MD p Tibioperoneal Balloon Atherect - Hiro Velez MD Surgeon Hiro Velez MD Manager Photo Almaz Estimated Blood Loss 25 Findings See Below Left lower extremity-- -Common iliac-20% disease External iliac widely patent Internal iliac50% ostial -LAMINATING MACHINE OPERATOR HELPER mild diffuse disease Profunda - jailed with 70% ostial stenosis -SFA/Popliteal - stented from distal LAMINATING MACHINE OPERATOR HELPER to mid popliteal with severe diffuse in-stent restenosis up to 99+% in the mid/distal segment with slow flow to below the knee vessels. -SINA widely patent to the foot. TPT focal 50% stenosis -MANAGER HVAC 60% proximal then widely patent to the foot -Peroneal widely patent to the ankle Anesthesia Type RN Sedation Radiation Exposure (mGv) Radiation (mGy): 119 Contrast Contrast: 80 Complications none Disposition Accompanied Patient To Recovery: Yes Disposition: Pot Room Tapper Holding Description of Procedure Right LAMINATING MACHINE OPERATOR HELPER obtained under ultrasound guidance, short 5Fr sheath placed Proximal left lower extremity angiogram performed with RIM catheter. 6 Fr 65 cm destination sheath placed from right LAMINATING MACHINE OPERATOR HELPER to left proximal SFA Selective angiography of distal lower extremity through destination sheath SFA stenosis crossed with glide advantage wire and quick cross support catheter. Rotational atherectomy performed through entire length of stented segment from LAMINATING MACHINE OPERATOR HELPER to popliteal with Rotarex system. Angioplasty of proximal SFA to mid popliteal artery with 5.0 balloon Post procedure good angiographic result, stents well expanded with brisk 3 vessel run-off. Contrast used: 80 Moderate sedation: [id number] Access closure: StarClose Summary: 1. Left lower extremity -- Jailed profunda with 70% ostial stenosis; Severe diffuse SFA instent restenosis up to 99% in mid/distal segment. 50% TPT. 60% proximal MANAGER HVAC. ATAperoneal widely patent to the ankle. 2. Successful endovascular intervention to LT SFA diffuse in-stent restenosis with mechanical atherectomy (Rotarex) and balloon angioplasty (5.0 balloon) Final result: SFA/popliteal stents widely patent with brisk flow and three- vessel runoff Recommendations: Continue clopidogrel Transition to full dose anticoagulation with Xarelto Follow-up non-invasive vascular testing in 2 weeks. I attest to the content of the Intraoperative Record and any orders documented therein. Any exceptions are noted below. Vascular Charges Angiography/Venography Procedure 1: Angiography/Venography charges: [id number] Initial 3rd order or selective abd, pelvic, or LE branch Lower Extremity Interventions Procedure 1: Lower Extremity Intervention charges: [id number] Atherectomy, femoral, popliteal artery(s), unilateral Additional Services Procedure 1: Additional Services Charges: 58214 Ultrasound guidance - vascular access Procedure 2: Additional Services Charges: 61202 Moderate sedation initial 15 min Procedure 3: Additional Services Charges: 84057 Moderate sedation, each additional 15 min
[2023-02-04] MEDS ORDERED: GLUCAGON FOR INJ 1 MG VIAL SQ PRN (18:34)
[2023-02-04] MEDS ORDERED: GLUCOSE 10 TAB/TUBE PO PRN (18:34)
[2023-02-04] MEDS ORDERED: CARBOHYDRATES FOR HYPOGLYCEMIA PO PRN (18:34)
[2023-02-04] MEDS ORDERED: GLUCOSE 40% GEL 15 GM TUBE PO PRN (18:34)
[2023-02-04] MEDS ORDERED: PHARMACY GLYCEMIC MGMT CONSULT PRN (18:34)
[2023-02-04] MEDS ORDERED: DEXTROSE 50% 50 ML SYRINGE IV PRN (18:34)
[2023-02-04] MEDS: INSULIN ASPART PER UNIT CHARGE SC SCH ×2 (19:25→22:02)
[2023-02-04] MEDS: ATORVASTATIN 40 MG TAB PO SCH (20:06)
[2023-02-04] MEDS: OXYBUTYNIN CHLORIDE XL 5 MG TABCR PO SCH (20:06)
[2023-02-05 07:11] LABS: Basophils # (auto) 0.09 K/uL (0.00-0.20); Basophils % (auto) 0.6 %; Eosinophils # (auto) 0.17 K/uL (0.00-0.50); Eosinophils % (auto) 1.2 %; Hematocrit (blood only) 23.5 % (37.0-47.0); Hemoglobin 7.6 g/dl (12.0-16.0); Immature Granulocytes # (auto) 0.08 K/uL (0.01-0.20); Immature Granulocytes % (auto) 0.6 %; Lymphocytes # (auto) 1.56 K/uL (1.20-3.40); Lymphocytes % (auto) 10.8 %; Mean Corpuscular Hemoglobin 29.1 pg (25.0-34.0); Mean Corpuscular Hgb Conc 32.3 g/dL (32.0-36.0); Mean Platelet Volume 9.5 fL (9.4-12.4); Monocytes # (auto) 1.23 K/uL (0.11-0.59); Monocytes % (auto) 8.5 %; Neutrophils # (auto) 11.29 K/uL (1.40-6.50); Neutrophils % (auto) 78.3 %; Platelet Count 335 K/uL (130-400); RDW Coefficient of Variation 12.4 % (11.5-14.5); RDW Standard Deviation 40.7 fL (36.4-46.3); Red Blood Count 2.61 M/uL (4.20-5.40); White Blood Count 14.42 K/ul (4.8-10.8)
[2023-02-05 07:12] LABS: BUN Creatinine Ratio 21.1 (10-20); Calcium 8.5 mg/dl (8.6-10.3); Creatinine Clr Calc Pharmacy 18.4 ml/min; Est GFR (African American) 37.9 ml/min; Est GFR (Non-African American) 32.7 ml/min; Potassium 4.3 mmol/L (3.5-5.1)
--- NOTE | 2023-02-05 07:27 | Pharmacy Report ---
Pharmacy Glycemic Short Note 2 - Date of Service February 05, 2023 - Glycemic Short BSG Results (Last 24 hours): 02/04/23 02/04/23 02/05/23 17:32 21:55 06:31 Glucose 120 H POC Glucose 157 H 171 H OUTPATIENT ANTIDIABETIC REGIMEN: * Lantus 18 units SQ daily * A1c = 7.9% 10/17/22 ASSESSMENT: * Type 2 diabetic admitted for endovascular procedure with Dr Velez * Will initial basal/bolus SQ regimen. Will use very low dose scaled Lantus initially given fasting BSGs acceptable thus far this hospitalization * Novolog doses will be based upon weight and moderate stress level. PLAN FOR INPATIENT GLYCEMIC CONTROL: * Hold outpatient oral diabetes medications * Basal insulin * Lantus 0-5 units SQ qAM per scale, hold if BSG less than 110 * Bolus insulin * NovoLog per scale ACHS or Q6hrs while NPO * Goal Range: Low 120 mg/dL - High 160 mg/dL * Correction Factor: 40 mg/dL/unit * Nutritional / Prandial insulin per carb ratio of 1 unit per 15 grams CHO consumed
[2023-02-05 07:41] LABS: RBC Morphology Unremarkable
[2023-02-05] MEDS: CLOPIDOGREL BISULFATE 75 MG TAB PO SCH (08:34)
[2023-02-05] MEDS: FAMOTIDINE 20 MG TAB PO SCH (08:34)
[2023-02-05] MEDS: amLODIPine BESYLATE 5 MG TAB PO SCH (08:34)
[2023-02-05] MEDS: ARMOUR THYROID 30 MG TAB PO SCH (08:34)
[2023-02-05] MEDS: INSULIN ASPART PER UNIT CHARGE SC SCH ×4 (08:35→20:48)
[2023-02-05] MEDS: LANTUS PER UNIT CHARGE SC SCH (08:35)
[2023-02-05] MEDS ORDERED: NON-FORMULARY MEDICATION (Glucosamine-Chondroitin [Osteo Bi-Flex] 250-200 mg tablet) PO SCH (11:30)
--- NOTE | 2023-02-05 14:15 | Hospitalist Consultation ---
Date of Consultation February 05, 2023 Assessment & Plan (1) Cellulitis of left leg: Recurrent LLE cellulitis Patient follows with wound clinic for PAD Clinically, patient endorses intermittent LLE pain; purulent wound; looks infected Wound care nurse already consulted, but may not be able to see her until Thursday 02/08 Daily dressing change with kaltostat Wound culture ordered, pending Bedrest Rocephin 2 g IV daily; abx chosen based on hepatic metabolism in the setting of mild JANAY; could also consider Unasyn or cefazolin depending on renal function ESR and CRP, pending LFTs, pending Patient lives alone and may exhibit difficulty with ADLs upon discharge; case management consulted A.m. CBC, BMPs (2) PAD (peripheral artery disease): S/p left tibial balloon arthroplasty with stent placement on 02/04/[address] Hiro Velez PAD Hx: left SFA/popliteal intervention 03/2021, 10/2021, and 05/2022 (2 stents from ostial SFA to popliteal) (3) Anemia: Hgb 9.6 on 02/02 --> 7.6 on 02/05 In the setting of recent surgical procedure procedure; no signs of active bleed Continue to trend H&H Hold Xarelto; defer DVT PPx to primary team A.m. CBCs (4) Diabetes mellitus, with long-term current use of insulin: Last A1c at 7.9% on 10/17/22 Glucose at 266 on 02/05 T2DM diet SSI already in place with BSG ACHS; Lantus 5u QAM Target range BSG 120-160mg/dL, CF 40, carb ratio 15 Adjust regimen as needed (5) JANAY (acute kidney injury): Mild JANAY BUN 30, Cr 1.42 (baseline 1.2), EGFR 32.7 Avoid nephrotoxic agents (6) Hypertension: BP at 125/58 Continue amlodipine (7) Obesity (BMI 30.0-34.9): (8) Arterial insufficiency with ischemic ulcer: (9) Aortic stenosis: Plan Continue to monitor patient in PCU T2DM diet as tolerated DNR/DNI VTE PPx: Recommend holding Xarelto until hemoglobin trends upward; will defer to primary team Thank you for allowing us to participate in the care of this patient, please reach out with any questions or concerns Supervising Physician Co-Signing Physician Notes Patient seen and examined, chart reviewed, case discussed with Carmen Wilson I agree with the assessment and plan as above except as otherwise noted Labs and images reviewed Felecia is an 87-year-old female with a past medical history of PAD, obesity, di abetes with nephropathy, carotid stenosis, rheumatic heart disease, and arterial insufficiency who presented for tibial balloon arthroplasty/left SFA in-stent mechanical arthrectomy 02/05/2020. Discussed with primary team, 87yo F with a hx of dementia, severe asymptomatic , type 2 DM, and severe PAD with a poorly healing L leg wound x2 years with poor bloody supply. Improves slightly post arterial intervention, then worsens again. Has had a chronically never completely healed wound on the left lower extremity for around 3 years. She is s/p balloon and in sent arthrecomy. Patient was held due to poor ambulation overnight, and also currently now lives alone without help and is extremely limited in her abilities to perform IADLs. Suspect home is not a safe environment, no longer has help at home from children, and her has . In addition to treatment of acute cellulitis is recommended for case management consultation. Left arterial insufficiency wound with superimposed cellulitis: Erythema borders marked with surgical pen. Is acutely warm, tender, and cellulitic. She does not have a history of MRSA. Prior cultures reviewed. Will start on Rocephin for SSTI, if improving can target either cefdinir for oral conversion versus stepdown narrowing to Keflex if doing well. If worsening would expand to include anaerobic coverage given history of poor vascular flow. Agree with assessment and management above. Discussed with nursing staff, wound care to be consulted may not be able to see over the weekend. Will have dressings changed with Kaltostat given slough/drainage. Surface culture pending Disposition planning: Concern for patient's ability to perform IADLs at home, and safety at home without assistance. Case discussed with case management, who are consulted for assistance. In addition previously of note office of aging has been previously contacted due to concern for staff to and from a falling out between patient and her daughter Arterial insufficiency: Management per primary team, continue anticoagulation and Plavix. No evidence of bleeding, hemodynamically stable. Did have a post drop to 7.6 this morning, 12-hour repeat x1 pending at then may check daily. If stable, resume rivaroxaban 2.5 mg twice daily and continue Plavix 75 mg daily. Continue statin therapy. History of Present Illness Reason for Consultation: Cellulitis, JANAY, Case management consult Requesting Physician: Hiro Velez MD Attending Physician: Hiro Velez MD History of Present Illness Felecia is an 87-year-old female with PMH of PAD, dementia, obesity, diabetes, carotid stenosis, severe asymptomatic aortic stenosis, and arterial insufficiency. She presented for a left tibial balloon arthroplasty with stent placement on 02/04/[address] Hiro Velez. Per operative note, estimated blood loss 25 cc, RN sedation, and there were no reported intraoperative complications noted. Patient reports no left leg pain post op when she is lying down, but says that she can hardly walk. She describes it as lower left leg "soreness". Normally, patient takes Plavix and Xarelto; however, she did not take the Xarelto yesterday preop. Patient's is . Patient lives alone and reports that she manages her own medications. Patient reports she has been eating okay. Regarding family situation, patient says she reported her daughter to the office of aging for stealing her checkbook; called the police; and has since had a falling out with her daughter. Will contact case management to discuss patient upon discharge. Mild leukocytosis at 14.42 with a neutrophil predominance in the setting of recent procedure. Mild tachycardia in the 100s and mild hypertension; otherwise, vitals have been stable. ROS: Patient endorses intermittent numbness in the left leg, intermittent left leg pain Patient denies fever, chills, DARNELL, dizziness, lightheadedness, CP, SOB, abdominal pain, N/V/D, urinary s/s, or burning with urination. Please see Dr. Chavez's attestation for any changes to treatment plan. Allergies Allergy/AdvReac Type Severity Reaction Status Date / Time Sulfa (Sulfonamide Allergy Intermediate RASH Verified 01/27/23 12:25 Antibiotics) sulfamethoxazole Allergy Intermediate Nausea/Vomi Verified 01/27/23 12:25 ting/Rash trimethoprim Allergy Intermediate Nausea/Vomi Verified 01/27/23 12:25 ting/Rash adhesive Allergy Unknown UNKNOWN Verified 01/27/23 12:25 aspirin Allergy Unknown Unknown Verified 01/27/23 12:25 Bactrim Allergy Unknown Nausea/Vomi Verified 09/17/14 19:04 ting/Rash iodine Allergy Unknown Unknown Verified 01/27/23 12:25 lisinopril Allergy Unknown Unknown Verified 01/27/23 12:25 prochlorperazine Allergy Unknown Unknown Verified 01/27/23 12:25 tigecycline AdvReac Intermediate Nausea/Vomi Verified 01/27/23 12:25 ting Home Medications Medication Instructions Recorded Confirmed Type omega-3 fatty acids 1,000 mg 1,000 mg PO QDL 10/20/18 02/04/23 History capsule (Fish Oil Concentrate) vit C 250 mg-vit E 90 mg-zinc 40 1 tab PO BID 10/20/18 02/04/23 History mg-copper 1 [id number] capsule (PreserVision AREDS-2) cyanocobalamin (vitamin B-12) 1,000 mcg PO QDL 11/14/18 02/04/23 History 1,000 mcg tablet (Vitamin B-12) cholecalciferol (vitamin D3) 50 2,000 units PO QDL 11/30/18 02/04/23 History mcg (2,000 unit) capsule glucosamine-chondroitin 250 mg-200 1 tab PO QDL pain 11/30/18 02/04/23 History mg tablet (Osteo Bi-Flex) clopidogrel 75 mg tablet 75 mg PO DAILY #90 tabs 01/30/22 02/04/23 Rx insulin glargine 100 unit/mL (3 See Rx Instructions .Route 03/10/22 02/04/23 Rx mL) subcutaneous pen (Lantus .COMPLEX #45 mL Solostar U-100 Insulin) oxybutynin chloride 5 mg 5 mg PO HS #90 tabs 05/25/22 02/04/23 Rx tablet,extended release 24 hr rivaroxaban 2.5 mg tablet (Xarelto) 2.5 mg PO BID #60 tabs 06/18/22 02/04/23 Rx thyroid (pork) 60 mg tablet 60 mg PO QAM #90 tabs 07/16/22 02/04/23 Rx ([place] Thyroid) mupirocin 2 % topical ointment 1 applic topical BID #22 grams 08/06/22 02/04/23 Rx atorvastatin 80 mg tablet 80 mg PO HS 10/16/22 02/04/23 History polyethylene glycol 3350 17 gram 17 g PO DAILY #0 ea 10/22/22 02/04/23 Rx oral powder packet (Miralax) sennosides 8.6 mg-docusate sodium 1 tab PO BID #0 tabs 10/22/22 02/04/23 Rx 50 mg tablet (Senokot-S) amlodipine 2.5 mg tablet 2.5 mg PO DAILY #90 tabs 01/27/23 02/04/23 Rx famotidine 20 mg tablet 20 mg PO QAM #90 tabs 01/27/23 02/04/23 Rx rivaroxaban 15 mg tablet (Xarelto) 15 mg PO DAILY #30 tabs 02/05/23 Rx Patient History Medical History (Updated 01/26/23 @ 11:34 by Michael Grossman MD, FACS) Actinic keratosis Anemia Aortic stenosis Chronic kidney disease, stage 3 Chronic venous insufficiency Complicated UTI (urinary tract infection) Dementia Diabetes mellitus type 2, uncontrolled Diabetes mellitus, with long-term current use of insulin Diabetic nephropathy Fracture of shaft of humerus, closed Gastroesophageal reflux disease Head injury due to trauma History of episiotomy Hypercholesterolemia Hypertension Hypothyroidism Macular degeneration Microalbuminuria Mitral and aortic valve disease Osteopenia PAD (peripheral artery disease) Polymyalgia rheumatica Rheumatic heart disease Urinary incontinence Venous insufficiency Venous stasis ulcers Venous ulcer of left lower extremity with varicose veins Wound, open, foot Surgical History History of breast surgery Puncture aspiration of cyst History of section History of dilation and curettage History of total abdominal hysterectomy and bilateral salpingo-oophorectomy History of tubal ligation Family History Other Family history non-contributory Social History Smoking Status: Never smoker Second Hand Exposure: No; Do You Dip or Chew Tobacco: No; Hx Alcohol Use: No Hx Substance Use: No Preferred Language: Turkish Communication Ability: Effective Hearing Ability: Use of Hearing Aid Commissioning Agent Required: No Beliefs That Will Affect Care: None marital status: / Current Living Situation: Alone current occupational status: other 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 Feels Safe at Home: Yes Safety Concerns: Feels Safe At This Time Diet: regular caffeine: Yes (COFFEE) Physical Activity Frequency: Does not Exercise Seatbelt Use: always Assistive Devices: Cane and Walker Review of Systems Review of Systems: See HPI above Physical Exam Physical Exam: General: patient appears in no acute distress; on room air; appears stated age; well-nourished; cooperative HEENT: normocephalic; brown bruise on right upper forehead; no scleral icterus; PERRLA w/ EOMs intact; moist mucus membrane; trachea midline; vision and hearing grossly intact Skin: warm, dry without signs of tenting; no cyanosis; no rashes or lesions noted Cardiac: RRR; 3/6 systolic ejection murmur auscultated at the second [facility] Pulm: no acute respiratory distress; symmetrical chest expansion; clear breath sounds across all lung [place] without adventitious sounds Abdominal: Soft, nontender to palpation; BS present; no ascites; no distention MSK: no tics or fasciculations; no edema noted in the LEs b/l; pulses intact and symmetrical at radial, DP, and PT LLE: Dorsal surface warm to touch; erythema and swelling extending from the lateral malleolus to the mid calf circumferentially (see photos below); malodorous; purulent wound on the lateral LLE 10 inches in diameter; pulses intact at DP, PT bilaterally; patient demonstrates able to wiggle toes Neuro: A&Ox3; responds to questioning; questionable thought process at times; no tremors; no focal defects Results & Data Results & Data Vital Signs (Past 12 Hours) Vital Signs Temp Pulse Pulse Resp BP Pulse Ox O2 Del Method 02/05/23 12:39 36.7 C 72 18 125/58 L Room Air 02/05/23 05:59 94 H 02/05/23 07:51 37.0 C 88 18 119/65 98 Room Air 02/05/23 03:07 37.1 C 98 H 17 125/70 95 Room Air Laboratory Results Abnormal lab results 02/04/23 02/04/23 02/04/23 Range/Units 14:20 14:35 17:32 WBC (4.8-10.8) K/ul RBC (4.20-5.40) M/uL Hgb (12.0-16.0) g/dl Hct (37.0-47.0) % Neut # (Auto) (1.40-6.50) K/uL Schley # (Auto) (0.11-0.59) K/uL Activ Coag Time Kaolin 233 H 275 H (94-140) SECONDS BUN (6-23) mg/dl Creatinine (0.6-1.2) mg/dl BUN/Creatinine Ratio (10-20) Glucose (70-99(Fasting)) mg/dl POC Glucose 157 H (70-99) mg/dl Calcium (8.6-10.3) mg/dl 02/04/23 02/05/23 02/05/23 Range/Units 21:55 06:31 06:31 WBC 14.42 H (4.8-10.8) K/ul RBC 2.61 L (4.20-5.40) M/uL Hgb 7.6 L (12.0-16.0) g/dl Hct 23.5 L (37.0-47.0) % Neut # (Auto) 11.29 H (1.40-6.50) K/uL Schley # (Auto) 1.23 H (0.11-0.59) K/uL Activ Coag Time Kaolin (94-140) SECONDS BUN 30 H (6-23) mg/dl Creatinine 1.42 H (0.6-1.2) mg/dl BUN/Creatinine Ratio 21.1 H (10-20) Glucose 120 H (70-99(Fasting)) mg/dl POC Glucose 171 H (70-99) mg/dl Calcium 8.5 L (8.6-10.3) mg/dl 02/05/23 Range/Units 13:32 WBC (4.8-10.8) K/ul RBC (4.20-5.40) M/uL Hgb (12.0-16.0) g/dl Hct (37.0-47.0) % Neut # (Auto) (1.40-6.50) K/uL Schley # (Auto) (0.11-0.59) K/uL Activ Coag Time Kaolin (94-140) SECONDS BUN (6-23) mg/dl Creatinine (0.6-1.2) mg/dl BUN/Creatinine Ratio (10-20) Glucose (70-99(Fasting)) mg/dl POC Glucose 266 H (70-99) mg/dl Calcium (8.6-10.3) mg/dl PG Care Time/CCT Total # of Minutes Spent Total Time Spent with Patient: Total time spent is greater than 50% in coordination of care (as documented) at patient's floor/unit and/or counseling patient: [place] [address] IN/OBS CONSULT LVL 5,80M Patient Type Established History Comprehensive Exam Comprehensive Medical Decision Making Moderate Complexity Diagnoses Cellulitis of left leg L03.116 PAD (peripheral artery disease) I73.9 Anemia D64.9 Diabetes mellitus, with long-term current use of insulin E11.9; Z79.4 JANAY (acute kidney injury) N17.9 Hypertension I10 Obesity (BMI 30.0-34.9) E66.9 Arterial insufficiency with ischemic ulcer I77.1; L98.499 Aortic stenosis I35.0
[2023-02-05] MEDS: cefTRIAXone SODIUM 2,000 MG in DEXTROSE 5 % MINI-B 50 ML IV SCH (17:27)
--- NOTE | 2023-02-05 17:52 | Vascular Medicine ProgressNote ---
Date of Service February 05, 2023 Assessment & Plan (1) PAD (peripheral artery disease): Plan: -- post atherectomy/angioplasty to LT SFA in-stent restenosis with 3 vessel distal runoff 2. LLE diabetic/ischemic ulcers 3. LLE cellulitis 4. Acute on chronic renal insufficiency 5. Anemia 6. Type II diabetes 7. Severe, asymptomatic aortic stenosis 8. Chronic venous insufficiency 9. Frailty, cognitive decline, urinary incontinence Post procedure day 1 following successful endovascular intervention to LT SFA Left foot feels better perfused No clear access site complications LT leg ulcer appears to have surrounding cellulitis today. Also with worsened kidney function, anemia. Will need continued admission for antibiotics, serial H/H, wound care, PT/OT and case management. From a vascular standpoint - -- continue current clopidogrel -- eventually plan switching PAD dose xarelto to full anticoagulation DOAC when Hgb stable -- repeat non-invasive vascular testing in 1-2 weeks. Hospital medicine consulted. Appreciate help. Admission and Anticipated Discharge Date Admission Date: February 04, 2023 Subjective Reports ongoing LT foot pain. Unsteady attempting to walk with worsened foot pain Urinary incontinence overnight Telemetry reviewed -- no events Labs today - Hgb 7.6, WBC 14, SCr 1.4 Review of Systems Review of Systems: All systems reviewed & are unremarkable except as noted in HPI & below Physical Exam Physical Exam: General: Comfortable, frail Eyes: Sclerae anicteric Neuro: Nonfocal Psych: Alert orient x3, normal affect and mood CV: Regular rate, 2 of 6 mid peaking systolic ejection murmur Extremities/Vascular: -- 2+ radial bilaterally -- 2+ right DP pulse. --Left improved color, Nonpalpable DP/PT pulses. Normal capillary refill -- RT nonpalpable DP/PT. --left lateral calf ulcer dressed and not examined today.Wound images reviewed --Left lower leg large lateral ulcer with yellow slough/dry with distinct borders and erythema extending to ankle and up to calf. Ulcer on medial aspect of leg without surrounding erythema. Results & Data Vital Signs (Past 12 Hours) Vital Signs Temp Pulse Pulse Resp BP Pulse Ox O2 Del Method 02/05/23 17:02 98.2 F 88 20 115/75 Room Air 02/05/23 12:39 98.1 F 72 18 125/58 L Room Air 02/05/23 05:59 94 H 02/05/23 07:51 98.6 F 88 18 119/65 98 Room Air PG Care Time/CCT Total # of Minutes Spent Total Time Spent with Patient: Total time spent is greater than 50% in coordination of care (as documented) at patient's floor/unit and/or counseling patient: Coding Level of Care Code 56137 SUB INP/OBS CARE 3/50MIN Diagnoses PAD (peripheral artery disease) I73.9
[2023-02-05 18:17] LABS: Hemoglobin 7.3 g/dl (12.0-16.0)
[2023-02-05 18:39] LABS: Bilirubin,Total 0.3 mg/dl (0.2-1.0); C Reactive Protein 12.1 mg/dl (0-0.5); Total Protein 5.9 gm/dl (6.0-8.3)
[2023-02-05] MEDS: ATORVASTATIN 40 MG TAB PO SCH (20:00)
[2023-02-05] MEDS: OXYBUTYNIN CHLORIDE XL 5 MG TABCR PO SCH (20:00)
[2023-02-05] MEDS ORDERED: INFLUENZA VACCINE HIGH-DOSE (HD-IIV4) PF 65+ 0.7mL SYR IM ONE (20:12)
[2023-02-05] MEDS: ACETAMINOPHEN 325 MG TAB PO PRN (22:58)
[2023-02-06 07:44] LABS: Basophils # (auto) 0.06 K/uL (0.00-0.20); Basophils % (auto) 0.6 %; Eosinophils # (auto) 0.49 K/uL (0.00-0.50); Eosinophils % (auto) 4.8 %; Hematocrit (blood only) 22.7 % (37.0-47.0); Hemoglobin 7.3 g/dl (12.0-16.0); Immature Granulocytes # (auto) 0.06 K/uL (0.01-0.20); Immature Granulocytes % (auto) 0.6 %; Lymphocytes # (auto) 1.44 K/uL (1.20-3.40); Lymphocytes % (auto) 14.1 %; Mean Corpuscular Hemoglobin 28.7 pg (25.0-34.0); Mean Corpuscular Hgb Conc 32.2 g/dL (32.0-36.0); Mean Corpuscular Volume 89.4 fL (80.0-100.0); Mean Platelet Volume 9.7 fL (9.4-12.4); Monocytes % (auto) 8.8 %; Neutrophils # (auto) 7.26 K/uL (1.40-6.50); Neutrophils % (auto) 71.1 %; Platelet Count 318 K/uL (130-400); RDW Coefficient of Variation 12.4 % (11.5-14.5); RDW Standard Deviation 40.7 fL (36.4-46.3); Red Blood Count 2.54 M/uL (4.20-5.40); White Blood Count 10.21 K/ul (4.8-10.8)
[2023-02-06 07:56] LABS: Calcium 8.2 mg/dl (8.6-10.3); Creatinine Clr Calc Pharmacy 14.4 ml/min; Est GFR (Non-African American) 23.3 ml/min; Potassium 4.2 mmol/L (3.5-5.1)
[2023-02-06 08:08] LABS: ALC (manual) 0.71 K/uL (1.2-3.4); ANC (manual) 8.78 K/uL (1.4-6.5); Eosinophils # (manual) 0.31 K/uL (0-0.50); Eosinophils % (manual) 3 %; Lymphocytes # (manual) 0.71 K/uL (1.2-3.4); Lymphocytes % (manual) 7 %; Monocytes # (manual) 0.41 K/uL (0.11-0.59); Monocytes % (manual) 4 %; Neutrophils # (manual) 8.78 K/uL (1.40-6.50); Neutrophils % (manual) 86 %; RBC Morphology Unremarkable
[2023-02-06] MEDS: CLOPIDOGREL BISULFATE 75 MG TAB PO SCH (08:48)
[2023-02-06] MEDS: FAMOTIDINE 20 MG TAB PO SCH (08:48)
[2023-02-06] MEDS: amLODIPine BESYLATE 5 MG TAB PO SCH (08:48)
[2023-02-06] MEDS: ARMOUR THYROID 30 MG TAB PO SCH (08:48)
[2023-02-06] MEDS: INSULIN ASPART PER UNIT CHARGE SC SCH ×4 (08:49→20:26)
[2023-02-06] MEDS: LANTUS PER UNIT CHARGE SC SCH (08:51)
--- NOTE | 2023-02-06 12:20 | Cardiology Progress Note ---
Date of Service February 06, 2023 Assessment & Plan (1) PAD (peripheral artery disease): Plan: -- post atherectomy/angioplasty to LT SFA in-stent restenosis with 3 vessel distal runoff 2. LLE diabetic/ischemic ulcers 3. LLE cellulitis 4. Acute on chronic renal insufficiency 5. Anemia 6. Type II diabetes 7. Severe, asymptomatic aortic stenosis 8. Chronic venous insufficiency 9. Frailty, cognitive decline, urinary incontinence Post procedure day 2 following successful endovascular intervention to LT SFA no pain at rest No clear access site complications Cellulitis improving Severe aortic stenosis without symptoms or hemodynamic compromise H/H stable. No evident bleeding. Increased creatinine. No evidence of volume overload or pulmonary edema. WIll start gentle hydration and encourage PO intake. Will need continued admission for antibiotics, serial H/H, wound care, PT/OT and case management. From a vascular standpoint - -- continue current clopidogrel -- eventually plan switching PAD dose xarelto to full anticoagulation DOAC when Hgb stable -- repeat non-invasive vascular testing in 1-2 weeks. Admission and Anticipated Discharge Date Admission Date: February 04, 2023 Subjective Patient with minimal pain while in bed. Some pain with ambulation in the left foot. No dyspnea. No orthopnea. No pain at the access site. No sense of palpitations or chest pain. Review of Systems Review of Systems: per HPI Physical Exam Physical Exam: General: Comfortable, frail Eyes: Sclerae anicteric Neuro: Nonfocal Psych: Alert orient x3, normal affect and mood CV: Regular rate, high-pitched crescendo destini Extremities/Vascular: access site in right groin without hematoma or bruit. wound bandaged on left hell and tibia. Erythema receding from drawn margins. Results & Data Vital Signs (Past 12 Hours) Vital Signs Temp Pulse Resp BP Pulse Ox O2 Del Method 02/06/23 11:42 36.8 C 92 H 18 128/71 97 Room Air 02/06/23 07:55 36.7 C 92 H 18 112/50 L 94 Room Air Laboratory Results Abnormal Lab Results 02/05/23 02/05/23 02/05/23 13:32 16:16 17:29 WBC RBC Hgb 7.3 L Hct 23.0 L MCV MCH MCHC RDW Std Deviation RDW Coeff of Sydnie Plt Count MPV Immature Gran % (Auto) Neut % (Auto) Lymph % (Auto) [place] % (Auto) Eos % (Auto) Baso % (Auto) Neut # (Auto) Lymph # (Auto) [place] # (Auto) Eos # (Auto) Baso # (Auto) Immature Gran # (Auto) Neutrophils % (Manual) Lymphocytes % (Manual) Monocytes % (Manual) Eosinophils % (Manual) Neutrophils # (Manual) Total Absolute Neuts Lymphocytes # (Manual) Total Abs Lymphocytes Monocytes # (Manual) Eosinophils # (Manual) RBC Morphology ESR Sodium Potassium Chloride Carbon Dioxide Anion Gap BUN Creatinine Est Cr Clr Drug Dosing Est GFR ( Amer) Est GFR (Non-Af Amer) BUN/Creatinine Ratio Glucose POC Glucose 266 H 172 H Calcium Total Bilirubin Direct Bilirubin AST ALT Alkaline Phosphatase C-Reactive Protein Total Protein Albumin 02/05/23 02/05/23 02/05/23 17:29 17:29 20:20 WBC RBC Hgb Hct MCV MCH MCHC RDW Std Deviation RDW Coeff of Sydnie Plt Count MPV Immature Gran % (Auto) Neut % (Auto) Lymph % (Auto) [place] % (Auto) Eos % (Auto) Baso % (Auto) Neut # (Auto) Lymph # (Auto) [place] # (Auto) Eos # (Auto) Baso # (Auto) Immature Gran # (Auto) Neutrophils % (Manual) Lymphocytes % (Manual) Monocytes % (Manual) Eosinophils % (Manual) Neutrophils # (Manual) Total Absolute Neuts Lymphocytes # (Manual) Total Abs Lymphocytes Monocytes # (Manual) Eosinophils # (Manual) RBC Morphology ESR 40 H Sodium Potassium Chloride Carbon Dioxide Anion Gap BUN Creatinine Est Cr Clr Drug Dosing Est GFR ( Amer) Est GFR (Non-Af Amer) BUN/Creatinine Ratio Glucose POC Glucose 170 H Calcium Total Bilirubin 0.3 Direct Bilirubin 0.0 AST 14 ALT 8 Alkaline Phosphatase 78 C-Reactive Protein 12.10 H Total Protein 5.9 L Albumin 3.0 L 02/06/23 02/06/23 02/06/23 07:15 07:15 07:54 WBC 10.21 RBC 2.54 L Hgb 7.3 L Hct 22.7 L MCV 89.4 MCH 28.7 MCHC 32.2 RDW Std Deviation 40.7 RDW Coeff of Sydnie 12.4 Plt Count 318 MPV 9.7 Immature Gran % (Auto) 0.6 Neut % (Auto) 71.1 Lymph % (Auto) 14.1 [place] % (Auto) 8.8 Eos % (Auto) 4.8 Baso % (Auto) 0.6 Neut # (Auto) 7.26 H Lymph # (Auto) 1.44 Fleming # (Auto) 0.90 H Eos # (Auto) 0.49 Baso # (Auto) 0.06 Immature Gran # (Auto) 0.06 Neutrophils % (Manual) 86 Lymphocytes % (Manual) 7 Monocytes % (Manual) 4 Eosinophils % (Manual) 3 Neutrophils # (Manual) 8.78 H Total Absolute Neuts 8.78 H Lymphocytes # (Manual) 0.71 L Total Abs Lymphocytes 0.71 L Monocytes # (Manual) 0.41 Eosinophils # (Manual) 0.31 RBC Morphology Unremarkable ESR Sodium 138 Potassium 4.2 Chloride 108 H Carbon Dioxide 24 Anion Gap 6 BUN 47 H Creatinine 1.88 H D Est Cr Clr Drug Dosing 14.4 Est GFR ( Amer) 27.0 Est GFR (Non-Af Amer) 23.3 BUN/Creatinine Ratio 25.0 H Glucose 151 H POC Glucose 194 H Calcium 8.2 L Total Bilirubin Direct Bilirubin AST ALT Alkaline Phosphatase C-Reactive Protein Total Protein Albumin 02/06/23 11:30 WBC RBC Hgb Hct MCV MCH MCHC RDW Std Deviation RDW Coeff of Sydnie Plt Count MPV Immature Gran % (Auto) Neut % (Auto) Lymph % (Auto) [place] % (Auto) Eos % (Auto) Baso % (Auto) Neut # (Auto) Lymph # (Auto) [place] # (Auto) Eos # (Auto) Baso # (Auto) Immature Gran # (Auto) Neutrophils % (Manual) Lymphocytes % (Manual) Monocytes % (Manual) Eosinophils % (Manual) Neutrophils # (Manual) Total Absolute Neuts Lymphocytes # (Manual) Total Abs Lymphocytes Monocytes # (Manual) Eosinophils # (Manual) RBC Morphology ESR Sodium Potassium Chloride Carbon Dioxide Anion Gap BUN Creatinine Est Cr Clr Drug Dosing Est GFR ( Amer) Est GFR (Non-Af Amer) BUN/Creatinine Ratio Glucose POC Glucose 193 H Calcium Total Bilirubin Direct Bilirubin AST ALT Alkaline Phosphatase C-Reactive Protein Total Protein Albumin PG Care Time/CCT Total # of Minutes Spent Total Time Spent with Patient: Total time spent is greater than 50% in coordination of care (as documented) at patient's floor/unit and/or counseling patient: Coding Level of Care Code 25115 SUB INP/OBS CARE 2/35MIN Diagnoses PAD (peripheral artery disease) I73.9
[2023-02-06] MEDS: SODIUM CHLORIDE 0.9% 500 ML IV SCH ×2 (12:53→22:16)
[2023-02-06] MEDS: cefTRIAXone SODIUM 2,000 MG in DEXTROSE 5 % MINI-B 50 ML IV SCH (17:39)
[2023-02-06] MEDS: ATORVASTATIN 40 MG TAB PO SCH (20:12)
[2023-02-06] MEDS: OXYBUTYNIN CHLORIDE XL 5 MG TABCR PO SCH (20:12)
[2023-02-07] MEDS: ACETAMINOPHEN 325 MG TAB PO PRN ×2 (03:28→19:23)
[2023-02-07 06:51] LABS: Basophils # (auto) 0.04 K/uL (0.00-0.20); Basophils % (auto) 0.4 %; Eosinophils # (auto) 0.56 K/uL (0.00-0.50); Eosinophils % (auto) 5.5 %; Hematocrit (blood only) 22.4 % (37.0-47.0); Hemoglobin 7.1 g/dl (12.0-16.0); Immature Granulocytes # (auto) 0.04 K/uL (0.01-0.20); Immature Granulocytes % (auto) 0.4 %; Lymphocytes # (auto) 1.33 K/uL (1.20-3.40); Mean Corpuscular Hemoglobin 28.7 pg (25.0-34.0); Mean Corpuscular Hgb Conc 31.7 g/dL (32.0-36.0); Mean Corpuscular Volume 90.7 fL (80.0-100.0); Mean Platelet Volume 10.1 fL (9.4-12.4); Monocytes # (auto) 0.78 K/uL (0.11-0.59); Monocytes % (auto) 7.6 %; Neutrophils # (auto) 7.48 K/uL (1.40-6.50); Neutrophils % (auto) 73.1 %; Platelet Count 315 K/uL (130-400); RDW Coefficient of Variation 12.3 % (11.5-14.5); RDW Standard Deviation 40.5 fL (36.4-46.3); Red Blood Count 2.47 M/uL (4.20-5.40); White Blood Count 10.23 K/ul (4.8-10.8)
[2023-02-07 07:21] LABS: RBC Morphology Unremarkable
[2023-02-07 07:39] LABS: Anion Gap 6 (3-11); BUN Creatinine Ratio 30.9 (10-20); Blood Urea Nitrogen 54 mg/dl (6-23); Calcium 8.2 mg/dl (8.6-10.3); Carbon Dioxide 21 mmol/L (21-32); Chloride 109 mmol/L (98-107); Creatinine Clr Calc Pharmacy 15.5 ml/min; Est GFR (African American) 29.4 ml/min; Est GFR (Non-African American) 25.4 ml/min; Glucose 176 mg/dl (70-99(Fasting)); Sodium 136 mmol/L (136-145)
[2023-02-07] MEDS: FAMOTIDINE 20 MG TAB PO SCH (08:47)
[2023-02-07] MEDS: SODIUM CHLORIDE 0.9% 500 ML IV SCH ×2 (08:47→19:50)
[2023-02-07] MEDS: CLOPIDOGREL BISULFATE 75 MG TAB PO SCH (08:47)
[2023-02-07] MEDS: ARMOUR THYROID 30 MG TAB PO SCH (08:47)
[2023-02-07] MEDS: amLODIPine BESYLATE 5 MG TAB PO SCH (08:47)
[2023-02-07] MEDS: INSULIN ASPART PER UNIT CHARGE SC SCH ×4 (08:49→20:20)
[2023-02-07] MEDS: LANTUS PER UNIT CHARGE SC SCH (08:50)
--- NOTE | 2023-02-07 11:26 | Cardiology Progress Note ---
Date of Service February 07, 2023 Assessment & Plan (1) PAD (peripheral artery disease): Plan: -- post atherectomy/angioplasty to LT SFA in-stent restenosis with 3 vessel distal runoff 2. LLE diabetic/ischemic ulcers 3. LLE cellulitis 4. Acute on chronic renal insufficiency 5. Anemia 6. Type II diabetes 7. Severe, asymptomatic aortic stenosis 8. Chronic venous insufficiency 9. Frailty, cognitive decline, urinary incontinence Post procedure day 3 following successful endovascular intervention to LT SFA no pain at rest No clear access site complications Symptoms of lower extremity discomfort improved. Cellulitis improving Severe aortic stenosis without symptoms or hemodynamic compromise H/H low but stable. No evident bleeding. No overt symptoms of anemia. Increased creatinine. No evidence of volume overload or pulmonary edema. Slight improvement. I think we can stop IV fluids and continue encouraging oral intake. Will need continued admission for antibiotics. Wound care evaluation tomorrow. PT and OT evaluation today (hopefully). She will likely require placement. She has been in [facility] previously for rehab. From a vascular standpoint - -- continue current clopidogrel -- eventually plan switching PAD dose xarelto to full anticoagulation DOAC when Hgb stable -- repeat non-invasive vascular testing in 1-2 weeks. Admission and Anticipated Discharge Date Admission Date: February 04, 2023 Subjective This morning patient was up in chair. Overall she claims to be feeling well. The pain in her left foot has definitely improved. Minimal ambulation. She denies any breathing difficulty. No dizziness or lightheadedness. No sense of palpitation. No chest pain. She ate breakfast without difficulty. Good appetite. Review of Systems Review of Systems: Per HPI Physical Exam Physical Exam: General: Comfortable, frail Eyes: Sclerae anicteric Neuro: Nonfocal Psych: Alert orient x3, normal affect and mood CV: Regular rate, high-pitched crescendo systolic murmur Extremities/Vascular: wound bandaged on left heel and tibia. Erythema receding from drawn margins. Results & Data Vital Signs (Past 12 Hours) Vital Signs Temp Pulse Resp BP Pulse Ox O2 Del Method 02/07/23 07:13 36.7 C 92 H 18 129/65 96 Room Air 02/07/23 03:44 37.0 C 98 H 18 127/66 93 Room Air 02/06/23 23:43 37.0 C 93 H 18 154/68 H 96 Room Air Laboratory Results Abnormal Lab Results 02/06/23 02/06/23 02/06/23 11:30 16:33 20:18 WBC RBC Hgb Hct MCV MCH MCHC RDW Std Deviation RDW Coeff of Sydnie Plt Count MPV Immature Gran % (Auto) Neut % (Auto) Lymph % (Auto) [place] % (Auto) Eos % (Auto) Baso % (Auto) Neut # (Auto) Lymph # (Auto) [place] # (Auto) Eos # (Auto) Baso # (Auto) Immature Gran # (Auto) RBC Morphology Sodium Potassium Chloride Carbon Dioxide Anion Gap BUN Creatinine Est Cr Clr Drug Dosing Est GFR ( Amer) Est GFR (Non-Af Amer) BUN/Creatinine Ratio Glucose POC Glucose 193 H 161 H 181 H Calcium 02/07/23 02/07/23 02/07/23 06:04 06:04 07:15 WBC 10.23 RBC 2.47 L Hgb 7.1 L Hct 22.4 L MCV 90.7 MCH 28.7 MCHC 31.7 L RDW Std Deviation 40.5 RDW Coeff of Sydnie 12.3 Plt Count 315 MPV 10.1 Immature Gran % (Auto) 0.4 Neut % (Auto) 73.1 Lymph % (Auto) 13.0 [place] % (Auto) 7.6 Eos % (Auto) 5.5 Baso % (Auto) 0.4 Neut # (Auto) 7.48 H Lymph # (Auto) 1.33 [place] # (Auto) 0.78 H Eos # (Auto) 0.56 H Baso # (Auto) 0.04 Immature Gran # (Auto) 0.04 RBC Morphology Unremarkable Sodium 136 Potassium TNP Chloride 109 H Carbon Dioxide 21 Anion Gap 6 BUN 54 H Creatinine 1.75 H Est Cr Clr Drug Dosing 15.5 Est GFR ( Amer) 29.4 Est GFR (Non-Af Amer) 25.4 BUN/Creatinine Ratio 30.9 H Glucose 176 H POC Glucose 207 H Calcium 8.2 L 02/07/23 09:20 WBC RBC Hgb Hct MCV MCH MCHC RDW Std Deviation RDW Coeff of Sydnie Plt Count MPV Immature Gran % (Auto) Neut % (Auto) Lymph % (Auto) [place] % (Auto) Eos % (Auto) Baso % (Auto) Neut # (Auto) Lymph # (Auto) [place] # (Auto) Eos # (Auto) Baso # (Auto) Immature Gran # (Auto) RBC Morphology Sodium Potassium 4.3 Chloride Carbon Dioxide Anion Gap BUN Creatinine Est Cr Clr Drug Dosing Est GFR ( Amer) Est GFR (Non-Af Amer) BUN/Creatinine Ratio Glucose POC Glucose Calcium Diagnostic Findings Echocardiogram dated 09/11/2022: Ejection Fraction 70%. Hyperdynamic left ventricle. Moderate LVH. Severe aortic stenosis. Mild mitral regurgitation. PG Care Time/CCT Total # of Minutes Spent Total Time Spent with Patient: Total time spent is greater than 50% in coordination of care (as documented) at patient's floor/unit and/or counseling patient: Coding Level of Care Code 67966 SUB INP/OBS CARE 235MIN Diagnoses PAD (peripheral artery disease) I73.9
--- NOTE | 2023-02-07 15:03 | Pharmacy Report ---
Pharmacy Glycemic Short Note 2 - Date of Service February 07, 2023 - Glycemic Short BSG Results (Last 24 hours): 02/06/23 02/06/23 02/07/23 16:33 20:18 06:04 Glucose 176 H POC Glucose 161 H 181 H 02/07/23 02/07/23 07:15 11:24 Glucose POC Glucose 207 H 202 H OUTPATIENT ANTIDIABETIC REGIMEN: * Lantus 18 units SQ daily * A1c = 7.9% 10/17/22 ASSESSMENT: 02/07: * Felecia received 23 units of insulin yesterday (10 units Lantus + 13 units Novolog). BSGs persistently above goal. * Fasting BSG continues to trend upward. Lunchtime BSG > 200 mg/dL. Will increase insulin regimen by ~ 25% and redistribute as 50% basal + 50% bolus. * Current carb ratio appears to be covering carbs consumed. Patient may benefit from additional correctional insulin. 02/05: * Type 2 diabetic admitted for endovascular procedure with Dr Velez * Will initial basal/bolus SQ regimen. Will use very low dose scaled Lantus initially given fasting BSGs acceptable thus far this hospitalization * Novolog doses will be based upon weight and moderate stress level. PLAN FOR INPATIENT GLYCEMIC CONTROL: * Hold outpatient oral diabetes medications * Basal insulin * Lantus 10-14 units SQ daily * Bolus insulin * NovoLog per scale ACHS or Q6hrs while NPO * Goal Range: Low 120 mg/dL - High 160 mg/dL * Correction Factor: 25 mg/dL/unit * Nutritional / Prandial insulin per carb ratio of 1 unit per 10 grams CHO consumed
[2023-02-07] MEDS ORDERED: MAGNESIUM HYDROXIDE SUSP 30 ML UDC PO PRN (16:38)
[2023-02-07] MEDS: cefTRIAXone SODIUM 2,000 MG in DEXTROSE 5 % MINI-B 50 ML IV SCH (17:36)
[2023-02-07] MEDS: ATORVASTATIN 40 MG TAB PO SCH (20:20)
[2023-02-07] MEDS: OXYBUTYNIN CHLORIDE XL 5 MG TABCR PO SCH (20:20)
[2023-02-07] MEDS ORDERED: Nursing to Pharmacy Communication SCH (23:45)
[2023-02-08 07:07] LABS: Hematocrit (blood only) 21.6 % (37.0-47.0); Hemoglobin 6.9 g/dl (12.0-16.0); Mean Corpuscular Hemoglobin 29.2 pg (25.0-34.0); Mean Corpuscular Hgb Conc 31.9 g/dL (32.0-36.0); Mean Corpuscular Volume 91.5 fL (80.0-100.0); Mean Platelet Volume 9.7 fL (9.4-12.4); Platelet Count 354 K/uL (130-400); RDW Coefficient of Variation 12.7 % (11.5-14.5); RDW Standard Deviation 42.5 fL (36.4-46.3); Red Blood Count 2.36 M/uL (4.20-5.40); White Blood Count 10.69 K/ul (4.8-10.8)
[2023-02-08 07:22] LABS: Basophils # (auto) 0.04 K/uL (0.00-0.20); Basophils % (auto) 0.4 %; Eosinophils % (auto) 5.6 %; Immature Granulocytes # (auto) 0.05 K/uL (0.01-0.20); Immature Granulocytes % (auto) 0.5 %; Lymphocytes # (auto) 1.23 K/uL (1.20-3.40); Lymphocytes % (auto) 11.5 %; Monocytes # (auto) 0.79 K/uL (0.11-0.59); Monocytes % (auto) 7.4 %; Neutrophils # (auto) 7.98 K/uL (1.40-6.50); Neutrophils % (auto) 74.6 %
[2023-02-08 07:23] LABS: BUN Creatinine Ratio 32.7 (10-20); Calcium 8.2 mg/dl (8.6-10.3); Creatinine Clr Calc Pharmacy 18.1 ml/min; Est GFR (African American) 35.4 ml/min; Est GFR (Non-African American) 30.6 ml/min
[2023-02-08] MEDS: SODIUM CHLORIDE 0.9% 500 ML IV SCH ×3 (08:16→23:12)
[2023-02-08] MEDS: amLODIPine BESYLATE 5 MG TAB PO SCH (08:17)
[2023-02-08] MEDS: INSULIN ASPART PER UNIT CHARGE SC SCH ×4 (08:17→20:09)
[2023-02-08] MEDS: CLOPIDOGREL BISULFATE 75 MG TAB PO SCH (08:18)
[2023-02-08] MEDS: FAMOTIDINE 20 MG TAB PO SCH (08:18)
[2023-02-08] MEDS: ARMOUR THYROID 30 MG TAB PO SCH (08:18)
[2023-02-08] MEDS: POLYETHYLENE (MIRALAX) 17 GM PACK PO SCH (08:19)
[2023-02-08] MEDS: LANTUS PER UNIT CHARGE SC SCH (08:21)
--- NOTE | 2023-02-08 09:35 | Pharmacy Report ---
Pharmacy Glycemic Short Note 2 - Date of Service February 08, 2023 - Glycemic Short BSG Results (Last 24 hours): 02/07/23 02/07/23 02/07/23 11:24 15:53 20:08 Glucose POC Glucose 202 H 163 H 82 02/08/23 02/08/23 06:19 07:43 Glucose 163 H POC Glucose 158 H OUTPATIENT ANTIDIABETIC REGIMEN: * Lantus 18 units SQ daily * A1c = 7.9% 10/17/22 ASSESSMENT: 02/08: * Patient received 36 units of insulin yesterday (14 units Lantus + 22 units NovoLog). BSGs improved yesterday after tightening CF/CR and getting 14 units of basal yesterday morning. * Fasting 158mg/dl - continue Lantus at 14 units and CF/CR as changed yesterday, will continue to titrate to goal BSGs. * Patient remains on IV Ceftriaxone for recurrent LLE cellulitis. 02/07: * Felecia received 23 units of insulin yesterday (10 units Lantus + 13 units Novolog). BSGs persistently above goal. * Fasting BSG continues to trend upward. Lunchtime BSG > 200 mg/dL. Will increase insulin regimen by ~ 25% and redistribute as 50% basal + 50% bolus. * Current carb ratio appears to be covering carbs consumed. Patient may benefit from additional correctional insulin. 02/05: * Type 2 diabetic admitted for endovascular procedure with Dr Velez * Will initial basal/bolus SQ regimen. Will use very low dose scaled Lantus initially given fasting BSGs acceptable thus far this hospitalization * Novolog doses will be based upon weight and moderate stress level. PLAN FOR INPATIENT GLYCEMIC CONTROL: * Basal insulin * Lantus 14 units SQ daily (10 units for BSG less than 100mg/dl) * Bolus insulin * NovoLog per scale ACHS or Q6hrs while NPO * Goal Range: Low 120 mg/dL - High 150 mg/dL * Correction Factor: 25 mg/dL/unit * Nutritional / Prandial insulin per carb ratio of 1 unit per 10 grams CHO consumed
[2023-02-08] MEDS ORDERED: SODIUM CHLORIDE 0.9% 250 ML IV PRN (10:12)
--- NOTE | 2023-02-08 11:27 | Hospitalist Progress Note ---
Date of Service February 08, 2023 Assessment & Plan (1) Cellulitis of left leg: Plan: Currently on Rocephin. Improving (2) PAD (peripheral artery disease): Plan: S/p left tibial balloon arthroplasty with stent placement on 02/04/[address] Hiro Velez. History of left SFA/popliteal intervention 03/2021, 10/2021, and 05/2022 (2 stents from ostial SFA to popliteal) (3) Anemia: Plan: Chronic. No overt GI bleeding. Hemoglobin is down to 6.9 today, February 08. She has given consent for blood transfusion. 2 units packed red blood cells ordered. We will repeat H&H later today and again tomorrow morning. Francorelmagaly is currently on hold (4) Diabetes mellitus, with long-term current use of insulin: Plan: Last A1c at 7.9% on 10/17/22. ADA diet. Basal insulin therapy. Sliding scale coverage as needed. (5) JANAY (acute kidney injury): Plan: Mild. Improved. Monitor intake and output. Serial labs (6) Hypertension: Plan: Stable. Continue amlodipine (7) Obesity (BMI 30.0-34.9): Plan: Weight loss recommended (8) Arterial insufficiency with ischemic ulcer: Plan: Medical management per primary service (9) Aortic stenosis: Plan: May eventually require TAVR procedure Plan Hopeful discharge to home soon per primary service Admission and Anticipated Discharge Date Admission Date: February 06, 2023 Subjective Alert and oriented. No acute distress. She is status post atherectomy and angioplasty of the left superficial femoral artery in-stent stenosis yesterday, February 07. Postoperative day #1. She is doing well but her hemoglobin is quite low at 6.9. 2 units packed red blood cells have been ordered. Creatinine boris to 1.8 but it has decreased to 1.5 today. Hopefully the primary service can discharge her to home tomorrow, February 09 Review of Systems Review of Systems: Constitutional-no fever or chills ENT-no blurred vision, no double vision, no epistaxis, no sore throat Respiratory-no cough, no wheezing, no shortness of breath Cardiac-no palpitations, no chest pain, no syncope GI-no nausea, vomiting, diarrhea, melena, hematochezia -no urinary retention, no urinary incontinence, no dysuria, no hematuria Musculoskeletal-no joint pain, no muscle tenderness Skin-no bruising, no rashes, no pruritus Neuro-no isolated weakness, no paresthesia, no weakness Psych-no depression, no anxiety Physical Exam Physical Exam: General-alert and oriented x3, no fevers, no chills HEENT-head atraumatic and normocephalic, pupils equal and reactive to light, extraocular muscles intact Neck-no lymphadenopathy or thyromegaly, trachea midline Chest-clear to auscultation percussion. No rales wheezing or rhonchi Cardiac-regular rate and rhythm, normal S1 and S2 Abdomen-normal bowel sounds, nontender, no hepatosplenomegaly Extremities-no cyanosis, clubbing, or edema Neuro-cranial nerves II through XII intact, motor and sensory function within normal limits, strength symmetrical, no focal deficits Psych-normal affect, normal mood Results & Data Results & Data Vital Signs (Past 12 Hours) Vital Signs Temp Pulse Pulse Resp BP Pulse Ox O2 Del Method 02/08/23 08:55 90 02/08/23 06:52 36.9 C 90 18 129/68 96 Room Air 02/08/23 02:30 36.6 C 95 H 18 127/71 94 Room Air Laboratory Results 02/08/23 06:19 02/08/23 06:19 PG Care Time/CCT Total # of Minutes Spent Total Time Spent with Patient: Total time spent is greater than 50% in coordination of care (as documented) at patient's floor/unit and/or counseling patient: Coding Level of Care Code 53723 SUB INP/OBS CARE 3/50MIN Diagnoses Cellulitis of left leg L03.116 PAD (peripheral artery disease) I73.9 Anemia D64.9 Diabetes mellitus, with long-term current use of insulin E11.9; Z79.4 JANAY (acute kidney injury) N17.9 Hypertension I10 Obesity (BMI 30.0-34.9) E66.9 Arterial insufficiency with ischemic ulcer I77.1; L98.499 Aortic stenosis I35.0
[2023-02-08] MEDS: cefTRIAXone SODIUM 2,000 MG in DEXTROSE 5 % MINI-B 50 ML IV SCH (16:55)
[2023-02-08] MEDS: ACETAMINOPHEN 325 MG TAB PO PRN ×2 (17:04→23:53)
[2023-02-08 18:48] LABS: Hematocrit (blood only) 33.1 % (37.0-47.0); Hemoglobin 10.8 g/dl (12.0-16.0)
[2023-02-08] MEDS: ATORVASTATIN 40 MG TAB PO SCH (19:59)
[2023-02-08] MEDS: OXYBUTYNIN CHLORIDE XL 5 MG TABCR PO SCH (20:00)
--- NOTE | 2023-02-08 23:13 | Vascular Medicine ProgressNote ---
Date of Service February 08, 2023 Assessment & Plan (1) PAD (peripheral artery disease): Plan: -- post atherectomy/angioplasty to LT SFA in-stent restenosis with 3 vessel distal runoff 2. LLE diabetic/ischemic ulcers 3. LLE cellulitis 4. Acute on chronic renal insufficiency 5. Anemia 6. Type II diabetes 7. Severe, asymptomatic aortic stenosis 8. Chronic venous insufficiency 9. Frailty, cognitive decline, urinary incontinence Post procedure day 4 following successful endovascular intervention to LT SFA. Palpable pedal pulse one exam. No clear access site complications Symptoms of lower extremity discomfort improved. Wound images improved. Cellulitis, WBC improved SCr improving. H/H low but stable. No evidence bleeding. Given 2uPRBCs today. Hgb responded appropriately -- Transition to PO antibiotics tomorrow -- Start xarelto 15mg tomorrow if Hgb stalble -- continue current clopidogrel -- [facility] transfer [facility] -- States ready to go home. Wishes to avoid rehab due to concern for more "bills." If stable overnight possible discharge tomorrow. -- repeat non-invasive vascular testing in 1-2 weeks. Admission and Anticipated Discharge Date Admission Date: February 06, 2023 Subjective Patient feeling well today. States LT leg much improved. No fevers/chills. No bleeding. Telemetry reviewed -- no events. Review of Systems Review of Systems: All systems reviewed & are unremarkable except as noted in HPI & below Physical Exam Physical Exam: General: Comfortable, frail Eyes: Sclerae anicteric Neuro: Nonfocal Psych: Alert orient x3, normal affect and mood CV: Regular rate, 2 of 6 mid peaking systolic ejection murmur Extremities/Vascular: -- 2+ radial bilaterally -- 2+ right DP pulse. --Left improved color, Palpable DP pulse. Normal capillary refill -- RT nonpalpable DP/PT. --left lateral calf ulcer dressed and not examined today.Wound images reviewed --No surrounding erythema or drainage. Results & Data Vital Signs (Past 12 Hours) Vital Signs Temp Pulse Pulse Resp BP BP Pulse Ox 02/08/23 22:59 89 02/08/23 20:00 02/08/23 19:28 98.6 F 80 18 156/74 H 97 02/08/23 16:56 98.4 F 83 16 151/67 H 97 02/08/23 16:17 98.4 F 82 17 151/67 H 98 02/08/23 15:54 78 02/08/23 15:47 98.4 F 75 16 147/61 H 100 02/08/23 15:32 98.8 F 79 16 150/55 H 98 02/08/23 15:16 98.6 F 81 18 146/72 H 98 02/08/23 15:01 98.6 F 79 18 147/80 H 98 02/08/23 15:30 98.8 F 78 18 150/55 H 98 02/08/23 14:01 98.6 F 78 18 131/57 L 98 02/08/23 13:31 98.2 F 78 18 122/57 L 98 02/08/23 13:16 98.4 F 80 17 166/66 H 97 02/08/23 12:55 98.1 F 81 16 120/68 98 02/08/23 11:51 98.1 F 80 16 131/72 98 O2 Del Method 02/08/23 22:59 02/08/23 20:00 Room Air 02/08/23 19:28 Room Air 02/08/23 16:56 02/08/23 16:17 02/08/23 15:54 02/08/23 15:47 02/08/23 15:32 02/08/23 15:16 02/08/23 15:01 02/08/23 15:30 02/08/23 14:01 02/08/23 13:31 02/08/23 13:16 02/08/23 12:55 02/08/23 11:51 Room Air PG Care Time/CCT Total # of Minutes Spent Total Time Spent with Patient: Total time spent is greater than 50% in coordination of care (as documented) at patient's floor/unit and/or counseling patient: Coding Level of Care Code 58194 SUB INP/OBS CARE 3/50MIN Diagnoses PAD (peripheral artery disease) I73.9
[2023-02-09 07:46] LABS: Basophils # (auto) 0.07 K/uL (0.00-0.20); Basophils % (auto) 0.5 %; Eosinophils # (auto) 0.51 K/uL (0.00-0.50); Eosinophils % (auto) 3.3 %; Hematocrit (blood only) 35.4 % (37.0-47.0); Hemoglobin 11.9 g/dl (12.0-16.0); Immature Granulocytes # (auto) 0.09 K/uL (0.01-0.20); Immature Granulocytes % (auto) 0.6 %; Lymphocytes # (auto) 1.19 K/uL (1.20-3.40); Lymphocytes % (auto) 7.8 %; Mean Corpuscular Hemoglobin 29.6 pg (25.0-34.0); Mean Corpuscular Hgb Conc 33.6 g/dL (32.0-36.0); Mean Corpuscular Volume 88.1 fL (80.0-100.0); Mean Platelet Volume 9.6 fL (9.4-12.4); Monocytes # (auto) 1.13 K/uL (0.11-0.59); Monocytes % (auto) 7.4 %; Neutrophils # (auto) 12.31 K/uL (1.40-6.50); Neutrophils % (auto) 80.4 %; Platelet Count 385 K/uL (130-400); Red Blood Count 4.02 M/uL (4.20-5.40)
[2023-02-09] MEDS: CLOPIDOGREL BISULFATE 75 MG TAB PO SCH (07:57)
[2023-02-09] MEDS: FAMOTIDINE 20 MG TAB PO SCH (07:58)
[2023-02-09] MEDS: POLYETHYLENE (MIRALAX) 17 GM PACK PO SCH (07:58)
[2023-02-09] MEDS: ARMOUR THYROID 30 MG TAB PO SCH (07:58)
[2023-02-09] MEDS: amLODIPine BESYLATE 5 MG TAB PO SCH (07:58)
[2023-02-09] MEDS: INSULIN ASPART PER UNIT CHARGE SC SCH ×2 (08:01→12:55)
[2023-02-09] MEDS: LANTUS PER UNIT CHARGE SC SCH (08:02)
[2023-02-09 08:12] LABS: BUN Creatinine Ratio 34.1 (10-20); Calcium 8.8 mg/dl (8.6-10.3); Creatinine Clr Calc Pharmacy 21.6 ml/min; Est GFR (African American) 43.7 ml/min; Est GFR (Non-African American) 37.7 ml/min; Potassium 4.9 mmol/L (3.5-5.1)
[2023-02-09] MEDS ORDERED: cephALEXin 500 MG CAP PO SCH (09:00)
--- NOTE | 2023-02-09 12:20 | Hospitalist Progress Note ---
Date of Service February 09, 2023 Assessment & Plan (1) Cellulitis of left leg: Plan: Currently on Rocephin. Improving. Primary service will probably send her home on an oral antibiotic (2) PAD (peripheral artery disease): Plan: S/p left tibial balloon arthroplasty with stent placement on 02/04/[address] Hiro Velez. History of left SFA/popliteal intervention 03/2021, 10/2021, and 05/2022 (2 stents from ostial SFA to popliteal) (3) Anemia: Plan: Chronic. No overt GI bleeding. Hemoglobin was down to 6.9 on February 08. She received 2 units packed red blood cells and now hemoglobin is up to 11.9. Xarelto is currently on hold and she tells me it will not be restarted (4) Diabetes mellitus, with long-term current use of insulin: Plan: Last A1c at 7.9% on 10/17/22. ADA diet. Basal insulin therapy. Sliding scale coverage as needed. (5) JANAY (acute kidney injury): Plan: Mild. Improved. Monitor intake and output. Serial labs (6) Hypertension: Plan: Stable. Continue amlodipine (7) Obesity (BMI 30.0-34.9): Plan: Weight loss recommended (8) Arterial insufficiency with ischemic ulcer: Plan: Medical management per primary service (9) Aortic stenosis: Plan: May eventually require TAVR procedure Plan She flatly refuses to consider SNF or IPR placement. She does agree to home health services with home PT. Admission and Anticipated Discharge Date Admission Date: February 06, 2023 Subjective Alert and oriented. Hemoglobin much better after transfusion. Hemoglobin 11.9 this morning. She flatly refuses to consider SNF or rehab. She does agree to home health services and home PT. Glucose 160 this morning. She appears medically stable for discharge Review of Systems Review of Systems: Constitutional-no fever or chills ENT-no blurred vision, no double vision, no epistaxis, no sore throat Respiratory-no cough, no wheezing, no shortness of breath Cardiac-no palpitations, no chest pain, no syncope GI-no nausea, vomiting, diarrhea, melena, hematochezia -no urinary retention, no urinary incontinence, no dysuria, no hematuria Musculoskeletal-no joint pain, no muscle tenderness Skin-no bruising, no rashes, no pruritus Neuro-no isolated weakness, no paresthesia, no weakness Psych-no depression, no anxiety Physical Exam Physical Exam: General-alert and oriented x3, no fevers, no chills HEENT-head atraumatic and normocephalic, pupils equal and reactive to light, extraocular muscles intact Neck-no lymphadenopathy or thyromegaly, trachea midline Chest-clear to auscultation percussion. No rales wheezing or rhonchi Cardiac-regular rate and rhythm, normal S1 and S2 Abdomen-normal bowel sounds, nontender, no hepatosplenomegaly Extremities-no cyanosis, clubbing, or edema Neuro-cranial nerves II through XII intact, motor and sensory function within normal limits, strength symmetrical, no focal deficits Psych-normal affect, normal mood Results & Data Results & Data Vital Signs (Past 12 Hours) Vital Signs Temp Pulse Resp BP Pulse Ox O2 Del Method 02/09/23 11:59 37.2 C 103 H 18 180/81 H 97 Room Air 02/09/23 07:46 36.6 C 100 H 18 178/69 H 94 Room Air 02/09/23 02:27 37.1 C 103 H 18 171/66 H 94 Room Air Laboratory Results 02/09/23 06:50 02/09/23 06:50 PG Care Time/CCT Total # of Minutes Spent Total Time Spent with Patient: Total time spent is greater than 50% in coordination of care (as documented) at patient's floor/unit and/or counseling patient: Coding Level of Care Code 72733 SUB INP/OBS CARE 3/50MIN Diagnoses Cellulitis of left leg L03.116 PAD (peripheral artery disease) I73.9 Anemia D64.9 Diabetes mellitus, with long-term current use of insulin E11.9; Z79.4 JANAY (acute kidney injury) N17.9 Hypertension I10 Obesity (BMI 30.0-34.9) E66.9 Arterial insufficiency with ischemic ulcer I77.1; L98.499 Aortic stenosis I35.0
--- NOTE | 2023-02-17 15:55 | Discharge Summary ---
Date of Service February 17, 2023 Admission HPI Per Admitting Provider Ms. Sterling is a 87-year-old woman with a history of type 2 diabetes, severe asymptomatic aortic stenosis, chronic renal insufficiency, anemia and longstanding left lower extremity wound in the setting of peripheral arterial disease who presented to [facility] for repeat left lower extremity angiogram and likely intervention. Underwent successful atherectomy and angioplasty of left SFA in-stent restenosis. Admitted post procedure for observation. On following day appear to have left lower extremity cellulitis with limiting leg pain. Also with JANAY and worsening anemia. Discharge Data Consultations 02/07/23 16:56 Consult Hospitalist Routine Procedures Performed Operation Date: 02/04/23 11:00 Actual Procedures p Angio Extremity Unilateral - Hiro Velez MD s Ultrasound Vascular Access - Hiro Velez MD s Placement Art Occlusive Device - Hiro Velez MD p Tibial Peroneal Balloon - Hiro Velez MD p Tibioperoneal Balloon Atherect - Hiro Velez MD Hospital Course (1) PAD (peripheral artery disease): -- post atherectomy/angioplasty to LT SFA in-stent restenosis with 3 vessel distal runoff 2. LLE diabetic/ischemic ulcers 3. LLE cellulitis 4. Acute on chronic renal insufficiency 5. Anemia 6. Type II diabetes 7. Severe, asymptomatic aortic stenosis 8. Chronic venous insufficiency 9. Frailty, cognitive decline, urinary incontinence Patient underwent successful endovascular invention to left SFA diffuse in-stent restenosis with mechanical atherectomy and balloon angioplasty on 02/04/2023. She was admitted post procedure in the setting of persistent left lower extremity pain around wound site with cellulitis. Also with JANAY and worsening anemia. Patient was started on IV antibiotics with rapid improvement in lower extremity erythema and leukocytosis. Serum creatinine peaked at 1.88 and trended back to baseline with IV fluids. Hemoglobin dropped from admission 9.6 down to low of 6.9 and was transfused 2 units. Appropriate response back to 10.8. Patient also evaluated by PT OT, case management. Patient adamant that she wanted to return home. Previously had home health arranged. From a vascular standpoint discharged home on clopidogrel and Xarelto 2.5 twice daily changed to Xarelto 15 mg daily. To complete additional 5-day course of Keflex. Follow-up with primary care, vascular medicine and wound care. Repeat noninvasive vascular testing in 1 to 2 weeks Discharge Instructions Home Medications omega-3 fatty acids 1,000 mg capsule (Fish Oil Concentrate) 1,000 mg PO QDL 10/20/18 [History Confirmed 02/16/23] cyanocobalamin (vitamin B-12) 1,000 mcg tablet (Vitamin B-12) 1,000 mcg PO QDL 11/14/18 [History Confirmed 02/16/23] cholecalciferol (vitamin D3) 50 mcg (2,000 unit) capsule 2,000 units PO QDL 11/30/18 [History Confirmed 02/16/23] glucosamine-chondroitin 250 mg-200 mg tablet (Osteo Bi-Flex) 1 tab PO QDL pain 11/30/18 [History Confirmed 02/16/23] clopidogrel 75 mg tablet 75 mg PO DAILY #90 tabs 01/30/22 [Rx Confirmed 02/16/23] insulin glargine 100 unit/mL (3 mL) subcutaneous pen (Lantus Solostar U-100 Insulin) See Rx Instructions .Route .COMPLEX #45 mL 03/10/22 [Rx Confirmed 02/16/23] oxybutynin chloride 5 mg tablet,extended release 24 hr 5 mg PO HS #90 tabs 05/25/22 [Rx Confirmed 02/16/23] thyroid (pork) 60 mg tablet ([place] Thyroid) 60 mg PO QAM #90 tabs 07/16/22 [Rx Confirmed 02/16/23] atorvastatin 80 mg tablet 80 mg PO HS 10/16/22 [History Confirmed 02/16/23] amlodipine 2.5 mg tablet 2.5 mg PO DAILY #90 tabs 01/27/23 [Rx Confirmed 02/16/23] famotidine 20 mg tablet 20 mg PO QAM #90 tabs 01/27/23 [Rx Confirmed 02/16/23] rivaroxaban 15 mg tablet (Xarelto) 15 mg PO DAILY #30 tabs 02/05/23 [Rx Confi rmed 02/16/23] mupirocin 2 % topical ointment 1 applic topical BID PRN wound care #22 grams 02/10/23 [Rx Confirmed 02/16/23] polyethylene glycol 3350 17 gram oral powder packet (Miralax) 17 g PO DAILY PRN constipation #0 ea 02/10/23 [Rx Confirmed 02/16/23] vit C 250 mg-vit E 90 mg-zinc 40 mg-copper 1 ci-djpxne-djuxdu capsule (PreserVision AREDS-2) 1 tab PO BID 02/10/23 [History Confirmed 02/16/23] cephalexin 500 mg capsule 500 mg PO BID 7 days #14 caps 02/16/23 [Rx Confirmed 02/16/23] Coding Level of Care Code 15896 IN/OBS DISCH 30 MIN/LESS Diagnoses PAD (peripheral artery disease) I73.9
== END 2023-02-09 15:55 | disposition home health service (06) | DRG 271 ==
LOC: EP 10:06 → INTOOBSV 15:47 → 2S 15:47 → SUATTDRO 02-06 16:14
PROC: CLB.AEU (2023-02-04 11:00)